=== PATIENT | male | born 1960 ===

== ENCOUNTER 2016-09-16 | Inpatient (IN) | END 2017-09-15 23:59 | disposition other institution (70) | DRG 133 | DX: J96.11 Chronic respiratory failure with hypoxia (principal); G93.1 Anoxic brain damage, not elsewhere classified; L89.303 Pressure ulcer of unspecified buttock, stage 3; Z93.0 Tracheostomy status; I42.9 Cardiomyopathy, unspecified; R13.10 Dysphagia, unspecified; I48.91 Unspecified atrial fibrillation; G40.901 Epilepsy, unspecified, not intractable, with status epilepticus; I10 Essential (primary) hypertension; Z93.1 Gastrostomy status; E11.9 Type 2 diabetes mellitus without complications; I25.10 Atherosclerotic heart disease of native coronary artery without angina pectoris; E78.5 Hyperlipidemia, unspecified; Z79.01 Long term (current) use of anticoagulants ==

== ENCOUNTER 2017-09-16 | Inpatient (IN) | END 2018-09-15 23:59 | disposition still patient (30) | DRG 189 | DX: J96.11 Chronic respiratory failure with hypoxia (principal); L89.303 Pressure ulcer of unspecified buttock, stage 3; G93.1 Anoxic brain damage, not elsewhere classified; I42.9 Cardiomyopathy, unspecified; N39.0 Urinary tract infection, site not specified; K94.22 Gastrostomy infection; K94.23 Gastrostomy malfunction; L03.311 Cellulitis of abdominal wall; R40.3 Persistent vegetative state; I69.398 Other sequelae of cerebral infarction; Z93.0 Tracheostomy status; R13.10 Dysphagia, unspecified; I48.91 Unspecified atrial fibrillation; G40.901 Epilepsy, unspecified, not intractable, with status epilepticus; Z93.1 Gastrostomy status; E11.9 Type 2 diabetes mellitus without complications; I25.10 Atherosclerotic heart disease of native coronary artery without angina pectoris; E78.5 Hyperlipidemia, unspecified; Z79.01 Long term (current) use of anticoagulants; D63.8 Anemia in other chronic diseases classified elsewhere; I11.0 Hypertensive heart disease with heart failure; J40 Bronchitis, not specified as acute or chronic; I50.9 Heart failure, unspecified; L02.92 Furuncle, unspecified ==

== ENCOUNTER 2017-11-28 14:45 | Outpatient (CLI) | payer MEDICAID | END 2017-11-28 23:59 | disposition home or self-care (01) | LOC: RAD 14:45 | PROVIDERS: ATTEND Internal Medicine Pulmonary Disease | DX: K94.23 Gastrostomy malfunction (principal); K63.89 Other specified diseases of intestine; I51.7 Cardiomegaly; I31.3 Pericardial effusion (noninflammatory) ==

== ENCOUNTER 2017-11-29 10:05 | Day surgery (SDC) | payer MEDICAID ==
[2017-11-29] MEDS ORDERED: ETOMIDATE 20 MG/10 ML VIAL MC ONE (10:06)
[2017-11-29] MEDS ORDERED: PROPOFOL 200 MG/20 ML BOTTLE IV ONE (10:06)
[2017-11-29] MEDS ORDERED: CEFAZOLIN 1 G VIAL MC ONE (10:06)
[2017-11-29] MEDS ORDERED: ESMOLOL HCL 100 MG/10 ML VIAL IV ONE (14:39)
== END 2017-11-29 15:42 | disposition still patient (30) ==
LOC: DS 10:05
PROVIDERS: ATTEND Internal Medicine Gastroenterology
DX: T85.528A Displacement of other gastrointestinal prosthetic devices, implants and grafts, initial encounter (principal); I10 Essential (primary) hypertension; F41.9 Anxiety disorder, unspecified; I42.9 Cardiomyopathy, unspecified; E11.9 Type 2 diabetes mellitus without complications; G40.909 Epilepsy, unspecified, not intractable, without status epilepticus
CPT/HCPCS: 43235; A4217; J0690; J3490

== ENCOUNTER 2018-09-16 | Inpatient (IN) | payer MEDICARE, MEDICAID ==
[~2018-09-16] VITALS: Ht 188 cm; Wt 89.8 kg
[2018-09-17 08:06] VITALS: BP 113/78
[2018-09-17] MEDS ORDERED: DEXTROSE 50% 50 ML DISP.SYRIN IV PRN (09:30)
[2018-09-17] MEDS ORDERED: HYDROGEN PEROXIDE 3% 118 ML BOTTLE TP PRN (09:30)
[2018-09-17] MEDS ORDERED: HYDROCODONE/APAP 5-325MG TABLET GT PRN (09:30)
[2018-09-17] MEDS ORDERED: HYDROCODONE BIT/HOMATROPINE 5 ML UDC GT PRN (09:45)
[2018-09-17] MEDS ORDERED: IPRATROPIUM BROMIDE 0.5 MG/2.5 ML NEBU NEB PRN (09:45)
[2018-09-17] MEDS ORDERED: ACETAMINOPHEN 650 MG/20 ML UDC- SA PATIENTS-FEVER ONLY GT PRN (09:45)
[2018-09-17] MEDS ORDERED: MELATONIN 3 MG GT PRN (09:45)
[2018-09-17] MEDS: METOPROLOL TARTRATE 100 MG TABLET GT SCH (09:47)
[2018-09-17] MEDS: LEVETIRACETAM 500 MG/5 ML LIQUID UDC GT SCH ×2 (09:50→21:30)
[2018-09-17] MEDS: SPIRONOLACTONE 25 MG TABLET GT SCH (09:50)
[2018-09-17] MEDS: AMANTADINE 50MG/5ML GT SCH (09:50)
[2018-09-17] MEDS: Z GUARD REMEDY PASTE 57 GM TUBE TP SCH ×2 (09:51→21:30)
[2018-09-17] MEDS: ASPIRIN 81 MG TAB.CHEW GT SCH (09:51)
[2018-09-17] MEDS: VIMPAT 150 MG GT SCH ×2 (09:52→21:30)
[2018-09-17] MEDS: PHENOBARBITAL 64.8 MG TABLET GT SCH (09:52)
[2018-09-17] MEDS: COD LIVER OIL/ZINC OXIDE OINT 113 GM TUBE TP SCH ×2 (09:52→21:30)
[2018-09-17] MEDS: POTASSIUM CHLORIDE 40 MEQ/30 ML LIQUID UDC GT SCH (09:54)
[2018-09-17] MEDS: ACIDOPHILUS/BULGARICUS CHEW TAB GT SCH ×2 (09:55→21:30)
[2018-09-17] MEDS: HYDROGEN PEROXIDE 3% 118 ML BOTTLE TP SCH ×2 (09:56→21:30)
[2018-09-17] MEDS: BLOOD SUGAR DIAGNOSTIC 1 EACH STRIP VI SCH ×2 (11:49→18:07)
[2018-09-17] MEDS: INSULIN REGULAR, HUMAN 300 UNIT/3 ML VIAL SQ PRN ×2 (11:50→18:09)
[2018-09-17] MEDS: IPRATROPIUM BROMIDE 0.5 MG/2.5 ML NEBU NEB SCH ×2 (13:17→19:18)
[2018-09-17] MEDS: ALBUTEROL SULFATE 2.5 MG/3 ML NEBU NEB SCH ×2 (13:17→19:18)
[2018-09-17] MEDS: BENZTROPINE MESYLATE 0.5 MG TABLET GT SCH ×2 (13:56→22:16)
[2018-09-17] MEDS: GLUCERNA 1.2 1000ML LIQUID GT SCH (13:56)
[2018-09-17] MEDS: INSULIN NPH SQ SCH ×2 (13:57→22:20)
[2018-09-17] MEDS ORDERED: INSULIN NPH SQ SCH (14:00)
[2018-09-17] MEDS: PHENYTOIN 100 MG/4 ML UDC GT SCH (18:06)
[2018-09-17] MEDS: LISINOPRIL 20 MG TABLET GT SCH (18:06)
[2018-09-17 20:00] VITALS: BP 135/79
[2018-09-17] MEDS: ENOXAPARIN SODIUM 40 MG/0.4 ML DISP.SYRIN SQ SCH (21:30)
[2018-09-17] MEDS: NUTRISOURCE FIBER 4 GM PACKET PO SCH (21:30)
[2018-09-17] MEDS: PHENOBARBITAL 97.2 MG TABLET GT SCH (21:30)
[2018-09-17] MEDS: DIGOXIN 125 MCG TABLET GT SCH (21:30)
[2018-09-17] MEDS: PROTEIN SUPPLEMENT (PROSTAT) 30 ML LIQUID GT SCH (21:30)
[2018-09-17] MEDS: MELATONIN 3 MG GT SCH (21:30)
[2018-09-18] MEDS: BLOOD SUGAR DIAGNOSTIC 1 EACH STRIP VI SCH ×4 (00:46→18:03)
[2018-09-18] MEDS: INSULIN REGULAR, HUMAN 300 UNIT/3 ML VIAL SQ PRN ×4 (00:50→18:04)
[2018-09-18] MEDS: IPRATROPIUM BROMIDE 0.5 MG/2.5 ML NEBU NEB SCH ×4 (00:58→19:25)
[2018-09-18] MEDS: ALBUTEROL SULFATE 2.5 MG/3 ML NEBU NEB SCH ×4 (00:58→19:25)
[2018-09-18] MEDS: OMEPRAZOLE 20 MG CAPSULE.DR GT SCH (05:52)
[2018-09-18] MEDS: FERROUS SULFATE 330 MG/7.5 ML UDC- FOR SA ONLY GT SCH (05:52)
[2018-09-18] MEDS: LISINOPRIL 20 MG TABLET GT SCH ×2 (05:52→18:03)
[2018-09-18] MEDS: CYANOCOBALAMIN 100 MCG TABLET GT SCH (05:52)
[2018-09-18] MEDS: LORATADINE 10 MG TABLET GT SCH (05:52)
[2018-09-18] MEDS: PHENYTOIN 100 MG/4 ML UDC GT SCH ×2 (05:52→18:00)
[2018-09-18] MEDS: FOLIC ACID 1 MG TABLET GT SCH (05:52)
[2018-09-18] MEDS: BENZTROPINE MESYLATE 0.5 MG TABLET GT SCH ×3 (05:52→21:12)
[2018-09-18] MEDS: INSULIN NPH SQ SCH ×3 (06:01→21:20)
[2018-09-18] MEDS: GLUCERNA 1.2 1000ML LIQUID GT SCH ×2 (07:00→23:17)
[2018-09-18 08:05] VITALS: BP 127/80
[2018-09-18] MEDS: SPIRONOLACTONE 25 MG TABLET GT SCH (09:13)
[2018-09-18] MEDS: LEVETIRACETAM 500 MG/5 ML LIQUID UDC GT SCH ×2 (09:13→21:09)
[2018-09-18] MEDS: ACIDOPHILUS/BULGARICUS CHEW TAB GT SCH ×2 (09:13→21:09)
[2018-09-18] MEDS: ASPIRIN 81 MG TAB.CHEW GT SCH (09:13)
[2018-09-18] MEDS: PHENOBARBITAL 64.8 MG TABLET GT SCH (09:14)
[2018-09-18] MEDS: METOPROLOL TARTRATE 100 MG TABLET GT SCH (09:14)
[2018-09-18] MEDS: AMANTADINE 50MG/5ML GT SCH (09:14)
[2018-09-18] MEDS: VIMPAT 150 MG GT SCH ×2 (09:15→21:11)
[2018-09-18] MEDS: Z GUARD REMEDY PASTE 57 GM TUBE TP SCH ×2 (09:15→21:12)
[2018-09-18] MEDS: COD LIVER OIL/ZINC OXIDE OINT 113 GM TUBE TP SCH ×2 (09:15→21:12)
[2018-09-18] MEDS: POTASSIUM CHLORIDE 40 MEQ/30 ML LIQUID UDC GT SCH (09:15)
[2018-09-18] MEDS: NUTRISOURCE FIBER 4 GM PACKET PO SCH ×2 (09:15→21:12)
[2018-09-18] MEDS: HYDROGEN PEROXIDE 3% 118 ML BOTTLE TP SCH ×2 (09:15→21:12)
--- NOTE | 2018-09-18 14:45 | NUR ---
2:20pm: KD met with patient's dick/SJ Prabhakar today and obtained signatures on all annual admission paperwork for patient's new chart. The paperwork included: Condition of Admission, Patient Rights Acknowledgement, An Important Message from Medicare about your Rights, Documentation of Preferred Intensity of Care, Voluntary Prior Express Consent Form, and the [facility] Agreement. KD offered Vanna a copy of the signed forms, and Vanna declined. For all assessment/quarterly information, see patient's previous chart #[id number].
[2018-09-18 20:39] VITALS: BP 137/82
[2018-09-18] MEDS: MELATONIN 3 MG GT SCH (21:10)
[2018-09-18] MEDS: DIGOXIN 125 MCG TABLET GT SCH (21:10)
[2018-09-18] MEDS: PHENOBARBITAL 97.2 MG TABLET GT SCH (21:11)
[2018-09-18] MEDS: PROTEIN SUPPLEMENT (PROSTAT) 30 ML LIQUID GT SCH (21:11)
[2018-09-18] MEDS: MULTIVIT, IRON, MIN NO. 8, FA TABLET GT SCH (21:11)
[2018-09-18] MEDS: ENOXAPARIN SODIUM 40 MG/0.4 ML DISP.SYRIN SQ SCH (21:21)
[2018-09-18] MEDS: CYCLOBENZAPRINE HCL 10 MG TABLET PO PRN (23:00)
[2018-09-19] MEDS: INSULIN REGULAR, HUMAN 300 UNIT/3 ML VIAL SQ PRN ×4 (01:18→17:16)
[2018-09-19] MEDS: IPRATROPIUM BROMIDE 0.5 MG/2.5 ML NEBU NEB SCH ×4 (01:19→20:35)
[2018-09-19] MEDS: ALBUTEROL SULFATE 2.5 MG/3 ML NEBU NEB SCH ×4 (01:19→20:35)
[2018-09-19] MEDS: CYCLOBENZAPRINE HCL 10 MG TABLET PO PRN (01:58)
[2018-09-19] MEDS: GUAIFENESIN/DEXTROMETHORPHAN 5 ML UDC GT PRN ×2 (04:15→22:00)
[2018-09-19] MEDS: PHENYTOIN 100 MG/4 ML UDC GT SCH ×2 (05:22→17:11)
[2018-09-19] MEDS: LORATADINE 10 MG TABLET GT SCH (05:22)
[2018-09-19] MEDS: FERROUS SULFATE 330 MG/7.5 ML UDC- FOR SA ONLY GT SCH (05:22)
[2018-09-19] MEDS: BLOOD SUGAR DIAGNOSTIC 1 EACH STRIP VI SCH ×4 (05:22→17:15)
[2018-09-19] MEDS: OMEPRAZOLE 20 MG CAPSULE.DR GT SCH (05:22)
[2018-09-19] MEDS: FOLIC ACID 1 MG TABLET GT SCH (05:22)
[2018-09-19] MEDS: CYANOCOBALAMIN 100 MCG TABLET GT SCH (05:22)
[2018-09-19] MEDS: BENZTROPINE MESYLATE 0.5 MG TABLET GT SCH ×3 (05:22→21:23)
[2018-09-19] MEDS: INSULIN NPH SQ SCH ×3 (05:36→21:24)
[2018-09-19] MEDS: LISINOPRIL 20 MG TABLET GT SCH ×2 (05:37→17:15)
[2018-09-19] MEDS: ASPIRIN 81 MG TAB.CHEW GT SCH (08:05)
[2018-09-19] MEDS: ACIDOPHILUS/BULGARICUS CHEW TAB GT SCH ×2 (08:05→20:56)
[2018-09-19] MEDS: SPIRONOLACTONE 25 MG TABLET GT SCH (08:05)
[2018-09-19] MEDS: METOPROLOL TARTRATE 100 MG TABLET GT SCH (08:05)
[2018-09-19] MEDS: LEVETIRACETAM 500 MG/5 ML LIQUID UDC GT SCH ×2 (08:05→20:56)
[2018-09-19] MEDS: PHENOBARBITAL 64.8 MG TABLET GT SCH (08:06)
[2018-09-19] MEDS: AMANTADINE 50MG/5ML GT SCH (08:07)
[2018-09-19] MEDS: VIMPAT 150 MG GT SCH ×2 (08:07→20:57)
[2018-09-19] MEDS: POTASSIUM CHLORIDE 40 MEQ/30 ML LIQUID UDC GT SCH (08:07)
[2018-09-19] MEDS: Z GUARD REMEDY PASTE 57 GM TUBE TP SCH ×2 (08:08→20:58)
[2018-09-19] MEDS: NUTRISOURCE FIBER 4 GM PACKET PO SCH ×2 (08:08→20:58)
[2018-09-19] MEDS: COD LIVER OIL/ZINC OXIDE OINT 113 GM TUBE TP SCH ×2 (08:08→20:58)
[2018-09-19] MEDS: HYDROGEN PEROXIDE 3% 118 ML BOTTLE TP SCH ×2 (08:08→20:58)
[2018-09-19 08:10] VITALS: BP 146/78
[2018-09-19] MEDS: DIGOXIN 125 MCG TABLET GT SCH (20:56)
[2018-09-19] MEDS: PROTEIN SUPPLEMENT (PROSTAT) 30 ML LIQUID GT SCH (20:57)
[2018-09-19] MEDS: PHENOBARBITAL 97.2 MG TABLET GT SCH (20:57)
[2018-09-19] MEDS: MELATONIN 3 MG GT SCH (20:57)
[2018-09-19] MEDS: ENOXAPARIN SODIUM 40 MG/0.4 ML DISP.SYRIN SQ SCH (21:23)
[2018-09-19 22:59] VITALS: BP 122/87
[2018-09-20] MEDS: GLUCERNA 1.2 1000ML LIQUID GT SCH (00:25)
[2018-09-20] MEDS: BLOOD SUGAR DIAGNOSTIC 1 EACH STRIP VI SCH ×4 (00:49→18:17)
[2018-09-20] MEDS: INSULIN REGULAR, HUMAN 300 UNIT/3 ML VIAL SQ PRN ×4 (00:52→18:19)
[2018-09-20] MEDS: ALBUTEROL SULFATE 2.5 MG/3 ML NEBU NEB SCH ×4 (01:17→19:12)
[2018-09-20] MEDS: IPRATROPIUM BROMIDE 0.5 MG/2.5 ML NEBU NEB SCH ×4 (01:17→19:12)
[2018-09-20] MEDS: LORATADINE 10 MG TABLET GT SCH (05:18)
[2018-09-20] MEDS: BENZTROPINE MESYLATE 0.5 MG TABLET GT SCH ×3 (05:18→21:20)
[2018-09-20] MEDS: CYANOCOBALAMIN 100 MCG TABLET GT SCH (05:19)
[2018-09-20] MEDS: FOLIC ACID 1 MG TABLET GT SCH (05:19)
[2018-09-20] MEDS: PHENYTOIN 100 MG/4 ML UDC GT SCH ×2 (05:19→18:20)
[2018-09-20] MEDS: LISINOPRIL 20 MG TABLET GT SCH ×2 (05:19→18:16)
[2018-09-20] MEDS: FERROUS SULFATE 330 MG/7.5 ML UDC- FOR SA ONLY GT SCH (05:19)
[2018-09-20] MEDS: OMEPRAZOLE 20 MG CAPSULE.DR GT SCH (05:19)
[2018-09-20] MEDS: INSULIN NPH SQ SCH ×3 (06:12→21:23)
[2018-09-20] MEDS: GUAIFENESIN/DEXTROMETHORPHAN 5 ML UDC GT PRN ×2 (06:16→21:36)
[2018-09-20 08:12] VITALS: BP 134/91
[2018-09-20] MEDS: POTASSIUM CHLORIDE 40 MEQ/30 ML LIQUID UDC GT SCH (09:56)
[2018-09-20] MEDS: COD LIVER OIL/ZINC OXIDE OINT 113 GM TUBE TP SCH ×2 (09:56→21:19)
[2018-09-20] MEDS: ACIDOPHILUS/BULGARICUS CHEW TAB GT SCH ×2 (09:56→21:15)
[2018-09-20] MEDS: LEVETIRACETAM 500 MG/5 ML LIQUID UDC GT SCH ×2 (09:56→21:15)
[2018-09-20] MEDS: AMANTADINE 50MG/5ML GT SCH (09:56)
[2018-09-20] MEDS: VIMPAT 150 MG GT SCH ×2 (09:56→21:16)
[2018-09-20] MEDS: METOPROLOL TARTRATE 100 MG TABLET GT SCH (09:56)
[2018-09-20] MEDS: SPIRONOLACTONE 25 MG TABLET GT SCH (09:56)
[2018-09-20] MEDS: ASPIRIN 81 MG TAB.CHEW GT SCH (09:56)
[2018-09-20] MEDS: HYDROGEN PEROXIDE 3% 118 ML BOTTLE TP SCH ×2 (09:56→21:19)
[2018-09-20] MEDS: NUTRISOURCE FIBER 4 GM PACKET PO SCH ×2 (09:56→21:18)
[2018-09-20] MEDS: PHENOBARBITAL 64.8 MG TABLET GT SCH (09:56)
[2018-09-20] MEDS: Z GUARD REMEDY PASTE 57 GM TUBE TP SCH ×2 (09:57→21:20)
[2018-09-20] MEDS: NYSTATIN SUSPENSION 5 ML LIQUID UDC XX SCH ×2 (12:00→18:20)
[2018-09-20] MEDS: MELATONIN 3 MG GT SCH (21:15)
[2018-09-20] MEDS: DIGOXIN 125 MCG TABLET GT SCH (21:15)
[2018-09-20] MEDS: PHENOBARBITAL 97.2 MG TABLET GT SCH (21:17)
[2018-09-20] MEDS: MULTIVIT, IRON, MIN NO. 8, FA TABLET GT SCH (21:18)
[2018-09-20] MEDS: PROTEIN SUPPLEMENT (PROSTAT) 30 ML LIQUID GT SCH (21:18)
[2018-09-20] MEDS: ENOXAPARIN SODIUM 40 MG/0.4 ML DISP.SYRIN SQ SCH (21:23)
[2018-09-20] MEDS: ACETAMINOPHEN 650 MG/20 ML UDC- SA PATIENTS-PAIN ONLY GT PRN (21:36)
[2018-09-20 22:19] VITALS: BP 126/82
[2018-09-21] MEDS: NYSTATIN SUSPENSION 5 ML LIQUID UDC XX SCH ×5 (00:53→23:59)
[2018-09-21] MEDS: BLOOD SUGAR DIAGNOSTIC 1 EACH STRIP VI SCH ×5 (00:53→23:59)
[2018-09-21] MEDS: ALBUTEROL SULFATE 2.5 MG/3 ML NEBU NEB SCH ×4 (00:55→20:36)
[2018-09-21] MEDS: INSULIN REGULAR, HUMAN 300 UNIT/3 ML VIAL SQ PRN ×4 (00:55→17:42)
[2018-09-21] MEDS: IPRATROPIUM BROMIDE 0.5 MG/2.5 ML NEBU NEB SCH ×4 (00:55→20:36)
[2018-09-21] MEDS: CYCLOBENZAPRINE HCL 10 MG TABLET PO PRN (00:57)
[2018-09-21] MEDS: GLUCERNA 1.2 1000ML LIQUID GT SCH (05:00)
[2018-09-21] MEDS: GUAIFENESIN/DEXTROMETHORPHAN 5 ML UDC GT PRN (05:11)
[2018-09-21] MEDS: INSULIN NPH SQ SCH ×3 (05:18→22:29)
[2018-09-21] MEDS: CYANOCOBALAMIN 100 MCG TABLET GT SCH (06:04)
[2018-09-21] MEDS: BENZTROPINE MESYLATE 0.5 MG TABLET GT SCH ×3 (06:04→22:28)
[2018-09-21] MEDS: OMEPRAZOLE 20 MG CAPSULE.DR GT SCH (06:04)
[2018-09-21] MEDS: LISINOPRIL 20 MG TABLET GT SCH ×2 (06:04→17:41)
[2018-09-21] MEDS: PHENYTOIN 100 MG/4 ML UDC GT SCH ×2 (06:04→17:41)
[2018-09-21] MEDS: FOLIC ACID 1 MG TABLET GT SCH (06:04)
[2018-09-21] MEDS: FERROUS SULFATE 330 MG/7.5 ML UDC- FOR SA ONLY GT SCH (06:04)
[2018-09-21] MEDS: LORATADINE 10 MG TABLET GT SCH (06:04)
[2018-09-21] MEDS: NUTRISOURCE FIBER 4 GM PACKET PO SCH ×2 (08:52→21:13)
[2018-09-21] MEDS: PHENOBARBITAL 64.8 MG TABLET GT SCH (08:52)
[2018-09-21] MEDS: ACIDOPHILUS/BULGARICUS CHEW TAB GT SCH ×2 (08:52→21:12)
[2018-09-21] MEDS: COD LIVER OIL/ZINC OXIDE OINT 113 GM TUBE TP SCH ×2 (08:52→21:15)
[2018-09-21] MEDS: Z GUARD REMEDY PASTE 57 GM TUBE TP SCH ×2 (08:52→21:15)
[2018-09-21] MEDS: LEVETIRACETAM 500 MG/5 ML LIQUID UDC GT SCH ×2 (08:52→21:12)
[2018-09-21] MEDS: VIMPAT 150 MG GT SCH ×2 (08:52→21:13)
[2018-09-21] MEDS: ASPIRIN 81 MG TAB.CHEW GT SCH (08:52)
[2018-09-21] MEDS: SPIRONOLACTONE 25 MG TABLET GT SCH (08:52)
[2018-09-21] MEDS: AMANTADINE 50MG/5ML GT SCH (08:52)
[2018-09-21] MEDS: HYDROGEN PEROXIDE 3% 118 ML BOTTLE TP SCH ×2 (08:52→21:15)
[2018-09-21] MEDS: METOPROLOL TARTRATE 100 MG TABLET GT SCH (08:52)
[2018-09-21] MEDS: POTASSIUM CHLORIDE 40 MEQ/30 ML LIQUID UDC GT SCH (08:52)
[2018-09-21 11:34] VITALS: BP 113/62
[2018-09-21] MEDS: MELATONIN 3 MG GT SCH (21:13)
[2018-09-21] MEDS: DIGOXIN 125 MCG TABLET GT SCH (21:13)
[2018-09-21] MEDS: PHENOBARBITAL 97.2 MG TABLET GT SCH (21:13)
[2018-09-21] MEDS: PROTEIN SUPPLEMENT (PROSTAT) 30 ML LIQUID GT SCH (21:13)
[2018-09-21] MEDS: ENOXAPARIN SODIUM 40 MG/0.4 ML DISP.SYRIN SQ SCH (21:14)
[2018-09-21 23:13] VITALS: BP 120/81
--- NOTE | 2018-09-22 | NUR ---
On Nystatin oral swab for oral garcia, no adverse reactions noted, good oral care done, no signs of pain or discomfort, kept clean and comfortable.
[2018-09-22] MEDS: INSULIN REGULAR, HUMAN 300 UNIT/3 ML VIAL SQ PRN ×4 (00:01→17:12)
[2018-09-22] MEDS: ALBUTEROL SULFATE 2.5 MG/3 ML NEBU NEB SCH ×4 (01:18→18:57)
[2018-09-22] MEDS: IPRATROPIUM BROMIDE 0.5 MG/2.5 ML NEBU NEB SCH ×4 (01:18→18:57)
[2018-09-22] MEDS: GUAIFENESIN/DEXTROMETHORPHAN 5 ML UDC GT PRN (04:50)
[2018-09-22] MEDS: BENZTROPINE MESYLATE 0.5 MG TABLET GT SCH ×3 (05:09→22:42)
[2018-09-22] MEDS: FERROUS SULFATE 330 MG/7.5 ML UDC- FOR SA ONLY GT SCH (05:09)
[2018-09-22] MEDS: LORATADINE 10 MG TABLET GT SCH (05:09)
[2018-09-22] MEDS: CYANOCOBALAMIN 100 MCG TABLET GT SCH (05:09)
[2018-09-22] MEDS: LISINOPRIL 20 MG TABLET GT SCH ×2 (05:09→17:11)
[2018-09-22] MEDS: FOLIC ACID 1 MG TABLET GT SCH (05:09)
[2018-09-22] MEDS: OMEPRAZOLE 20 MG CAPSULE.DR GT SCH (05:09)
[2018-09-22] MEDS: PHENYTOIN 100 MG/4 ML UDC GT SCH ×2 (05:09→17:11)
[2018-09-22] MEDS: NYSTATIN SUSPENSION 5 ML LIQUID UDC XX SCH ×3 (05:10→17:13)
[2018-09-22] MEDS: INSULIN NPH SQ SCH ×3 (05:10→22:54)
[2018-09-22] MEDS: BLOOD SUGAR DIAGNOSTIC 1 EACH STRIP VI SCH ×3 (05:10→17:11)
[2018-09-22] MEDS: GLUCERNA 1.2 1000ML LIQUID GT SCH (06:45)
[2018-09-22 08:17] VITALS: BP 118/71
[2018-09-22] MEDS: COD LIVER OIL/ZINC OXIDE OINT 113 GM TUBE TP SCH ×2 (08:24→21:00)
[2018-09-22] MEDS: SPIRONOLACTONE 25 MG TABLET GT SCH (08:24)
[2018-09-22] MEDS: AMANTADINE 50MG/5ML GT SCH (08:24)
[2018-09-22] MEDS: VIMPAT 150 MG GT SCH ×2 (08:24→21:00)
[2018-09-22] MEDS: NUTRISOURCE FIBER 4 GM PACKET PO SCH ×2 (08:24→21:00)
[2018-09-22] MEDS: METOPROLOL TARTRATE 100 MG TABLET GT SCH (08:24)
[2018-09-22] MEDS: POTASSIUM CHLORIDE 40 MEQ/30 ML LIQUID UDC GT SCH (08:24)
[2018-09-22] MEDS: ACIDOPHILUS/BULGARICUS CHEW TAB GT SCH ×2 (08:24→21:00)
[2018-09-22] MEDS: ASPIRIN 81 MG TAB.CHEW GT SCH (08:24)
[2018-09-22] MEDS: PHENOBARBITAL 64.8 MG TABLET GT SCH (08:24)
[2018-09-22] MEDS: LEVETIRACETAM 500 MG/5 ML LIQUID UDC GT SCH ×2 (08:24→21:00)
[2018-09-22] MEDS: HYDROGEN PEROXIDE 3% 118 ML BOTTLE TP SCH ×2 (08:24→21:00)
[2018-09-22] MEDS: Z GUARD REMEDY PASTE 57 GM TUBE TP SCH ×2 (08:25→21:00)
[2018-09-22 20:00] VITALS: BP 130/79
[2018-09-22] MEDS: MULTIVIT, IRON, MIN NO. 8, FA TABLET GT SCH (21:00)
[2018-09-22] MEDS: PHENOBARBITAL 97.2 MG TABLET GT SCH (21:00)
[2018-09-22] MEDS: DIGOXIN 125 MCG TABLET GT SCH (21:00)
[2018-09-22] MEDS: PROTEIN SUPPLEMENT (PROSTAT) 30 ML LIQUID GT SCH (21:00)
[2018-09-22] MEDS: MELATONIN 3 MG GT SCH (21:00)
[2018-09-22] MEDS: ENOXAPARIN SODIUM 40 MG/0.4 ML DISP.SYRIN SQ SCH (21:00)
[2018-09-23] MEDS: NYSTATIN SUSPENSION 5 ML LIQUID UDC XX SCH ×4 (00:11→18:54)
[2018-09-23] MEDS: BLOOD SUGAR DIAGNOSTIC 1 EACH STRIP VI SCH ×4 (00:16→17:36)
[2018-09-23] MEDS: INSULIN REGULAR, HUMAN 300 UNIT/3 ML VIAL SQ PRN ×4 (00:21→17:37)
[2018-09-23] MEDS: ALBUTEROL SULFATE 2.5 MG/3 ML NEBU NEB SCH ×4 (00:40→18:47)
[2018-09-23] MEDS: IPRATROPIUM BROMIDE 0.5 MG/2.5 ML NEBU NEB SCH ×4 (00:40→18:47)
[2018-09-23] MEDS: GUAIFENESIN/DEXTROMETHORPHAN 5 ML UDC GT PRN (03:45)
[2018-09-23] MEDS: LORATADINE 10 MG TABLET GT SCH (06:09)
[2018-09-23] MEDS: BENZTROPINE MESYLATE 0.5 MG TABLET GT SCH ×3 (06:10→21:43)
[2018-09-23] MEDS: FERROUS SULFATE 330 MG/7.5 ML UDC- FOR SA ONLY GT SCH (06:12)
[2018-09-23] MEDS: PHENYTOIN 100 MG/4 ML UDC GT SCH ×2 (06:12→17:29)
[2018-09-23] MEDS: OMEPRAZOLE 20 MG CAPSULE.DR GT SCH (06:13)
[2018-09-23] MEDS: FOLIC ACID 1 MG TABLET GT SCH (06:13)
[2018-09-23] MEDS: LISINOPRIL 20 MG TABLET GT SCH ×2 (06:13→17:29)
[2018-09-23] MEDS: CYANOCOBALAMIN 100 MCG TABLET GT SCH (06:14)
[2018-09-23] MEDS: INSULIN NPH SQ SCH ×3 (06:22→21:53)
[2018-09-23] MEDS: AMANTADINE 50MG/5ML GT SCH (08:07)
[2018-09-23] MEDS: VIMPAT 150 MG GT SCH ×2 (08:07→21:42)
[2018-09-23] MEDS: SPIRONOLACTONE 25 MG TABLET GT SCH (08:07)
[2018-09-23] MEDS: ASPIRIN 81 MG TAB.CHEW GT SCH (08:07)
[2018-09-23] MEDS: METOPROLOL TARTRATE 100 MG TABLET GT SCH (08:07)
[2018-09-23] MEDS: NUTRISOURCE FIBER 4 GM PACKET PO SCH ×2 (08:07→21:42)
[2018-09-23] MEDS: PHENOBARBITAL 64.8 MG TABLET GT SCH (08:07)
[2018-09-23] MEDS: LEVETIRACETAM 500 MG/5 ML LIQUID UDC GT SCH ×2 (08:07→21:40)
[2018-09-23] MEDS: ACIDOPHILUS/BULGARICUS CHEW TAB GT SCH ×2 (08:07→21:40)
[2018-09-23] MEDS: POTASSIUM CHLORIDE 40 MEQ/30 ML LIQUID UDC GT SCH (08:07)
[2018-09-23] MEDS: COD LIVER OIL/ZINC OXIDE OINT 113 GM TUBE TP SCH ×2 (08:07→21:42)
[2018-09-23] MEDS: Z GUARD REMEDY PASTE 57 GM TUBE TP SCH ×2 (08:08→21:43)
[2018-09-23] MEDS: HYDROGEN PEROXIDE 3% 118 ML BOTTLE TP SCH ×2 (08:08→21:43)
[2018-09-23 08:18] VITALS: BP 177/109
--- NOTE | 2018-09-23 15:43 | NUR ---
Patient's fiance/POCarina Prabhakar informed this SW that she has scheduled an appointment for patient to go see a neuro-learning and development associate on Saturday10/06/18 at 2pm: [facility], [address], [place], [address]. Vanna stated that she will be making transportation arrangements for [facility]. KD informed kiln charger Keena about the above, and asked her to endorse this information to the other nurses. KD also emailed the daytime kiln charger's and Subacute Director Luis Carlos Lazo about above.
[2018-09-23 20:07] VITALS: BP 130/78
[2018-09-23] MEDS: DIGOXIN 125 MCG TABLET GT SCH (21:41)
[2018-09-23] MEDS: MELATONIN 3 MG GT SCH (21:42)
[2018-09-23] MEDS: PROTEIN SUPPLEMENT (PROSTAT) 30 ML LIQUID GT SCH (21:42)
[2018-09-23] MEDS: PHENOBARBITAL 97.2 MG TABLET GT SCH (21:42)
[2018-09-23] MEDS: ENOXAPARIN SODIUM 40 MG/0.4 ML DISP.SYRIN SQ SCH (21:53)
[2018-09-24] MEDS: ALBUTEROL SULFATE 2.5 MG/3 ML NEBU NEB SCH ×4 (00:36→19:26)
[2018-09-24] MEDS: IPRATROPIUM BROMIDE 0.5 MG/2.5 ML NEBU NEB SCH ×4 (00:36→19:26)
[2018-09-24] MEDS: NYSTATIN SUSPENSION 5 ML LIQUID UDC XX SCH ×4 (00:54→17:59)
[2018-09-24] MEDS: BLOOD SUGAR DIAGNOSTIC 1 EACH STRIP VI SCH ×4 (00:54→18:09)
[2018-09-24] MEDS: INSULIN REGULAR, HUMAN 300 UNIT/3 ML VIAL SQ PRN ×2 (01:05→06:28)
[2018-09-24] MEDS: LORATADINE 10 MG TABLET GT SCH (06:25)
[2018-09-24] MEDS: FERROUS SULFATE 330 MG/7.5 ML UDC- FOR SA ONLY GT SCH (06:25)
[2018-09-24] MEDS: PHENYTOIN 100 MG/4 ML UDC GT SCH ×2 (06:25→18:09)
[2018-09-24] MEDS: FOLIC ACID 1 MG TABLET GT SCH (06:25)
[2018-09-24] MEDS: BENZTROPINE MESYLATE 0.5 MG TABLET GT SCH ×3 (06:25→22:04)
[2018-09-24] MEDS: LISINOPRIL 20 MG TABLET GT SCH ×2 (06:26→18:08)
[2018-09-24] MEDS: OMEPRAZOLE 20 MG CAPSULE.DR GT SCH (06:26)
[2018-09-24] MEDS: CYANOCOBALAMIN 100 MCG TABLET GT SCH (06:26)
[2018-09-24] MEDS: INSULIN NPH SQ SCH ×3 (06:27→22:05)
[2018-09-24 08:00] VITALS: BP 170/95
[2018-09-24] MEDS: PHENOBARBITAL 64.8 MG TABLET GT SCH (09:00)
[2018-09-24] MEDS: METOPROLOL TARTRATE 100 MG TABLET GT SCH (09:00)
[2018-09-24] MEDS: SPIRONOLACTONE 25 MG TABLET GT SCH (09:00)
[2018-09-24] MEDS: ACIDOPHILUS/BULGARICUS CHEW TAB GT SCH ×2 (09:00→21:58)
[2018-09-24] MEDS: POTASSIUM CHLORIDE 40 MEQ/30 ML LIQUID UDC GT SCH (09:00)
[2018-09-24] MEDS: COD LIVER OIL/ZINC OXIDE OINT 113 GM TUBE TP SCH ×2 (09:00→21:00)
[2018-09-24] MEDS: Z GUARD REMEDY PASTE 57 GM TUBE TP SCH ×2 (09:00→21:00)
[2018-09-24] MEDS: NUTRISOURCE FIBER 4 GM PACKET PO SCH ×2 (09:00→21:00)
[2018-09-24] MEDS: VIMPAT 150 MG GT SCH ×2 (09:00→21:59)
[2018-09-24] MEDS: LEVETIRACETAM 500 MG/5 ML LIQUID UDC GT SCH ×2 (09:00→21:58)
[2018-09-24] MEDS: HYDROGEN PEROXIDE 3% 118 ML BOTTLE TP SCH ×2 (09:00→21:00)
[2018-09-24] MEDS: AMANTADINE 50MG/5ML GT SCH (09:00)
[2018-09-24] MEDS: ASPIRIN 81 MG TAB.CHEW GT SCH (09:00)
[2018-09-24] MEDS: ACETAMINOPHEN 650 MG/20 ML UDC- SA PATIENTS-PAIN ONLY GT PRN (10:51)
[2018-09-24 20:15] VITALS: BP 148/92
[2018-09-24] MEDS: ENOXAPARIN SODIUM 40 MG/0.4 ML DISP.SYRIN SQ SCH (21:00)
[2018-09-24] MEDS: PROTEIN SUPPLEMENT (PROSTAT) 30 ML LIQUID GT SCH (21:00)
[2018-09-24] MEDS: MULTIVIT, IRON, MIN NO. 8, FA TABLET GT SCH (21:00)
[2018-09-24] MEDS: PHENOBARBITAL 97.2 MG TABLET GT SCH (21:00)
[2018-09-24] MEDS: DIGOXIN 125 MCG TABLET GT SCH (21:59)
[2018-09-24] MEDS: MELATONIN 3 MG GT SCH (21:59)
[2018-09-25] MEDS: BLOOD SUGAR DIAGNOSTIC 1 EACH STRIP VI SCH ×4 (00:40→18:10)
[2018-09-25] MEDS: NYSTATIN SUSPENSION 5 ML LIQUID UDC XX SCH ×4 (00:40→18:11)
[2018-09-25] MEDS: INSULIN REGULAR, HUMAN 300 UNIT/3 ML VIAL SQ PRN ×4 (00:44→18:12)
[2018-09-25] MEDS: GUAIFENESIN/DEXTROMETHORPHAN 5 ML UDC GT PRN (00:46)
[2018-09-25] MEDS: ALBUTEROL SULFATE 2.5 MG/3 ML NEBU NEB SCH ×4 (01:24→20:12)
[2018-09-25] MEDS: IPRATROPIUM BROMIDE 0.5 MG/2.5 ML NEBU NEB SCH ×4 (01:24→20:12)
[2018-09-25] MEDS: OMEPRAZOLE 20 MG CAPSULE.DR GT SCH (05:05)
[2018-09-25] MEDS: FERROUS SULFATE 330 MG/7.5 ML UDC- FOR SA ONLY GT SCH (05:05)
[2018-09-25] MEDS: BENZTROPINE MESYLATE 0.5 MG TABLET GT SCH ×3 (05:05→21:34)
[2018-09-25] MEDS: PHENYTOIN 100 MG/4 ML UDC GT SCH ×2 (05:05→18:10)
[2018-09-25] MEDS: LORATADINE 10 MG TABLET GT SCH (05:05)
[2018-09-25] MEDS: FOLIC ACID 1 MG TABLET GT SCH (05:05)
[2018-09-25] MEDS: LISINOPRIL 20 MG TABLET GT SCH ×2 (05:05→18:10)
[2018-09-25] MEDS: CYANOCOBALAMIN 100 MCG TABLET GT SCH (05:05)
[2018-09-25] MEDS: INSULIN NPH SQ SCH ×3 (05:07→21:35)
[2018-09-25] MEDS: ACIDOPHILUS/BULGARICUS CHEW TAB GT SCH ×2 (08:00→21:32)
[2018-09-25] MEDS: PHENOBARBITAL 64.8 MG TABLET GT SCH (08:00)
[2018-09-25] MEDS: NUTRISOURCE FIBER 4 GM PACKET PO SCH ×2 (08:00→21:33)
[2018-09-25] MEDS: ASPIRIN 81 MG TAB.CHEW GT SCH (08:00)
[2018-09-25] MEDS: VIMPAT 150 MG GT SCH ×2 (08:00→21:33)
[2018-09-25] MEDS: POTASSIUM CHLORIDE 40 MEQ/30 ML LIQUID UDC GT SCH (08:00)
[2018-09-25] MEDS: SPIRONOLACTONE 25 MG TABLET GT SCH (08:00)
[2018-09-25] MEDS: LEVETIRACETAM 500 MG/5 ML LIQUID UDC GT SCH ×2 (08:00→21:32)
[2018-09-25] MEDS: METOPROLOL TARTRATE 100 MG TABLET GT SCH (08:00)
[2018-09-25] MEDS: AMANTADINE 50MG/5ML GT SCH (08:00)
[2018-09-25] MEDS: COD LIVER OIL/ZINC OXIDE OINT 113 GM TUBE TP SCH ×2 (08:01→21:34)
[2018-09-25] MEDS: Z GUARD REMEDY PASTE 57 GM TUBE TP SCH ×2 (08:02→21:34)
[2018-09-25] MEDS: HYDROGEN PEROXIDE 3% 118 ML BOTTLE TP SCH ×2 (08:02→21:34)
[2018-09-25 10:47] VITALS: BP 110/71
--- NOTE | 2018-09-25 12:15 | NUR ---
SEEN AND EXAMINED BY TIFFANIE MAURICIO.
[2018-09-25 20:27] VITALS: BP 148/85
[2018-09-25] MEDS: PROTEIN SUPPLEMENT (PROSTAT) 30 ML LIQUID GT SCH (21:33)
[2018-09-25] MEDS: MELATONIN 3 MG GT SCH (21:33)
[2018-09-25] MEDS: PHENOBARBITAL 97.2 MG TABLET GT SCH (21:33)
[2018-09-25] MEDS: DIGOXIN 125 MCG TABLET GT SCH (21:33)
[2018-09-25] MEDS: ENOXAPARIN SODIUM 40 MG/0.4 ML DISP.SYRIN SQ SCH (21:33)
[2018-09-26] MEDS: NYSTATIN SUSPENSION 5 ML LIQUID UDC XX SCH ×4 (00:25→17:47)
[2018-09-26] MEDS: BLOOD SUGAR DIAGNOSTIC 1 EACH STRIP VI SCH ×4 (00:25→17:47)
[2018-09-26] MEDS: INSULIN REGULAR, HUMAN 300 UNIT/3 ML VIAL SQ PRN ×4 (00:26→17:59)
[2018-09-26] MEDS: ALBUTEROL SULFATE 2.5 MG/3 ML NEBU NEB SCH ×4 (01:10→18:48)
[2018-09-26] MEDS: IPRATROPIUM BROMIDE 0.5 MG/2.5 ML NEBU NEB SCH ×4 (01:10→18:48)
[2018-09-26] MEDS: LORATADINE 10 MG TABLET GT SCH (06:31)
[2018-09-26] MEDS: OMEPRAZOLE 20 MG CAPSULE.DR GT SCH (06:31)
[2018-09-26] MEDS: BENZTROPINE MESYLATE 0.5 MG TABLET GT SCH ×3 (06:31→22:02)
[2018-09-26] MEDS: PHENYTOIN 100 MG/4 ML UDC GT SCH ×2 (06:31→17:47)
[2018-09-26] MEDS: FERROUS SULFATE 330 MG/7.5 ML UDC- FOR SA ONLY GT SCH (06:31)
[2018-09-26] MEDS: FOLIC ACID 1 MG TABLET GT SCH (06:31)
[2018-09-26] MEDS: LISINOPRIL 20 MG TABLET GT SCH ×2 (06:32→18:45)
[2018-09-26] MEDS: CYANOCOBALAMIN 100 MCG TABLET GT SCH (06:32)
[2018-09-26] MEDS: INSULIN NPH SQ SCH ×3 (06:33→22:36)
[2018-09-26] MEDS: ASPIRIN 81 MG TAB.CHEW GT SCH (08:30)
[2018-09-26] MEDS: ACIDOPHILUS/BULGARICUS CHEW TAB GT SCH ×2 (08:30→21:59)
[2018-09-26] MEDS: SPIRONOLACTONE 25 MG TABLET GT SCH (08:30)
[2018-09-26] MEDS: LEVETIRACETAM 500 MG/5 ML LIQUID UDC GT SCH ×2 (08:31→21:00)
[2018-09-26] MEDS: METOPROLOL TARTRATE 100 MG TABLET GT SCH (08:32)
[2018-09-26] MEDS: PHENOBARBITAL 64.8 MG TABLET GT SCH (08:32)
[2018-09-26] MEDS: NUTRISOURCE FIBER 4 GM PACKET PO SCH ×2 (08:33→21:00)
[2018-09-26] MEDS: POTASSIUM CHLORIDE 40 MEQ/30 ML LIQUID UDC GT SCH (08:33)
[2018-09-26] MEDS: VIMPAT 150 MG GT SCH ×2 (08:33→21:00)
[2018-09-26] MEDS: AMANTADINE 50MG/5ML GT SCH (08:33)
[2018-09-26] MEDS: Z GUARD REMEDY PASTE 57 GM TUBE TP SCH ×2 (08:34→21:00)
[2018-09-26] MEDS: HYDROGEN PEROXIDE 3% 118 ML BOTTLE TP SCH ×2 (08:34→21:59)
[2018-09-26] MEDS: COD LIVER OIL/ZINC OXIDE OINT 113 GM TUBE TP SCH ×2 (08:34→21:00)
[2018-09-26] MEDS: GLUCERNA 1.2 1000ML LIQUID GT SCH (10:40)
[2018-09-26 11:08] VITALS: BP 145/89
--- NOTE | 2018-09-26 12:02 | NUR ---
KD informed patient's dick Prabhakar that the next IDT meeting for the patient is scheduled for 10/07/18 at 11am.
[2018-09-26 20:39] VITALS: BP 122/71
[2018-09-26] MEDS: DIGOXIN 125 MCG TABLET GT SCH (21:00)
[2018-09-26] MEDS: ENOXAPARIN SODIUM 40 MG/0.4 ML DISP.SYRIN SQ SCH (21:00)
[2018-09-26] MEDS: MULTIVIT, IRON, MIN NO. 8, FA TABLET GT SCH (21:00)
[2018-09-26] MEDS: PROTEIN SUPPLEMENT (PROSTAT) 30 ML LIQUID GT SCH (21:00)
[2018-09-26] MEDS: PHENOBARBITAL 97.2 MG TABLET GT SCH (21:00)
[2018-09-26] MEDS: MELATONIN 3 MG GT SCH (21:00)
[2018-09-26] MEDS: CYCLOBENZAPRINE HCL 10 MG TABLET PO PRN (21:59)
--- NOTE | 2018-09-26 22:00 | NUR ---
Remains on Nystatin oral swab for oral garcia, no adverse reactions noted, good oral care done, no signs of any respiratory distress noted, afebrile, kept clean and comfortable.
[2018-09-27] MEDS: NYSTATIN SUSPENSION 5 ML LIQUID UDC XX SCH ×4 (00:13→18:16)
[2018-09-27] MEDS: BLOOD SUGAR DIAGNOSTIC 1 EACH STRIP VI SCH ×4 (00:19→18:16)
[2018-09-27] MEDS: INSULIN REGULAR, HUMAN 300 UNIT/3 ML VIAL SQ PRN ×4 (00:24→18:18)
[2018-09-27] MEDS: ALBUTEROL SULFATE 2.5 MG/3 ML NEBU NEB SCH ×4 (00:35→19:27)
[2018-09-27] MEDS: IPRATROPIUM BROMIDE 0.5 MG/2.5 ML NEBU NEB SCH ×4 (00:35→19:27)
[2018-09-27] MEDS: INSULIN NPH SQ SCH ×3 (06:04→22:15)
[2018-09-27] MEDS: PHENYTOIN 100 MG/4 ML UDC GT SCH ×2 (06:10→18:13)
[2018-09-27] MEDS: LORATADINE 10 MG TABLET GT SCH (06:10)
[2018-09-27] MEDS: OMEPRAZOLE 20 MG CAPSULE.DR GT SCH (06:10)
[2018-09-27] MEDS: BENZTROPINE MESYLATE 0.5 MG TABLET GT SCH ×3 (06:10→22:03)
[2018-09-27] MEDS: FOLIC ACID 1 MG TABLET GT SCH (06:10)
[2018-09-27] MEDS: FERROUS SULFATE 330 MG/7.5 ML UDC- FOR SA ONLY GT SCH (06:10)
[2018-09-27] MEDS: CYANOCOBALAMIN 100 MCG TABLET GT SCH (06:11)
[2018-09-27] MEDS: LISINOPRIL 20 MG TABLET GT SCH ×2 (06:11→18:15)
[2018-09-27] MEDS: ACIDOPHILUS/BULGARICUS CHEW TAB GT SCH ×2 (08:15→21:49)
[2018-09-27] MEDS: LEVETIRACETAM 500 MG/5 ML LIQUID UDC GT SCH ×2 (08:15→21:51)
[2018-09-27] MEDS: ASPIRIN 81 MG TAB.CHEW GT SCH (08:15)
[2018-09-27] MEDS: SPIRONOLACTONE 25 MG TABLET GT SCH (08:15)
[2018-09-27] MEDS: Z GUARD REMEDY PASTE 57 GM TUBE TP SCH ×2 (08:16→22:02)
[2018-09-27] MEDS: PHENOBARBITAL 64.8 MG TABLET GT SCH (08:16)
[2018-09-27] MEDS: METOPROLOL TARTRATE 100 MG TABLET GT SCH (08:16)
[2018-09-27] MEDS: POTASSIUM CHLORIDE 40 MEQ/30 ML LIQUID UDC GT SCH (08:16)
[2018-09-27] MEDS: COD LIVER OIL/ZINC OXIDE OINT 113 GM TUBE TP SCH ×2 (08:16→22:01)
[2018-09-27] MEDS: AMANTADINE 50MG/5ML GT SCH (08:16)
[2018-09-27] MEDS: NUTRISOURCE FIBER 4 GM PACKET PO SCH ×2 (08:16→21:55)
[2018-09-27] MEDS: VIMPAT 150 MG GT SCH ×2 (08:16→21:54)
[2018-09-27] MEDS: HYDROGEN PEROXIDE 3% 118 ML BOTTLE TP SCH ×2 (08:16→22:01)
[2018-09-27 11:10] VITALS: BP 133/85
[2018-09-27] MEDS: GLUCERNA 1.2 1000ML LIQUID GT SCH (11:31)
[2018-09-27 20:28] VITALS: BP 122/76
[2018-09-27] MEDS: DIGOXIN 125 MCG TABLET GT SCH (21:50)
[2018-09-27] MEDS: MELATONIN 3 MG GT SCH (21:53)
[2018-09-27] MEDS: PROTEIN SUPPLEMENT (PROSTAT) 30 ML LIQUID GT SCH (21:55)
[2018-09-27] MEDS: PHENOBARBITAL 97.2 MG TABLET GT SCH (22:00)
[2018-09-27] MEDS: ENOXAPARIN SODIUM 40 MG/0.4 ML DISP.SYRIN SQ SCH (22:09)
[2018-09-28] MEDS: NYSTATIN SUSPENSION 5 ML LIQUID UDC XX SCH ×5 (00:35→23:39)
[2018-09-28] MEDS: BLOOD SUGAR DIAGNOSTIC 1 EACH STRIP VI SCH ×5 (00:48→23:36)
[2018-09-28] MEDS: INSULIN REGULAR, HUMAN 300 UNIT/3 ML VIAL SQ PRN ×5 (00:51→23:41)
[2018-09-28] MEDS: GUAIFENESIN/DEXTROMETHORPHAN 5 ML UDC GT PRN (01:00)
[2018-09-28] MEDS: ALBUTEROL SULFATE 2.5 MG/3 ML NEBU NEB SCH ×4 (01:18→19:27)
[2018-09-28] MEDS: IPRATROPIUM BROMIDE 0.5 MG/2.5 ML NEBU NEB SCH ×4 (01:18→19:27)
[2018-09-28] MEDS: CYCLOBENZAPRINE HCL 10 MG TABLET PO PRN (01:26)
--- NOTE | 2018-09-28 02:33 | NUR ---
Afebrile, on nystatin oral swab for oral garcia, no adverse reactions noted, good oral care done, no signs of respiratory distress noted, kept clean and comfortable.
[2018-09-28] MEDS: LORATADINE 10 MG TABLET GT SCH (05:24)
[2018-09-28] MEDS: BENZTROPINE MESYLATE 0.5 MG TABLET GT SCH ×3 (05:24→22:26)
[2018-09-28] MEDS: OMEPRAZOLE 20 MG CAPSULE.DR GT SCH (05:25)
[2018-09-28] MEDS: FOLIC ACID 1 MG TABLET GT SCH (05:25)
[2018-09-28] MEDS: LISINOPRIL 20 MG TABLET GT SCH ×2 (05:26→18:05)
[2018-09-28] MEDS: CYANOCOBALAMIN 100 MCG TABLET GT SCH (05:26)
[2018-09-28] MEDS: PHENYTOIN 100 MG/4 ML UDC GT SCH ×2 (05:29→18:04)
[2018-09-28] MEDS: FERROUS SULFATE 330 MG/7.5 ML UDC- FOR SA ONLY GT SCH (05:30)
[2018-09-28] MEDS: INSULIN NPH SQ SCH ×3 (05:35→22:51)
[2018-09-28 08:00] VITALS: BP 142/82
[2018-09-28] MEDS: SPIRONOLACTONE 25 MG TABLET GT SCH (09:14)
[2018-09-28] MEDS: LEVETIRACETAM 500 MG/5 ML LIQUID UDC GT SCH ×2 (09:14→21:00)
[2018-09-28] MEDS: ASPIRIN 81 MG TAB.CHEW GT SCH (09:14)
[2018-09-28] MEDS: PHENOBARBITAL 64.8 MG TABLET GT SCH (09:14)
[2018-09-28] MEDS: ACIDOPHILUS/BULGARICUS CHEW TAB GT SCH ×2 (09:14→21:00)
[2018-09-28] MEDS: METOPROLOL TARTRATE 100 MG TABLET GT SCH (09:14)
[2018-09-28] MEDS: AMANTADINE 50MG/5ML GT SCH (09:14)
[2018-09-28] MEDS: POTASSIUM CHLORIDE 40 MEQ/30 ML LIQUID UDC GT SCH (09:15)
[2018-09-28] MEDS: VIMPAT 150 MG GT SCH ×2 (09:15→21:00)
[2018-09-28] MEDS: NUTRISOURCE FIBER 4 GM PACKET PO SCH ×2 (09:15→21:00)
[2018-09-28] MEDS: Z GUARD REMEDY PASTE 57 GM TUBE TP SCH ×2 (09:17→21:00)
[2018-09-28] MEDS: HYDROGEN PEROXIDE 3% 118 ML BOTTLE TP SCH ×2 (09:17→21:00)
[2018-09-28] MEDS: COD LIVER OIL/ZINC OXIDE OINT 113 GM TUBE TP SCH ×2 (09:17→21:00)
[2018-09-28] MEDS: GLUCERNA 1.2 1000ML LIQUID GT SCH (13:52)
[2018-09-28 20:17] VITALS: BP 142/87
[2018-09-28] MEDS: MULTIVIT, IRON, MIN NO. 8, FA TABLET GT SCH (21:00)
[2018-09-28] MEDS: PROTEIN SUPPLEMENT (PROSTAT) 30 ML LIQUID GT SCH (21:00)
[2018-09-28] MEDS: MELATONIN 3 MG GT SCH (21:00)
[2018-09-28] MEDS: DIGOXIN 125 MCG TABLET GT SCH (21:00)
[2018-09-28] MEDS: PHENOBARBITAL 97.2 MG TABLET GT SCH (21:00)
[2018-09-28] MEDS: ENOXAPARIN SODIUM 40 MG/0.4 ML DISP.SYRIN SQ SCH (21:00)
[2018-09-29] MEDS: ALBUTEROL SULFATE 2.5 MG/3 ML NEBU NEB SCH ×4 (01:16→18:43)
[2018-09-29] MEDS: IPRATROPIUM BROMIDE 0.5 MG/2.5 ML NEBU NEB SCH ×4 (01:16→18:43)
--- NOTE | 2018-09-29 04:17 | NUR ---
Patient is sleeping at this time, no respiratory distress noted, afebrile, on nystatin oral swab for oral garcia, no adverse reactions noted, good mouth care done, no signs of any distress noted, kept clean and comfortable.
[2018-09-29] MEDS: BENZTROPINE MESYLATE 0.5 MG TABLET GT SCH ×3 (06:44→21:07)
[2018-09-29] MEDS: FOLIC ACID 1 MG TABLET GT SCH (06:44)
[2018-09-29] MEDS: OMEPRAZOLE 20 MG CAPSULE.DR GT SCH (06:44)
[2018-09-29] MEDS: FERROUS SULFATE 330 MG/7.5 ML UDC- FOR SA ONLY GT SCH (06:44)
[2018-09-29] MEDS: PHENYTOIN 100 MG/4 ML UDC GT SCH ×2 (06:44→17:08)
[2018-09-29] MEDS: LORATADINE 10 MG TABLET GT SCH (06:44)
[2018-09-29] MEDS: CYANOCOBALAMIN 100 MCG TABLET GT SCH (06:45)
[2018-09-29] MEDS: INSULIN NPH SQ SCH ×3 (06:45→22:45)
[2018-09-29] MEDS: BLOOD SUGAR DIAGNOSTIC 1 EACH STRIP VI SCH ×4 (06:45→23:08)
[2018-09-29] MEDS: NYSTATIN SUSPENSION 5 ML LIQUID UDC XX SCH ×4 (06:45→23:01)
[2018-09-29] MEDS: LISINOPRIL 20 MG TABLET GT SCH ×2 (06:45→17:15)
[2018-09-29] MEDS: INSULIN REGULAR, HUMAN 300 UNIT/3 ML VIAL SQ PRN ×4 (06:47→23:24)
[2018-09-29 08:04] VITALS: BP 169/94
[2018-09-29] MEDS: SPIRONOLACTONE 25 MG TABLET GT SCH (08:21)
[2018-09-29] MEDS: LEVETIRACETAM 500 MG/5 ML LIQUID UDC GT SCH ×2 (08:21→20:41)
[2018-09-29] MEDS: ASPIRIN 81 MG TAB.CHEW GT SCH (08:21)
[2018-09-29] MEDS: ACIDOPHILUS/BULGARICUS CHEW TAB GT SCH ×2 (08:21→20:38)
[2018-09-29] MEDS: POTASSIUM CHLORIDE 40 MEQ/30 ML LIQUID UDC GT SCH (08:22)
[2018-09-29] MEDS: AMANTADINE 50MG/5ML GT SCH (08:22)
[2018-09-29] MEDS: VIMPAT 150 MG GT SCH ×2 (08:22→20:53)
[2018-09-29] MEDS: METOPROLOL TARTRATE 100 MG TABLET GT SCH (08:22)
[2018-09-29] MEDS: HYDROGEN PEROXIDE 3% 118 ML BOTTLE TP SCH ×2 (08:27→20:45)
[2018-09-29] MEDS: NUTRISOURCE FIBER 4 GM PACKET PO SCH ×2 (08:27→20:45)
[2018-09-29] MEDS: Z GUARD REMEDY PASTE 57 GM TUBE TP SCH ×2 (08:27→20:45)
[2018-09-29] MEDS: COD LIVER OIL/ZINC OXIDE OINT 113 GM TUBE TP SCH ×2 (08:27→20:45)
[2018-09-29] MEDS: PHENOBARBITAL 64.8 MG TABLET GT SCH (08:31)
--- NOTE | 2018-09-29 12:00 | NUR ---
SEEN BY TIFFANIE MAURICIO.
[2018-09-29] MEDS: GLUCERNA 1.2 1000ML LIQUID GT SCH (15:37)
[2018-09-29] MEDS: GUAIFENESIN/DEXTROMETHORPHAN 5 ML UDC GT PRN (15:37)
[2018-09-29 20:03] VITALS: BP 131/80
[2018-09-29] MEDS: DIGOXIN 125 MCG TABLET GT SCH (20:39)
[2018-09-29] MEDS: MELATONIN 3 MG GT SCH (20:43)
[2018-09-29] MEDS: PROTEIN SUPPLEMENT (PROSTAT) 30 ML LIQUID GT SCH (20:45)
[2018-09-29] MEDS: PHENOBARBITAL 97.2 MG TABLET GT SCH (20:52)
[2018-09-29] MEDS: ENOXAPARIN SODIUM 40 MG/0.4 ML DISP.SYRIN SQ SCH (20:57)
[2018-09-30] MEDS: ALBUTEROL SULFATE 2.5 MG/3 ML NEBU NEB SCH ×4 (00:37→20:30)
[2018-09-30] MEDS: IPRATROPIUM BROMIDE 0.5 MG/2.5 ML NEBU NEB SCH ×4 (00:37→20:30)
--- NOTE | 2018-09-30 01:48 | NUR ---
Still on Nystatin oral swab,no adverse reactions noted, no respiratory distress noted, afebrile, good oral care done, kept clean and comfortable.
[2018-09-30] MEDS: LORATADINE 10 MG TABLET GT SCH (05:18)
[2018-09-30] MEDS: BENZTROPINE MESYLATE 0.5 MG TABLET GT SCH ×3 (05:19→22:15)
[2018-09-30] MEDS: CYANOCOBALAMIN 100 MCG TABLET GT SCH (05:20)
[2018-09-30] MEDS: PHENYTOIN 100 MG/4 ML UDC GT SCH ×2 (05:20→17:14)
[2018-09-30] MEDS: FERROUS SULFATE 330 MG/7.5 ML UDC- FOR SA ONLY GT SCH (05:20)
[2018-09-30] MEDS: FOLIC ACID 1 MG TABLET GT SCH (05:20)
[2018-09-30] MEDS: OMEPRAZOLE 20 MG CAPSULE.DR GT SCH (05:20)
[2018-09-30] MEDS: BLOOD SUGAR DIAGNOSTIC 1 EACH STRIP VI SCH ×3 (05:20→17:14)
[2018-09-30] MEDS: NYSTATIN SUSPENSION 5 ML LIQUID UDC XX SCH ×3 (05:53→17:15)
[2018-09-30] MEDS: INSULIN NPH SQ SCH ×3 (05:55→22:18)
[2018-09-30 06:00] VITALS: BP 140/80
[2018-09-30] MEDS: LISINOPRIL 20 MG TABLET GT SCH ×2 (06:06→17:14)
[2018-09-30 08:00] VITALS: BP 136/86
[2018-09-30] MEDS: SPIRONOLACTONE 25 MG TABLET GT SCH (08:28)
[2018-09-30] MEDS: METOPROLOL TARTRATE 100 MG TABLET GT SCH (08:29)
[2018-09-30] MEDS: ASPIRIN 81 MG TAB.CHEW GT SCH (08:29)
[2018-09-30] MEDS: ACIDOPHILUS/BULGARICUS CHEW TAB GT SCH ×2 (08:30→20:48)
[2018-09-30] MEDS: LEVETIRACETAM 500 MG/5 ML LIQUID UDC GT SCH ×2 (08:30→20:48)
[2018-09-30] MEDS: PHENOBARBITAL 64.8 MG TABLET GT SCH (08:32)
[2018-09-30] MEDS: VIMPAT 150 MG GT SCH ×2 (08:32→20:49)
[2018-09-30] MEDS: AMANTADINE 50MG/5ML GT SCH (08:33)
[2018-09-30] MEDS: POTASSIUM CHLORIDE 40 MEQ/30 ML LIQUID UDC GT SCH (08:35)
[2018-09-30] MEDS: Z GUARD REMEDY PASTE 57 GM TUBE TP SCH ×2 (08:36→20:49)
[2018-09-30] MEDS: HYDROGEN PEROXIDE 3% 118 ML BOTTLE TP SCH ×2 (08:36→20:49)
[2018-09-30] MEDS: COD LIVER OIL/ZINC OXIDE OINT 113 GM TUBE TP SCH ×2 (08:36→20:49)
[2018-09-30] MEDS: NUTRISOURCE FIBER 4 GM PACKET PO SCH ×2 (08:36→20:49)
[2018-09-30] MEDS: INSULIN REGULAR, HUMAN 300 UNIT/3 ML VIAL SQ PRN ×2 (11:48→17:22)
--- NOTE | 2018-09-30 19:07 | NUR ---
SEEN BY DR. MARAH MAURICIO.
[2018-09-30] MEDS: PROTEIN SUPPLEMENT (PROSTAT) 30 ML LIQUID GT SCH (20:49)
[2018-09-30] MEDS: MELATONIN 3 MG GT SCH (20:49)
[2018-09-30] MEDS: MULTIVIT, IRON, MIN NO. 8, FA TABLET GT SCH (20:49)
[2018-09-30] MEDS: PHENOBARBITAL 97.2 MG TABLET GT SCH (20:49)
[2018-09-30] MEDS: DIGOXIN 125 MCG TABLET GT SCH (20:49)
[2018-09-30] MEDS: ENOXAPARIN SODIUM 40 MG/0.4 ML DISP.SYRIN SQ SCH (20:50)
[2018-09-30 22:04] VITALS: BP 125/86
[2018-10-01] MEDS: NYSTATIN SUSPENSION 5 ML LIQUID UDC XX SCH ×4 (00:03→17:40)
[2018-10-01] MEDS: BLOOD SUGAR DIAGNOSTIC 1 EACH STRIP VI SCH ×4 (00:06→17:40)
[2018-10-01] MEDS: INSULIN REGULAR, HUMAN 300 UNIT/3 ML VIAL SQ PRN ×4 (00:09→17:45)
[2018-10-01] MEDS: IPRATROPIUM BROMIDE 0.5 MG/2.5 ML NEBU NEB SCH ×4 (01:03→19:06)
[2018-10-01] MEDS: ALBUTEROL SULFATE 2.5 MG/3 ML NEBU NEB SCH ×4 (01:03→19:06)
[2018-10-01] MEDS: LORATADINE 10 MG TABLET GT SCH (05:44)
[2018-10-01] MEDS: OMEPRAZOLE 20 MG CAPSULE.DR GT SCH (05:44)
[2018-10-01] MEDS: LISINOPRIL 20 MG TABLET GT SCH ×2 (05:44→17:40)
[2018-10-01] MEDS: FERROUS SULFATE 330 MG/7.5 ML UDC- FOR SA ONLY GT SCH (05:44)
[2018-10-01] MEDS: BENZTROPINE MESYLATE 0.5 MG TABLET GT SCH ×3 (05:44→21:46)
[2018-10-01] MEDS: CYANOCOBALAMIN 100 MCG TABLET GT SCH (05:44)
[2018-10-01] MEDS: PHENYTOIN 100 MG/4 ML UDC GT SCH ×2 (05:44→17:40)
[2018-10-01] MEDS: FOLIC ACID 1 MG TABLET GT SCH (05:44)
[2018-10-01] MEDS: INSULIN NPH SQ SCH ×3 (05:46→21:47)
[2018-10-01 08:03] VITALS: BP 162/93
[2018-10-01] MEDS: METOPROLOL TARTRATE 100 MG TABLET GT SCH (08:59)
[2018-10-01] MEDS: ACIDOPHILUS/BULGARICUS CHEW TAB GT SCH ×2 (08:59→21:44)
[2018-10-01] MEDS: COD LIVER OIL/ZINC OXIDE OINT 113 GM TUBE TP SCH ×2 (08:59→21:46)
[2018-10-01] MEDS: POTASSIUM CHLORIDE 40 MEQ/30 ML LIQUID UDC GT SCH (08:59)
[2018-10-01] MEDS: SPIRONOLACTONE 25 MG TABLET GT SCH (08:59)
[2018-10-01] MEDS: ASPIRIN 81 MG TAB.CHEW GT SCH (08:59)
[2018-10-01] MEDS: HYDROGEN PEROXIDE 3% 118 ML BOTTLE TP SCH ×2 (08:59→21:46)
[2018-10-01] MEDS: LEVETIRACETAM 500 MG/5 ML LIQUID UDC GT SCH ×2 (08:59→21:44)
[2018-10-01] MEDS: PHENOBARBITAL 64.8 MG TABLET GT SCH (08:59)
[2018-10-01] MEDS: VIMPAT 150 MG GT SCH ×2 (08:59→21:45)
[2018-10-01] MEDS: AMANTADINE 50MG/5ML GT SCH (08:59)
[2018-10-01] MEDS: NUTRISOURCE FIBER 4 GM PACKET PO SCH ×2 (08:59→21:45)
[2018-10-01] MEDS: Z GUARD REMEDY PASTE 57 GM TUBE TP SCH ×2 (09:00→21:46)
[2018-10-01] MEDS: GUAIFENESIN/DEXTROMETHORPHAN 5 ML UDC GT PRN (15:30)
[2018-10-01 20:00] VITALS: BP 127/85
[2018-10-01] MEDS: ENOXAPARIN SODIUM 40 MG/0.4 ML DISP.SYRIN SQ SCH (21:45)
[2018-10-01] MEDS: MELATONIN 3 MG GT SCH (21:45)
[2018-10-01] MEDS: PROTEIN SUPPLEMENT (PROSTAT) 30 ML LIQUID GT SCH (21:45)
[2018-10-01] MEDS: DIGOXIN 125 MCG TABLET GT SCH (21:45)
[2018-10-01] MEDS: PHENOBARBITAL 97.2 MG TABLET GT SCH (21:45)
[2018-10-02] MEDS: BLOOD SUGAR DIAGNOSTIC 1 EACH STRIP VI SCH ×4 (00:01→18:13)
[2018-10-02] MEDS: NYSTATIN SUSPENSION 5 ML LIQUID UDC XX SCH ×4 (00:01→18:13)
[2018-10-02] MEDS: INSULIN REGULAR, HUMAN 300 UNIT/3 ML VIAL SQ PRN ×4 (00:03→18:14)
[2018-10-02] MEDS: ALBUTEROL SULFATE 2.5 MG/3 ML NEBU NEB SCH ×4 (01:09→18:47)
[2018-10-02] MEDS: IPRATROPIUM BROMIDE 0.5 MG/2.5 ML NEBU NEB SCH ×4 (01:09→18:47)
[2018-10-02] MEDS: BENZTROPINE MESYLATE 0.5 MG TABLET GT SCH ×3 (05:45→22:10)
[2018-10-02] MEDS: FERROUS SULFATE 330 MG/7.5 ML UDC- FOR SA ONLY GT SCH (05:45)
[2018-10-02] MEDS: LORATADINE 10 MG TABLET GT SCH (05:45)
[2018-10-02] MEDS: OMEPRAZOLE 20 MG CAPSULE.DR GT SCH (05:45)
[2018-10-02] MEDS: FOLIC ACID 1 MG TABLET GT SCH (05:45)
[2018-10-02] MEDS: PHENYTOIN 100 MG/4 ML UDC GT SCH ×2 (05:45→18:12)
[2018-10-02] MEDS: LISINOPRIL 20 MG TABLET GT SCH ×2 (05:46→18:13)
[2018-10-02] MEDS: CYANOCOBALAMIN 100 MCG TABLET GT SCH (05:46)
[2018-10-02] MEDS: INSULIN NPH SQ SCH ×3 (05:47→22:10)
[2018-10-02 08:05] VITALS: BP 130/80
[2018-10-02] MEDS: SPIRONOLACTONE 25 MG TABLET GT SCH (08:14)
[2018-10-02] MEDS: ACIDOPHILUS/BULGARICUS CHEW TAB GT SCH ×2 (08:14→20:47)
[2018-10-02] MEDS: LEVETIRACETAM 500 MG/5 ML LIQUID UDC GT SCH ×2 (08:14→20:47)
[2018-10-02] MEDS: ASPIRIN 81 MG TAB.CHEW GT SCH (08:14)
[2018-10-02] MEDS: METOPROLOL TARTRATE 100 MG TABLET GT SCH (08:15)
[2018-10-02] MEDS: VIMPAT 150 MG GT SCH ×2 (08:15→20:48)
[2018-10-02] MEDS: Z GUARD REMEDY PASTE 57 GM TUBE TP SCH ×2 (08:15→20:49)
[2018-10-02] MEDS: AMANTADINE 50MG/5ML GT SCH (08:15)
[2018-10-02] MEDS: NUTRISOURCE FIBER 4 GM PACKET PO SCH ×2 (08:15→20:48)
[2018-10-02] MEDS: HYDROGEN PEROXIDE 3% 118 ML BOTTLE TP SCH ×2 (08:15→20:49)
[2018-10-02] MEDS: POTASSIUM CHLORIDE 40 MEQ/30 ML LIQUID UDC GT SCH (08:15)
[2018-10-02] MEDS: PHENOBARBITAL 64.8 MG TABLET GT SCH (08:15)
[2018-10-02] MEDS: COD LIVER OIL/ZINC OXIDE OINT 113 GM TUBE TP SCH ×2 (08:15→20:48)
--- NOTE | 2018-10-02 13:37 | NUR ---
Patient's dick/SJ Prabhakar had requested a condition letter. KD met with Dr. Chavira on 10/01/18 and prepared the letter; obtained Dr. Chavira's signature on the letter. KD provided this letter to Vanna on 10/02/18. Copy of the letter filed in patient's file in SW office.
[2018-10-02 20:00] VITALS: BP 127/90
[2018-10-02] MEDS: PROTEIN SUPPLEMENT (PROSTAT) 30 ML LIQUID GT SCH (20:48)
[2018-10-02] MEDS: DIGOXIN 125 MCG TABLET GT SCH (20:48)
[2018-10-02] MEDS: PHENOBARBITAL 97.2 MG TABLET GT SCH (20:48)
[2018-10-02] MEDS: ENOXAPARIN SODIUM 40 MG/0.4 ML DISP.SYRIN SQ SCH (20:48)
[2018-10-02] MEDS: MULTIVIT, IRON, MIN NO. 8, FA TABLET GT SCH (20:48)
[2018-10-02] MEDS: MELATONIN 3 MG GT SCH (20:48)
[2018-10-03] MEDS: NYSTATIN SUSPENSION 5 ML LIQUID UDC XX SCH ×2 (00:04→05:17)
[2018-10-03] MEDS: BLOOD SUGAR DIAGNOSTIC 1 EACH STRIP VI SCH ×4 (00:04→17:52)
[2018-10-03] MEDS: INSULIN REGULAR, HUMAN 300 UNIT/3 ML VIAL SQ PRN ×4 (00:06→17:53)
[2018-10-03] MEDS: IPRATROPIUM BROMIDE 0.5 MG/2.5 ML NEBU NEB SCH ×4 (00:38→20:33)
[2018-10-03] MEDS: ALBUTEROL SULFATE 2.5 MG/3 ML NEBU NEB SCH ×4 (00:38→20:33)
[2018-10-03] MEDS: OMEPRAZOLE 20 MG CAPSULE.DR GT SCH (05:07)
[2018-10-03] MEDS: BENZTROPINE MESYLATE 0.5 MG TABLET GT SCH ×3 (05:07→21:53)
[2018-10-03] MEDS: FOLIC ACID 1 MG TABLET GT SCH (05:07)
[2018-10-03] MEDS: PHENYTOIN 100 MG/4 ML UDC GT SCH ×2 (05:07→17:52)
[2018-10-03] MEDS: LORATADINE 10 MG TABLET GT SCH (05:07)
[2018-10-03] MEDS: FERROUS SULFATE 330 MG/7.5 ML UDC- FOR SA ONLY GT SCH (05:07)
[2018-10-03] MEDS: LISINOPRIL 20 MG TABLET GT SCH ×2 (05:08→17:52)
[2018-10-03] MEDS: CYANOCOBALAMIN 100 MCG TABLET GT SCH (05:08)
[2018-10-03] MEDS: INSULIN NPH SQ SCH ×3 (05:13→22:20)
[2018-10-03 08:06] VITALS: BP 139/89
[2018-10-03] MEDS: SPIRONOLACTONE 25 MG TABLET GT SCH (08:41)
[2018-10-03] MEDS: ACIDOPHILUS/BULGARICUS CHEW TAB GT SCH ×2 (08:42→21:52)
[2018-10-03] MEDS: LEVETIRACETAM 500 MG/5 ML LIQUID UDC GT SCH ×2 (08:42→21:52)
[2018-10-03] MEDS: ASPIRIN 81 MG TAB.CHEW GT SCH (08:42)
[2018-10-03] MEDS: METOPROLOL TARTRATE 100 MG TABLET GT SCH (08:43)
[2018-10-03] MEDS: NUTRISOURCE FIBER 4 GM PACKET PO SCH ×2 (08:44→21:52)
[2018-10-03] MEDS: AMANTADINE 50MG/5ML GT SCH (08:44)
[2018-10-03] MEDS: POTASSIUM CHLORIDE 40 MEQ/30 ML LIQUID UDC GT SCH (08:44)
[2018-10-03] MEDS: VIMPAT 150 MG GT SCH ×2 (08:44→21:52)
[2018-10-03] MEDS: PHENOBARBITAL 64.8 MG TABLET GT SCH (08:44)
[2018-10-03] MEDS: Z GUARD REMEDY PASTE 57 GM TUBE TP SCH ×2 (08:45→21:53)
[2018-10-03] MEDS: HYDROGEN PEROXIDE 3% 118 ML BOTTLE TP SCH ×2 (08:45→21:52)
[2018-10-03] MEDS: COD LIVER OIL/ZINC OXIDE OINT 113 GM TUBE TP SCH ×2 (08:45→21:52)
[2018-10-03] MEDS: GLUCERNA 1.2 1000ML LIQUID GT SCH (12:16)
--- NOTE | 2018-10-03 15:43 | NUR ---
Patient's dick Prabhakar informed this SW that she has arranged for a 1:15pm pick-up with Maximilian Sullivan on 10/06/2018, for patient's neuroophthalmology appointment (see previous SS note dated 09/23). [facility] [address] [place] [address] SINTIA Fuentes informed of pick-up time and asked to have patient ready by 1pm on Saturday. Alfredo expressed agreement.
[2018-10-03 20:02] VITALS: BP 131/86
[2018-10-03] MEDS: ENOXAPARIN SODIUM 40 MG/0.4 ML DISP.SYRIN SQ SCH (21:00)
[2018-10-03] MEDS: PROTEIN SUPPLEMENT (PROSTAT) 30 ML LIQUID GT SCH (21:52)
[2018-10-03] MEDS: DIGOXIN 125 MCG TABLET GT SCH (21:52)
[2018-10-03] MEDS: MELATONIN 3 MG GT SCH (21:52)
[2018-10-03] MEDS: PHENOBARBITAL 97.2 MG TABLET GT SCH (21:52)
[2018-10-04] MEDS: BLOOD SUGAR DIAGNOSTIC 1 EACH STRIP VI SCH ×4 (00:20→17:56)
[2018-10-04] MEDS: INSULIN REGULAR, HUMAN 300 UNIT/3 ML VIAL SQ PRN ×4 (00:34→17:57)
[2018-10-04] MEDS: IPRATROPIUM BROMIDE 0.5 MG/2.5 ML NEBU NEB SCH ×4 (01:09→20:01)
[2018-10-04] MEDS: ALBUTEROL SULFATE 2.5 MG/3 ML NEBU NEB SCH ×4 (01:09→20:01)
[2018-10-04] MEDS: LORATADINE 10 MG TABLET GT SCH (05:43)
[2018-10-04] MEDS: BENZTROPINE MESYLATE 0.5 MG TABLET GT SCH ×3 (05:43→21:49)
[2018-10-04] MEDS: PHENYTOIN 100 MG/4 ML UDC GT SCH ×2 (05:43→17:56)
[2018-10-04] MEDS: FERROUS SULFATE 330 MG/7.5 ML UDC- FOR SA ONLY GT SCH (05:44)
[2018-10-04] MEDS: FOLIC ACID 1 MG TABLET GT SCH (05:44)
[2018-10-04] MEDS: LISINOPRIL 20 MG TABLET GT SCH ×2 (05:44→17:56)
[2018-10-04] MEDS: CYANOCOBALAMIN 100 MCG TABLET GT SCH (05:44)
[2018-10-04] MEDS: OMEPRAZOLE 20 MG CAPSULE.DR GT SCH (05:44)
[2018-10-04] MEDS: INSULIN NPH SQ SCH ×3 (06:07→21:51)
[2018-10-04] MEDS: SPIRONOLACTONE 25 MG TABLET GT SCH (08:23)
[2018-10-04] MEDS: LEVETIRACETAM 500 MG/5 ML LIQUID UDC GT SCH ×2 (08:23→21:49)
[2018-10-04] MEDS: ASPIRIN 81 MG TAB.CHEW GT SCH (08:23)
[2018-10-04] MEDS: ACIDOPHILUS/BULGARICUS CHEW TAB GT SCH ×2 (08:23→21:49)
[2018-10-04] MEDS: AMANTADINE 50MG/5ML GT SCH (08:24)
[2018-10-04] MEDS: PHENOBARBITAL 64.8 MG TABLET GT SCH (08:24)
[2018-10-04] MEDS: METOPROLOL TARTRATE 100 MG TABLET GT SCH (08:24)
[2018-10-04] MEDS: HYDROGEN PEROXIDE 3% 118 ML BOTTLE TP SCH ×2 (08:25→21:49)
[2018-10-04] MEDS: NUTRISOURCE FIBER 4 GM PACKET PO SCH ×2 (08:25→21:48)
[2018-10-04] MEDS: COD LIVER OIL/ZINC OXIDE OINT 113 GM TUBE TP SCH ×2 (08:25→21:49)
[2018-10-04] MEDS: POTASSIUM CHLORIDE 40 MEQ/30 ML LIQUID UDC GT SCH (08:25)
[2018-10-04] MEDS: VIMPAT 150 MG GT SCH ×2 (08:25→21:48)
[2018-10-04] MEDS: Z GUARD REMEDY PASTE 57 GM TUBE TP SCH ×2 (08:26→21:49)
[2018-10-04] MEDS: GLUCERNA 1.2 1000ML LIQUID GT SCH (08:26)
[2018-10-04 10:15] VITALS: BP 129/88
[2018-10-04 20:44] VITALS: BP 105/62
[2018-10-04] MEDS: MELATONIN 3 MG GT SCH (21:00)
[2018-10-04] MEDS: DIGOXIN 125 MCG TABLET GT SCH (21:29)
[2018-10-04] MEDS: PROTEIN SUPPLEMENT (PROSTAT) 30 ML LIQUID GT SCH (21:48)
[2018-10-04] MEDS: MULTIVIT, IRON, MIN NO. 8, FA TABLET GT SCH (21:48)
[2018-10-04] MEDS: PHENOBARBITAL 97.2 MG TABLET GT SCH (21:48)
[2018-10-04] MEDS: ENOXAPARIN SODIUM 40 MG/0.4 ML DISP.SYRIN SQ SCH (21:49)
[2018-10-05] MEDS: BLOOD SUGAR DIAGNOSTIC 1 EACH STRIP VI SCH ×5 (00:47→23:32)
[2018-10-05] MEDS: INSULIN REGULAR, HUMAN 300 UNIT/3 ML VIAL SQ PRN ×3 (00:54→17:56)
[2018-10-05] MEDS: ALBUTEROL SULFATE 2.5 MG/3 ML NEBU NEB SCH ×4 (01:09→20:39)
[2018-10-05] MEDS: IPRATROPIUM BROMIDE 0.5 MG/2.5 ML NEBU NEB SCH ×4 (01:09→20:39)
[2018-10-05] MEDS: LISINOPRIL 20 MG TABLET GT SCH ×2 (05:07→17:53)
[2018-10-05] MEDS: OMEPRAZOLE 20 MG CAPSULE.DR GT SCH (05:07)
[2018-10-05] MEDS: FERROUS SULFATE 330 MG/7.5 ML UDC- FOR SA ONLY GT SCH (05:07)
[2018-10-05] MEDS: CYANOCOBALAMIN 100 MCG TABLET GT SCH (05:07)
[2018-10-05] MEDS: FOLIC ACID 1 MG TABLET GT SCH (05:07)
[2018-10-05] MEDS: LORATADINE 10 MG TABLET GT SCH (05:07)
[2018-10-05] MEDS: PHENYTOIN 100 MG/4 ML UDC GT SCH ×2 (05:07→17:54)
[2018-10-05] MEDS: BENZTROPINE MESYLATE 0.5 MG TABLET GT SCH ×3 (05:07→22:04)
[2018-10-05] MEDS: INSULIN NPH SQ SCH ×3 (05:43→22:04)
[2018-10-05 08:10] VITALS: BP 141/84
[2018-10-05] MEDS: LEVETIRACETAM 500 MG/5 ML LIQUID UDC GT SCH ×2 (08:34→20:45)
[2018-10-05] MEDS: ASPIRIN 81 MG TAB.CHEW GT SCH (08:34)
[2018-10-05] MEDS: ACIDOPHILUS/BULGARICUS CHEW TAB GT SCH ×2 (08:34→20:45)
[2018-10-05] MEDS: SPIRONOLACTONE 25 MG TABLET GT SCH (08:34)
[2018-10-05] MEDS: METOPROLOL TARTRATE 100 MG TABLET GT SCH (08:35)
[2018-10-05] MEDS: AMANTADINE 50MG/5ML GT SCH (08:36)
[2018-10-05] MEDS: POTASSIUM CHLORIDE 40 MEQ/30 ML LIQUID UDC GT SCH (08:37)
[2018-10-05] MEDS: VIMPAT 150 MG GT SCH ×2 (08:37→20:45)
[2018-10-05] MEDS: HYDROGEN PEROXIDE 3% 118 ML BOTTLE TP SCH ×2 (08:38→20:45)
[2018-10-05] MEDS: COD LIVER OIL/ZINC OXIDE OINT 113 GM TUBE TP SCH ×2 (08:38→20:45)
[2018-10-05] MEDS: PHENOBARBITAL 64.8 MG TABLET GT SCH (08:38)
[2018-10-05] MEDS: NUTRISOURCE FIBER 4 GM PACKET PO SCH ×2 (08:38→20:45)
[2018-10-05] MEDS: Z GUARD REMEDY PASTE 57 GM TUBE TP SCH ×2 (08:38→20:46)
[2018-10-05] MEDS: GLUCERNA 1.2 1000ML LIQUID GT SCH (16:24)
[2018-10-05 20:25] VITALS: BP 120/72
[2018-10-05] MEDS: DIGOXIN 125 MCG TABLET GT SCH (20:45)
[2018-10-05] MEDS: MELATONIN 3 MG GT SCH (20:45)
[2018-10-05] MEDS: PROTEIN SUPPLEMENT (PROSTAT) 30 ML LIQUID GT SCH (20:45)
[2018-10-05] MEDS: PHENOBARBITAL 97.2 MG TABLET GT SCH (20:45)
[2018-10-05] MEDS: ENOXAPARIN SODIUM 40 MG/0.4 ML DISP.SYRIN SQ SCH (21:00)
[2018-10-05] MEDS: ACETAMINOPHEN 650 MG/20 ML UDC- SA PATIENTS-PAIN ONLY GT PRN (23:18)
[2018-10-06] MEDS: IPRATROPIUM BROMIDE 0.5 MG/2.5 ML NEBU NEB SCH ×4 (01:14→19:22)
[2018-10-06] MEDS: ALBUTEROL SULFATE 2.5 MG/3 ML NEBU NEB SCH ×4 (01:14→19:22)
[2018-10-06] MEDS: FOLIC ACID 1 MG TABLET GT SCH (05:47)
[2018-10-06] MEDS: OMEPRAZOLE 20 MG CAPSULE.DR GT SCH (05:47)
[2018-10-06] MEDS: LORATADINE 10 MG TABLET GT SCH (05:47)
[2018-10-06] MEDS: PHENYTOIN 100 MG/4 ML UDC GT SCH ×2 (05:47→17:25)
[2018-10-06] MEDS: FERROUS SULFATE 330 MG/7.5 ML UDC- FOR SA ONLY GT SCH (05:47)
[2018-10-06] MEDS: BENZTROPINE MESYLATE 0.5 MG TABLET GT SCH ×3 (05:47→22:18)
[2018-10-06] MEDS: CYANOCOBALAMIN 100 MCG TABLET GT SCH (05:48)
[2018-10-06] MEDS: LISINOPRIL 20 MG TABLET GT SCH ×2 (05:48→17:33)
[2018-10-06] MEDS: BLOOD SUGAR DIAGNOSTIC 1 EACH STRIP VI SCH ×4 (05:50→23:50)
[2018-10-06] MEDS: INSULIN NPH SQ SCH ×3 (05:59→22:18)
[2018-10-06] MEDS: INSULIN REGULAR, HUMAN 300 UNIT/3 ML VIAL SQ PRN ×3 (06:00→23:54)
[2018-10-06] MEDS: LEVETIRACETAM 500 MG/5 ML LIQUID UDC GT SCH ×2 (08:06→20:18)
[2018-10-06] MEDS: ASPIRIN 81 MG TAB.CHEW GT SCH (08:06)
[2018-10-06] MEDS: ACIDOPHILUS/BULGARICUS CHEW TAB GT SCH ×2 (08:06→20:18)
[2018-10-06] MEDS: SPIRONOLACTONE 25 MG TABLET GT SCH (08:06)
[2018-10-06] MEDS: PHENOBARBITAL 64.8 MG TABLET GT SCH (08:07)
[2018-10-06] MEDS: METOPROLOL TARTRATE 100 MG TABLET GT SCH (08:07)
[2018-10-06] MEDS: Z GUARD REMEDY PASTE 57 GM TUBE TP SCH ×2 (08:08→20:22)
[2018-10-06] MEDS: AMANTADINE 50MG/5ML GT SCH (08:08)
[2018-10-06] MEDS: POTASSIUM CHLORIDE 40 MEQ/30 ML LIQUID UDC GT SCH (08:08)
[2018-10-06] MEDS: HYDROGEN PEROXIDE 3% 118 ML BOTTLE TP SCH ×2 (08:08→20:22)
[2018-10-06] MEDS: VIMPAT 150 MG GT SCH ×2 (08:08→20:20)
[2018-10-06] MEDS: NUTRISOURCE FIBER 4 GM PACKET PO SCH ×2 (08:08→20:22)
[2018-10-06] MEDS: COD LIVER OIL/ZINC OXIDE OINT 113 GM TUBE TP SCH ×2 (08:08→20:22)
[2018-10-06 08:13] VITALS: BP 130/79
[2018-10-06] MEDS: DIGOXIN 125 MCG TABLET GT SCH (20:18)
[2018-10-06] MEDS: MELATONIN 3 MG GT SCH (20:18)
[2018-10-06] MEDS: PHENOBARBITAL 97.2 MG TABLET GT SCH (20:20)
[2018-10-06] MEDS: PROTEIN SUPPLEMENT (PROSTAT) 30 ML LIQUID GT SCH (20:21)
[2018-10-06] MEDS: MULTIVIT, IRON, MIN NO. 8, FA TABLET GT SCH (20:21)
[2018-10-06] MEDS: ENOXAPARIN SODIUM 40 MG/0.4 ML DISP.SYRIN SQ SCH (20:37)
[2018-10-06 20:51] VITALS: BP 122/74
[2018-10-06] MEDS: GUAIFENESIN/DEXTROMETHORPHAN 5 ML UDC GT PRN (22:44)
[2018-10-07] MEDS: IPRATROPIUM BROMIDE 0.5 MG/2.5 ML NEBU NEB SCH ×4 (01:08→19:40)
[2018-10-07] MEDS: ALBUTEROL SULFATE 2.5 MG/3 ML NEBU NEB SCH ×4 (01:08→19:40)
[2018-10-07] MEDS: GLUCERNA 1.2 1000ML LIQUID GT SCH (03:04)
[2018-10-07] MEDS: FOLIC ACID 1 MG TABLET GT SCH (05:39)
[2018-10-07] MEDS: BENZTROPINE MESYLATE 0.5 MG TABLET GT SCH ×3 (05:39→20:33)
[2018-10-07] MEDS: OMEPRAZOLE 20 MG CAPSULE.DR GT SCH (05:39)
[2018-10-07] MEDS: FERROUS SULFATE 330 MG/7.5 ML UDC- FOR SA ONLY GT SCH (05:39)
[2018-10-07] MEDS: LORATADINE 10 MG TABLET GT SCH (05:39)
[2018-10-07] MEDS: LISINOPRIL 20 MG TABLET GT SCH ×2 (05:40→17:21)
[2018-10-07] MEDS: CYANOCOBALAMIN 100 MCG TABLET GT SCH (05:40)
[2018-10-07] MEDS: PHENYTOIN 100 MG/4 ML UDC GT SCH ×2 (05:41→17:18)
[2018-10-07] MEDS: BLOOD SUGAR DIAGNOSTIC 1 EACH STRIP VI SCH ×3 (05:42→17:22)
[2018-10-07] MEDS: INSULIN NPH SQ SCH ×3 (05:52→22:21)
[2018-10-07] MEDS: INSULIN REGULAR, HUMAN 300 UNIT/3 ML VIAL SQ PRN ×3 (05:53→17:25)
[2018-10-07] MEDS: GUAIFENESIN/DEXTROMETHORPHAN 5 ML UDC GT PRN ×2 (06:00→09:03)
[2018-10-07] MEDS: ACIDOPHILUS/BULGARICUS CHEW TAB GT SCH ×2 (08:52→20:28)
[2018-10-07] MEDS: ASPIRIN 81 MG TAB.CHEW GT SCH (08:52)
[2018-10-07] MEDS: SPIRONOLACTONE 25 MG TABLET GT SCH (08:52)
[2018-10-07] MEDS: LEVETIRACETAM 500 MG/5 ML LIQUID UDC GT SCH ×2 (08:53→20:28)
[2018-10-07] MEDS: METOPROLOL TARTRATE 100 MG TABLET GT SCH (09:00)
[2018-10-07] MEDS: PHENOBARBITAL 64.8 MG TABLET GT SCH (09:00)
[2018-10-07] MEDS: AMANTADINE 50MG/5ML GT SCH (09:01)
[2018-10-07] MEDS: POTASSIUM CHLORIDE 40 MEQ/30 ML LIQUID UDC GT SCH (09:01)
[2018-10-07] MEDS: VIMPAT 150 MG GT SCH ×2 (09:01→20:31)
[2018-10-07] MEDS: Z GUARD REMEDY PASTE 57 GM TUBE TP SCH ×2 (09:02→20:33)
[2018-10-07] MEDS: NUTRISOURCE FIBER 4 GM PACKET PO SCH ×2 (09:02→20:31)
[2018-10-07] MEDS: HYDROGEN PEROXIDE 3% 118 ML BOTTLE TP SCH ×2 (09:02→20:33)
[2018-10-07] MEDS: COD LIVER OIL/ZINC OXIDE OINT 113 GM TUBE TP SCH ×2 (09:02→20:33)
[2018-10-07 11:42] VITALS: BP 146/89
--- NOTE | 2018-10-07 15:41 | NUR ---
INTERDISCIPLINARY PLAN OF CARE CONFERENCE was held today. Patient's fiance/POA Vanna was present at the meeting. Dr. Chavira and the Interdisciplinary Team reviewed the current plan of care in detail. RN reported on patient's medical condition. No major changes reported. See RN IDT conference notes. ST provided an update on patient's treatments and progress. See all other disciplines IDT notes and physician's progress notes for additional details. Vanna discussed the neuro-ophthalmology appointment that she chose to take the patient to. Vanna expressed not having any questions/concerns at this time, and being content with the current plan of care.
--- NOTE | 2018-10-07 17:32 | NUR ---
Pharmacy Update from 10/07/18 IDT meeting. VS: Temp 98.4 BP 136/86 HR 84 LABS: (from 09/01/18, no new labs) Wbc 3.8 H/H 11.7/34.1 Plt 156 Na 139 K 4.0 Cl 101 CO2 30 BUN/SCr 35/0.9 BS 178 Ca 9.3 MEDICATION USE REVIEWED: > Pt not on any anti-psych medications > Pt on Keppra 1500mg q12hrs since 11/29/16; last calculated CrCl 91.1 ml/min. Dose appropriate for renal fxn. > Pt now on Phenobarbital 64.8MG AM + 97.2 HS as of 07/20/18. Last level 08/11/18 resulted 27.2 (15-39) within range > Pt on Dilantin 150mg q12hrs since 11/11/17; Rx rec for repeat level for routine monitoring + alb for correction, Md agreed, ordered and resulted 08/25 17.6 (corrected 19.6) within therapeutic range 10-20. > Pt on Vimpat 300mg q12hrs, Patient had no episode of seizures past month > Pt on KCl 20mEq daily ,Prinivil 20mg q12hrs and Aldactone 50mg daily: last K 4.0 > Pt on moderate sliding scale + NPH 2 units q8hrs; BS ranged 81/245 since last IDT Meeting > Pt on Lovenox 40mg daily and Aspirin 81mg daily:no signs of bleeding, last plt 156 > Pt on Digoxin 125mcg daily since admit in 2015, on stable dose, no acute changes in condition > PRN MED USAGE: (Dec) Tylenol for pain used x 2 Tylenol for temp used x 0 Motrin for mod pain used x 2 Robitussin DM used x 29 NEW ORDERS NOTED: > Pt treated with nebulized tobramycin, doxy iv, and levaquin for URI and GT site cellulitis 09/02-09/11 > Nystatin oral for garcia/thrus 09/20-10/03 completed > Flexeril PRN d/c 10/06 > [place] PRN d/c 09/17 Patient reviewed in depth with family in attendance - no recent medication issues reported. 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 Speech therapy noted pt more responsive lately in efforts to mouth or speak. No further recommendations per rx at this time, will continue to monitor
[2018-10-07 20:00] VITALS: BP 109/61
[2018-10-07] MEDS: MELATONIN 3 MG GT SCH (20:28)
[2018-10-07] MEDS: DIGOXIN 125 MCG TABLET GT SCH (20:28)
[2018-10-07] MEDS: PHENOBARBITAL 97.2 MG TABLET GT SCH (20:31)
[2018-10-07] MEDS: PROTEIN SUPPLEMENT (PROSTAT) 30 ML LIQUID GT SCH (20:31)
[2018-10-07] MEDS: ENOXAPARIN SODIUM 40 MG/0.4 ML DISP.SYRIN SQ SCH (20:33)
[2018-10-08] MEDS: BLOOD SUGAR DIAGNOSTIC 1 EACH STRIP VI SCH ×4 (00:41→17:38)
[2018-10-08] MEDS: INSULIN REGULAR, HUMAN 300 UNIT/3 ML VIAL SQ PRN ×3 (00:42→17:40)
[2018-10-08] MEDS: ALBUTEROL SULFATE 2.5 MG/3 ML NEBU NEB SCH ×4 (01:15→20:11)
[2018-10-08] MEDS: IPRATROPIUM BROMIDE 0.5 MG/2.5 ML NEBU NEB SCH ×4 (01:15→20:11)
[2018-10-08] MEDS: FERROUS SULFATE 330 MG/7.5 ML UDC- FOR SA ONLY GT SCH (06:12)
[2018-10-08] MEDS: CYANOCOBALAMIN 100 MCG TABLET GT SCH (06:12)
[2018-10-08] MEDS: PHENYTOIN 100 MG/4 ML UDC GT SCH ×2 (06:12→17:36)
[2018-10-08] MEDS: BENZTROPINE MESYLATE 0.5 MG TABLET GT SCH ×3 (06:12→21:39)
[2018-10-08] MEDS: OMEPRAZOLE 20 MG CAPSULE.DR GT SCH (06:12)
[2018-10-08] MEDS: FOLIC ACID 1 MG TABLET GT SCH (06:12)
[2018-10-08] MEDS: LISINOPRIL 20 MG TABLET GT SCH ×2 (06:12→17:38)
[2018-10-08] MEDS: LORATADINE 10 MG TABLET GT SCH (06:12)
[2018-10-08] MEDS: INSULIN NPH SQ SCH ×3 (06:14→21:40)
[2018-10-08 08:00] VITALS: BP 159/92
[2018-10-08] MEDS: ACIDOPHILUS/BULGARICUS CHEW TAB GT SCH ×2 (08:59→20:49)
[2018-10-08] MEDS: ASPIRIN 81 MG TAB.CHEW GT SCH (08:59)
[2018-10-08] MEDS: SPIRONOLACTONE 25 MG TABLET GT SCH (08:59)
[2018-10-08] MEDS: LEVETIRACETAM 500 MG/5 ML LIQUID UDC GT SCH ×2 (09:00→20:49)
[2018-10-08] MEDS: METOPROLOL TARTRATE 100 MG TABLET GT SCH (09:00)
[2018-10-08] MEDS: PHENOBARBITAL 64.8 MG TABLET GT SCH (09:08)
[2018-10-08] MEDS: AMANTADINE 50MG/5ML GT SCH (09:09)
[2018-10-08] MEDS: VIMPAT 150 MG GT SCH ×2 (09:10→20:50)
[2018-10-08] MEDS: COD LIVER OIL/ZINC OXIDE OINT 113 GM TUBE TP SCH ×2 (09:12→20:50)
[2018-10-08] MEDS: HYDROGEN PEROXIDE 3% 118 ML BOTTLE TP SCH ×2 (09:12→20:50)
[2018-10-08] MEDS: POTASSIUM CHLORIDE 40 MEQ/30 ML LIQUID UDC GT SCH (09:12)
[2018-10-08] MEDS: Z GUARD REMEDY PASTE 57 GM TUBE TP SCH ×2 (09:12→20:50)
[2018-10-08] MEDS: NUTRISOURCE FIBER 4 GM PACKET PO SCH ×2 (09:12→20:50)
--- NOTE | 2018-10-08 12:33 | NUR ---
Seen and examined by Dr Chavira,no new orders noted.
[2018-10-08 20:24] VITALS: BP 136/72
[2018-10-08] MEDS: PROTEIN SUPPLEMENT (PROSTAT) 30 ML LIQUID GT SCH (20:50)
[2018-10-08] MEDS: MULTIVIT, IRON, MIN NO. 8, FA TABLET GT SCH (20:50)
[2018-10-08] MEDS: DIGOXIN 125 MCG TABLET GT SCH (20:50)
[2018-10-08] MEDS: MELATONIN 3 MG GT SCH (20:50)
[2018-10-08] MEDS: PHENOBARBITAL 97.2 MG TABLET GT SCH (20:50)
[2018-10-08] MEDS: ENOXAPARIN SODIUM 40 MG/0.4 ML DISP.SYRIN SQ SCH (21:38)
[2018-10-09] MEDS: BLOOD SUGAR DIAGNOSTIC 1 EACH STRIP VI SCH ×4 (00:51→17:55)
[2018-10-09] MEDS: INSULIN REGULAR, HUMAN 300 UNIT/3 ML VIAL SQ PRN ×4 (00:52→17:58)
[2018-10-09] MEDS: ALBUTEROL SULFATE 2.5 MG/3 ML NEBU NEB SCH ×4 (01:11→19:39)
[2018-10-09] MEDS: IPRATROPIUM BROMIDE 0.5 MG/2.5 ML NEBU NEB SCH ×4 (01:11→19:39)
[2018-10-09] MEDS: BENZTROPINE MESYLATE 0.5 MG TABLET GT SCH ×3 (05:06→21:00)
[2018-10-09] MEDS: PHENYTOIN 100 MG/4 ML UDC GT SCH ×2 (05:07→17:54)
[2018-10-09] MEDS: LORATADINE 10 MG TABLET GT SCH (05:07)
[2018-10-09] MEDS: FERROUS SULFATE 330 MG/7.5 ML UDC- FOR SA ONLY GT SCH (05:07)
[2018-10-09] MEDS: CYANOCOBALAMIN 100 MCG TABLET GT SCH (05:09)
[2018-10-09] MEDS: OMEPRAZOLE 20 MG CAPSULE.DR GT SCH (05:09)
[2018-10-09] MEDS: FOLIC ACID 1 MG TABLET GT SCH (05:09)
[2018-10-09] MEDS: LISINOPRIL 20 MG TABLET GT SCH ×2 (05:09→17:55)
[2018-10-09] MEDS: INSULIN NPH SQ SCH ×3 (05:27→21:00)
[2018-10-09] MEDS: GLUCERNA 1.2 1000ML LIQUID GT SCH (05:28)
[2018-10-09] MEDS: LEVETIRACETAM 500 MG/5 ML LIQUID UDC GT SCH ×2 (08:06→20:56)
[2018-10-09] MEDS: ACIDOPHILUS/BULGARICUS CHEW TAB GT SCH ×2 (08:06→20:56)
[2018-10-09] MEDS: AMANTADINE 50MG/5ML GT SCH (08:06)
[2018-10-09] MEDS: ASPIRIN 81 MG TAB.CHEW GT SCH (08:06)
[2018-10-09] MEDS: SPIRONOLACTONE 25 MG TABLET GT SCH (08:06)
[2018-10-09] MEDS: PHENOBARBITAL 64.8 MG TABLET GT SCH (08:07)
[2018-10-09] MEDS: HYDROGEN PEROXIDE 3% 118 ML BOTTLE TP SCH ×2 (08:07→20:58)
[2018-10-09] MEDS: POTASSIUM CHLORIDE 40 MEQ/30 ML LIQUID UDC GT SCH (08:07)
[2018-10-09] MEDS: VIMPAT 150 MG GT SCH ×2 (08:07→20:56)
[2018-10-09] MEDS: METOPROLOL TARTRATE 100 MG TABLET GT SCH (08:07)
[2018-10-09] MEDS: COD LIVER OIL/ZINC OXIDE OINT 113 GM TUBE TP SCH ×2 (08:07→20:58)
[2018-10-09] MEDS: NUTRISOURCE FIBER 4 GM PACKET PO SCH ×2 (08:07→20:57)
[2018-10-09] MEDS: Z GUARD REMEDY PASTE 57 GM TUBE TP SCH ×2 (08:07→20:58)
[2018-10-09 10:49] VITALS: BP 140/83
--- NOTE | 2018-10-09 13:35 | NUR ---
SEEN BY TIFFANIE MAURICIO.
[2018-10-09 20:07] VITALS: BP 157/97
[2018-10-09] MEDS: PHENOBARBITAL 97.2 MG TABLET GT SCH (20:56)
[2018-10-09] MEDS: MELATONIN 3 MG GT SCH (20:56)
[2018-10-09] MEDS: DIGOXIN 125 MCG TABLET GT SCH (20:56)
[2018-10-09] MEDS: PROTEIN SUPPLEMENT (PROSTAT) 30 ML LIQUID GT SCH (20:57)
[2018-10-09] MEDS: ENOXAPARIN SODIUM 40 MG/0.4 ML DISP.SYRIN SQ SCH (20:58)
[2018-10-10] MEDS: BLOOD SUGAR DIAGNOSTIC 1 EACH STRIP VI SCH ×4 (00:34→17:21)
[2018-10-10] MEDS: INSULIN REGULAR, HUMAN 300 UNIT/3 ML VIAL SQ PRN ×4 (00:35→17:22)
[2018-10-10] MEDS: IPRATROPIUM BROMIDE 0.5 MG/2.5 ML NEBU NEB SCH ×4 (01:54→19:05)
[2018-10-10] MEDS: ALBUTEROL SULFATE 2.5 MG/3 ML NEBU NEB SCH ×4 (01:54→19:05)
[2018-10-10] MEDS: BENZTROPINE MESYLATE 0.5 MG TABLET GT SCH ×3 (05:00→21:56)
[2018-10-10] MEDS: OMEPRAZOLE 20 MG CAPSULE.DR GT SCH (05:00)
[2018-10-10] MEDS: PHENYTOIN 100 MG/4 ML UDC GT SCH ×2 (05:00→17:21)
[2018-10-10] MEDS: LISINOPRIL 20 MG TABLET GT SCH ×2 (05:00→17:21)
[2018-10-10] MEDS: FOLIC ACID 1 MG TABLET GT SCH (05:00)
[2018-10-10] MEDS: CYANOCOBALAMIN 100 MCG TABLET GT SCH (05:00)
[2018-10-10] MEDS: LORATADINE 10 MG TABLET GT SCH (05:00)
[2018-10-10] MEDS: FERROUS SULFATE 330 MG/7.5 ML UDC- FOR SA ONLY GT SCH (05:00)
[2018-10-10] MEDS: INSULIN NPH SQ SCH ×3 (05:01→22:38)
[2018-10-10] MEDS: GLUCERNA 1.2 1000ML LIQUID GT SCH (05:06)
[2018-10-10] MEDS: SPIRONOLACTONE 25 MG TABLET GT SCH (08:27)
[2018-10-10] MEDS: ASPIRIN 81 MG TAB.CHEW GT SCH (08:28)
[2018-10-10] MEDS: ACIDOPHILUS/BULGARICUS CHEW TAB GT SCH ×2 (08:28→21:55)
[2018-10-10] MEDS: METOPROLOL TARTRATE 100 MG TABLET GT SCH (08:29)
[2018-10-10] MEDS: PHENOBARBITAL 64.8 MG TABLET GT SCH (08:29)
[2018-10-10] MEDS: LEVETIRACETAM 500 MG/5 ML LIQUID UDC GT SCH ×2 (08:29→21:55)
[2018-10-10] MEDS: NUTRISOURCE FIBER 4 GM PACKET PO SCH ×2 (08:30→21:56)
[2018-10-10] MEDS: VIMPAT 150 MG GT SCH ×2 (08:30→21:56)
[2018-10-10] MEDS: POTASSIUM CHLORIDE 40 MEQ/30 ML LIQUID UDC GT SCH (08:30)
[2018-10-10] MEDS: AMANTADINE 50MG/5ML GT SCH (08:30)
[2018-10-10] MEDS: COD LIVER OIL/ZINC OXIDE OINT 113 GM TUBE TP SCH ×2 (08:31→21:56)
[2018-10-10] MEDS: HYDROGEN PEROXIDE 3% 118 ML BOTTLE TP SCH ×2 (08:31→21:56)
[2018-10-10] MEDS: Z GUARD REMEDY PASTE 57 GM TUBE TP SCH ×2 (08:31→21:56)
[2018-10-10 11:05] VITALS: BP 105/84
[2018-10-10] MEDS: ENOXAPARIN SODIUM 40 MG/0.4 ML DISP.SYRIN SQ SCH (21:00)
[2018-10-10] MEDS: MELATONIN 3 MG GT SCH (21:55)
[2018-10-10] MEDS: DIGOXIN 125 MCG TABLET GT SCH (21:55)
[2018-10-10] MEDS: PROTEIN SUPPLEMENT (PROSTAT) 30 ML LIQUID GT SCH (21:56)
[2018-10-10] MEDS: MULTIVIT, IRON, MIN NO. 8, FA TABLET GT SCH (21:56)
[2018-10-10] MEDS: PHENOBARBITAL 97.2 MG TABLET GT SCH (21:56)
[2018-10-10 23:06] VITALS: BP 129/85
[2018-10-11] MEDS: IPRATROPIUM BROMIDE 0.5 MG/2.5 ML NEBU NEB SCH ×4 (00:45→18:43)
[2018-10-11] MEDS: ALBUTEROL SULFATE 2.5 MG/3 ML NEBU NEB SCH ×4 (00:45→18:43)
[2018-10-11] MEDS: BLOOD SUGAR DIAGNOSTIC 1 EACH STRIP VI SCH ×4 (00:49→17:44)
[2018-10-11] MEDS: INSULIN REGULAR, HUMAN 300 UNIT/3 ML VIAL SQ PRN ×4 (00:51→17:45)
[2018-10-11] MEDS: OMEPRAZOLE 20 MG CAPSULE.DR GT SCH (05:50)
[2018-10-11] MEDS: FERROUS SULFATE 330 MG/7.5 ML UDC- FOR SA ONLY GT SCH (05:50)
[2018-10-11] MEDS: LISINOPRIL 20 MG TABLET GT SCH ×2 (05:50→17:44)
[2018-10-11] MEDS: CYANOCOBALAMIN 100 MCG TABLET GT SCH (05:50)
[2018-10-11] MEDS: LORATADINE 10 MG TABLET GT SCH (05:50)
[2018-10-11] MEDS: BENZTROPINE MESYLATE 0.5 MG TABLET GT SCH ×3 (05:50→21:11)
[2018-10-11] MEDS: PHENYTOIN 100 MG/4 ML UDC GT SCH ×2 (05:50→17:44)
[2018-10-11] MEDS: FOLIC ACID 1 MG TABLET GT SCH (05:50)
[2018-10-11] MEDS: INSULIN NPH SQ SCH ×3 (06:49→21:33)
[2018-10-11] MEDS: GLUCERNA 1.2 1000ML LIQUID GT SCH (06:54)
[2018-10-11] MEDS: METOPROLOL TARTRATE 100 MG TABLET GT SCH (08:21)
[2018-10-11] MEDS: SPIRONOLACTONE 25 MG TABLET GT SCH (08:21)
[2018-10-11] MEDS: ASPIRIN 81 MG TAB.CHEW GT SCH (08:21)
[2018-10-11] MEDS: LEVETIRACETAM 500 MG/5 ML LIQUID UDC GT SCH ×2 (08:21→21:06)
[2018-10-11] MEDS: AMANTADINE 50MG/5ML GT SCH (08:21)
[2018-10-11] MEDS: ACIDOPHILUS/BULGARICUS CHEW TAB GT SCH ×2 (08:21→21:05)
[2018-10-11] MEDS: PHENOBARBITAL 64.8 MG TABLET GT SCH (08:21)
[2018-10-11] MEDS: VIMPAT 150 MG GT SCH ×2 (08:22→21:09)
[2018-10-11] MEDS: POTASSIUM CHLORIDE 40 MEQ/30 ML LIQUID UDC GT SCH (08:22)
[2018-10-11] MEDS: Z GUARD REMEDY PASTE 57 GM TUBE TP SCH ×2 (08:22→21:11)
[2018-10-11] MEDS: NUTRISOURCE FIBER 4 GM PACKET PO SCH ×2 (08:22→21:10)
[2018-10-11] MEDS: COD LIVER OIL/ZINC OXIDE OINT 113 GM TUBE TP SCH ×2 (08:22→21:10)
[2018-10-11] MEDS: HYDROGEN PEROXIDE 3% 118 ML BOTTLE TP SCH ×2 (08:22→21:10)
--- NOTE | 2018-10-11 10:08 | NUR ---
SEEN BY DR. POPE (NEUROLOGIST) AND WITH NEW ORDERS CARRIED OUT.
[2018-10-11 11:19] LABS: BASOPHILS % (AUTO) 0.5 % (0.0-2.0); EOSINOPHILS # (AUTO) 0.1 K/uL (0.0-0.7); EOSINOPHILS % (AUTO) 3.6 % (0.0-7.0); HEMATOCRIT 38.8 % (36.7-47.1); LYMPHOCYTES # (AUTO) 1.6 K/uL (20.0-40.0); MEAN CORPUSCULAR HEMOGLOBIN 31.1 uug (23.8-33.4); MEAN CORPUSCULAR HGB CONC 33 g/dL (32.5-36.3); MEAN CORPUSCULAR VOLUME 93.3 fL (73.0-96.2); MONOCYTES # (AUTO) 0.3 K/uL (2.0-10.0); MONOCYTES % (AUTO) 9.4 % (0.0-11.0); NEUTROPHILS # (AUTO) 1.7 K/uL (1.8-8.9); NEUTROPHILS % (AUTO) 44.5 % (38.5-71.5); PLATELET COUNT (AUTO) 155 K/uL (152-348); RED BLOOD CELL COUNT(AUTO) 4.16 MIL/uL (4.06-5.63); WHITE BLOOD COUNT (AUTO) 3.7 K/uL (3.6-10.2)
[2018-10-11 11:29] VITALS: BP 125/79
[2018-10-11 11:34] LABS: BILIRUBIN,TOTAL 0.2 mg/dL (0.2-1.0); CREATININE 1.1 mg/dL (0.6-1.3); POTASSIUM 4.6 mmol/L (3.5-5.1); TOTAL PROTEIN, SERUM 8.7 g/dL (6.4-8.2)
[2018-10-11] MEDS: GUAIFENESIN/DEXTROMETHORPHAN 5 ML UDC GT PRN (21:00)
[2018-10-11] MEDS: DIGOXIN 125 MCG TABLET GT SCH (21:07)
[2018-10-11] MEDS: MELATONIN 3 MG GT SCH (21:08)
[2018-10-11] MEDS: PHENOBARBITAL 97.2 MG TABLET GT SCH (21:10)
[2018-10-11] MEDS: PROTEIN SUPPLEMENT (PROSTAT) 30 ML LIQUID GT SCH (21:10)
[2018-10-11] MEDS: ENOXAPARIN SODIUM 40 MG/0.4 ML DISP.SYRIN SQ SCH (21:26)
[2018-10-11 22:38] VITALS: BP 127/85
[2018-10-12] MEDS: BLOOD SUGAR DIAGNOSTIC 1 EACH STRIP VI SCH ×4 (00:15→18:15)
[2018-10-12] MEDS: INSULIN REGULAR, HUMAN 300 UNIT/3 ML VIAL SQ PRN ×4 (00:16→18:16)
[2018-10-12] MEDS: IPRATROPIUM BROMIDE 0.5 MG/2.5 ML NEBU NEB SCH ×4 (00:40→19:32)
[2018-10-12] MEDS: ALBUTEROL SULFATE 2.5 MG/3 ML NEBU NEB SCH ×4 (00:40→19:32)
[2018-10-12 05:37] VITALS: BP 127/80
[2018-10-12] MEDS: LORATADINE 10 MG TABLET GT SCH (06:03)
[2018-10-12] MEDS: BENZTROPINE MESYLATE 0.5 MG TABLET GT SCH ×3 (06:04→21:48)
[2018-10-12] MEDS: FERROUS SULFATE 330 MG/7.5 ML UDC- FOR SA ONLY GT SCH (06:04)
[2018-10-12] MEDS: OMEPRAZOLE 20 MG CAPSULE.DR GT SCH (06:04)
[2018-10-12] MEDS: FOLIC ACID 1 MG TABLET GT SCH (06:04)
[2018-10-12] MEDS: PHENYTOIN 100 MG/4 ML UDC GT SCH ×2 (06:04→18:27)
[2018-10-12] MEDS: LISINOPRIL 20 MG TABLET GT SCH ×2 (06:04→18:27)
[2018-10-12] MEDS: CYANOCOBALAMIN 100 MCG TABLET GT SCH (06:04)
[2018-10-12] MEDS: INSULIN NPH SQ SCH ×3 (06:06→21:50)
[2018-10-12 08:09] VITALS: BP 124/79
[2018-10-12] MEDS: SPIRONOLACTONE 25 MG TABLET GT SCH (08:24)
[2018-10-12] MEDS: ACIDOPHILUS/BULGARICUS CHEW TAB GT SCH ×2 (08:24→21:46)
[2018-10-12] MEDS: ASPIRIN 81 MG TAB.CHEW GT SCH (08:24)
[2018-10-12] MEDS: LEVETIRACETAM 500 MG/5 ML LIQUID UDC GT SCH ×2 (08:24→21:46)
[2018-10-12] MEDS: METOPROLOL TARTRATE 100 MG TABLET GT SCH (08:25)
[2018-10-12] MEDS: AMANTADINE 50MG/5ML GT SCH (08:25)
[2018-10-12] MEDS: PHENOBARBITAL 64.8 MG TABLET GT SCH (08:25)
[2018-10-12] MEDS: VIMPAT 150 MG GT SCH ×2 (08:26→21:47)
[2018-10-12] MEDS: POTASSIUM CHLORIDE 40 MEQ/30 ML LIQUID UDC GT SCH (08:26)
[2018-10-12] MEDS: NUTRISOURCE FIBER 4 GM PACKET PO SCH ×2 (08:26→21:47)
[2018-10-12] MEDS: Z GUARD REMEDY PASTE 57 GM TUBE TP SCH ×2 (08:26→21:48)
[2018-10-12] MEDS: HYDROGEN PEROXIDE 3% 118 ML BOTTLE TP SCH ×2 (08:26→21:47)
[2018-10-12] MEDS: COD LIVER OIL/ZINC OXIDE OINT 113 GM TUBE TP SCH ×2 (08:26→21:47)
[2018-10-12] MEDS: DIGOXIN 125 MCG TABLET GT SCH (21:46)
[2018-10-12] MEDS: MELATONIN 3 MG GT SCH (21:47)
[2018-10-12] MEDS: MULTIVIT, IRON, MIN NO. 8, FA TABLET GT SCH (21:47)
[2018-10-12] MEDS: PROTEIN SUPPLEMENT (PROSTAT) 30 ML LIQUID GT SCH (21:47)
[2018-10-12] MEDS: PHENOBARBITAL 97.2 MG TABLET GT SCH (21:47)
[2018-10-12] MEDS: ENOXAPARIN SODIUM 40 MG/0.4 ML DISP.SYRIN SQ SCH (21:51)
[2018-10-12 22:00] VITALS: BP 104/67
[2018-10-13] MEDS: BLOOD SUGAR DIAGNOSTIC 1 EACH STRIP VI SCH ×4 (00:42→17:31)
[2018-10-13] MEDS: INSULIN REGULAR, HUMAN 300 UNIT/3 ML VIAL SQ PRN ×4 (00:53→17:32)
[2018-10-13] MEDS: IPRATROPIUM BROMIDE 0.5 MG/2.5 ML NEBU NEB SCH ×4 (01:08→18:51)
[2018-10-13] MEDS: ALBUTEROL SULFATE 2.5 MG/3 ML NEBU NEB SCH ×4 (01:08→18:51)
[2018-10-13] MEDS: FOLIC ACID 1 MG TABLET GT SCH (05:40)
[2018-10-13] MEDS: OMEPRAZOLE 20 MG CAPSULE.DR GT SCH (05:40)
[2018-10-13] MEDS: FERROUS SULFATE 330 MG/7.5 ML UDC- FOR SA ONLY GT SCH (05:40)
[2018-10-13] MEDS: PHENYTOIN 100 MG/4 ML UDC GT SCH ×2 (05:40→17:30)
[2018-10-13] MEDS: BENZTROPINE MESYLATE 0.5 MG TABLET GT SCH ×3 (05:40→21:08)
[2018-10-13] MEDS: LORATADINE 10 MG TABLET GT SCH (05:40)
[2018-10-13] MEDS: CYANOCOBALAMIN 100 MCG TABLET GT SCH (05:41)
[2018-10-13] MEDS: LISINOPRIL 20 MG TABLET GT SCH ×2 (05:41→17:30)
[2018-10-13] MEDS: INSULIN NPH SQ SCH ×3 (06:17→21:21)
[2018-10-13] MEDS: ACIDOPHILUS/BULGARICUS CHEW TAB GT SCH ×2 (08:09→21:06)
[2018-10-13] MEDS: SPIRONOLACTONE 25 MG TABLET GT SCH (08:09)
[2018-10-13] MEDS: ASPIRIN 81 MG TAB.CHEW GT SCH (08:09)
[2018-10-13] MEDS: VIMPAT 150 MG GT SCH ×2 (08:09→21:08)
[2018-10-13] MEDS: LEVETIRACETAM 500 MG/5 ML LIQUID UDC GT SCH ×2 (08:09→21:06)
[2018-10-13] MEDS: AMANTADINE 50MG/5ML GT SCH (08:09)
[2018-10-13] MEDS: NUTRISOURCE FIBER 4 GM PACKET PO SCH ×2 (08:09→21:08)
[2018-10-13] MEDS: POTASSIUM CHLORIDE 40 MEQ/30 ML LIQUID UDC GT SCH (08:09)
[2018-10-13] MEDS: COD LIVER OIL/ZINC OXIDE OINT 113 GM TUBE TP SCH ×2 (08:10→21:08)
[2018-10-13] MEDS: Z GUARD REMEDY PASTE 57 GM TUBE TP SCH ×2 (08:10→21:08)
[2018-10-13] MEDS: PHENOBARBITAL 64.8 MG TABLET GT SCH (08:10)
[2018-10-13] MEDS: HYDROGEN PEROXIDE 3% 118 ML BOTTLE TP SCH ×2 (08:10→21:08)
[2018-10-13] MEDS: METOPROLOL TARTRATE 100 MG TABLET GT SCH (08:11)
[2018-10-13 08:14] VITALS: BP 170/88
[2018-10-13] MEDS: GLUCERNA 1.2 1000ML LIQUID GT SCH (11:56)
--- NOTE | 2018-10-13 12:17 | NUR ---
PT. WAS SEEN AND EXAMINED BY TIFFANIE Lemus AND AWARE OF ABDOMINAL BOWEL GAS AND NEW ORDER CARRIED OUT.TIFFANIE ALSO WAS AWARE OF PT'S FIANCEE CONCERN THAT SHE STATES HAS OBSERVED ON PT. JUST BEFORE 6 PM SEIZURE MEDICATION ADMIN. WITH FACIAL TWITCHING IN DIFERENT DAYS BUT AT THE SAME TIME ,NNO FROM TIFFANIE AT THIS TIME BUT WILL BE F/U WITH NEUROLOGIST.
--- NOTE | 2018-10-13 14:58 | NUR ---
MONTOYA FLUSH ENEMA WAS GIVEN AND EFFECTIVE RELEASING LARGE AMOUNT OF BOWEL GAS AND WITH VISIBLE RELIEF IN ABDOMINAL DISTENTION,PT'S ORACIO BENAVIDEZ WAS AWARE AND IN AGREEMENT.
[2018-10-13] MEDS: GUAIFENESIN/DEXTROMETHORPHAN 5 ML UDC GT PRN (17:31)
[2018-10-13 20:36] VITALS: BP 159/94
[2018-10-13] MEDS: PROTEIN SUPPLEMENT (PROSTAT) 30 ML LIQUID GT SCH (21:08)
[2018-10-13] MEDS: PHENOBARBITAL 97.2 MG TABLET GT SCH (21:08)
[2018-10-13] MEDS: DIGOXIN 125 MCG TABLET GT SCH (21:08)
[2018-10-13] MEDS: MELATONIN 3 MG GT SCH (21:08)
[2018-10-13] MEDS: ENOXAPARIN SODIUM 40 MG/0.4 ML DISP.SYRIN SQ SCH (21:20)
[2018-10-14] MEDS: BLOOD SUGAR DIAGNOSTIC 1 EACH STRIP VI SCH ×5 (00:13→23:25)
[2018-10-14] MEDS: GLUCERNA 1.2 1000ML LIQUID GT SCH (00:25)
[2018-10-14] MEDS: IPRATROPIUM BROMIDE 0.5 MG/2.5 ML NEBU NEB SCH ×4 (00:35→20:37)
[2018-10-14] MEDS: ALBUTEROL SULFATE 2.5 MG/3 ML NEBU NEB SCH ×4 (00:35→20:37)
[2018-10-14] MEDS: CYANOCOBALAMIN 100 MCG TABLET GT SCH (05:29)
[2018-10-14] MEDS: LISINOPRIL 20 MG TABLET GT SCH ×2 (05:29→17:28)
[2018-10-14] MEDS: FOLIC ACID 1 MG TABLET GT SCH (05:29)
[2018-10-14] MEDS: OMEPRAZOLE 20 MG CAPSULE.DR GT SCH (05:29)
[2018-10-14] MEDS: LORATADINE 10 MG TABLET GT SCH (05:29)
[2018-10-14] MEDS: FERROUS SULFATE 330 MG/7.5 ML UDC- FOR SA ONLY GT SCH (05:29)
[2018-10-14] MEDS: BENZTROPINE MESYLATE 0.5 MG TABLET GT SCH ×3 (05:29→21:32)
[2018-10-14] MEDS: PHENYTOIN 100 MG/4 ML UDC GT SCH ×2 (05:29→17:28)
[2018-10-14] MEDS: INSULIN REGULAR, HUMAN 300 UNIT/3 ML VIAL SQ PRN ×2 (05:31→17:31)
[2018-10-14] MEDS: INSULIN NPH SQ SCH ×3 (05:41→21:46)
[2018-10-14 08:11] VITALS: BP 164/91
[2018-10-14] MEDS: ACIDOPHILUS/BULGARICUS CHEW TAB GT SCH ×2 (08:37→21:32)
[2018-10-14] MEDS: LEVETIRACETAM 500 MG/5 ML LIQUID UDC GT SCH ×2 (08:37→21:32)
[2018-10-14] MEDS: SPIRONOLACTONE 25 MG TABLET GT SCH (08:37)
[2018-10-14] MEDS: ASPIRIN 81 MG TAB.CHEW GT SCH (08:37)
[2018-10-14] MEDS: POTASSIUM CHLORIDE 40 MEQ/30 ML LIQUID UDC GT SCH (08:38)
[2018-10-14] MEDS: COD LIVER OIL/ZINC OXIDE OINT 113 GM TUBE TP SCH ×2 (08:38→21:32)
[2018-10-14] MEDS: METOPROLOL TARTRATE 100 MG TABLET GT SCH (08:38)
[2018-10-14] MEDS: AMANTADINE 50MG/5ML GT SCH (08:38)
[2018-10-14] MEDS: VIMPAT 150 MG GT SCH ×2 (08:38→21:32)
[2018-10-14] MEDS: HYDROGEN PEROXIDE 3% 118 ML BOTTLE TP SCH ×2 (08:38→21:32)
[2018-10-14] MEDS: NUTRISOURCE FIBER 4 GM PACKET PO SCH ×2 (08:38→21:32)
[2018-10-14] MEDS: PHENOBARBITAL 64.8 MG TABLET GT SCH (08:38)
[2018-10-14] MEDS: Z GUARD REMEDY PASTE 57 GM TUBE TP SCH ×2 (08:38→21:32)
--- NOTE | 2018-10-14 19:48 | NUR ---
SEEN BY DR. CRYSTAL AND WITH NNO ,NO FACIAL TWITCHING ,PT'S FIANCE AWARE AND VISITING AND NO CONCERN TODAY.
[2018-10-14 20:22] VITALS: BP 133/82
[2018-10-14] MEDS: PROTEIN SUPPLEMENT (PROSTAT) 30 ML LIQUID GT SCH (21:32)
[2018-10-14] MEDS: MULTIVIT, IRON, MIN NO. 8, FA TABLET GT SCH (21:32)
[2018-10-14] MEDS: DIGOXIN 125 MCG TABLET GT SCH (21:32)
[2018-10-14] MEDS: MELATONIN 3 MG GT SCH (21:32)
[2018-10-14] MEDS: PHENOBARBITAL 97.2 MG TABLET GT SCH (21:32)
[2018-10-14] MEDS: ENOXAPARIN SODIUM 40 MG/0.4 ML DISP.SYRIN SQ SCH (21:45)
[2018-10-14] MEDS: GUAIFENESIN/DEXTROMETHORPHAN 5 ML UDC GT PRN (21:47)
[2018-10-15] MEDS: GLUCERNA 1.2 1000ML LIQUID GT SCH ×2 (01:05→14:58)
[2018-10-15] MEDS: IPRATROPIUM BROMIDE 0.5 MG/2.5 ML NEBU NEB SCH ×4 (01:10→19:45)
[2018-10-15] MEDS: ALBUTEROL SULFATE 2.5 MG/3 ML NEBU NEB SCH ×4 (01:10→19:45)
--- NOTE | 2018-10-15 03:45 | NUR ---
Afebrile, sleeping comfortably, no signs of seizure noted, no facial twitching, kept clean and comfortable.
[2018-10-15] MEDS: LORATADINE 10 MG TABLET GT SCH (05:31)
[2018-10-15] MEDS: LISINOPRIL 20 MG TABLET GT SCH ×2 (05:31→17:41)
[2018-10-15] MEDS: FERROUS SULFATE 330 MG/7.5 ML UDC- FOR SA ONLY GT SCH (05:31)
[2018-10-15] MEDS: CYANOCOBALAMIN 100 MCG TABLET GT SCH (05:31)
[2018-10-15] MEDS: BENZTROPINE MESYLATE 0.5 MG TABLET GT SCH ×3 (05:31→21:47)
[2018-10-15] MEDS: FOLIC ACID 1 MG TABLET GT SCH (05:31)
[2018-10-15] MEDS: OMEPRAZOLE 20 MG CAPSULE.DR GT SCH (05:31)
[2018-10-15] MEDS: PHENYTOIN 100 MG/4 ML UDC GT SCH ×2 (05:31→17:41)
[2018-10-15] MEDS: BLOOD SUGAR DIAGNOSTIC 1 EACH STRIP VI SCH ×4 (05:32→23:48)
[2018-10-15] MEDS: INSULIN REGULAR, HUMAN 300 UNIT/3 ML VIAL SQ PRN ×5 (05:47→23:51)
[2018-10-15] MEDS: INSULIN NPH SQ SCH ×3 (05:48→22:20)
[2018-10-15] MEDS: ASPIRIN 81 MG TAB.CHEW GT SCH (09:09)
[2018-10-15] MEDS: ACIDOPHILUS/BULGARICUS CHEW TAB GT SCH ×2 (09:09→21:46)
[2018-10-15] MEDS: SPIRONOLACTONE 25 MG TABLET GT SCH (09:09)
[2018-10-15] MEDS: METOPROLOL TARTRATE 100 MG TABLET GT SCH (09:10)
[2018-10-15] MEDS: LEVETIRACETAM 500 MG/5 ML LIQUID UDC GT SCH ×2 (09:10→21:46)
[2018-10-15] MEDS: COD LIVER OIL/ZINC OXIDE OINT 113 GM TUBE TP SCH ×2 (09:13→21:46)
[2018-10-15] MEDS: HYDROGEN PEROXIDE 3% 118 ML BOTTLE TP SCH ×2 (09:13→21:46)
[2018-10-15] MEDS: POTASSIUM CHLORIDE 40 MEQ/30 ML LIQUID UDC GT SCH (09:13)
[2018-10-15] MEDS: NUTRISOURCE FIBER 4 GM PACKET PO SCH ×2 (09:13→21:46)
[2018-10-15] MEDS: AMANTADINE 50MG/5ML GT SCH (09:13)
[2018-10-15] MEDS: Z GUARD REMEDY PASTE 57 GM TUBE TP SCH ×2 (09:13→21:46)
[2018-10-15] MEDS: VIMPAT 150 MG GT SCH ×2 (09:13→21:46)
[2018-10-15] MEDS: PHENOBARBITAL 64.8 MG TABLET GT SCH (09:13)
[2018-10-15 11:57] VITALS: BP 116/72
[2018-10-15 19:51] VITALS: BP 113/66
[2018-10-15] MEDS: ENOXAPARIN SODIUM 40 MG/0.4 ML DISP.SYRIN SQ SCH (21:00)
[2018-10-15] MEDS: MELATONIN 3 MG GT SCH (21:46)
[2018-10-15] MEDS: PHENOBARBITAL 97.2 MG TABLET GT SCH (21:46)
[2018-10-15] MEDS: DIGOXIN 125 MCG TABLET GT SCH (21:46)
[2018-10-15] MEDS: PROTEIN SUPPLEMENT (PROSTAT) 30 ML LIQUID GT SCH (21:46)
--- NOTE | 2018-10-16 00:16 | NUR ---
Asleep, no seizure or facial twitching noted, on seizure and aspiration precaution, afebrile, kept clean and comfortable.
[2018-10-16] MEDS: ALBUTEROL SULFATE 2.5 MG/3 ML NEBU NEB SCH ×4 (01:14→19:22)
[2018-10-16] MEDS: IPRATROPIUM BROMIDE 0.5 MG/2.5 ML NEBU NEB SCH ×4 (01:14→19:22)
[2018-10-16] MEDS: BLOOD SUGAR DIAGNOSTIC 1 EACH STRIP VI SCH ×3 (05:13→17:40)
[2018-10-16] MEDS: PHENYTOIN 100 MG/4 ML UDC GT SCH ×2 (05:30→17:52)
[2018-10-16] MEDS: OMEPRAZOLE 20 MG CAPSULE.DR GT SCH (05:30)
[2018-10-16] MEDS: BENZTROPINE MESYLATE 0.5 MG TABLET GT SCH ×3 (05:30→21:09)
[2018-10-16] MEDS: FERROUS SULFATE 330 MG/7.5 ML UDC- FOR SA ONLY GT SCH (05:30)
[2018-10-16] MEDS: LORATADINE 10 MG TABLET GT SCH (05:30)
[2018-10-16] MEDS: FOLIC ACID 1 MG TABLET GT SCH (05:30)
[2018-10-16] MEDS: CYANOCOBALAMIN 100 MCG TABLET GT SCH (05:31)
[2018-10-16] MEDS: LISINOPRIL 20 MG TABLET GT SCH ×2 (05:31→17:52)
[2018-10-16] MEDS: INSULIN NPH SQ SCH ×3 (05:41→21:46)
[2018-10-16] MEDS: INSULIN REGULAR, HUMAN 300 UNIT/3 ML VIAL SQ PRN ×3 (05:41→17:44)
[2018-10-16 08:16] VITALS: BP 124/76
[2018-10-16] MEDS: SPIRONOLACTONE 25 MG TABLET GT SCH (09:01)
[2018-10-16] MEDS: ACIDOPHILUS/BULGARICUS CHEW TAB GT SCH ×2 (09:01→20:51)
[2018-10-16] MEDS: ASPIRIN 81 MG TAB.CHEW GT SCH (09:01)
[2018-10-16] MEDS: PHENOBARBITAL 64.8 MG TABLET GT SCH (09:02)
[2018-10-16] MEDS: LEVETIRACETAM 500 MG/5 ML LIQUID UDC GT SCH ×2 (09:02→20:51)
[2018-10-16] MEDS: POTASSIUM CHLORIDE 40 MEQ/30 ML LIQUID UDC GT SCH (09:03)
[2018-10-16] MEDS: NUTRISOURCE FIBER 4 GM PACKET PO SCH ×2 (09:03→20:54)
[2018-10-16] MEDS: AMANTADINE 50MG/5ML GT SCH (09:03)
[2018-10-16] MEDS: VIMPAT 150 MG GT SCH ×2 (09:03→20:51)
[2018-10-16] MEDS: Z GUARD REMEDY PASTE 57 GM TUBE TP SCH ×2 (09:04→20:54)
[2018-10-16] MEDS: COD LIVER OIL/ZINC OXIDE OINT 113 GM TUBE TP SCH ×2 (09:04→20:54)
[2018-10-16] MEDS: HYDROGEN PEROXIDE 3% 118 ML BOTTLE TP SCH ×2 (09:04→20:54)
[2018-10-16] MEDS: METOPROLOL TARTRATE 100 MG TABLET GT SCH (09:05)
[2018-10-16] MEDS: GLUCERNA 1.2 1000ML LIQUID GT SCH (14:05)
[2018-10-16 20:33] VITALS: BP 123/78
[2018-10-16] MEDS: DIGOXIN 125 MCG TABLET GT SCH (20:51)
[2018-10-16] MEDS: MELATONIN 3 MG GT SCH (20:51)
[2018-10-16] MEDS: PHENOBARBITAL 97.2 MG TABLET GT SCH (20:51)
[2018-10-16] MEDS: MULTIVIT, IRON, MIN NO. 8, FA TABLET GT SCH (20:52)
[2018-10-16] MEDS: PROTEIN SUPPLEMENT (PROSTAT) 30 ML LIQUID GT SCH (20:52)
[2018-10-16] MEDS: ENOXAPARIN SODIUM 40 MG/0.4 ML DISP.SYRIN SQ SCH (21:08)
[2018-10-16] MEDS: GUAIFENESIN/DEXTROMETHORPHAN 5 ML UDC GT PRN (22:36)
[2018-10-17] MEDS: BLOOD SUGAR DIAGNOSTIC 1 EACH STRIP VI SCH ×4 (00:47→17:49)
[2018-10-17] MEDS: INSULIN REGULAR, HUMAN 300 UNIT/3 ML VIAL SQ PRN ×4 (00:49→17:51)
[2018-10-17] MEDS: IPRATROPIUM BROMIDE 0.5 MG/2.5 ML NEBU NEB SCH ×4 (01:09→20:45)
[2018-10-17] MEDS: ALBUTEROL SULFATE 2.5 MG/3 ML NEBU NEB SCH ×4 (01:09→20:45)
[2018-10-17] MEDS: FERROUS SULFATE 330 MG/7.5 ML UDC- FOR SA ONLY GT SCH (05:13)
[2018-10-17] MEDS: FOLIC ACID 1 MG TABLET GT SCH (05:13)
[2018-10-17] MEDS: BENZTROPINE MESYLATE 0.5 MG TABLET GT SCH ×3 (05:13→21:34)
[2018-10-17] MEDS: LORATADINE 10 MG TABLET GT SCH (05:13)
[2018-10-17] MEDS: PHENYTOIN 100 MG/4 ML UDC GT SCH ×2 (05:13→17:55)
[2018-10-17] MEDS: OMEPRAZOLE 20 MG CAPSULE.DR GT SCH (05:13)
[2018-10-17] MEDS: LISINOPRIL 20 MG TABLET GT SCH ×2 (05:14→17:55)
[2018-10-17] MEDS: CYANOCOBALAMIN 100 MCG TABLET GT SCH (05:14)
[2018-10-17] MEDS: INSULIN NPH SQ SCH ×3 (05:15→21:37)
[2018-10-17 08:05] VITALS: BP 141/92
[2018-10-17] MEDS: POTASSIUM CHLORIDE 40 MEQ/30 ML LIQUID UDC GT SCH (08:57)
[2018-10-17] MEDS: ACIDOPHILUS/BULGARICUS CHEW TAB GT SCH ×2 (08:57→21:41)
[2018-10-17] MEDS: NUTRISOURCE FIBER 4 GM PACKET PO SCH ×2 (08:57→21:33)
[2018-10-17] MEDS: LEVETIRACETAM 500 MG/5 ML LIQUID UDC GT SCH ×2 (08:57→21:31)
[2018-10-17] MEDS: VIMPAT 150 MG GT SCH ×2 (08:57→21:33)
[2018-10-17] MEDS: SPIRONOLACTONE 25 MG TABLET GT SCH (08:57)
[2018-10-17] MEDS: HYDROGEN PEROXIDE 3% 118 ML BOTTLE TP SCH ×2 (08:57→21:34)
[2018-10-17] MEDS: PHENOBARBITAL 64.8 MG TABLET GT SCH (08:57)
[2018-10-17] MEDS: ASPIRIN 81 MG TAB.CHEW GT SCH (08:57)
[2018-10-17] MEDS: COD LIVER OIL/ZINC OXIDE OINT 113 GM TUBE TP SCH ×2 (08:57→21:34)
[2018-10-17] MEDS: AMANTADINE 50MG/5ML GT SCH (08:57)
[2018-10-17] MEDS: METOPROLOL TARTRATE 100 MG TABLET GT SCH (08:57)
[2018-10-17] MEDS: Z GUARD REMEDY PASTE 57 GM TUBE TP SCH ×2 (08:58→21:34)
[2018-10-17] MEDS: GLUCERNA 1.2 1000ML LIQUID GT SCH (13:45)
[2018-10-17 20:51] VITALS: BP 145/89
[2018-10-17] MEDS: DIGOXIN 125 MCG TABLET GT SCH (21:32)
[2018-10-17] MEDS: MELATONIN 3 MG GT SCH (21:32)
[2018-10-17] MEDS: PROTEIN SUPPLEMENT (PROSTAT) 30 ML LIQUID GT SCH (21:33)
[2018-10-17] MEDS: PHENOBARBITAL 97.2 MG TABLET GT SCH (21:33)
[2018-10-17] MEDS: ENOXAPARIN SODIUM 40 MG/0.4 ML DISP.SYRIN SQ SCH (21:36)
[2018-10-17] MEDS: GUAIFENESIN/DEXTROMETHORPHAN 5 ML UDC GT PRN (21:56)
[2018-10-18] MEDS: BLOOD SUGAR DIAGNOSTIC 1 EACH STRIP VI SCH ×4 (00:46→17:04)
[2018-10-18] MEDS: INSULIN REGULAR, HUMAN 300 UNIT/3 ML VIAL SQ PRN ×3 (00:49→11:54)
[2018-10-18] MEDS: IPRATROPIUM BROMIDE 0.5 MG/2.5 ML NEBU NEB SCH ×4 (01:10→19:51)
[2018-10-18] MEDS: ALBUTEROL SULFATE 2.5 MG/3 ML NEBU NEB SCH ×4 (01:10→19:51)
[2018-10-18] MEDS: ACETAMINOPHEN 650 MG/20 ML UDC- SA PATIENTS-PAIN ONLY GT PRN (03:14)
[2018-10-18] MEDS: GUAIFENESIN/DEXTROMETHORPHAN 5 ML UDC GT PRN ×2 (04:00→21:30)
[2018-10-18] MEDS: BENZTROPINE MESYLATE 0.5 MG TABLET GT SCH ×3 (05:42→21:09)
[2018-10-18] MEDS: LORATADINE 10 MG TABLET GT SCH (05:42)
[2018-10-18] MEDS: LISINOPRIL 20 MG TABLET GT SCH ×2 (05:43→17:06)
[2018-10-18] MEDS: FERROUS SULFATE 330 MG/7.5 ML UDC- FOR SA ONLY GT SCH (05:43)
[2018-10-18] MEDS: CYANOCOBALAMIN 100 MCG TABLET GT SCH (05:43)
[2018-10-18] MEDS: OMEPRAZOLE 20 MG CAPSULE.DR GT SCH (05:43)
[2018-10-18] MEDS: FOLIC ACID 1 MG TABLET GT SCH (05:43)
[2018-10-18] MEDS: PHENYTOIN 100 MG/4 ML UDC GT SCH ×2 (05:52→17:02)
[2018-10-18] MEDS: INSULIN NPH SQ SCH ×3 (05:54→21:03)
[2018-10-18 08:05] VITALS: BP 140/93
[2018-10-18] MEDS: Z GUARD REMEDY PASTE 57 GM TUBE TP SCH ×2 (09:25→21:09)
[2018-10-18] MEDS: METOPROLOL TARTRATE 100 MG TABLET GT SCH (09:25)
[2018-10-18] MEDS: NUTRISOURCE FIBER 4 GM PACKET PO SCH ×2 (09:25→21:09)
[2018-10-18] MEDS: AMANTADINE 50MG/5ML GT SCH (09:25)
[2018-10-18] MEDS: PHENOBARBITAL 64.8 MG TABLET GT SCH (09:25)
[2018-10-18] MEDS: ASPIRIN 81 MG TAB.CHEW GT SCH (09:25)
[2018-10-18] MEDS: COD LIVER OIL/ZINC OXIDE OINT 113 GM TUBE TP SCH ×2 (09:25→21:09)
[2018-10-18] MEDS: ACIDOPHILUS/BULGARICUS CHEW TAB GT SCH ×2 (09:25→21:05)
[2018-10-18] MEDS: HYDROGEN PEROXIDE 3% 118 ML BOTTLE TP SCH ×2 (09:25→21:09)
[2018-10-18] MEDS: VIMPAT 150 MG GT SCH ×2 (09:25→21:09)
[2018-10-18] MEDS: LEVETIRACETAM 500 MG/5 ML LIQUID UDC GT SCH ×2 (09:25→21:06)
[2018-10-18] MEDS: SPIRONOLACTONE 25 MG TABLET GT SCH (09:25)
[2018-10-18] MEDS: POTASSIUM CHLORIDE 40 MEQ/30 ML LIQUID UDC GT SCH (09:25)
[2018-10-18] MEDS: GLUCERNA 1.2 1000ML LIQUID GT SCH (12:09)
[2018-10-18 20:13] VITALS: BP 131/75
[2018-10-18] MEDS: ENOXAPARIN SODIUM 40 MG/0.4 ML DISP.SYRIN SQ SCH (21:02)
[2018-10-18] MEDS: DIGOXIN 125 MCG TABLET GT SCH (21:08)
[2018-10-18] MEDS: PHENOBARBITAL 97.2 MG TABLET GT SCH (21:09)
[2018-10-18] MEDS: MULTIVIT, IRON, MIN NO. 8, FA TABLET GT SCH (21:09)
[2018-10-18] MEDS: MELATONIN 3 MG GT SCH (21:09)
[2018-10-18] MEDS: PROTEIN SUPPLEMENT (PROSTAT) 30 ML LIQUID GT SCH (21:09)
[2018-10-18] MEDS: IBUPROFEN 100 MG/5 ML LIQUID UDC- SA PATIENTS-PAIN ONLY GT PRN (23:00)
[2018-10-19] MEDS: BLOOD SUGAR DIAGNOSTIC 1 EACH STRIP VI SCH ×4 (00:46→17:42)
[2018-10-19] MEDS: INSULIN REGULAR, HUMAN 300 UNIT/3 ML VIAL SQ PRN ×4 (00:50→17:43)
[2018-10-19] MEDS: ALBUTEROL SULFATE 2.5 MG/3 ML NEBU NEB SCH ×4 (01:09→20:28)
[2018-10-19] MEDS: IPRATROPIUM BROMIDE 0.5 MG/2.5 ML NEBU NEB SCH ×4 (01:09→20:28)
[2018-10-19] MEDS: LORATADINE 10 MG TABLET GT SCH (05:34)
[2018-10-19] MEDS: BENZTROPINE MESYLATE 0.5 MG TABLET GT SCH ×3 (05:34→22:26)
[2018-10-19] MEDS: PHENYTOIN 100 MG/4 ML UDC GT SCH ×2 (05:35→17:42)
[2018-10-19] MEDS: FOLIC ACID 1 MG TABLET GT SCH (05:35)
[2018-10-19] MEDS: OMEPRAZOLE 20 MG CAPSULE.DR GT SCH (05:35)
[2018-10-19] MEDS: FERROUS SULFATE 330 MG/7.5 ML UDC- FOR SA ONLY GT SCH (05:35)
[2018-10-19] MEDS: CYANOCOBALAMIN 100 MCG TABLET GT SCH (05:35)
[2018-10-19] MEDS: LISINOPRIL 20 MG TABLET GT SCH ×2 (05:35→17:42)
[2018-10-19] MEDS: INSULIN NPH SQ SCH ×3 (05:42→22:28)
[2018-10-19] MEDS: ASPIRIN 81 MG TAB.CHEW GT SCH (08:33)
[2018-10-19] MEDS: SPIRONOLACTONE 25 MG TABLET GT SCH (08:33)
[2018-10-19] MEDS: LEVETIRACETAM 500 MG/5 ML LIQUID UDC GT SCH ×2 (08:33→21:00)
[2018-10-19] MEDS: ACIDOPHILUS/BULGARICUS CHEW TAB GT SCH ×2 (08:33→21:00)
[2018-10-19] MEDS: HYDROGEN PEROXIDE 3% 118 ML BOTTLE TP SCH ×2 (08:34→21:00)
[2018-10-19] MEDS: VIMPAT 150 MG GT SCH ×2 (08:34→21:00)
[2018-10-19] MEDS: POTASSIUM CHLORIDE 40 MEQ/30 ML LIQUID UDC GT SCH (08:34)
[2018-10-19] MEDS: COD LIVER OIL/ZINC OXIDE OINT 113 GM TUBE TP SCH ×2 (08:34→21:00)
[2018-10-19] MEDS: NUTRISOURCE FIBER 4 GM PACKET PO SCH ×2 (08:34→21:00)
[2018-10-19] MEDS: AMANTADINE 50MG/5ML GT SCH (08:34)
[2018-10-19] MEDS: PHENOBARBITAL 64.8 MG TABLET GT SCH (08:34)
[2018-10-19] MEDS: METOPROLOL TARTRATE 100 MG TABLET GT SCH (08:34)
[2018-10-19] MEDS: Z GUARD REMEDY PASTE 57 GM TUBE TP SCH ×2 (08:34→21:00)
[2018-10-19] MEDS: GLUCERNA 1.2 1000ML LIQUID GT SCH (12:13)
[2018-10-19 20:42] VITALS: BP 143/86
[2018-10-19] MEDS: DIGOXIN 125 MCG TABLET GT SCH (21:00)
[2018-10-19] MEDS: MELATONIN 3 MG GT SCH (21:00)
[2018-10-19] MEDS: PROTEIN SUPPLEMENT (PROSTAT) 30 ML LIQUID GT SCH (21:00)
[2018-10-19] MEDS: ENOXAPARIN SODIUM 40 MG/0.4 ML DISP.SYRIN SQ SCH (21:00)
[2018-10-19] MEDS: PHENOBARBITAL 97.2 MG TABLET GT SCH (21:00)
[2018-10-20] MEDS: BLOOD SUGAR DIAGNOSTIC 1 EACH STRIP VI SCH ×4 (00:36→17:00)
[2018-10-20] MEDS: INSULIN REGULAR, HUMAN 300 UNIT/3 ML VIAL SQ PRN ×3 (00:40→11:40)
[2018-10-20] MEDS: IPRATROPIUM BROMIDE 0.5 MG/2.5 ML NEBU NEB SCH ×4 (01:14→19:30)
[2018-10-20] MEDS: ALBUTEROL SULFATE 2.5 MG/3 ML NEBU NEB SCH ×4 (01:14→19:30)
[2018-10-20] MEDS: GUAIFENESIN/DEXTROMETHORPHAN 5 ML UDC GT PRN (03:08)
[2018-10-20] MEDS: LORATADINE 10 MG TABLET GT SCH (05:06)
[2018-10-20] MEDS: BENZTROPINE MESYLATE 0.5 MG TABLET GT SCH ×3 (05:06→21:31)
[2018-10-20] MEDS: PHENYTOIN 100 MG/4 ML UDC GT SCH ×2 (05:07→17:19)
[2018-10-20] MEDS: FERROUS SULFATE 330 MG/7.5 ML UDC- FOR SA ONLY GT SCH (05:10)
[2018-10-20] MEDS: FOLIC ACID 1 MG TABLET GT SCH (05:10)
[2018-10-20] MEDS: LISINOPRIL 20 MG TABLET GT SCH ×2 (05:11→17:19)
[2018-10-20] MEDS: OMEPRAZOLE 20 MG CAPSULE.DR GT SCH (05:11)
[2018-10-20] MEDS: INSULIN NPH SQ SCH ×3 (05:17→21:45)
[2018-10-20] MEDS: CYANOCOBALAMIN 100 MCG TABLET GT SCH (05:21)
[2018-10-20 08:12] VITALS: BP 166/98
[2018-10-20] MEDS: PHENOBARBITAL 64.8 MG TABLET GT SCH (08:18)
[2018-10-20] MEDS: ACIDOPHILUS/BULGARICUS CHEW TAB GT SCH ×2 (08:18→21:19)
[2018-10-20] MEDS: SPIRONOLACTONE 25 MG TABLET GT SCH (08:18)
[2018-10-20] MEDS: LEVETIRACETAM 500 MG/5 ML LIQUID UDC GT SCH ×2 (08:18→21:21)
[2018-10-20] MEDS: METOPROLOL TARTRATE 100 MG TABLET GT SCH (08:18)
[2018-10-20] MEDS: ASPIRIN 81 MG TAB.CHEW GT SCH (08:18)
[2018-10-20] MEDS: COD LIVER OIL/ZINC OXIDE OINT 113 GM TUBE TP SCH ×2 (08:19→21:31)
[2018-10-20] MEDS: HYDROGEN PEROXIDE 3% 118 ML BOTTLE TP SCH ×2 (08:19→21:31)
[2018-10-20] MEDS: NUTRISOURCE FIBER 4 GM PACKET PO SCH ×2 (08:19→21:27)
[2018-10-20] MEDS: VIMPAT 150 MG GT SCH ×2 (08:19→21:24)
[2018-10-20] MEDS: Z GUARD REMEDY PASTE 57 GM TUBE TP SCH ×2 (08:19→21:31)
[2018-10-20] MEDS: AMANTADINE 50MG/5ML GT SCH (08:19)
[2018-10-20] MEDS: POTASSIUM CHLORIDE 40 MEQ/30 ML LIQUID UDC GT SCH (08:19)
[2018-10-20 20:47] VITALS: BP 133/85
[2018-10-20] MEDS: MELATONIN 3 MG GT SCH (21:22)
[2018-10-20] MEDS: DIGOXIN 125 MCG TABLET GT SCH (21:22)
[2018-10-20] MEDS: PHENOBARBITAL 97.2 MG TABLET GT SCH (21:25)
[2018-10-20] MEDS: PROTEIN SUPPLEMENT (PROSTAT) 30 ML LIQUID GT SCH (21:26)
[2018-10-20] MEDS: MULTIVIT, IRON, MIN NO. 8, FA TABLET GT SCH (21:26)
[2018-10-20] MEDS: ENOXAPARIN SODIUM 40 MG/0.4 ML DISP.SYRIN SQ SCH (21:30)
[2018-10-20] MEDS: GLUCERNA 1.2 1000ML LIQUID GT SCH (22:13)
[2018-10-21] MEDS: BLOOD SUGAR DIAGNOSTIC 1 EACH STRIP VI SCH ×4 (00:37→17:59)
[2018-10-21] MEDS: INSULIN REGULAR, HUMAN 300 UNIT/3 ML VIAL SQ PRN ×4 (00:40→18:01)
[2018-10-21] MEDS: ALBUTEROL SULFATE 2.5 MG/3 ML NEBU NEB SCH ×4 (01:08→19:18)
[2018-10-21] MEDS: IPRATROPIUM BROMIDE 0.5 MG/2.5 ML NEBU NEB SCH ×4 (01:08→19:18)
[2018-10-21] MEDS: LORATADINE 10 MG TABLET GT SCH (05:54)
[2018-10-21] MEDS: BENZTROPINE MESYLATE 0.5 MG TABLET GT SCH ×3 (06:05→22:41)
[2018-10-21] MEDS: FERROUS SULFATE 330 MG/7.5 ML UDC- FOR SA ONLY GT SCH (06:06)
[2018-10-21] MEDS: PHENYTOIN 100 MG/4 ML UDC GT SCH ×2 (06:06→17:59)
[2018-10-21] MEDS: FOLIC ACID 1 MG TABLET GT SCH (06:07)
[2018-10-21] MEDS: CYANOCOBALAMIN 100 MCG TABLET GT SCH (06:07)
[2018-10-21] MEDS: OMEPRAZOLE 20 MG CAPSULE.DR GT SCH (06:07)
[2018-10-21] MEDS: LISINOPRIL 20 MG TABLET GT SCH ×2 (06:07→17:59)
[2018-10-21] MEDS: INSULIN NPH SQ SCH ×3 (06:10→22:43)
[2018-10-21 08:00] VITALS: BP 165/99
[2018-10-21] MEDS: SPIRONOLACTONE 25 MG TABLET GT SCH (08:31)
[2018-10-21] MEDS: ACIDOPHILUS/BULGARICUS CHEW TAB GT SCH ×2 (08:32→20:18)
[2018-10-21] MEDS: Z GUARD REMEDY PASTE 57 GM TUBE TP SCH ×2 (08:32→20:37)
[2018-10-21] MEDS: NUTRISOURCE FIBER 4 GM PACKET PO SCH ×2 (08:32→20:23)
[2018-10-21] MEDS: VIMPAT 150 MG GT SCH ×2 (08:32→20:21)
[2018-10-21] MEDS: HYDROGEN PEROXIDE 3% 118 ML BOTTLE TP SCH ×2 (08:32→20:36)
[2018-10-21] MEDS: COD LIVER OIL/ZINC OXIDE OINT 113 GM TUBE TP SCH ×2 (08:32→20:36)
[2018-10-21] MEDS: PHENOBARBITAL 64.8 MG TABLET GT SCH (08:32)
[2018-10-21] MEDS: AMANTADINE 50MG/5ML GT SCH (08:32)
[2018-10-21] MEDS: ASPIRIN 81 MG TAB.CHEW GT SCH (08:32)
[2018-10-21] MEDS: POTASSIUM CHLORIDE 40 MEQ/30 ML LIQUID UDC GT SCH (08:32)
[2018-10-21] MEDS: LEVETIRACETAM 500 MG/5 ML LIQUID UDC GT SCH ×2 (08:32→20:18)
[2018-10-21] MEDS: METOPROLOL TARTRATE 100 MG TABLET GT SCH (08:32)
[2018-10-21] MEDS: GUAIFENESIN/DEXTROMETHORPHAN 5 ML UDC GT PRN (08:37)
[2018-10-21 20:00] VITALS: BP 128/66
[2018-10-21] MEDS: DIGOXIN 125 MCG TABLET GT SCH (20:19)
[2018-10-21] MEDS: MELATONIN 3 MG GT SCH (20:20)
[2018-10-21] MEDS: PHENOBARBITAL 97.2 MG TABLET GT SCH (20:22)
[2018-10-21] MEDS: PROTEIN SUPPLEMENT (PROSTAT) 30 ML LIQUID GT SCH (20:22)
[2018-10-21] MEDS: ENOXAPARIN SODIUM 40 MG/0.4 ML DISP.SYRIN SQ SCH (20:26)
[2018-10-21] MEDS: GLUCERNA 1.2 1000ML LIQUID GT SCH (23:20)
[2018-10-22] MEDS: BLOOD SUGAR DIAGNOSTIC 1 EACH STRIP VI SCH ×4 (00:18→18:02)
[2018-10-22] MEDS: INSULIN REGULAR, HUMAN 300 UNIT/3 ML VIAL SQ PRN ×4 (00:26→18:03)
[2018-10-22] MEDS: IPRATROPIUM BROMIDE 0.5 MG/2.5 ML NEBU NEB SCH ×4 (01:09→19:59)
[2018-10-22] MEDS: ALBUTEROL SULFATE 2.5 MG/3 ML NEBU NEB SCH ×4 (01:09→19:59)
[2018-10-22] MEDS: GUAIFENESIN/DEXTROMETHORPHAN 5 ML UDC GT PRN ×2 (01:13→16:11)
[2018-10-22] MEDS: LORATADINE 10 MG TABLET GT SCH (05:14)
[2018-10-22] MEDS: PHENYTOIN 100 MG/4 ML UDC GT SCH ×2 (05:14→18:00)
[2018-10-22] MEDS: BENZTROPINE MESYLATE 0.5 MG TABLET GT SCH ×3 (05:14→21:15)
[2018-10-22] MEDS: FERROUS SULFATE 330 MG/7.5 ML UDC- FOR SA ONLY GT SCH (05:14)
[2018-10-22] MEDS: FOLIC ACID 1 MG TABLET GT SCH (05:15)
[2018-10-22] MEDS: OMEPRAZOLE 20 MG CAPSULE.DR GT SCH (05:15)
[2018-10-22] MEDS: LISINOPRIL 20 MG TABLET GT SCH ×2 (05:15→18:02)
[2018-10-22] MEDS: CYANOCOBALAMIN 100 MCG TABLET GT SCH (05:16)
[2018-10-22] MEDS: INSULIN NPH SQ SCH ×3 (05:20→21:47)
[2018-10-22 08:06] VITALS: BP 161/87
[2018-10-22] MEDS: ACIDOPHILUS/BULGARICUS CHEW TAB GT SCH ×2 (09:25→21:13)
[2018-10-22] MEDS: ASPIRIN 81 MG TAB.CHEW GT SCH (09:25)
[2018-10-22] MEDS: SPIRONOLACTONE 25 MG TABLET GT SCH (09:25)
[2018-10-22] MEDS: LEVETIRACETAM 500 MG/5 ML LIQUID UDC GT SCH ×2 (09:26→21:13)
[2018-10-22] MEDS: METOPROLOL TARTRATE 100 MG TABLET GT SCH (09:27)
[2018-10-22] MEDS: PHENOBARBITAL 64.8 MG TABLET GT SCH (09:28)
[2018-10-22] MEDS: POTASSIUM CHLORIDE 40 MEQ/30 ML LIQUID UDC GT SCH (09:29)
[2018-10-22] MEDS: VIMPAT 150 MG GT SCH ×2 (09:29→21:14)
[2018-10-22] MEDS: AMANTADINE 50MG/5ML GT SCH (09:29)
[2018-10-22] MEDS: NUTRISOURCE FIBER 4 GM PACKET PO SCH ×2 (09:30→21:14)
[2018-10-22] MEDS: HYDROGEN PEROXIDE 3% 118 ML BOTTLE TP SCH ×2 (09:30→21:15)
[2018-10-22] MEDS: COD LIVER OIL/ZINC OXIDE OINT 113 GM TUBE TP SCH ×2 (09:30→21:15)
[2018-10-22] MEDS: Z GUARD REMEDY PASTE 57 GM TUBE TP SCH ×2 (09:30→21:15)
[2018-10-22] MEDS: GLUCERNA 1.2 1000ML LIQUID GT SCH (18:18)
[2018-10-22 20:24] VITALS: BP 125/73
[2018-10-22] MEDS: DIGOXIN 125 MCG TABLET GT SCH (21:13)
[2018-10-22] MEDS: PROTEIN SUPPLEMENT (PROSTAT) 30 ML LIQUID GT SCH (21:14)
[2018-10-22] MEDS: MELATONIN 3 MG GT SCH (21:14)
[2018-10-22] MEDS: PHENOBARBITAL 97.2 MG TABLET GT SCH (21:14)
[2018-10-22] MEDS: MULTIVIT, IRON, MIN NO. 8, FA TABLET GT SCH (21:14)
[2018-10-22] MEDS: ENOXAPARIN SODIUM 40 MG/0.4 ML DISP.SYRIN SQ SCH (21:45)
[2018-10-23] MEDS: INSULIN REGULAR, HUMAN 300 UNIT/3 ML VIAL SQ PRN ×4 (01:08→18:00)
[2018-10-23] MEDS: ALBUTEROL SULFATE 2.5 MG/3 ML NEBU NEB SCH ×4 (02:01→18:43)
[2018-10-23] MEDS: IPRATROPIUM BROMIDE 0.5 MG/2.5 ML NEBU NEB SCH ×4 (02:01→18:43)
[2018-10-23] MEDS: LORATADINE 10 MG TABLET GT SCH (06:41)
[2018-10-23] MEDS: BLOOD SUGAR DIAGNOSTIC 1 EACH STRIP VI SCH ×4 (06:42→17:59)
[2018-10-23] MEDS: FOLIC ACID 1 MG TABLET GT SCH (06:42)
[2018-10-23] MEDS: PHENYTOIN 100 MG/4 ML UDC GT SCH ×2 (06:42→17:59)
[2018-10-23] MEDS: BENZTROPINE MESYLATE 0.5 MG TABLET GT SCH ×3 (06:42→22:47)
[2018-10-23] MEDS: CYANOCOBALAMIN 100 MCG TABLET GT SCH (06:42)
[2018-10-23] MEDS: LISINOPRIL 20 MG TABLET GT SCH ×2 (06:42→17:59)
[2018-10-23] MEDS: FERROUS SULFATE 330 MG/7.5 ML UDC- FOR SA ONLY GT SCH (06:42)
[2018-10-23] MEDS: OMEPRAZOLE 20 MG CAPSULE.DR GT SCH (06:42)
[2018-10-23] MEDS: INSULIN NPH SQ SCH ×3 (06:43→22:48)
[2018-10-23] MEDS: LEVETIRACETAM 500 MG/5 ML LIQUID UDC GT SCH ×2 (08:00→20:24)
[2018-10-23] MEDS: ASPIRIN 81 MG TAB.CHEW GT SCH (08:00)
[2018-10-23] MEDS: ACIDOPHILUS/BULGARICUS CHEW TAB GT SCH ×2 (08:00→20:23)
[2018-10-23] MEDS: SPIRONOLACTONE 25 MG TABLET GT SCH (08:00)
[2018-10-23] MEDS: NUTRISOURCE FIBER 4 GM PACKET PO SCH ×2 (08:01→20:29)
[2018-10-23] MEDS: VIMPAT 150 MG GT SCH ×2 (08:01→20:28)
[2018-10-23] MEDS: METOPROLOL TARTRATE 100 MG TABLET GT SCH (08:01)
[2018-10-23] MEDS: POTASSIUM CHLORIDE 40 MEQ/30 ML LIQUID UDC GT SCH (08:01)
[2018-10-23] MEDS: AMANTADINE 50MG/5ML GT SCH (08:01)
[2018-10-23] MEDS: PHENOBARBITAL 64.8 MG TABLET GT SCH (08:01)
[2018-10-23] MEDS: HYDROGEN PEROXIDE 3% 118 ML BOTTLE TP SCH ×2 (08:02→20:31)
[2018-10-23] MEDS: Z GUARD REMEDY PASTE 57 GM TUBE TP SCH ×2 (08:02→20:31)
[2018-10-23] MEDS: COD LIVER OIL/ZINC OXIDE OINT 113 GM TUBE TP SCH ×2 (08:02→20:31)
[2018-10-23 11:05] VITALS: BP 107/62
[2018-10-23] MEDS: GUAIFENESIN/DEXTROMETHORPHAN 5 ML UDC GT PRN ×2 (11:19→20:32)
[2018-10-23] MEDS: GLUCERNA 1.2 1000ML LIQUID GT SCH (19:01)
[2018-10-23] MEDS: DIGOXIN 125 MCG TABLET GT SCH (20:25)
[2018-10-23 20:26] VITALS: BP 128/73
[2018-10-23] MEDS: MELATONIN 3 MG GT SCH (20:26)
[2018-10-23] MEDS: PHENOBARBITAL 97.2 MG TABLET GT SCH (20:28)
[2018-10-23] MEDS: PROTEIN SUPPLEMENT (PROSTAT) 30 ML LIQUID GT SCH (20:29)
[2018-10-23] MEDS: ENOXAPARIN SODIUM 40 MG/0.4 ML DISP.SYRIN SQ SCH (20:34)
[2018-10-24] MEDS: BLOOD SUGAR DIAGNOSTIC 1 EACH STRIP VI SCH ×4 (00:13→18:00)
[2018-10-24] MEDS: INSULIN REGULAR, HUMAN 300 UNIT/3 ML VIAL SQ PRN ×4 (00:17→18:03)
[2018-10-24] MEDS: IPRATROPIUM BROMIDE 0.5 MG/2.5 ML NEBU NEB SCH ×4 (00:38→19:18)
[2018-10-24] MEDS: ALBUTEROL SULFATE 2.5 MG/3 ML NEBU NEB SCH ×4 (00:38→19:18)
[2018-10-24] MEDS: LORATADINE 10 MG TABLET GT SCH (05:00)
[2018-10-24] MEDS: BENZTROPINE MESYLATE 0.5 MG TABLET GT SCH ×3 (05:01→21:42)
[2018-10-24] MEDS: FOLIC ACID 1 MG TABLET GT SCH (05:07)
[2018-10-24] MEDS: LISINOPRIL 20 MG TABLET GT SCH ×2 (05:07→18:00)
[2018-10-24] MEDS: OMEPRAZOLE 20 MG CAPSULE.DR GT SCH (05:07)
[2018-10-24] MEDS: GUAIFENESIN/DEXTROMETHORPHAN 5 ML UDC GT PRN ×2 (05:08→11:16)
[2018-10-24] MEDS: FERROUS SULFATE 330 MG/7.5 ML UDC- FOR SA ONLY GT SCH (05:09)
[2018-10-24] MEDS: CYANOCOBALAMIN 100 MCG TABLET GT SCH (05:10)
[2018-10-24] MEDS: PHENYTOIN 100 MG/4 ML UDC GT SCH ×2 (05:10→18:00)
[2018-10-24] MEDS: INSULIN NPH SQ SCH ×3 (05:13→22:49)
[2018-10-24] MEDS: PHENOBARBITAL 64.8 MG TABLET GT SCH (08:06)
[2018-10-24] MEDS: ASPIRIN 81 MG TAB.CHEW GT SCH (08:06)
[2018-10-24] MEDS: METOPROLOL TARTRATE 100 MG TABLET GT SCH (08:06)
[2018-10-24] MEDS: POTASSIUM CHLORIDE 40 MEQ/30 ML LIQUID UDC GT SCH (08:06)
[2018-10-24] MEDS: LEVETIRACETAM 500 MG/5 ML LIQUID UDC GT SCH ×2 (08:06→21:41)
[2018-10-24] MEDS: ACIDOPHILUS/BULGARICUS CHEW TAB GT SCH ×2 (08:06→21:41)
[2018-10-24] MEDS: SPIRONOLACTONE 25 MG TABLET GT SCH (08:06)
[2018-10-24] MEDS: VIMPAT 150 MG GT SCH ×2 (08:06→21:41)
[2018-10-24] MEDS: COD LIVER OIL/ZINC OXIDE OINT 113 GM TUBE TP SCH ×2 (08:06→21:41)
[2018-10-24] MEDS: NUTRISOURCE FIBER 4 GM PACKET PO SCH ×2 (08:06→21:41)
[2018-10-24] MEDS: AMANTADINE 50MG/5ML GT SCH (08:06)
[2018-10-24] MEDS: Z GUARD REMEDY PASTE 57 GM TUBE TP SCH ×2 (08:07→21:42)
[2018-10-24] MEDS: HYDROGEN PEROXIDE 3% 118 ML BOTTLE TP SCH ×2 (08:07→21:41)
[2018-10-24] MEDS: GLUCERNA 1.2 1000ML LIQUID GT SCH (11:15)
[2018-10-24 11:27] VITALS: BP 128/78
[2018-10-24] MEDS: ENOXAPARIN SODIUM 40 MG/0.4 ML DISP.SYRIN SQ SCH (21:00)
[2018-10-24] MEDS: MELATONIN 3 MG GT SCH (21:41)
[2018-10-24] MEDS: PHENOBARBITAL 97.2 MG TABLET GT SCH (21:41)
[2018-10-24] MEDS: MULTIVIT, IRON, MIN NO. 8, FA TABLET GT SCH (21:41)
[2018-10-24] MEDS: DIGOXIN 125 MCG TABLET GT SCH (21:41)
[2018-10-24] MEDS: PROTEIN SUPPLEMENT (PROSTAT) 30 ML LIQUID GT SCH (21:41)
[2018-10-24 22:07] VITALS: BP 123/75
[2018-10-25] MEDS: BLOOD SUGAR DIAGNOSTIC 1 EACH STRIP VI SCH ×5 (00:22→23:46)
[2018-10-25] MEDS: INSULIN REGULAR, HUMAN 300 UNIT/3 ML VIAL SQ PRN ×5 (00:24→23:47)
[2018-10-25] MEDS: IPRATROPIUM BROMIDE 0.5 MG/2.5 ML NEBU NEB SCH ×4 (00:57→19:22)
[2018-10-25] MEDS: ALBUTEROL SULFATE 2.5 MG/3 ML NEBU NEB SCH ×4 (00:57→19:23)
[2018-10-25] MEDS: GUAIFENESIN/DEXTROMETHORPHAN 5 ML UDC GT PRN (01:52)
[2018-10-25] MEDS: GLUCERNA 1.2 1000ML LIQUID GT SCH (01:52)
[2018-10-25] MEDS: INSULIN NPH SQ SCH ×3 (06:07→22:34)
[2018-10-25] MEDS: FERROUS SULFATE 330 MG/7.5 ML UDC- FOR SA ONLY GT SCH (06:22)
[2018-10-25] MEDS: BENZTROPINE MESYLATE 0.5 MG TABLET GT SCH ×3 (06:22→21:23)
[2018-10-25] MEDS: PHENYTOIN 100 MG/4 ML UDC GT SCH ×2 (06:22→17:31)
[2018-10-25] MEDS: OMEPRAZOLE 20 MG CAPSULE.DR GT SCH (06:22)
[2018-10-25] MEDS: LORATADINE 10 MG TABLET GT SCH (06:22)
[2018-10-25] MEDS: FOLIC ACID 1 MG TABLET GT SCH (06:22)
[2018-10-25] MEDS: CYANOCOBALAMIN 100 MCG TABLET GT SCH (06:23)
[2018-10-25] MEDS: LISINOPRIL 20 MG TABLET GT SCH ×2 (06:23→17:31)
[2018-10-25] MEDS: LEVETIRACETAM 500 MG/5 ML LIQUID UDC GT SCH ×2 (09:02→21:22)
[2018-10-25] MEDS: ASPIRIN 81 MG TAB.CHEW GT SCH (09:02)
[2018-10-25] MEDS: SPIRONOLACTONE 25 MG TABLET GT SCH (09:02)
[2018-10-25] MEDS: ACIDOPHILUS/BULGARICUS CHEW TAB GT SCH ×2 (09:02→21:22)
[2018-10-25] MEDS: VIMPAT 150 MG GT SCH ×2 (09:03→21:23)
[2018-10-25] MEDS: PHENOBARBITAL 64.8 MG TABLET GT SCH (09:03)
[2018-10-25] MEDS: HYDROGEN PEROXIDE 3% 118 ML BOTTLE TP SCH ×2 (09:03→21:23)
[2018-10-25] MEDS: POTASSIUM CHLORIDE 40 MEQ/30 ML LIQUID UDC GT SCH (09:03)
[2018-10-25] MEDS: COD LIVER OIL/ZINC OXIDE OINT 113 GM TUBE TP SCH ×2 (09:03→21:23)
[2018-10-25] MEDS: AMANTADINE 50MG/5ML GT SCH (09:03)
[2018-10-25] MEDS: NUTRISOURCE FIBER 4 GM PACKET PO SCH ×2 (09:03→21:23)
[2018-10-25] MEDS: Z GUARD REMEDY PASTE 57 GM TUBE TP SCH ×2 (09:03→21:23)
[2018-10-25] MEDS: METOPROLOL TARTRATE 100 MG TABLET GT SCH (09:03)
[2018-10-25 11:31] VITALS: BP 131/84
[2018-10-25] MEDS: ENOXAPARIN SODIUM 40 MG/0.4 ML DISP.SYRIN SQ SCH (21:00)
[2018-10-25] MEDS: DIGOXIN 125 MCG TABLET GT SCH (21:23)
[2018-10-25] MEDS: PROTEIN SUPPLEMENT (PROSTAT) 30 ML LIQUID GT SCH (21:23)
[2018-10-25] MEDS: PHENOBARBITAL 97.2 MG TABLET GT SCH (21:23)
[2018-10-25] MEDS: MELATONIN 3 MG GT SCH (21:23)
[2018-10-25 22:23] VITALS: BP 127/86
[2018-10-26] MEDS: ACETAMINOPHEN 650 MG/20 ML UDC- SA PATIENTS-PAIN ONLY GT PRN (01:02)
[2018-10-26] MEDS: ALBUTEROL SULFATE 2.5 MG/3 ML NEBU NEB SCH ×4 (01:08→19:32)
[2018-10-26] MEDS: IPRATROPIUM BROMIDE 0.5 MG/2.5 ML NEBU NEB SCH ×4 (01:08→19:32)
[2018-10-26 06:00] VITALS: BP 90/60
[2018-10-26] MEDS: LISINOPRIL 20 MG TABLET GT SCH ×2 (06:00→17:31)
[2018-10-26] MEDS: BENZTROPINE MESYLATE 0.5 MG TABLET GT SCH ×3 (06:13→21:17)
[2018-10-26] MEDS: PHENYTOIN 100 MG/4 ML UDC GT SCH ×2 (06:13→17:30)
[2018-10-26] MEDS: LORATADINE 10 MG TABLET GT SCH (06:13)
[2018-10-26] MEDS: CYANOCOBALAMIN 100 MCG TABLET GT SCH (06:14)
[2018-10-26] MEDS: OMEPRAZOLE 20 MG CAPSULE.DR GT SCH (06:14)
[2018-10-26] MEDS: FERROUS SULFATE 330 MG/7.5 ML UDC- FOR SA ONLY GT SCH (06:14)
[2018-10-26] MEDS: FOLIC ACID 1 MG TABLET GT SCH (06:14)
[2018-10-26] MEDS: BLOOD SUGAR DIAGNOSTIC 1 EACH STRIP VI SCH ×3 (06:14→17:31)
[2018-10-26] MEDS: INSULIN NPH SQ SCH ×3 (06:16→21:18)
[2018-10-26] MEDS: GLUCERNA 1.2 1000ML LIQUID GT SCH (06:36)
[2018-10-26 08:11] VITALS: BP 141/86
[2018-10-26] MEDS: ASPIRIN 81 MG TAB.CHEW GT SCH (08:47)
[2018-10-26] MEDS: SPIRONOLACTONE 25 MG TABLET GT SCH (08:47)
[2018-10-26] MEDS: PHENOBARBITAL 64.8 MG TABLET GT SCH (08:48)
[2018-10-26] MEDS: LEVETIRACETAM 500 MG/5 ML LIQUID UDC GT SCH ×2 (08:48→20:41)
[2018-10-26] MEDS: METOPROLOL TARTRATE 100 MG TABLET GT SCH (08:48)
[2018-10-26] MEDS: ACIDOPHILUS/BULGARICUS CHEW TAB GT SCH ×2 (08:48→20:41)
--- NOTE | 2018-10-26 08:48 | NUR ---
SEEN AND EXAMINED BY DR. CRYSTAL WITH NEW ORDERS, NOTED AND CARRIED OUT.
[2018-10-26] MEDS: AMANTADINE 50MG/5ML GT SCH (08:49)
[2018-10-26] MEDS: COD LIVER OIL/ZINC OXIDE OINT 113 GM TUBE TP SCH ×2 (08:50→20:42)
[2018-10-26] MEDS: NUTRISOURCE FIBER 4 GM PACKET PO SCH ×2 (08:50→20:42)
[2018-10-26] MEDS: POTASSIUM CHLORIDE 40 MEQ/30 ML LIQUID UDC GT SCH (08:50)
[2018-10-26] MEDS: VIMPAT 150 MG GT SCH ×2 (08:50→20:42)
[2018-10-26] MEDS: HYDROGEN PEROXIDE 3% 118 ML BOTTLE TP SCH ×2 (08:50→20:42)
[2018-10-26] MEDS: Z GUARD REMEDY PASTE 57 GM TUBE TP SCH ×2 (08:50→20:42)
[2018-10-26] MEDS: INSULIN REGULAR, HUMAN 300 UNIT/3 ML VIAL SQ PRN ×2 (12:00→17:32)
[2018-10-26] MEDS: DIGOXIN 125 MCG TABLET GT SCH (20:41)
[2018-10-26] MEDS: MELATONIN 3 MG GT SCH (20:41)
[2018-10-26] MEDS: PROTEIN SUPPLEMENT (PROSTAT) 30 ML LIQUID GT SCH (20:42)
[2018-10-26] MEDS: PHENOBARBITAL 97.2 MG TABLET GT SCH (20:42)
[2018-10-26] MEDS: MULTIVIT, IRON, MIN NO. 8, FA TABLET GT SCH (20:42)
[2018-10-26] MEDS: ENOXAPARIN SODIUM 40 MG/0.4 ML DISP.SYRIN SQ SCH (21:17)
[2018-10-26 22:30] VITALS: BP 106/75
[2018-10-27] MEDS: GLUCERNA 1.2 1000ML LIQUID GT SCH ×2 (00:03→16:30)
[2018-10-27] MEDS: BLOOD SUGAR DIAGNOSTIC 1 EACH STRIP VI SCH ×4 (00:25→17:15)
[2018-10-27] MEDS: ALBUTEROL SULFATE 2.5 MG/3 ML NEBU NEB SCH ×4 (00:59→19:32)
[2018-10-27] MEDS: IPRATROPIUM BROMIDE 0.5 MG/2.5 ML NEBU NEB SCH ×4 (00:59→19:32)
[2018-10-27] MEDS: INSULIN REGULAR, HUMAN 300 UNIT/3 ML VIAL SQ PRN ×4 (01:12→17:16)
[2018-10-27] MEDS: FERROUS SULFATE 330 MG/7.5 ML UDC- FOR SA ONLY GT SCH (05:02)
[2018-10-27] MEDS: OMEPRAZOLE 20 MG CAPSULE.DR GT SCH (05:02)
[2018-10-27] MEDS: LISINOPRIL 20 MG TABLET GT SCH ×2 (05:02→17:15)
[2018-10-27] MEDS: LORATADINE 10 MG TABLET GT SCH (05:02)
[2018-10-27] MEDS: BENZTROPINE MESYLATE 0.5 MG TABLET GT SCH ×3 (05:02→21:02)
[2018-10-27] MEDS: FOLIC ACID 1 MG TABLET GT SCH (05:02)
[2018-10-27] MEDS: CYANOCOBALAMIN 100 MCG TABLET GT SCH (05:02)
[2018-10-27] MEDS: PHENYTOIN 100 MG/4 ML UDC GT SCH ×2 (05:02→17:15)
[2018-10-27] MEDS: INSULIN NPH SQ SCH ×3 (05:55→21:04)
[2018-10-27 08:12] VITALS: BP 157/92
[2018-10-27 08:25] LABS: CREATININE 0.9 mg/dL (0.6-1.3); POTASSIUM 4.4 mmol/L (3.5-5.1)
[2018-10-27] MEDS: ASPIRIN 81 MG TAB.CHEW GT SCH (08:34)
[2018-10-27] MEDS: ACIDOPHILUS/BULGARICUS CHEW TAB GT SCH ×2 (08:34→20:19)
[2018-10-27] MEDS: SPIRONOLACTONE 25 MG TABLET GT SCH (08:34)
[2018-10-27] MEDS: LEVETIRACETAM 500 MG/5 ML LIQUID UDC GT SCH ×2 (08:34→20:19)
[2018-10-27] MEDS: METOPROLOL TARTRATE 100 MG TABLET GT SCH (08:35)
[2018-10-27] MEDS: AMANTADINE 50MG/5ML GT SCH (08:35)
[2018-10-27] MEDS: Z GUARD REMEDY PASTE 57 GM TUBE TP SCH ×2 (08:35→20:21)
[2018-10-27] MEDS: NUTRISOURCE FIBER 4 GM PACKET PO SCH ×2 (08:35→20:20)
[2018-10-27] MEDS: COD LIVER OIL/ZINC OXIDE OINT 113 GM TUBE TP SCH ×2 (08:35→20:20)
[2018-10-27] MEDS: PHENOBARBITAL 64.8 MG TABLET GT SCH (08:35)
[2018-10-27] MEDS: HYDROGEN PEROXIDE 3% 118 ML BOTTLE TP SCH ×2 (08:35→20:21)
[2018-10-27] MEDS: POTASSIUM CHLORIDE 40 MEQ/30 ML LIQUID UDC GT SCH (08:35)
[2018-10-27] MEDS: VIMPAT 150 MG GT SCH ×2 (08:35→20:20)
[2018-10-27 09:10] LABS: BASOPHILS % (AUTO) 0.4 % (0.0-2.0); EOSINOPHILS # (AUTO) 0.1 K/uL (0.0-0.7); EOSINOPHILS % (AUTO) 2.9 % (0.0-7.0); HEMATOCRIT 37.5 % (36.7-47.1); HEMOGLOBIN 12.6 g/dL (12.5-16.3); LYMPHOCYTES # (AUTO) 1.4 K/uL (20.0-40.0); LYMPHOCYTES % (AUTO) 32.6 % (20.5-51.5); MEAN CORPUSCULAR HEMOGLOBIN 31.3 uug (23.8-33.4); MEAN CORPUSCULAR HGB CONC 34 g/dL (32.5-36.3); MEAN CORPUSCULAR VOLUME 92.9 fL (73.0-96.2); MONOCYTES # (AUTO) 0.4 K/uL (2.0-10.0); MONOCYTES % (AUTO) 9.5 % (0.0-11.0); NEUTROPHILS # (AUTO) 2.4 K/uL (1.8-8.9); NEUTROPHILS % (AUTO) 54.6 % (38.5-71.5); PLATELET COUNT (AUTO) 147 K/uL (152-348); RED BLOOD CELL COUNT(AUTO) 4.04 MIL/uL (4.06-5.63); WHITE BLOOD COUNT (AUTO) 4.3 K/uL (3.6-10.2)
--- NOTE | 2018-10-27 13:35 | NUR ---
SEEN BY TIFFANIE MAURICIO.
--- NOTE | 2018-10-27 14:00 | NUR ---
SEEN BY DR. NAYAN MAURICIO.
[2018-10-27] MEDS: PHENOBARBITAL 97.2 MG TABLET GT SCH (20:20)
[2018-10-27] MEDS: MELATONIN 3 MG GT SCH (20:20)
[2018-10-27] MEDS: DIGOXIN 125 MCG TABLET GT SCH (20:20)
[2018-10-27] MEDS: PROTEIN SUPPLEMENT (PROSTAT) 30 ML LIQUID GT SCH (20:20)
[2018-10-27 20:55] VITALS: BP 170/90
[2018-10-27] MEDS: ENOXAPARIN SODIUM 40 MG/0.4 ML DISP.SYRIN SQ SCH (21:02)
[2018-10-27] MEDS: GUAIFENESIN/DEXTROMETHORPHAN 5 ML UDC GT PRN (23:19)
[2018-10-28] MEDS: BLOOD SUGAR DIAGNOSTIC 1 EACH STRIP VI SCH ×4 (00:29→18:12)
[2018-10-28] MEDS: INSULIN REGULAR, HUMAN 300 UNIT/3 ML VIAL SQ PRN ×4 (00:32→18:13)
[2018-10-28] MEDS: ALBUTEROL SULFATE 2.5 MG/3 ML NEBU NEB SCH ×4 (01:08→19:41)
[2018-10-28] MEDS: IPRATROPIUM BROMIDE 0.5 MG/2.5 ML NEBU NEB SCH ×4 (01:08→19:41)
[2018-10-28] MEDS: PHENYTOIN 100 MG/4 ML UDC GT SCH ×2 (05:40→18:11)
[2018-10-28] MEDS: BENZTROPINE MESYLATE 0.5 MG TABLET GT SCH ×3 (05:40→21:10)
[2018-10-28] MEDS: FOLIC ACID 1 MG TABLET GT SCH (05:40)
[2018-10-28] MEDS: LORATADINE 10 MG TABLET GT SCH (05:40)
[2018-10-28] MEDS: CYANOCOBALAMIN 100 MCG TABLET GT SCH (05:40)
[2018-10-28] MEDS: FERROUS SULFATE 330 MG/7.5 ML UDC- FOR SA ONLY GT SCH (05:40)
[2018-10-28] MEDS: OMEPRAZOLE 20 MG CAPSULE.DR GT SCH (05:40)
[2018-10-28] MEDS: LISINOPRIL 20 MG TABLET GT SCH ×2 (05:40→18:11)
[2018-10-28] MEDS: INSULIN NPH SQ SCH ×3 (05:43→21:21)
[2018-10-28 08:09] VITALS: BP 162/90
[2018-10-28] MEDS: METOPROLOL TARTRATE 100 MG TABLET GT SCH (08:56)
[2018-10-28] MEDS: POTASSIUM CHLORIDE 40 MEQ/30 ML LIQUID UDC GT SCH (08:56)
[2018-10-28] MEDS: ASPIRIN 81 MG TAB.CHEW GT SCH (08:56)
[2018-10-28] MEDS: AMANTADINE 50MG/5ML GT SCH (08:56)
[2018-10-28] MEDS: ACIDOPHILUS/BULGARICUS CHEW TAB GT SCH ×2 (08:56→21:10)
[2018-10-28] MEDS: VIMPAT 150 MG GT SCH ×2 (08:56→21:10)
[2018-10-28] MEDS: SPIRONOLACTONE 25 MG TABLET GT SCH (08:56)
[2018-10-28] MEDS: COD LIVER OIL/ZINC OXIDE OINT 113 GM TUBE TP SCH ×2 (08:56→21:10)
[2018-10-28] MEDS: Z GUARD REMEDY PASTE 57 GM TUBE TP SCH ×2 (08:56→21:10)
[2018-10-28] MEDS: LEVETIRACETAM 500 MG/5 ML LIQUID UDC GT SCH ×2 (08:56→21:10)
[2018-10-28] MEDS: NUTRISOURCE FIBER 4 GM PACKET PO SCH ×2 (08:56→21:10)
[2018-10-28] MEDS: PHENOBARBITAL 64.8 MG TABLET GT SCH (08:56)
[2018-10-28] MEDS: HYDROGEN PEROXIDE 3% 118 ML BOTTLE TP SCH ×2 (08:56→21:10)
--- NOTE | 2018-10-28 11:49 | NUR ---
SW notified patient's fiance/SJ Vanna via email that the next IDT meeting for the patient is scheduled for Saturday 11/04 at 11am.
[2018-10-28] MEDS: GLUCERNA 1.2 1000ML LIQUID GT SCH (12:24)
[2018-10-28] MEDS: GUAIFENESIN/DEXTROMETHORPHAN 5 ML UDC GT PRN (18:15)
[2018-10-28 20:00] VITALS: BP 126/83
[2018-10-28] MEDS: PHENOBARBITAL 97.2 MG TABLET GT SCH (21:10)
[2018-10-28] MEDS: DIGOXIN 125 MCG TABLET GT SCH (21:10)
[2018-10-28] MEDS: MULTIVIT, IRON, MIN NO. 8, FA TABLET GT SCH (21:10)
[2018-10-28] MEDS: PROTEIN SUPPLEMENT (PROSTAT) 30 ML LIQUID GT SCH (21:10)
[2018-10-28] MEDS: MELATONIN 3 MG GT SCH (21:10)
[2018-10-28] MEDS: ENOXAPARIN SODIUM 40 MG/0.4 ML DISP.SYRIN SQ SCH (21:21)
[2018-10-29] MEDS: BLOOD SUGAR DIAGNOSTIC 1 EACH STRIP VI SCH ×4 (00:21→17:51)
[2018-10-29] MEDS: INSULIN REGULAR, HUMAN 300 UNIT/3 ML VIAL SQ PRN ×4 (00:23→17:59)
[2018-10-29] MEDS: IPRATROPIUM BROMIDE 0.5 MG/2.5 ML NEBU NEB SCH ×4 (01:58→19:38)
[2018-10-29] MEDS: ALBUTEROL SULFATE 2.5 MG/3 ML NEBU NEB SCH ×4 (01:58→19:38)
[2018-10-29] MEDS: BENZTROPINE MESYLATE 0.5 MG TABLET GT SCH ×3 (05:40→22:37)
[2018-10-29] MEDS: FOLIC ACID 1 MG TABLET GT SCH (05:40)
[2018-10-29] MEDS: FERROUS SULFATE 330 MG/7.5 ML UDC- FOR SA ONLY GT SCH (05:40)
[2018-10-29] MEDS: PHENYTOIN 100 MG/4 ML UDC GT SCH ×2 (05:40→17:54)
[2018-10-29] MEDS: LORATADINE 10 MG TABLET GT SCH (05:40)
[2018-10-29] MEDS: CYANOCOBALAMIN 100 MCG TABLET GT SCH (05:41)
[2018-10-29] MEDS: OMEPRAZOLE 20 MG CAPSULE.DR GT SCH (05:41)
[2018-10-29] MEDS: LISINOPRIL 20 MG TABLET GT SCH ×2 (05:41→17:52)
[2018-10-29] MEDS: INSULIN NPH SQ SCH ×3 (05:42→22:39)
[2018-10-29] MEDS: GLUCERNA 1.2 1000ML LIQUID GT SCH (09:16)
[2018-10-29] MEDS: PHENOBARBITAL 64.8 MG TABLET GT SCH (09:17)
[2018-10-29] MEDS: ASPIRIN 81 MG TAB.CHEW GT SCH (09:17)
[2018-10-29] MEDS: SPIRONOLACTONE 25 MG TABLET GT SCH (09:17)
[2018-10-29] MEDS: VIMPAT 150 MG GT SCH ×2 (09:17→20:31)
[2018-10-29] MEDS: NUTRISOURCE FIBER 4 GM PACKET PO SCH ×2 (09:19→20:34)
[2018-10-29] MEDS: AMANTADINE 50MG/5ML GT SCH (09:19)
[2018-10-29] MEDS: POTASSIUM CHLORIDE 40 MEQ/30 ML LIQUID UDC GT SCH (09:19)
[2018-10-29] MEDS: HYDROGEN PEROXIDE 3% 118 ML BOTTLE TP SCH ×2 (09:20→20:34)
[2018-10-29] MEDS: Z GUARD REMEDY PASTE 57 GM TUBE TP SCH ×2 (09:20→20:34)
[2018-10-29] MEDS: COD LIVER OIL/ZINC OXIDE OINT 113 GM TUBE TP SCH ×2 (09:20→20:34)
[2018-10-29] MEDS: METOPROLOL TARTRATE 100 MG TABLET GT SCH (09:21)
[2018-10-29] MEDS: LEVETIRACETAM 500 MG/5 ML LIQUID UDC GT SCH ×2 (09:21→20:28)
[2018-10-29] MEDS: ACIDOPHILUS/BULGARICUS CHEW TAB GT SCH ×2 (09:21→20:28)
[2018-10-29 10:32] VITALS: BP 156/84
[2018-10-29 20:00] VITALS: BP 131/68
[2018-10-29] MEDS: DIGOXIN 125 MCG TABLET GT SCH (20:31)
[2018-10-29] MEDS: MELATONIN 3 MG GT SCH (20:31)
[2018-10-29] MEDS: PROTEIN SUPPLEMENT (PROSTAT) 30 ML LIQUID GT SCH (20:33)
[2018-10-29] MEDS: PHENOBARBITAL 97.2 MG TABLET GT SCH (20:33)
[2018-10-29] MEDS: ENOXAPARIN SODIUM 40 MG/0.4 ML DISP.SYRIN SQ SCH (20:54)
[2018-10-30] MEDS: BLOOD SUGAR DIAGNOSTIC 1 EACH STRIP VI SCH ×4 (00:11→18:12)
[2018-10-30] MEDS: INSULIN REGULAR, HUMAN 300 UNIT/3 ML VIAL SQ PRN ×3 (00:13→18:13)
[2018-10-30] MEDS: GLUCERNA 1.2 1000ML LIQUID GT SCH ×2 (00:24→20:52)
[2018-10-30] MEDS: IPRATROPIUM BROMIDE 0.5 MG/2.5 ML NEBU NEB SCH ×4 (00:57→19:10)
[2018-10-30] MEDS: ALBUTEROL SULFATE 2.5 MG/3 ML NEBU NEB SCH ×4 (00:57→19:10)
[2018-10-30] MEDS: INSULIN NPH SQ SCH ×3 (05:24→22:42)
[2018-10-30] MEDS: FERROUS SULFATE 330 MG/7.5 ML UDC- FOR SA ONLY GT SCH (05:25)
[2018-10-30] MEDS: LORATADINE 10 MG TABLET GT SCH (05:25)
[2018-10-30] MEDS: BENZTROPINE MESYLATE 0.5 MG TABLET GT SCH ×3 (05:25→22:41)
[2018-10-30] MEDS: FOLIC ACID 1 MG TABLET GT SCH (05:25)
[2018-10-30] MEDS: PHENYTOIN 100 MG/4 ML UDC GT SCH ×2 (05:25→18:12)
[2018-10-30] MEDS: OMEPRAZOLE 20 MG CAPSULE.DR GT SCH (05:26)
[2018-10-30] MEDS: LISINOPRIL 20 MG TABLET GT SCH ×2 (05:26→18:12)
[2018-10-30] MEDS: CYANOCOBALAMIN 100 MCG TABLET GT SCH (05:26)
[2018-10-30 08:00] VITALS: BP 170/96
[2018-10-30] MEDS: SPIRONOLACTONE 25 MG TABLET GT SCH (08:42)
[2018-10-30] MEDS: POTASSIUM CHLORIDE 40 MEQ/30 ML LIQUID UDC GT SCH (08:43)
[2018-10-30] MEDS: VIMPAT 150 MG GT SCH ×2 (08:43→20:49)
[2018-10-30] MEDS: METOPROLOL TARTRATE 100 MG TABLET GT SCH (08:43)
[2018-10-30] MEDS: Z GUARD REMEDY PASTE 57 GM TUBE TP SCH ×2 (08:43→20:51)
[2018-10-30] MEDS: PHENOBARBITAL 64.8 MG TABLET GT SCH (08:43)
[2018-10-30] MEDS: NUTRISOURCE FIBER 4 GM PACKET PO SCH ×2 (08:43→20:49)
[2018-10-30] MEDS: LEVETIRACETAM 500 MG/5 ML LIQUID UDC GT SCH ×2 (08:43→20:49)
[2018-10-30] MEDS: ACIDOPHILUS/BULGARICUS CHEW TAB GT SCH ×2 (08:43→20:49)
[2018-10-30] MEDS: ASPIRIN 81 MG TAB.CHEW GT SCH (08:43)
[2018-10-30] MEDS: AMANTADINE 50MG/5ML GT SCH (08:43)
[2018-10-30] MEDS: HYDROGEN PEROXIDE 3% 118 ML BOTTLE TP SCH ×2 (08:43→20:51)
[2018-10-30] MEDS: COD LIVER OIL/ZINC OXIDE OINT 113 GM TUBE TP SCH ×2 (08:43→20:51)
[2018-10-30] MEDS: GUAIFENESIN/DEXTROMETHORPHAN 5 ML UDC GT PRN (15:46)
[2018-10-30] MEDS: HYDROCODONE BIT/HOMATROPINE 5 ML UDC GT PRN (16:44)
[2018-10-30 20:00] VITALS: BP 135/85
[2018-10-30] MEDS: DIGOXIN 125 MCG TABLET GT SCH (20:49)
[2018-10-30] MEDS: MULTIVIT, IRON, MIN NO. 8, FA TABLET GT SCH (20:49)
[2018-10-30] MEDS: MELATONIN 3 MG GT SCH (20:49)
[2018-10-30] MEDS: PROTEIN SUPPLEMENT (PROSTAT) 30 ML LIQUID GT SCH (20:49)
[2018-10-30] MEDS: PHENOBARBITAL 97.2 MG TABLET GT SCH (20:49)
[2018-10-30] MEDS: ENOXAPARIN SODIUM 40 MG/0.4 ML DISP.SYRIN SQ SCH (20:51)
[2018-10-31] MEDS: BLOOD SUGAR DIAGNOSTIC 1 EACH STRIP VI SCH ×4 (00:26→17:32)
[2018-10-31] MEDS: INSULIN REGULAR, HUMAN 300 UNIT/3 ML VIAL SQ PRN ×4 (00:27→17:35)
[2018-10-31] MEDS: IPRATROPIUM BROMIDE 0.5 MG/2.5 ML NEBU NEB SCH ×4 (01:25→18:47)
[2018-10-31] MEDS: ALBUTEROL SULFATE 2.5 MG/3 ML NEBU NEB SCH ×4 (01:25→18:47)
[2018-10-31] MEDS: PHENYTOIN 100 MG/4 ML UDC GT SCH ×2 (06:18→17:24)
[2018-10-31] MEDS: FOLIC ACID 1 MG TABLET GT SCH (06:18)
[2018-10-31] MEDS: FERROUS SULFATE 330 MG/7.5 ML UDC- FOR SA ONLY GT SCH (06:18)
[2018-10-31] MEDS: OMEPRAZOLE 20 MG CAPSULE.DR GT SCH (06:18)
[2018-10-31] MEDS: LORATADINE 10 MG TABLET GT SCH (06:18)
[2018-10-31] MEDS: BENZTROPINE MESYLATE 0.5 MG TABLET GT SCH ×3 (06:18→21:58)
[2018-10-31] MEDS: LISINOPRIL 20 MG TABLET GT SCH ×2 (06:19→17:38)
[2018-10-31] MEDS: CYANOCOBALAMIN 100 MCG TABLET GT SCH (06:19)
[2018-10-31] MEDS: INSULIN NPH SQ SCH ×3 (06:29→22:28)
[2018-10-31] MEDS: HYDROCODONE BIT/HOMATROPINE 5 ML UDC GT PRN ×2 (06:30→15:50)
[2018-10-31] MEDS: SPIRONOLACTONE 25 MG TABLET GT SCH (08:34)
[2018-10-31] MEDS: PHENOBARBITAL 64.8 MG TABLET GT SCH (08:36)
[2018-10-31] MEDS: METOPROLOL TARTRATE 100 MG TABLET GT SCH (08:36)
[2018-10-31] MEDS: AMANTADINE 50MG/5ML GT SCH (08:36)
[2018-10-31] MEDS: LEVETIRACETAM 500 MG/5 ML LIQUID UDC GT SCH ×2 (08:36→21:58)
[2018-10-31] MEDS: ACIDOPHILUS/BULGARICUS CHEW TAB GT SCH ×2 (08:36→21:58)
[2018-10-31] MEDS: ASPIRIN 81 MG TAB.CHEW GT SCH (08:36)
[2018-10-31] MEDS: VIMPAT 150 MG GT SCH ×2 (08:36→21:58)
[2018-10-31] MEDS: POTASSIUM CHLORIDE 40 MEQ/30 ML LIQUID UDC GT SCH (08:37)
[2018-10-31] MEDS: HYDROGEN PEROXIDE 3% 118 ML BOTTLE TP SCH ×2 (08:37→21:58)
[2018-10-31] MEDS: NUTRISOURCE FIBER 4 GM PACKET PO SCH ×2 (08:37→21:58)
[2018-10-31] MEDS: Z GUARD REMEDY PASTE 57 GM TUBE TP SCH ×2 (08:37→21:58)
[2018-10-31] MEDS: COD LIVER OIL/ZINC OXIDE OINT 113 GM TUBE TP SCH ×2 (08:37→21:58)
[2018-10-31 09:30] VITALS: BP 126/79
[2018-10-31] MEDS: GLUCERNA 1.2 1000ML LIQUID GT SCH (13:59)
[2018-10-31] MEDS: GUAIFENESIN/DEXTROMETHORPHAN 5 ML UDC GT PRN (14:08)
[2018-10-31 20:07] VITALS: BP 121/52
[2018-10-31] MEDS: ENOXAPARIN SODIUM 40 MG/0.4 ML DISP.SYRIN SQ SCH (21:00)
[2018-10-31] MEDS: DIGOXIN 125 MCG TABLET GT SCH (21:58)
[2018-10-31] MEDS: PROTEIN SUPPLEMENT (PROSTAT) 30 ML LIQUID GT SCH (21:58)
[2018-10-31] MEDS: PHENOBARBITAL 97.2 MG TABLET GT SCH (21:58)
[2018-10-31] MEDS: MELATONIN 3 MG GT SCH (21:58)
[2018-11-01] MEDS: ALBUTEROL SULFATE 2.5 MG/3 ML NEBU NEB SCH ×4 (00:39→19:30)
[2018-11-01] MEDS: IPRATROPIUM BROMIDE 0.5 MG/2.5 ML NEBU NEB SCH ×4 (00:39→19:30)
[2018-11-01] MEDS: BLOOD SUGAR DIAGNOSTIC 1 EACH STRIP VI SCH ×4 (00:43→17:52)
[2018-11-01] MEDS: INSULIN REGULAR, HUMAN 300 UNIT/3 ML VIAL SQ PRN ×3 (00:49→17:52)
[2018-11-01] MEDS: INSULIN NPH SQ SCH ×3 (06:16→22:34)
[2018-11-01] MEDS: OMEPRAZOLE 20 MG CAPSULE.DR GT SCH (06:17)
[2018-11-01] MEDS: FERROUS SULFATE 330 MG/7.5 ML UDC- FOR SA ONLY GT SCH (06:17)
[2018-11-01] MEDS: BENZTROPINE MESYLATE 0.5 MG TABLET GT SCH ×3 (06:17→22:24)
[2018-11-01] MEDS: LORATADINE 10 MG TABLET GT SCH (06:17)
[2018-11-01] MEDS: PHENYTOIN 100 MG/4 ML UDC GT SCH ×2 (06:17→17:50)
[2018-11-01] MEDS: FOLIC ACID 1 MG TABLET GT SCH (06:17)
[2018-11-01] MEDS: CYANOCOBALAMIN 100 MCG TABLET GT SCH (06:18)
[2018-11-01] MEDS: LISINOPRIL 20 MG TABLET GT SCH ×2 (06:18→17:52)
[2018-11-01] MEDS: GLUCERNA 1.2 1000ML LIQUID GT SCH (07:05)
[2018-11-01] MEDS: ASPIRIN 81 MG TAB.CHEW GT SCH (09:14)
[2018-11-01] MEDS: ACIDOPHILUS/BULGARICUS CHEW TAB GT SCH ×2 (09:14→21:00)
[2018-11-01] MEDS: SPIRONOLACTONE 25 MG TABLET GT SCH (09:14)
[2018-11-01] MEDS: LEVETIRACETAM 500 MG/5 ML LIQUID UDC GT SCH ×2 (09:15→21:00)
[2018-11-01] MEDS: METOPROLOL TARTRATE 100 MG TABLET GT SCH (09:16)
[2018-11-01] MEDS: AMANTADINE 50MG/5ML GT SCH (09:17)
[2018-11-01] MEDS: PHENOBARBITAL 64.8 MG TABLET GT SCH (09:17)
[2018-11-01] MEDS: NUTRISOURCE FIBER 4 GM PACKET PO SCH ×2 (09:18→21:00)
[2018-11-01] MEDS: VIMPAT 150 MG GT SCH ×2 (09:18→21:00)
[2018-11-01] MEDS: POTASSIUM CHLORIDE 40 MEQ/30 ML LIQUID UDC GT SCH (09:18)
[2018-11-01] MEDS: HYDROGEN PEROXIDE 3% 118 ML BOTTLE TP SCH ×2 (09:18→21:00)
[2018-11-01] MEDS: COD LIVER OIL/ZINC OXIDE OINT 113 GM TUBE TP SCH ×2 (09:18→21:00)
[2018-11-01] MEDS: Z GUARD REMEDY PASTE 57 GM TUBE TP SCH ×2 (09:19→21:00)
[2018-11-01 12:23] VITALS: BP 109/67
[2018-11-01 20:05] VITALS: BP 122/80
[2018-11-01] MEDS: PHENOBARBITAL 97.2 MG TABLET GT SCH (21:00)
[2018-11-01] MEDS: DIGOXIN 125 MCG TABLET GT SCH (21:00)
[2018-11-01] MEDS: MELATONIN 3 MG GT SCH (21:00)
[2018-11-01] MEDS: PROTEIN SUPPLEMENT (PROSTAT) 30 ML LIQUID GT SCH (21:00)
[2018-11-01] MEDS: MULTIVIT, IRON, MIN NO. 8, FA TABLET GT SCH (21:00)
[2018-11-01] MEDS: ENOXAPARIN SODIUM 40 MG/0.4 ML DISP.SYRIN SQ SCH (21:00)
[2018-11-02] MEDS: BLOOD SUGAR DIAGNOSTIC 1 EACH STRIP VI SCH ×4 (00:26→17:59)
[2018-11-02] MEDS: INSULIN REGULAR, HUMAN 300 UNIT/3 ML VIAL SQ PRN ×3 (00:27→18:00)
[2018-11-02] MEDS: IPRATROPIUM BROMIDE 0.5 MG/2.5 ML NEBU NEB SCH ×4 (01:21→19:25)
[2018-11-02] MEDS: ALBUTEROL SULFATE 2.5 MG/3 ML NEBU NEB SCH ×4 (01:21→19:25)
[2018-11-02] MEDS: GLUCERNA 1.2 1000ML LIQUID GT SCH ×2 (02:05→22:59)
[2018-11-02] MEDS: OMEPRAZOLE 20 MG CAPSULE.DR GT SCH (05:41)
[2018-11-02] MEDS: LISINOPRIL 20 MG TABLET GT SCH ×2 (05:41→17:59)
[2018-11-02] MEDS: BENZTROPINE MESYLATE 0.5 MG TABLET GT SCH ×3 (05:41→22:54)
[2018-11-02] MEDS: LORATADINE 10 MG TABLET GT SCH (05:41)
[2018-11-02] MEDS: PHENYTOIN 100 MG/4 ML UDC GT SCH ×2 (05:41→17:58)
[2018-11-02] MEDS: FERROUS SULFATE 330 MG/7.5 ML UDC- FOR SA ONLY GT SCH (05:41)
[2018-11-02] MEDS: FOLIC ACID 1 MG TABLET GT SCH (05:41)
[2018-11-02] MEDS: CYANOCOBALAMIN 100 MCG TABLET GT SCH (05:41)
[2018-11-02] MEDS: INSULIN NPH SQ SCH ×3 (05:44→22:55)
[2018-11-02] MEDS: SPIRONOLACTONE 25 MG TABLET GT SCH (08:26)
[2018-11-02] MEDS: ASPIRIN 81 MG TAB.CHEW GT SCH (08:27)
[2018-11-02] MEDS: LEVETIRACETAM 500 MG/5 ML LIQUID UDC GT SCH ×2 (08:27→20:16)
[2018-11-02] MEDS: ACIDOPHILUS/BULGARICUS CHEW TAB GT SCH ×2 (08:27→20:15)
[2018-11-02] MEDS: PHENOBARBITAL 64.8 MG TABLET GT SCH (08:30)
[2018-11-02] MEDS: METOPROLOL TARTRATE 100 MG TABLET GT SCH (08:30)
[2018-11-02] MEDS: POTASSIUM CHLORIDE 40 MEQ/30 ML LIQUID UDC GT SCH (08:31)
[2018-11-02] MEDS: AMANTADINE 50MG/5ML GT SCH (08:31)
[2018-11-02] MEDS: VIMPAT 150 MG GT SCH ×2 (08:31→20:20)
[2018-11-02] MEDS: Z GUARD REMEDY PASTE 57 GM TUBE TP SCH ×2 (08:32→20:28)
[2018-11-02] MEDS: COD LIVER OIL/ZINC OXIDE OINT 113 GM TUBE TP SCH ×2 (08:32→20:27)
[2018-11-02] MEDS: NUTRISOURCE FIBER 4 GM PACKET PO SCH ×2 (08:32→20:27)
[2018-11-02] MEDS: HYDROGEN PEROXIDE 3% 118 ML BOTTLE TP SCH ×2 (08:32→20:27)
[2018-11-02 11:28] VITALS: BP 172/103
[2018-11-02 19:45] VITALS: BP 120/77
[2018-11-02] MEDS: DIGOXIN 125 MCG TABLET GT SCH (20:17)
[2018-11-02] MEDS: MELATONIN 3 MG GT SCH (20:18)
[2018-11-02] MEDS: PHENOBARBITAL 97.2 MG TABLET GT SCH (20:20)
[2018-11-02] MEDS: ENOXAPARIN SODIUM 40 MG/0.4 ML DISP.SYRIN SQ SCH (20:26)
[2018-11-02] MEDS: PROTEIN SUPPLEMENT (PROSTAT) 30 ML LIQUID GT SCH (20:27)
[2018-11-02] MEDS: GUAIFENESIN/DEXTROMETHORPHAN 5 ML UDC GT PRN (22:20)
[2018-11-03] MEDS: BLOOD SUGAR DIAGNOSTIC 1 EACH STRIP VI SCH ×4 (00:20→18:20)
[2018-11-03] MEDS: INSULIN REGULAR, HUMAN 300 UNIT/3 ML VIAL SQ PRN ×3 (00:25→18:23)
[2018-11-03] MEDS: ALBUTEROL SULFATE 2.5 MG/3 ML NEBU NEB SCH ×4 (01:10→19:18)
[2018-11-03] MEDS: IPRATROPIUM BROMIDE 0.5 MG/2.5 ML NEBU NEB SCH ×4 (01:10→19:18)
[2018-11-03] MEDS: LORATADINE 10 MG TABLET GT SCH (05:50)
[2018-11-03] MEDS: FOLIC ACID 1 MG TABLET GT SCH (05:50)
[2018-11-03] MEDS: BENZTROPINE MESYLATE 0.5 MG TABLET GT SCH ×3 (05:50→22:05)
[2018-11-03] MEDS: OMEPRAZOLE 20 MG CAPSULE.DR GT SCH (05:50)
[2018-11-03] MEDS: LISINOPRIL 20 MG TABLET GT SCH ×2 (05:52→18:13)
[2018-11-03] MEDS: CYANOCOBALAMIN 100 MCG TABLET GT SCH (05:56)
[2018-11-03] MEDS: PHENYTOIN 100 MG/4 ML UDC GT SCH ×2 (05:56→18:13)
[2018-11-03] MEDS: FERROUS SULFATE 330 MG/7.5 ML UDC- FOR SA ONLY GT SCH (05:56)
[2018-11-03] MEDS: INSULIN NPH SQ SCH ×3 (05:59→22:06)
[2018-11-03 08:14] VITALS: BP 171/97
[2018-11-03] MEDS: SPIRONOLACTONE 25 MG TABLET GT SCH (08:25)
[2018-11-03] MEDS: LEVETIRACETAM 500 MG/5 ML LIQUID UDC GT SCH ×2 (08:26→20:20)
[2018-11-03] MEDS: ACIDOPHILUS/BULGARICUS CHEW TAB GT SCH ×2 (08:26→20:19)
[2018-11-03] MEDS: ASPIRIN 81 MG TAB.CHEW GT SCH (08:26)
[2018-11-03] MEDS: METOPROLOL TARTRATE 100 MG TABLET GT SCH (08:27)
[2018-11-03] MEDS: PHENOBARBITAL 64.8 MG TABLET GT SCH (08:27)
[2018-11-03] MEDS: NUTRISOURCE FIBER 4 GM PACKET PO SCH ×2 (08:28→20:23)
[2018-11-03] MEDS: AMANTADINE 50MG/5ML GT SCH (08:28)
[2018-11-03] MEDS: VIMPAT 150 MG GT SCH ×2 (08:28→20:22)
[2018-11-03] MEDS: POTASSIUM CHLORIDE 40 MEQ/30 ML LIQUID UDC GT SCH (08:28)
[2018-11-03] MEDS: HYDROGEN PEROXIDE 3% 118 ML BOTTLE TP SCH ×2 (08:29→20:25)
[2018-11-03] MEDS: COD LIVER OIL/ZINC OXIDE OINT 113 GM TUBE TP SCH ×2 (08:29→20:25)
[2018-11-03] MEDS: Z GUARD REMEDY PASTE 57 GM TUBE TP SCH ×2 (08:29→20:25)
[2018-11-03] MEDS: GUAIFENESIN/DEXTROMETHORPHAN 5 ML UDC GT PRN ×2 (08:30→20:57)
[2018-11-03] MEDS: GLUCERNA 1.2 1000ML LIQUID GT SCH (12:34)
[2018-11-03 19:53] VITALS: BP 125/92
[2018-11-03] MEDS: DIGOXIN 125 MCG TABLET GT SCH (20:21)
[2018-11-03] MEDS: PHENOBARBITAL 97.2 MG TABLET GT SCH (20:22)
[2018-11-03] MEDS: MELATONIN 3 MG GT SCH (20:22)
[2018-11-03] MEDS: PROTEIN SUPPLEMENT (PROSTAT) 30 ML LIQUID GT SCH (20:22)
[2018-11-03] MEDS: MULTIVIT, IRON, MIN NO. 8, FA TABLET GT SCH (20:23)
[2018-11-03] MEDS: ENOXAPARIN SODIUM 40 MG/0.4 ML DISP.SYRIN SQ SCH (20:25)
[2018-11-04] MEDS: BLOOD SUGAR DIAGNOSTIC 1 EACH STRIP VI SCH ×4 (00:12→18:33)
[2018-11-04] MEDS: INSULIN REGULAR, HUMAN 300 UNIT/3 ML VIAL SQ PRN ×3 (00:15→18:35)
[2018-11-04] MEDS: GLUCERNA 1.2 1000ML LIQUID GT SCH ×2 (00:38→19:27)
[2018-11-04] MEDS: ALBUTEROL SULFATE 2.5 MG/3 ML NEBU NEB SCH ×4 (01:11→19:04)
[2018-11-04] MEDS: IPRATROPIUM BROMIDE 0.5 MG/2.5 ML NEBU NEB SCH ×4 (01:11→19:04)
[2018-11-04] MEDS: LORATADINE 10 MG TABLET GT SCH (05:08)
[2018-11-04] MEDS: PHENYTOIN 100 MG/4 ML UDC GT SCH ×2 (05:13→18:24)
[2018-11-04] MEDS: FERROUS SULFATE 330 MG/7.5 ML UDC- FOR SA ONLY GT SCH (05:14)
[2018-11-04] MEDS: FOLIC ACID 1 MG TABLET GT SCH (05:14)
[2018-11-04] MEDS: BENZTROPINE MESYLATE 0.5 MG TABLET GT SCH ×3 (05:14→22:06)
[2018-11-04] MEDS: LISINOPRIL 20 MG TABLET GT SCH ×2 (05:15→18:33)
[2018-11-04] MEDS: OMEPRAZOLE 20 MG CAPSULE.DR GT SCH (05:15)
[2018-11-04] MEDS: CYANOCOBALAMIN 100 MCG TABLET GT SCH (05:16)
[2018-11-04] MEDS: INSULIN NPH SQ SCH ×3 (05:18→22:07)
[2018-11-04 08:09] VITALS: BP 142/87
[2018-11-04] MEDS: PHENOBARBITAL 64.8 MG TABLET GT SCH (08:45)
[2018-11-04] MEDS: ASPIRIN 81 MG TAB.CHEW GT SCH (08:45)
[2018-11-04] MEDS: ACIDOPHILUS/BULGARICUS CHEW TAB GT SCH (08:45)
[2018-11-04] MEDS: SPIRONOLACTONE 25 MG TABLET GT SCH (08:45)
[2018-11-04] MEDS: LEVETIRACETAM 500 MG/5 ML LIQUID UDC GT SCH ×2 (08:45→20:14)
[2018-11-04] MEDS: METOPROLOL TARTRATE 100 MG TABLET GT SCH (08:45)
[2018-11-04] MEDS: AMANTADINE 50MG/5ML GT SCH (08:46)
[2018-11-04] MEDS: Z GUARD REMEDY PASTE 57 GM TUBE TP SCH ×2 (08:47→20:18)
[2018-11-04] MEDS: NUTRISOURCE FIBER 4 GM PACKET PO SCH ×2 (08:47→20:17)
[2018-11-04] MEDS: HYDROGEN PEROXIDE 3% 118 ML BOTTLE TP SCH ×2 (08:47→20:18)
[2018-11-04] MEDS: POTASSIUM CHLORIDE 40 MEQ/30 ML LIQUID UDC GT SCH (08:47)
[2018-11-04] MEDS: COD LIVER OIL/ZINC OXIDE OINT 113 GM TUBE TP SCH ×2 (08:47→20:18)
[2018-11-04] MEDS: VIMPAT 150 MG GT SCH ×2 (08:47→20:16)
--- NOTE | 2018-11-04 13:00 | NUR ---
Seen by Sheila Song with new orders noted and carried out for outpatient st evaluation.
--- NOTE | 2018-11-04 14:26 | NUR ---
Pharmacy Update from 11/04/18 IDT meeting. VS: Temp 98.9 BP 142/87 HR 88 LABS: (from 10/27/18) Wbc 4.3 H/H 12.6/37.5 Plt 147 Na 136 K 4.4 Cl 102 CO2 27 BUN/SCr 40/0.9 BS 188 Ca 9.3 MEDICATION USE REVIEWED: > Pt not on any anti-psych medications > Pt on Keppra 1500mg q12hrs since 11/29/16; last calculated CrCl 91.1 ml/min. Dose appropriate for renal fxn. > Pt now on Phenobarbital 64.8MG AM + 97.2 HS as of 07/20/18. Last level 08/11/18 resulted 27.2 (15-39) within range > Pt on Dilantin 150mg q12hrs since 11/11/17; Rx rec for repeat level for routine monitoring + alb for correction, Md agreed, ordered and resulted 08/25 17.6 (corrected 19.6) within therapeutic range 10-20. > Pt on Vimpat 300mg q12hrs, Patient had no episode of seizures past month > Pt on KCl 20mEq daily ,Prinivil 20mg q12hrs and Aldactone 50mg daily: last K 4.4 > Pt on moderate sliding scale + NPH 2 units q8hrs; BS ranged 132-233 since last IDT Meeting > Pt on Lovenox 40mg daily and Aspirin 81mg daily:no signs of bleeding, last plt 147 > Pt on Digoxin 125mcg daily since admit in 2015, on stable dose, no acute changes in condition > PRN MED USAGE: (Sep) Tylenol for pain used x 3 Tylenol for temp used x 0 Motrin for mod pain used x 0 Robitussin DM used x 16 Hydromet PRN used x 3 so far (started 10/24) NEW ORDERS NOTED: > Hydromet PRN persistent cough if Robitussin ineffective added 10/24 Patient reviewed in depth with family in attendance, recent medication addition noted. Per family, pt's cough has improved greatly with addition of PRN hydromet and has helped pt sleep (chronic cough). No concerns from rx, no addition recommendations at this time, pt remains otherwise stable. Will continue to monitor
--- NOTE | 2018-11-04 14:27 | NUR ---
Patient's dick/SJ Prabhakar asked this SW about the possibility of taking patient to an outside ST for a second opinion evaluation. SW obtained an order today from Krystal Ocampo PA-C for an outside speech therapy evaluation. Copy of the physician's order provided to Fonda. Prabhakar thanked KD.
[2018-11-04] MEDS: GUAIFENESIN/DEXTROMETHORPHAN 5 ML UDC GT PRN (14:33)
--- NOTE | 2018-11-04 14:54 | NUR ---
INTERDISCIPLINARY PLAN OF CARE CONFERENCE was held today. Patient's dick/POA Vanna was present at the meeting. Krystal Ocampo PA-C and Dr. Faria, along with the Interdisciplinary Team, reviewed the current plan of care in detail. RN reported on patient's medical condition and changes in medications. No major medical changes were reported at this time. See RN IDT conference notes. See also all other disciplines IDT notes and physician's progress notes for additional details. Vanna stated not having any questions/concerns at this time, and expressed being content with the current plan of care.
[2018-11-04] MEDS: HYDROCODONE BIT/HOMATROPINE 5 ML UDC GT PRN (16:00)
[2018-11-04 20:09] VITALS: BP 95/80
[2018-11-04] MEDS: MELATONIN 3 MG GT SCH (20:15)
[2018-11-04] MEDS: DIGOXIN 125 MCG TABLET GT SCH (20:15)
[2018-11-04] MEDS: PHENOBARBITAL 97.2 MG TABLET GT SCH (20:16)
[2018-11-04] MEDS: PROTEIN SUPPLEMENT (PROSTAT) 30 ML LIQUID GT SCH (20:16)
[2018-11-04] MEDS: ENOXAPARIN SODIUM 40 MG/0.4 ML DISP.SYRIN SQ SCH (20:18)
[2018-11-05] MEDS: BLOOD SUGAR DIAGNOSTIC 1 EACH STRIP VI SCH ×4 (00:25→17:45)
[2018-11-05] MEDS: INSULIN REGULAR, HUMAN 300 UNIT/3 ML VIAL SQ PRN ×3 (00:27→12:07)
[2018-11-05] MEDS: ALBUTEROL SULFATE 2.5 MG/3 ML NEBU NEB SCH ×4 (01:07→20:18)
[2018-11-05] MEDS: IPRATROPIUM BROMIDE 0.5 MG/2.5 ML NEBU NEB SCH ×4 (01:07→20:18)
[2018-11-05] MEDS: FOLIC ACID 1 MG TABLET GT SCH (05:39)
[2018-11-05] MEDS: OMEPRAZOLE 20 MG CAPSULE.DR GT SCH (05:39)
[2018-11-05] MEDS: BENZTROPINE MESYLATE 0.5 MG TABLET GT SCH ×3 (05:39→21:00)
[2018-11-05] MEDS: LORATADINE 10 MG TABLET GT SCH (05:39)
[2018-11-05] MEDS: PHENYTOIN 100 MG/4 ML UDC GT SCH ×2 (05:39→18:01)
[2018-11-05] MEDS: LISINOPRIL 20 MG TABLET GT SCH ×2 (05:40→18:01)
[2018-11-05] MEDS: CYANOCOBALAMIN 100 MCG TABLET GT SCH (05:41)
[2018-11-05] MEDS: FERROUS SULFATE 330 MG/7.5 ML UDC- FOR SA ONLY GT SCH (05:42)
[2018-11-05] MEDS: INSULIN NPH SQ SCH ×3 (05:53→22:03)
[2018-11-05 08:13] VITALS: BP 138/81
[2018-11-05] MEDS: SPIRONOLACTONE 25 MG TABLET GT SCH (09:12)
[2018-11-05] MEDS: METOPROLOL TARTRATE 100 MG TABLET GT SCH (09:12)
[2018-11-05] MEDS: LEVETIRACETAM 500 MG/5 ML LIQUID UDC GT SCH ×2 (09:12→20:53)
[2018-11-05] MEDS: PHENOBARBITAL 64.8 MG TABLET GT SCH (09:12)
[2018-11-05] MEDS: ASPIRIN 81 MG TAB.CHEW GT SCH (09:12)
[2018-11-05] MEDS: POTASSIUM CHLORIDE 40 MEQ/30 ML LIQUID UDC GT SCH (09:13)
[2018-11-05] MEDS: VIMPAT 150 MG GT SCH ×2 (09:13→20:53)
[2018-11-05] MEDS: NUTRISOURCE FIBER 4 GM PACKET PO SCH ×2 (09:13→20:54)
[2018-11-05] MEDS: AMANTADINE 50MG/5ML GT SCH (09:13)
[2018-11-05] MEDS: COD LIVER OIL/ZINC OXIDE OINT 113 GM TUBE TP SCH ×2 (09:13→20:54)
[2018-11-05] MEDS: HYDROGEN PEROXIDE 3% 118 ML BOTTLE TP SCH ×2 (09:14→20:54)
[2018-11-05] MEDS: Z GUARD REMEDY PASTE 57 GM TUBE TP SCH ×2 (09:14→20:54)
[2018-11-05] MEDS: GUAIFENESIN/DEXTROMETHORPHAN 5 ML UDC GT PRN (09:30)
[2018-11-05] MEDS: GLUCERNA 1.2 1000ML LIQUID GT SCH (10:12)
[2018-11-05] MEDS: ACETAMINOPHEN 650 MG/20 ML UDC- SA PATIENTS-PAIN ONLY GT PRN (10:53)
[2018-11-05] MEDS: HYDROCODONE BIT/HOMATROPINE 5 ML UDC GT PRN (14:56)
[2018-11-05 19:57] VITALS: BP 135/78
[2018-11-05] MEDS: MELATONIN 3 MG GT SCH (20:53)
[2018-11-05] MEDS: PHENOBARBITAL 97.2 MG TABLET GT SCH (20:53)
[2018-11-05] MEDS: DIGOXIN 125 MCG TABLET GT SCH (20:53)
[2018-11-05] MEDS: MULTIVIT, IRON, MIN NO. 8, FA TABLET GT SCH (20:54)
[2018-11-05] MEDS: PROTEIN SUPPLEMENT (PROSTAT) 30 ML LIQUID GT SCH (20:54)
[2018-11-05] MEDS: ENOXAPARIN SODIUM 40 MG/0.4 ML DISP.SYRIN SQ SCH (22:01)
[2018-11-06] MEDS: BLOOD SUGAR DIAGNOSTIC 1 EACH STRIP VI SCH ×4 (00:02→18:01)
[2018-11-06] MEDS: GLUCERNA 1.2 1000ML LIQUID GT SCH ×2 (00:02→05:15)
[2018-11-06] MEDS: INSULIN REGULAR, HUMAN 300 UNIT/3 ML VIAL SQ PRN ×3 (00:16→18:02)
[2018-11-06] MEDS: IPRATROPIUM BROMIDE 0.5 MG/2.5 ML NEBU NEB SCH ×4 (01:44→19:03)
[2018-11-06] MEDS: ALBUTEROL SULFATE 2.5 MG/3 ML NEBU NEB SCH ×4 (01:44→19:03)
[2018-11-06] MEDS: INSULIN NPH SQ SCH ×3 (05:10→21:47)
[2018-11-06] MEDS: CYANOCOBALAMIN 100 MCG TABLET GT SCH (05:12)
[2018-11-06] MEDS: LISINOPRIL 20 MG TABLET GT SCH ×2 (05:13→18:01)
[2018-11-06] MEDS: FERROUS SULFATE 330 MG/7.5 ML UDC- FOR SA ONLY GT SCH (05:13)
[2018-11-06] MEDS: OMEPRAZOLE 20 MG CAPSULE.DR GT SCH (05:13)
[2018-11-06] MEDS: FOLIC ACID 1 MG TABLET GT SCH (05:13)
[2018-11-06] MEDS: PHENYTOIN 100 MG/4 ML UDC GT SCH ×2 (05:14→18:01)
[2018-11-06] MEDS: BENZTROPINE MESYLATE 0.5 MG TABLET GT SCH ×3 (05:14→21:43)
[2018-11-06] MEDS: LORATADINE 10 MG TABLET GT SCH (05:15)
[2018-11-06] MEDS: SPIRONOLACTONE 25 MG TABLET GT SCH (09:52)
[2018-11-06] MEDS: VIMPAT 150 MG GT SCH ×2 (09:53→21:41)
[2018-11-06] MEDS: COD LIVER OIL/ZINC OXIDE OINT 113 GM TUBE TP SCH ×2 (09:53→21:42)
[2018-11-06] MEDS: METOPROLOL TARTRATE 100 MG TABLET GT SCH (09:53)
[2018-11-06] MEDS: POTASSIUM CHLORIDE 40 MEQ/30 ML LIQUID UDC GT SCH (09:53)
[2018-11-06] MEDS: LEVETIRACETAM 500 MG/5 ML LIQUID UDC GT SCH ×2 (09:53→21:38)
[2018-11-06] MEDS: Z GUARD REMEDY PASTE 57 GM TUBE TP SCH ×2 (09:53→21:43)
[2018-11-06] MEDS: PHENOBARBITAL 64.8 MG TABLET GT SCH (09:53)
[2018-11-06] MEDS: AMANTADINE 50MG/5ML GT SCH (09:53)
[2018-11-06] MEDS: HYDROGEN PEROXIDE 3% 118 ML BOTTLE TP SCH ×2 (09:53→21:42)
[2018-11-06] MEDS: NUTRISOURCE FIBER 4 GM PACKET PO SCH ×2 (09:53→21:42)
[2018-11-06] MEDS: ASPIRIN 81 MG TAB.CHEW GT SCH (09:53)
[2018-11-06] MEDS: HYDROCODONE BIT/HOMATROPINE 5 ML UDC GT PRN ×2 (10:00→22:00)
[2018-11-06 11:50] VITALS: BP 130/83
[2018-11-06] MEDS: GUAIFENESIN/DEXTROMETHORPHAN 5 ML UDC GT PRN (19:48)
[2018-11-06 20:05] VITALS: BP 120/87
[2018-11-06] MEDS: DIGOXIN 125 MCG TABLET GT SCH (21:39)
[2018-11-06] MEDS: MELATONIN 3 MG GT SCH (21:39)
[2018-11-06] MEDS: PHENOBARBITAL 97.2 MG TABLET GT SCH (21:41)
[2018-11-06] MEDS: PROTEIN SUPPLEMENT (PROSTAT) 30 ML LIQUID GT SCH (21:42)
[2018-11-06] MEDS: ENOXAPARIN SODIUM 40 MG/0.4 ML DISP.SYRIN SQ SCH (21:47)
[2018-11-07] MEDS: BLOOD SUGAR DIAGNOSTIC 1 EACH STRIP VI SCH ×4 (00:31→17:11)
[2018-11-07] MEDS: INSULIN REGULAR, HUMAN 300 UNIT/3 ML VIAL SQ PRN ×4 (00:36→17:16)
[2018-11-07] MEDS: ALBUTEROL SULFATE 2.5 MG/3 ML NEBU NEB SCH ×4 (00:54→19:20)
[2018-11-07] MEDS: IPRATROPIUM BROMIDE 0.5 MG/2.5 ML NEBU NEB SCH ×4 (00:54→19:20)
[2018-11-07] MEDS: GLUCERNA 1.2 1000ML LIQUID GT SCH ×2 (02:36→15:58)
[2018-11-07] MEDS: ACETAMINOPHEN 650 MG/20 ML UDC- SA PATIENTS-PAIN ONLY GT PRN (05:30)
[2018-11-07] MEDS: BENZTROPINE MESYLATE 0.5 MG TABLET GT SCH ×3 (05:35→21:49)
[2018-11-07] MEDS: LORATADINE 10 MG TABLET GT SCH (05:35)
[2018-11-07] MEDS: FERROUS SULFATE 330 MG/7.5 ML UDC- FOR SA ONLY GT SCH (05:36)
[2018-11-07] MEDS: LISINOPRIL 20 MG TABLET GT SCH ×2 (05:36→17:06)
[2018-11-07] MEDS: PHENYTOIN 100 MG/4 ML UDC GT SCH ×2 (05:36→17:06)
[2018-11-07] MEDS: FOLIC ACID 1 MG TABLET GT SCH (05:36)
[2018-11-07] MEDS: OMEPRAZOLE 20 MG CAPSULE.DR GT SCH (05:36)
[2018-11-07] MEDS: CYANOCOBALAMIN 100 MCG TABLET GT SCH (05:37)
[2018-11-07] MEDS: INSULIN NPH SQ SCH ×3 (05:48→22:15)
[2018-11-07] MEDS: GUAIFENESIN/DEXTROMETHORPHAN 5 ML UDC GT PRN ×2 (06:44→20:30)
[2018-11-07] MEDS: ASPIRIN 81 MG TAB.CHEW GT SCH (08:42)
[2018-11-07] MEDS: SPIRONOLACTONE 25 MG TABLET GT SCH (08:42)
[2018-11-07] MEDS: METOPROLOL TARTRATE 100 MG TABLET GT SCH (08:43)
[2018-11-07] MEDS: HYDROGEN PEROXIDE 3% 118 ML BOTTLE TP SCH ×2 (08:43→21:49)
[2018-11-07] MEDS: VIMPAT 150 MG GT SCH ×2 (08:43→21:48)
[2018-11-07] MEDS: PHENOBARBITAL 64.8 MG TABLET GT SCH (08:43)
[2018-11-07] MEDS: AMANTADINE 50MG/5ML GT SCH (08:43)
[2018-11-07] MEDS: LEVETIRACETAM 500 MG/5 ML LIQUID UDC GT SCH ×2 (08:43→21:46)
[2018-11-07] MEDS: POTASSIUM CHLORIDE 40 MEQ/30 ML LIQUID UDC GT SCH (08:43)
[2018-11-07] MEDS: Z GUARD REMEDY PASTE 57 GM TUBE TP SCH ×2 (08:43→21:49)
[2018-11-07] MEDS: NUTRISOURCE FIBER 4 GM PACKET PO SCH ×2 (08:43→21:49)
[2018-11-07] MEDS: COD LIVER OIL/ZINC OXIDE OINT 113 GM TUBE TP SCH ×2 (08:43→21:49)
[2018-11-07 11:01] VITALS: BP 139/81
--- NOTE | 2018-11-07 13:11 | NUR ---
SEEN BY DR. THI CAPONE AND ARMENO.
[2018-11-07 20:32] VITALS: BP 141/79
[2018-11-07] MEDS: ENOXAPARIN SODIUM 40 MG/0.4 ML DISP.SYRIN SQ SCH (21:00)
[2018-11-07] MEDS: MELATONIN 3 MG GT SCH (21:48)
[2018-11-07] MEDS: DIGOXIN 125 MCG TABLET GT SCH (21:48)
[2018-11-07] MEDS: PHENOBARBITAL 97.2 MG TABLET GT SCH (21:48)
[2018-11-07] MEDS: MULTIVIT, IRON, MIN NO. 8, FA TABLET GT SCH (21:49)
[2018-11-07] MEDS: PROTEIN SUPPLEMENT (PROSTAT) 30 ML LIQUID GT SCH (21:49)
[2018-11-07] MEDS: HYDROCODONE BIT/HOMATROPINE 5 ML UDC GT PRN (22:30)
[2018-11-08] MEDS: BLOOD SUGAR DIAGNOSTIC 1 EACH STRIP VI SCH ×4 (00:48→18:01)
[2018-11-08] MEDS: INSULIN REGULAR, HUMAN 300 UNIT/3 ML VIAL SQ PRN ×4 (00:56→18:06)
[2018-11-08] MEDS: IPRATROPIUM BROMIDE 0.5 MG/2.5 ML NEBU NEB SCH ×4 (01:45→18:40)
[2018-11-08] MEDS: ALBUTEROL SULFATE 2.5 MG/3 ML NEBU NEB SCH ×4 (01:45→18:40)
[2018-11-08] MEDS: OMEPRAZOLE 20 MG CAPSULE.DR GT SCH (05:04)
[2018-11-08] MEDS: LORATADINE 10 MG TABLET GT SCH (05:04)
[2018-11-08] MEDS: FOLIC ACID 1 MG TABLET GT SCH (05:04)
[2018-11-08] MEDS: BENZTROPINE MESYLATE 0.5 MG TABLET GT SCH ×3 (05:04→21:24)
[2018-11-08] MEDS: FERROUS SULFATE 330 MG/7.5 ML UDC- FOR SA ONLY GT SCH (05:04)
[2018-11-08] MEDS: CYANOCOBALAMIN 100 MCG TABLET GT SCH (05:04)
[2018-11-08] MEDS: LISINOPRIL 20 MG TABLET GT SCH ×2 (05:04→18:01)
[2018-11-08] MEDS: INSULIN NPH SQ SCH ×3 (05:38→22:18)
[2018-11-08] MEDS: PHENYTOIN 100 MG/4 ML UDC GT SCH ×2 (05:41→17:53)
[2018-11-08] MEDS: GUAIFENESIN/DEXTROMETHORPHAN 5 ML UDC GT PRN ×3 (05:42→21:10)
[2018-11-08 08:00] VITALS: BP 165/132
[2018-11-08] MEDS: SPIRONOLACTONE 25 MG TABLET GT SCH (09:01)
[2018-11-08] MEDS: ASPIRIN 81 MG TAB.CHEW GT SCH (09:01)
[2018-11-08] MEDS: LEVETIRACETAM 500 MG/5 ML LIQUID UDC GT SCH ×2 (09:03→21:24)
[2018-11-08] MEDS: METOPROLOL TARTRATE 100 MG TABLET GT SCH (09:05)
[2018-11-08] MEDS: PHENOBARBITAL 64.8 MG TABLET GT SCH (09:05)
[2018-11-08] MEDS: NUTRISOURCE FIBER 4 GM PACKET PO SCH ×2 (09:06→21:24)
[2018-11-08] MEDS: VIMPAT 150 MG GT SCH ×2 (09:06→21:24)
[2018-11-08] MEDS: AMANTADINE 50MG/5ML GT SCH (09:06)
[2018-11-08] MEDS: POTASSIUM CHLORIDE 40 MEQ/30 ML LIQUID UDC GT SCH (09:06)
[2018-11-08] MEDS: HYDROGEN PEROXIDE 3% 118 ML BOTTLE TP SCH ×2 (09:07→21:24)
[2018-11-08] MEDS: Z GUARD REMEDY PASTE 57 GM TUBE TP SCH ×2 (09:07→21:24)
[2018-11-08] MEDS: COD LIVER OIL/ZINC OXIDE OINT 113 GM TUBE TP SCH ×2 (09:07→21:24)
[2018-11-08] MEDS: HYDROCODONE BIT/HOMATROPINE 5 ML UDC GT PRN ×3 (09:08→22:00)
--- NOTE | 2018-11-08 11:06 | NUR ---
SEEN AND EXAMINED BY DR. POPE (NEUROLOGIST) AND WITH NEW ORDERS CARRIED OUT.
[2018-11-08 20:47] VITALS: BP 164/88
[2018-11-08] MEDS: ENOXAPARIN SODIUM 40 MG/0.4 ML DISP.SYRIN SQ SCH (21:00)
[2018-11-08] MEDS: MELATONIN 3 MG GT SCH (21:24)
[2018-11-08] MEDS: PROTEIN SUPPLEMENT (PROSTAT) 30 ML LIQUID GT SCH (21:24)
[2018-11-08] MEDS: DIGOXIN 125 MCG TABLET GT SCH (21:24)
[2018-11-08] MEDS: PHENOBARBITAL 97.2 MG TABLET GT SCH (21:24)
[2018-11-09] MEDS: IPRATROPIUM BROMIDE 0.5 MG/2.5 ML NEBU NEB SCH ×4 (00:40→19:22)
[2018-11-09] MEDS: ALBUTEROL SULFATE 2.5 MG/3 ML NEBU NEB SCH ×4 (00:40→19:22)
[2018-11-09] MEDS: BLOOD SUGAR DIAGNOSTIC 1 EACH STRIP VI SCH ×5 (00:52→23:31)
[2018-11-09] MEDS: INSULIN REGULAR, HUMAN 300 UNIT/3 ML VIAL SQ PRN ×5 (00:56→23:35)
[2018-11-09] MEDS: IBUPROFEN 100 MG/5 ML LIQUID UDC- SA PATIENTS-PAIN ONLY GT PRN (01:00)
[2018-11-09] MEDS: HYDROCODONE BIT/HOMATROPINE 5 ML UDC GT PRN (03:00)
[2018-11-09] MEDS: GLUCERNA 1.2 1000ML LIQUID GT SCH (04:16)
[2018-11-09] MEDS: FERROUS SULFATE 330 MG/7.5 ML UDC- FOR SA ONLY GT SCH (05:58)
[2018-11-09] MEDS: PHENYTOIN 100 MG/4 ML UDC GT SCH ×2 (05:58→17:53)
[2018-11-09] MEDS: BENZTROPINE MESYLATE 0.5 MG TABLET GT SCH ×3 (05:58→21:24)
[2018-11-09] MEDS: LISINOPRIL 20 MG TABLET GT SCH ×2 (05:58→17:53)
[2018-11-09] MEDS: OMEPRAZOLE 20 MG CAPSULE.DR GT SCH (05:58)
[2018-11-09] MEDS: FOLIC ACID 1 MG TABLET GT SCH (05:58)
[2018-11-09] MEDS: LORATADINE 10 MG TABLET GT SCH (05:58)
[2018-11-09] MEDS: CYANOCOBALAMIN 100 MCG TABLET GT SCH (05:59)
[2018-11-09] MEDS: INSULIN NPH SQ SCH ×3 (05:59→21:26)
[2018-11-09 08:09] VITALS: BP 127/73
[2018-11-09] MEDS: HYDROGEN PEROXIDE 3% 118 ML BOTTLE TP SCH ×2 (08:14→21:23)
[2018-11-09] MEDS: LEVETIRACETAM 500 MG/5 ML LIQUID UDC GT SCH ×2 (08:14→21:21)
[2018-11-09] MEDS: PHENOBARBITAL 64.8 MG TABLET GT SCH (08:14)
[2018-11-09] MEDS: SPIRONOLACTONE 25 MG TABLET GT SCH (08:14)
[2018-11-09] MEDS: METOPROLOL TARTRATE 100 MG TABLET GT SCH (08:14)
[2018-11-09] MEDS: POTASSIUM CHLORIDE 40 MEQ/30 ML LIQUID UDC GT SCH (08:14)
[2018-11-09] MEDS: VIMPAT 150 MG GT SCH ×2 (08:14→21:23)
[2018-11-09] MEDS: AMANTADINE 50MG/5ML GT SCH (08:14)
[2018-11-09] MEDS: Z GUARD REMEDY PASTE 57 GM TUBE TP SCH ×2 (08:14→21:27)
[2018-11-09] MEDS: NUTRISOURCE FIBER 4 GM PACKET PO SCH ×2 (08:14→21:23)
[2018-11-09] MEDS: COD LIVER OIL/ZINC OXIDE OINT 113 GM TUBE TP SCH ×2 (08:14→21:23)
[2018-11-09] MEDS: ASPIRIN 81 MG TAB.CHEW GT SCH (08:14)
--- NOTE | 2018-11-09 12:46 | NUR ---
SEEN BY TIFFANIE MAURICIO.
--- NOTE | 2018-11-09 17:46 | NUR ---
PT. HAD MONTOYA FLUSH ENEMA D/T BOWEL GAS DISTENTION AND WITH GOOD VISIBLE RELIEF IN LARGE AMOUNT ,PRAMOD WAS PRESENT ,ABDOMEN NOT DISTENDED ANYMORE AND PT.COMFORTABLE RELAXED.
[2018-11-09 20:15] VITALS: BP 129/78
[2018-11-09] MEDS: DIGOXIN 125 MCG TABLET GT SCH (21:21)
[2018-11-09] MEDS: MELATONIN 3 MG GT SCH (21:21)
[2018-11-09] MEDS: PHENOBARBITAL 97.2 MG TABLET GT SCH (21:23)
[2018-11-09] MEDS: PROTEIN SUPPLEMENT (PROSTAT) 30 ML LIQUID GT SCH (21:23)
[2018-11-09] MEDS: MULTIVIT, IRON, MIN NO. 8, FA TABLET GT SCH (21:23)
[2018-11-09] MEDS: ENOXAPARIN SODIUM 40 MG/0.4 ML DISP.SYRIN SQ SCH (21:26)
[2018-11-10] MEDS: ALBUTEROL SULFATE 2.5 MG/3 ML NEBU NEB SCH ×4 (00:35→18:43)
[2018-11-10] MEDS: IPRATROPIUM BROMIDE 0.5 MG/2.5 ML NEBU NEB SCH ×4 (00:35→18:43)
[2018-11-10] MEDS: PHENYTOIN 100 MG/4 ML UDC GT SCH ×2 (05:12→18:00)
[2018-11-10] MEDS: BENZTROPINE MESYLATE 0.5 MG TABLET GT SCH ×3 (05:12→22:27)
[2018-11-10] MEDS: FERROUS SULFATE 330 MG/7.5 ML UDC- FOR SA ONLY GT SCH (05:12)
[2018-11-10] MEDS: FOLIC ACID 1 MG TABLET GT SCH (05:12)
[2018-11-10] MEDS: CYANOCOBALAMIN 100 MCG TABLET GT SCH (05:12)
[2018-11-10] MEDS: LISINOPRIL 20 MG TABLET GT SCH ×2 (05:12→18:00)
[2018-11-10] MEDS: LORATADINE 10 MG TABLET GT SCH (05:12)
[2018-11-10] MEDS: OMEPRAZOLE 20 MG CAPSULE.DR GT SCH (05:12)
[2018-11-10] MEDS: BLOOD SUGAR DIAGNOSTIC 1 EACH STRIP VI SCH ×4 (05:13→23:35)
[2018-11-10] MEDS: INSULIN NPH SQ SCH ×3 (05:40→22:28)
[2018-11-10] MEDS: SPIRONOLACTONE 25 MG TABLET GT SCH (08:04)
[2018-11-10] MEDS: LEVETIRACETAM 500 MG/5 ML LIQUID UDC GT SCH ×2 (08:04→20:46)
[2018-11-10] MEDS: ASPIRIN 81 MG TAB.CHEW GT SCH (08:04)
[2018-11-10] MEDS: METOPROLOL TARTRATE 100 MG TABLET GT SCH (08:05)
[2018-11-10] MEDS: NUTRISOURCE FIBER 4 GM PACKET PO SCH ×2 (08:07→20:49)
[2018-11-10] MEDS: POTASSIUM CHLORIDE 40 MEQ/30 ML LIQUID UDC GT SCH (08:07)
[2018-11-10] MEDS: AMANTADINE 50MG/5ML GT SCH (08:07)
[2018-11-10] MEDS: HYDROGEN PEROXIDE 3% 118 ML BOTTLE TP SCH ×2 (08:08→20:49)
[2018-11-10] MEDS: COD LIVER OIL/ZINC OXIDE OINT 113 GM TUBE TP SCH ×2 (08:08→20:49)
[2018-11-10] MEDS: Z GUARD REMEDY PASTE 57 GM TUBE TP SCH ×2 (08:08→20:49)
[2018-11-10] MEDS: VIMPAT 150 MG GT SCH ×2 (08:09→20:47)
[2018-11-10] MEDS: PHENOBARBITAL 64.8 MG TABLET GT SCH (08:09)
[2018-11-10] MEDS: GUAIFENESIN/DEXTROMETHORPHAN 5 ML UDC GT PRN ×2 (08:10→19:08)
[2018-11-10 08:11] VITALS: BP 172/94
[2018-11-10] MEDS: INSULIN REGULAR, HUMAN 300 UNIT/3 ML VIAL SQ PRN ×3 (12:15→23:37)
[2018-11-10] MEDS: GLUCERNA 1.2 1000ML LIQUID GT SCH (19:08)
[2018-11-10] MEDS: MELATONIN 3 MG GT SCH (20:47)
[2018-11-10] MEDS: PHENOBARBITAL 97.2 MG TABLET GT SCH (20:47)
[2018-11-10] MEDS: PROTEIN SUPPLEMENT (PROSTAT) 30 ML LIQUID GT SCH (20:47)
[2018-11-10] MEDS: DIGOXIN 125 MCG TABLET GT SCH (20:47)
[2018-11-10] MEDS: ENOXAPARIN SODIUM 40 MG/0.4 ML DISP.SYRIN SQ SCH (20:52)
[2018-11-10 21:11] VITALS: BP 121/65
[2018-11-11] MEDS: ALBUTEROL SULFATE 2.5 MG/3 ML NEBU NEB SCH ×4 (00:38→18:44)
[2018-11-11] MEDS: IPRATROPIUM BROMIDE 0.5 MG/2.5 ML NEBU NEB SCH ×4 (00:38→18:44)
[2018-11-11] MEDS: GUAIFENESIN/DEXTROMETHORPHAN 5 ML UDC GT PRN ×2 (01:44→09:03)
[2018-11-11] MEDS: BENZTROPINE MESYLATE 0.5 MG TABLET GT SCH ×3 (05:56→22:08)
[2018-11-11] MEDS: LORATADINE 10 MG TABLET GT SCH (05:56)
[2018-11-11] MEDS: LISINOPRIL 20 MG TABLET GT SCH ×2 (05:57→18:18)
[2018-11-11] MEDS: FERROUS SULFATE 330 MG/7.5 ML UDC- FOR SA ONLY GT SCH (05:57)
[2018-11-11] MEDS: PHENYTOIN 100 MG/4 ML UDC GT SCH ×2 (05:57→18:05)
[2018-11-11] MEDS: FOLIC ACID 1 MG TABLET GT SCH (05:57)
[2018-11-11] MEDS: CYANOCOBALAMIN 100 MCG TABLET GT SCH (05:57)
[2018-11-11] MEDS: OMEPRAZOLE 20 MG CAPSULE.DR GT SCH (05:57)
[2018-11-11] MEDS: BLOOD SUGAR DIAGNOSTIC 1 EACH STRIP VI SCH ×3 (05:57→18:05)
[2018-11-11] MEDS: INSULIN NPH SQ SCH ×3 (06:08→22:08)
[2018-11-11] MEDS: INSULIN REGULAR, HUMAN 300 UNIT/3 ML VIAL SQ PRN ×3 (06:11→18:07)
[2018-11-11 08:05] VITALS: BP 138/86
[2018-11-11] MEDS: ASPIRIN 81 MG TAB.CHEW GT SCH (09:01)
[2018-11-11] MEDS: SPIRONOLACTONE 25 MG TABLET GT SCH (09:01)
[2018-11-11] MEDS: LEVETIRACETAM 500 MG/5 ML LIQUID UDC GT SCH ×2 (09:01→20:21)
[2018-11-11] MEDS: METOPROLOL TARTRATE 100 MG TABLET GT SCH (09:02)
[2018-11-11] MEDS: VIMPAT 150 MG GT SCH ×2 (09:02→20:22)
[2018-11-11] MEDS: PHENOBARBITAL 64.8 MG TABLET GT SCH (09:02)
[2018-11-11] MEDS: AMANTADINE 50MG/5ML GT SCH (09:02)
[2018-11-11] MEDS: Z GUARD REMEDY PASTE 57 GM TUBE TP SCH ×2 (09:03→20:23)
[2018-11-11] MEDS: NUTRISOURCE FIBER 4 GM PACKET PO SCH ×2 (09:03→20:23)
[2018-11-11] MEDS: POTASSIUM CHLORIDE 40 MEQ/30 ML LIQUID UDC GT SCH (09:03)
[2018-11-11] MEDS: HYDROGEN PEROXIDE 3% 118 ML BOTTLE TP SCH ×2 (09:03→20:23)
[2018-11-11] MEDS: COD LIVER OIL/ZINC OXIDE OINT 113 GM TUBE TP SCH ×2 (09:03→20:23)
--- NOTE | 2018-11-11 12:00 | NUR ---
seen by geronimo reyes.
--- NOTE | 2018-11-11 16:11 | NUR ---
SW received patient's annual [facility] Redetermination Form today. KD gave the forms to patient's idck/SJ Prabhakar for completed, who stated she would complete it as soon as possible.
--- NOTE | 2018-11-11 17:48 | NUR ---
NEW ORDER WAS CARRIED OUT FROM DR. STROUD TO CONTINUE HYCODAN X 3 MORE DAYS.
[2018-11-11] MEDS ORDERED: HYDROCODONE BIT/HOMATROPINE 5 ML UDC GT PRN (18:00)
[2018-11-11 20:00] VITALS: BP 142/92
[2018-11-11] MEDS: DIGOXIN 125 MCG TABLET GT SCH (20:21)
[2018-11-11] MEDS: MELATONIN 3 MG GT SCH (20:22)
[2018-11-11] MEDS: PHENOBARBITAL 97.2 MG TABLET GT SCH (20:22)
[2018-11-11] MEDS: PROTEIN SUPPLEMENT (PROSTAT) 30 ML LIQUID GT SCH (20:23)
[2018-11-11] MEDS: MULTIVIT, IRON, MIN NO. 8, FA TABLET GT SCH (20:23)
[2018-11-11] MEDS: ENOXAPARIN SODIUM 40 MG/0.4 ML DISP.SYRIN SQ SCH (20:25)
[2018-11-12] MEDS: ALBUTEROL SULFATE 2.5 MG/3 ML NEBU NEB SCH ×4 (00:45→19:24)
[2018-11-12] MEDS: IPRATROPIUM BROMIDE 0.5 MG/2.5 ML NEBU NEB SCH ×4 (00:45→19:24)
[2018-11-12] MEDS: INSULIN REGULAR, HUMAN 300 UNIT/3 ML VIAL SQ PRN ×5 (01:12→23:59)
[2018-11-12] MEDS: GLUCERNA 1.2 1000ML LIQUID GT SCH ×2 (03:50→21:43)
[2018-11-12] MEDS: BENZTROPINE MESYLATE 0.5 MG TABLET GT SCH ×3 (05:04→21:00)
[2018-11-12] MEDS: LORATADINE 10 MG TABLET GT SCH (05:04)
[2018-11-12] MEDS: PHENYTOIN 100 MG/4 ML UDC GT SCH ×2 (05:05→17:49)
[2018-11-12] MEDS: OMEPRAZOLE 20 MG CAPSULE.DR GT SCH (05:05)
[2018-11-12] MEDS: FOLIC ACID 1 MG TABLET GT SCH (05:05)
[2018-11-12] MEDS: FERROUS SULFATE 330 MG/7.5 ML UDC- FOR SA ONLY GT SCH (05:05)
[2018-11-12] MEDS: CYANOCOBALAMIN 100 MCG TABLET GT SCH (05:05)
[2018-11-12] MEDS: BLOOD SUGAR DIAGNOSTIC 1 EACH STRIP VI SCH ×5 (05:05→23:57)
[2018-11-12] MEDS: LISINOPRIL 20 MG TABLET GT SCH ×2 (05:05→17:44)
[2018-11-12] MEDS: INSULIN NPH SQ SCH ×3 (05:12→21:00)
[2018-11-12 08:00] VITALS: BP 138/75
[2018-11-12] MEDS: ASPIRIN 81 MG TAB.CHEW GT SCH (09:47)
[2018-11-12] MEDS: HYDROGEN PEROXIDE 3% 118 ML BOTTLE TP SCH ×2 (09:48→20:59)
[2018-11-12] MEDS: METOPROLOL TARTRATE 100 MG TABLET GT SCH (09:48)
[2018-11-12] MEDS: Z GUARD REMEDY PASTE 57 GM TUBE TP SCH ×2 (09:48→21:00)
[2018-11-12] MEDS: NUTRISOURCE FIBER 4 GM PACKET PO SCH ×2 (09:48→20:57)
[2018-11-12] MEDS: COD LIVER OIL/ZINC OXIDE OINT 113 GM TUBE TP SCH ×2 (09:48→20:59)
[2018-11-12] MEDS: SPIRONOLACTONE 25 MG TABLET GT SCH (09:48)
[2018-11-12] MEDS: POTASSIUM CHLORIDE 40 MEQ/30 ML LIQUID UDC GT SCH (09:49)
[2018-11-12] MEDS: VIMPAT 150 MG GT SCH ×2 (09:52→20:57)
[2018-11-12] MEDS: PHENOBARBITAL 64.8 MG TABLET GT SCH (09:52)
[2018-11-12] MEDS: AMANTADINE 50MG/5ML GT SCH (09:54)
[2018-11-12] MEDS: LEVETIRACETAM 500 MG/5 ML LIQUID UDC GT SCH ×2 (09:55→20:55)
[2018-11-12 20:00] VITALS: BP 139/94
[2018-11-12] MEDS: MELATONIN 3 MG GT SCH (20:56)
[2018-11-12] MEDS: DIGOXIN 125 MCG TABLET GT SCH (20:56)
[2018-11-12] MEDS: PROTEIN SUPPLEMENT (PROSTAT) 30 ML LIQUID GT SCH (20:57)
[2018-11-12] MEDS: PHENOBARBITAL 97.2 MG TABLET GT SCH (20:57)
[2018-11-12] MEDS: ENOXAPARIN SODIUM 40 MG/0.4 ML DISP.SYRIN SQ SCH (20:58)
[2018-11-13] MEDS: ALBUTEROL SULFATE 2.5 MG/3 ML NEBU NEB SCH ×4 (01:08→19:18)
[2018-11-13] MEDS: IPRATROPIUM BROMIDE 0.5 MG/2.5 ML NEBU NEB SCH ×4 (01:08→19:18)
[2018-11-13] MEDS: FOLIC ACID 1 MG TABLET GT SCH (05:19)
[2018-11-13] MEDS: BENZTROPINE MESYLATE 0.5 MG TABLET GT SCH ×3 (05:19→21:30)
[2018-11-13] MEDS: FERROUS SULFATE 330 MG/7.5 ML UDC- FOR SA ONLY GT SCH (05:19)
[2018-11-13] MEDS: PHENYTOIN 100 MG/4 ML UDC GT SCH ×2 (05:19→17:35)
[2018-11-13] MEDS: LORATADINE 10 MG TABLET GT SCH (05:19)
[2018-11-13] MEDS: OMEPRAZOLE 20 MG CAPSULE.DR GT SCH (05:19)
[2018-11-13] MEDS: LISINOPRIL 20 MG TABLET GT SCH ×2 (05:19→17:35)
[2018-11-13] MEDS: CYANOCOBALAMIN 100 MCG TABLET GT SCH (05:19)
[2018-11-13] MEDS: BLOOD SUGAR DIAGNOSTIC 1 EACH STRIP VI SCH ×4 (05:20→23:55)
[2018-11-13] MEDS: INSULIN NPH SQ SCH ×3 (05:21→22:15)
[2018-11-13] MEDS: INSULIN REGULAR, HUMAN 300 UNIT/3 ML VIAL SQ PRN ×4 (05:26→23:56)
[2018-11-13] MEDS: METOPROLOL TARTRATE 100 MG TABLET GT SCH (08:22)
[2018-11-13] MEDS: SPIRONOLACTONE 25 MG TABLET GT SCH (08:22)
[2018-11-13] MEDS: PHENOBARBITAL 64.8 MG TABLET GT SCH (08:22)
[2018-11-13] MEDS: LEVETIRACETAM 500 MG/5 ML LIQUID UDC GT SCH ×2 (08:22→21:26)
[2018-11-13] MEDS: ASPIRIN 81 MG TAB.CHEW GT SCH (08:22)
[2018-11-13] MEDS: AMANTADINE 50MG/5ML GT SCH (08:22)
[2018-11-13] MEDS: VIMPAT 150 MG GT SCH ×2 (08:23→21:27)
[2018-11-13] MEDS: COD LIVER OIL/ZINC OXIDE OINT 113 GM TUBE TP SCH ×2 (08:23→21:30)
[2018-11-13] MEDS: Z GUARD REMEDY PASTE 57 GM TUBE TP SCH ×2 (08:23→21:30)
[2018-11-13] MEDS: HYDROGEN PEROXIDE 3% 118 ML BOTTLE TP SCH ×2 (08:23→21:30)
[2018-11-13] MEDS: POTASSIUM CHLORIDE 40 MEQ/30 ML LIQUID UDC GT SCH (08:23)
[2018-11-13] MEDS: NUTRISOURCE FIBER 4 GM PACKET PO SCH ×2 (08:23→21:27)
[2018-11-13] MEDS ORDERED: DEXTROSE 50% 50 ML DISP.SYRIN IV PRN (11:15)
[2018-11-13] MEDS: MULTIVIT, IRON, MIN NO. 8, FA TABLET GT SCH (21:27)
[2018-11-13] MEDS: PROTEIN SUPPLEMENT (PROSTAT) 30 ML LIQUID GT SCH (21:27)
[2018-11-13] MEDS: DIGOXIN 125 MCG TABLET GT SCH (21:27)
[2018-11-13] MEDS: MELATONIN 3 MG GT SCH (21:27)
[2018-11-13] MEDS: PHENOBARBITAL 97.2 MG TABLET GT SCH (21:27)
[2018-11-13] MEDS: ENOXAPARIN SODIUM 40 MG/0.4 ML DISP.SYRIN SQ SCH (21:29)
[2018-11-13 21:48] VITALS: BP 157/85
[2018-11-13] MEDS: GLUCERNA 1.2 1000ML LIQUID GT SCH (22:15)
[2018-11-14] MEDS: IPRATROPIUM BROMIDE 0.5 MG/2.5 ML NEBU NEB SCH ×4 (01:08→20:10)
[2018-11-14] MEDS: ALBUTEROL SULFATE 2.5 MG/3 ML NEBU NEB SCH ×4 (01:08→20:10)
[2018-11-14] MEDS: CYANOCOBALAMIN 100 MCG TABLET GT SCH (05:16)
[2018-11-14] MEDS: PHENYTOIN 100 MG/4 ML UDC GT SCH ×2 (05:16→18:17)
[2018-11-14] MEDS: BLOOD SUGAR DIAGNOSTIC 1 EACH STRIP VI SCH ×4 (05:16→23:09)
[2018-11-14] MEDS: LISINOPRIL 20 MG TABLET GT SCH ×2 (05:16→18:24)
[2018-11-14] MEDS: BENZTROPINE MESYLATE 0.5 MG TABLET GT SCH ×3 (05:16→21:18)
[2018-11-14] MEDS: LORATADINE 10 MG TABLET GT SCH (05:16)
[2018-11-14] MEDS: OMEPRAZOLE 20 MG CAPSULE.DR GT SCH (05:16)
[2018-11-14] MEDS: FERROUS SULFATE 330 MG/7.5 ML UDC- FOR SA ONLY GT SCH (05:16)
[2018-11-14] MEDS: FOLIC ACID 1 MG TABLET GT SCH (05:16)
[2018-11-14] MEDS: INSULIN NPH SQ SCH ×3 (05:17→21:18)
[2018-11-14] MEDS: INSULIN REGULAR, HUMAN 300 UNIT/3 ML VIAL SQ PRN ×4 (05:18→23:17)
[2018-11-14 08:06] VITALS: BP 118/68
[2018-11-14] MEDS: SPIRONOLACTONE 25 MG TABLET GT SCH (08:25)
[2018-11-14] MEDS: METOPROLOL TARTRATE 100 MG TABLET GT SCH (08:25)
[2018-11-14] MEDS: ASPIRIN 81 MG TAB.CHEW GT SCH (08:25)
[2018-11-14] MEDS: LEVETIRACETAM 500 MG/5 ML LIQUID UDC GT SCH ×2 (08:25→20:25)
[2018-11-14] MEDS: Z GUARD REMEDY PASTE 57 GM TUBE TP SCH ×2 (08:26→20:26)
[2018-11-14] MEDS: PHENOBARBITAL 64.8 MG TABLET GT SCH (08:26)
[2018-11-14] MEDS: COD LIVER OIL/ZINC OXIDE OINT 113 GM TUBE TP SCH ×2 (08:26→20:26)
[2018-11-14] MEDS: NUTRISOURCE FIBER 4 GM PACKET PO SCH ×2 (08:26→20:26)
[2018-11-14] MEDS: VIMPAT 150 MG GT SCH ×2 (08:26→20:25)
[2018-11-14] MEDS: POTASSIUM CHLORIDE 40 MEQ/30 ML LIQUID UDC GT SCH (08:26)
[2018-11-14] MEDS: AMANTADINE 50MG/5ML GT SCH (08:26)
[2018-11-14] MEDS: HYDROGEN PEROXIDE 3% 118 ML BOTTLE TP SCH ×2 (08:26→20:26)
[2018-11-14 20:00] VITALS: BP 135/79
[2018-11-14] MEDS: PROTEIN SUPPLEMENT (PROSTAT) 30 ML LIQUID GT SCH (20:25)
[2018-11-14] MEDS: DIGOXIN 125 MCG TABLET GT SCH (20:25)
[2018-11-14] MEDS: PHENOBARBITAL 97.2 MG TABLET GT SCH (20:25)
[2018-11-14] MEDS: MELATONIN 3 MG GT SCH (20:25)
[2018-11-14] MEDS: ENOXAPARIN SODIUM 40 MG/0.4 ML DISP.SYRIN SQ SCH (21:17)
[2018-11-15] MEDS: ALBUTEROL SULFATE 2.5 MG/3 ML NEBU NEB SCH ×4 (01:13→20:15)
[2018-11-15] MEDS: IPRATROPIUM BROMIDE 0.5 MG/2.5 ML NEBU NEB SCH ×4 (01:13→20:15)
[2018-11-15] MEDS: BENZTROPINE MESYLATE 0.5 MG TABLET GT SCH ×3 (05:12→22:02)
[2018-11-15] MEDS: PHENYTOIN 100 MG/4 ML UDC GT SCH ×2 (05:12→18:02)
[2018-11-15] MEDS: OMEPRAZOLE 20 MG CAPSULE.DR GT SCH (05:12)
[2018-11-15] MEDS: CYANOCOBALAMIN 100 MCG TABLET GT SCH (05:12)
[2018-11-15] MEDS: BLOOD SUGAR DIAGNOSTIC 1 EACH STRIP VI SCH ×3 (05:12→18:04)
[2018-11-15] MEDS: FERROUS SULFATE 330 MG/7.5 ML UDC- FOR SA ONLY GT SCH (05:12)
[2018-11-15] MEDS: FOLIC ACID 1 MG TABLET GT SCH (05:12)
[2018-11-15] MEDS: LORATADINE 10 MG TABLET GT SCH (05:12)
[2018-11-15] MEDS: LISINOPRIL 20 MG TABLET GT SCH ×2 (05:12→18:03)
[2018-11-15] MEDS: INSULIN NPH SQ SCH ×3 (05:13→22:03)
[2018-11-15] MEDS: INSULIN REGULAR, HUMAN 300 UNIT/3 ML VIAL SQ PRN ×3 (05:14→18:05)
[2018-11-15 08:05] VITALS: BP 118/72
[2018-11-15] MEDS: SPIRONOLACTONE 25 MG TABLET GT SCH (09:05)
[2018-11-15] MEDS: ASPIRIN 81 MG TAB.CHEW GT SCH (09:06)
[2018-11-15] MEDS: LEVETIRACETAM 500 MG/5 ML LIQUID UDC GT SCH ×2 (09:06→20:21)
[2018-11-15] MEDS: POTASSIUM CHLORIDE 40 MEQ/30 ML LIQUID UDC GT SCH (09:07)
[2018-11-15] MEDS: PHENOBARBITAL 64.8 MG TABLET GT SCH (09:07)
[2018-11-15] MEDS: METOPROLOL TARTRATE 100 MG TABLET GT SCH (09:07)
[2018-11-15] MEDS: NUTRISOURCE FIBER 4 GM PACKET PO SCH ×2 (09:07→20:23)
[2018-11-15] MEDS: AMANTADINE 50MG/5ML GT SCH (09:07)
[2018-11-15] MEDS: VIMPAT 150 MG GT SCH ×2 (09:07→20:22)
[2018-11-15] MEDS: COD LIVER OIL/ZINC OXIDE OINT 113 GM TUBE TP SCH ×2 (09:08→20:23)
[2018-11-15] MEDS: HYDROGEN PEROXIDE 3% 118 ML BOTTLE TP SCH ×2 (09:08→20:23)
[2018-11-15] MEDS: Z GUARD REMEDY PASTE 57 GM TUBE TP SCH ×2 (09:16→20:24)
[2018-11-15] MEDS: DOCOSANOL TP SCH (18:56)
--- NOTE | 2018-11-15 19:16 | NUR ---
New orders noted for blisters on upper and lower lips,to start abreva ointment,family provided.
[2018-11-15] MEDS: MELATONIN 3 MG GT SCH (20:22)
[2018-11-15] MEDS: PHENOBARBITAL 97.2 MG TABLET GT SCH (20:22)
[2018-11-15] MEDS: PROTEIN SUPPLEMENT (PROSTAT) 30 ML LIQUID GT SCH (20:22)
[2018-11-15] MEDS: ENOXAPARIN SODIUM 40 MG/0.4 ML DISP.SYRIN SQ SCH (20:23)
[2018-11-15] MEDS: MULTIVIT, IRON, MIN NO. 8, FA TABLET GT SCH (20:23)
[2018-11-15] MEDS: DIGOXIN 125 MCG TABLET GT SCH (20:33)
[2018-11-15 20:36] VITALS: BP 130/81
[2018-11-15] MEDS: GLUCERNA 1.2 1000ML LIQUID GT SCH (22:00)
[2018-11-16] MEDS: DOCOSANOL TP SCH ×4 (00:28→17:47)
[2018-11-16] MEDS: BLOOD SUGAR DIAGNOSTIC 1 EACH STRIP VI SCH ×4 (00:28→17:47)
[2018-11-16] MEDS: INSULIN REGULAR, HUMAN 300 UNIT/3 ML VIAL SQ PRN ×4 (00:33→18:00)
[2018-11-16] MEDS: GUAIFENESIN/DEXTROMETHORPHAN 5 ML UDC GT PRN ×2 (01:00→13:08)
[2018-11-16] MEDS: ALBUTEROL SULFATE 2.5 MG/3 ML NEBU NEB SCH ×4 (01:15→19:23)
[2018-11-16] MEDS: IPRATROPIUM BROMIDE 0.5 MG/2.5 ML NEBU NEB SCH ×4 (01:15→19:23)
[2018-11-16] MEDS: FOLIC ACID 1 MG TABLET GT SCH (05:03)
[2018-11-16] MEDS: LORATADINE 10 MG TABLET GT SCH (05:03)
[2018-11-16] MEDS: OMEPRAZOLE 20 MG CAPSULE.DR GT SCH (05:03)
[2018-11-16] MEDS: LISINOPRIL 20 MG TABLET GT SCH ×2 (05:03→17:47)
[2018-11-16] MEDS: BENZTROPINE MESYLATE 0.5 MG TABLET GT SCH ×3 (05:03→21:59)
[2018-11-16] MEDS: PHENYTOIN 100 MG/4 ML UDC GT SCH ×2 (05:03→17:46)
[2018-11-16] MEDS: FERROUS SULFATE 330 MG/7.5 ML UDC- FOR SA ONLY GT SCH (05:03)
[2018-11-16] MEDS: CYANOCOBALAMIN 100 MCG TABLET GT SCH (05:04)
[2018-11-16] MEDS: INSULIN NPH SQ SCH ×3 (05:56→22:23)
[2018-11-16 08:05] VITALS: BP 92/60
[2018-11-16] MEDS: VIMPAT 150 MG GT SCH ×2 (09:04→21:59)
[2018-11-16] MEDS: PHENOBARBITAL 64.8 MG TABLET GT SCH (09:04)
[2018-11-16] MEDS: Z GUARD REMEDY PASTE 57 GM TUBE TP SCH ×2 (09:05→21:59)
[2018-11-16] MEDS: ASPIRIN 81 MG TAB.CHEW GT SCH (09:05)
[2018-11-16] MEDS: POTASSIUM CHLORIDE 40 MEQ/30 ML LIQUID UDC GT SCH (09:05)
[2018-11-16] MEDS: HYDROGEN PEROXIDE 3% 118 ML BOTTLE TP SCH ×2 (09:05→21:59)
[2018-11-16] MEDS: COD LIVER OIL/ZINC OXIDE OINT 113 GM TUBE TP SCH ×2 (09:05→21:59)
[2018-11-16] MEDS: LEVETIRACETAM 500 MG/5 ML LIQUID UDC GT SCH ×2 (09:05→21:58)
[2018-11-16] MEDS: AMANTADINE 50MG/5ML GT SCH (09:05)
[2018-11-16] MEDS: NUTRISOURCE FIBER 4 GM PACKET PO SCH ×2 (09:05→21:59)
[2018-11-16] MEDS: METOPROLOL TARTRATE 100 MG TABLET GT SCH (09:08)
[2018-11-16] MEDS: SPIRONOLACTONE 25 MG TABLET GT SCH (09:08)
[2018-11-16] MEDS: GLUCERNA 1.2 1000ML LIQUID GT SCH (19:25)
[2018-11-16 20:54] VITALS: BP 130/87
[2018-11-16] MEDS: ENOXAPARIN SODIUM 40 MG/0.4 ML DISP.SYRIN SQ SCH (21:00)
[2018-11-16] MEDS: PHENOBARBITAL 97.2 MG TABLET GT SCH (21:59)
[2018-11-16] MEDS: MELATONIN 3 MG GT SCH (21:59)
[2018-11-16] MEDS: PROTEIN SUPPLEMENT (PROSTAT) 30 ML LIQUID GT SCH (21:59)
[2018-11-16] MEDS: DIGOXIN 125 MCG TABLET GT SCH (21:59)
[2018-11-17] MEDS: BLOOD SUGAR DIAGNOSTIC 1 EACH STRIP VI SCH ×4 (00:21→17:29)
[2018-11-17] MEDS: DOCOSANOL TP SCH ×4 (00:21→18:21)
[2018-11-17] MEDS: GUAIFENESIN/DEXTROMETHORPHAN 5 ML UDC GT PRN ×2 (00:22→18:24)
[2018-11-17] MEDS: INSULIN REGULAR, HUMAN 300 UNIT/3 ML VIAL SQ PRN ×4 (00:24→17:29)
--- NOTE | 2018-11-17 00:46 | NUR ---
Remains on Abreva for upper lip blisters, skin is intact, good lip and mouth care done, kept patient clean and comfortable.
[2018-11-17] MEDS: IPRATROPIUM BROMIDE 0.5 MG/2.5 ML NEBU NEB SCH ×4 (00:47→19:19)
[2018-11-17] MEDS: ALBUTEROL SULFATE 2.5 MG/3 ML NEBU NEB SCH ×4 (00:47→19:19)
[2018-11-17] MEDS: OMEPRAZOLE 20 MG CAPSULE.DR GT SCH (05:54)
[2018-11-17] MEDS: FERROUS SULFATE 330 MG/7.5 ML UDC- FOR SA ONLY GT SCH (05:54)
[2018-11-17] MEDS: BENZTROPINE MESYLATE 0.5 MG TABLET GT SCH ×3 (05:54→21:52)
[2018-11-17] MEDS: LORATADINE 10 MG TABLET GT SCH (05:54)
[2018-11-17] MEDS: PHENYTOIN 100 MG/4 ML UDC GT SCH ×2 (05:54→18:21)
[2018-11-17] MEDS: FOLIC ACID 1 MG TABLET GT SCH (05:54)
[2018-11-17] MEDS: CYANOCOBALAMIN 100 MCG TABLET GT SCH (05:55)
[2018-11-17] MEDS: LISINOPRIL 20 MG TABLET GT SCH ×2 (05:55→18:20)
[2018-11-17] MEDS: INSULIN NPH SQ SCH ×3 (05:56→22:27)
[2018-11-17 08:13] VITALS: BP 179/98
[2018-11-17] MEDS: LEVETIRACETAM 500 MG/5 ML LIQUID UDC GT SCH ×2 (08:31→21:51)
[2018-11-17] MEDS: ASPIRIN 81 MG TAB.CHEW GT SCH (08:31)
[2018-11-17] MEDS: SPIRONOLACTONE 25 MG TABLET GT SCH (08:31)
[2018-11-17] MEDS: PHENOBARBITAL 64.8 MG TABLET GT SCH (08:32)
[2018-11-17] MEDS: METOPROLOL TARTRATE 100 MG TABLET GT SCH (08:32)
[2018-11-17] MEDS: Z GUARD REMEDY PASTE 57 GM TUBE TP SCH ×2 (08:33→21:52)
[2018-11-17] MEDS: NUTRISOURCE FIBER 4 GM PACKET PO SCH ×2 (08:33→21:52)
[2018-11-17] MEDS: COD LIVER OIL/ZINC OXIDE OINT 113 GM TUBE TP SCH ×2 (08:33→21:52)
[2018-11-17] MEDS: HYDROGEN PEROXIDE 3% 118 ML BOTTLE TP SCH ×2 (08:33→21:52)
[2018-11-17] MEDS: VIMPAT 150 MG GT SCH ×2 (08:33→21:51)
[2018-11-17] MEDS: POTASSIUM CHLORIDE 40 MEQ/30 ML LIQUID UDC GT SCH (08:33)
[2018-11-17] MEDS: AMANTADINE 50MG/5ML GT SCH (08:33)
[2018-11-17] MEDS: GLUCERNA 1.2 1000ML LIQUID GT SCH (12:00)
[2018-11-17] MEDS: IBUPROFEN 100 MG/5 ML LIQUID UDC- SA PATIENTS-PAIN ONLY GT PRN (17:50)
[2018-11-17 20:39] VITALS: BP 124/70
[2018-11-17] MEDS: ENOXAPARIN SODIUM 40 MG/0.4 ML DISP.SYRIN SQ SCH (21:00)
[2018-11-17] MEDS: MELATONIN 3 MG GT SCH (21:51)
[2018-11-17] MEDS: DIGOXIN 125 MCG TABLET GT SCH (21:51)
[2018-11-17] MEDS: MULTIVIT, IRON, MIN NO. 8, FA TABLET GT SCH (21:52)
[2018-11-17] MEDS: PHENOBARBITAL 97.2 MG TABLET GT SCH (21:52)
[2018-11-17] MEDS: PROTEIN SUPPLEMENT (PROSTAT) 30 ML LIQUID GT SCH (21:52)
[2018-11-18] MEDS: DOCOSANOL TP SCH ×4 (00:18→17:31)
[2018-11-18] MEDS: BLOOD SUGAR DIAGNOSTIC 1 EACH STRIP VI SCH ×4 (00:18→17:27)
[2018-11-18] MEDS: INSULIN REGULAR, HUMAN 300 UNIT/3 ML VIAL SQ PRN ×3 (00:57→17:28)
[2018-11-18] MEDS: IPRATROPIUM BROMIDE 0.5 MG/2.5 ML NEBU NEB SCH ×4 (01:08→18:43)
[2018-11-18] MEDS: ALBUTEROL SULFATE 2.5 MG/3 ML NEBU NEB SCH ×4 (01:08→18:43)
[2018-11-18] MEDS: GLUCERNA 1.2 1000ML LIQUID GT SCH ×2 (03:21→22:15)
[2018-11-18] MEDS: PHENYTOIN 100 MG/4 ML UDC GT SCH ×2 (06:34→17:29)
[2018-11-18] MEDS: LORATADINE 10 MG TABLET GT SCH (06:34)
[2018-11-18] MEDS: LISINOPRIL 20 MG TABLET GT SCH ×2 (06:34→17:31)
[2018-11-18] MEDS: FERROUS SULFATE 330 MG/7.5 ML UDC- FOR SA ONLY GT SCH (06:34)
[2018-11-18] MEDS: OMEPRAZOLE 20 MG CAPSULE.DR GT SCH (06:34)
[2018-11-18] MEDS: BENZTROPINE MESYLATE 0.5 MG TABLET GT SCH ×3 (06:34→21:23)
[2018-11-18] MEDS: CYANOCOBALAMIN 100 MCG TABLET GT SCH (06:34)
[2018-11-18] MEDS: FOLIC ACID 1 MG TABLET GT SCH (06:34)
[2018-11-18] MEDS: INSULIN NPH SQ SCH ×3 (06:37→22:14)
[2018-11-18 08:00] VITALS: BP 118/72
[2018-11-18] MEDS: SPIRONOLACTONE 25 MG TABLET GT SCH (08:21)
[2018-11-18] MEDS: LEVETIRACETAM 500 MG/5 ML LIQUID UDC GT SCH ×2 (08:22→21:19)
[2018-11-18] MEDS: ASPIRIN 81 MG TAB.CHEW GT SCH (08:22)
[2018-11-18] MEDS: PHENOBARBITAL 64.8 MG TABLET GT SCH (08:23)
[2018-11-18] MEDS: POTASSIUM CHLORIDE 40 MEQ/30 ML LIQUID UDC GT SCH (08:23)
[2018-11-18] MEDS: METOPROLOL TARTRATE 100 MG TABLET GT SCH (08:23)
[2018-11-18] MEDS: AMANTADINE 50MG/5ML GT SCH (08:23)
[2018-11-18] MEDS: VIMPAT 150 MG GT SCH ×2 (08:23→21:21)
[2018-11-18] MEDS: COD LIVER OIL/ZINC OXIDE OINT 113 GM TUBE TP SCH ×2 (08:24→21:23)
[2018-11-18] MEDS: Z GUARD REMEDY PASTE 57 GM TUBE TP SCH ×2 (08:24→21:23)
[2018-11-18] MEDS: HYDROGEN PEROXIDE 3% 118 ML BOTTLE TP SCH ×2 (08:24→21:23)
[2018-11-18] MEDS: NUTRISOURCE FIBER 4 GM PACKET PO SCH ×2 (08:24→21:22)
[2018-11-18] MEDS: GUAIFENESIN/DEXTROMETHORPHAN 5 ML UDC GT PRN (08:25)
[2018-11-18] MEDS: ACETAMINOPHEN 650 MG/20 ML UDC- SA PATIENTS-PAIN ONLY GT PRN (17:15)
[2018-11-18 20:00] VITALS: BP 132/86
[2018-11-18] MEDS: DIGOXIN 125 MCG TABLET GT SCH (21:20)
[2018-11-18] MEDS: MELATONIN 3 MG GT SCH (21:21)
[2018-11-18] MEDS: PROTEIN SUPPLEMENT (PROSTAT) 30 ML LIQUID GT SCH (21:22)
[2018-11-18] MEDS: PHENOBARBITAL 97.2 MG TABLET GT SCH (21:22)
[2018-11-18] MEDS: ENOXAPARIN SODIUM 40 MG/0.4 ML DISP.SYRIN SQ SCH (21:33)
[2018-11-19] MEDS: DOCOSANOL TP SCH ×4 (00:15→17:58)
[2018-11-19] MEDS: BLOOD SUGAR DIAGNOSTIC 1 EACH STRIP VI SCH ×4 (00:16→17:58)
[2018-11-19] MEDS: INSULIN REGULAR, HUMAN 300 UNIT/3 ML VIAL SQ PRN ×4 (00:19→17:59)
[2018-11-19] MEDS: IPRATROPIUM BROMIDE 0.5 MG/2.5 ML NEBU NEB SCH ×4 (00:42→19:56)
[2018-11-19] MEDS: ALBUTEROL SULFATE 2.5 MG/3 ML NEBU NEB SCH ×4 (00:42→19:56)
[2018-11-19] MEDS: GUAIFENESIN/DEXTROMETHORPHAN 5 ML UDC GT PRN (04:00)
[2018-11-19] MEDS: IBUPROFEN 100 MG/5 ML LIQUID UDC- SA PATIENTS-PAIN ONLY GT PRN (05:00)
[2018-11-19] MEDS: LORATADINE 10 MG TABLET GT SCH (05:02)
[2018-11-19] MEDS: PHENYTOIN 100 MG/4 ML UDC GT SCH ×2 (05:02→17:58)
[2018-11-19] MEDS: BENZTROPINE MESYLATE 0.5 MG TABLET GT SCH ×3 (05:02→21:38)
[2018-11-19] MEDS: FERROUS SULFATE 330 MG/7.5 ML UDC- FOR SA ONLY GT SCH (05:03)
[2018-11-19] MEDS: CYANOCOBALAMIN 100 MCG TABLET GT SCH (05:03)
[2018-11-19] MEDS: OMEPRAZOLE 20 MG CAPSULE.DR GT SCH (05:03)
[2018-11-19] MEDS: FOLIC ACID 1 MG TABLET GT SCH (05:03)
[2018-11-19] MEDS: LISINOPRIL 20 MG TABLET GT SCH ×2 (05:03→17:58)
[2018-11-19] MEDS: INSULIN NPH SQ SCH ×3 (05:04→22:29)
[2018-11-19 08:10] VITALS: BP 139/90
[2018-11-19] MEDS: SPIRONOLACTONE 25 MG TABLET GT SCH (08:10)
[2018-11-19] MEDS: ASPIRIN 81 MG TAB.CHEW GT SCH (08:10)
[2018-11-19] MEDS: LEVETIRACETAM 500 MG/5 ML LIQUID UDC GT SCH ×2 (08:10→20:43)
[2018-11-19] MEDS: AMANTADINE 50MG/5ML GT SCH (08:11)
[2018-11-19] MEDS: Z GUARD REMEDY PASTE 57 GM TUBE TP SCH ×2 (08:11→20:44)
[2018-11-19] MEDS: VIMPAT 150 MG GT SCH ×2 (08:11→20:43)
[2018-11-19] MEDS: PHENOBARBITAL 64.8 MG TABLET GT SCH (08:11)
[2018-11-19] MEDS: POTASSIUM CHLORIDE 40 MEQ/30 ML LIQUID UDC GT SCH (08:11)
[2018-11-19] MEDS: METOPROLOL TARTRATE 100 MG TABLET GT SCH (08:11)
[2018-11-19] MEDS: NUTRISOURCE FIBER 4 GM PACKET PO SCH ×2 (08:11→20:44)
[2018-11-19] MEDS: HYDROGEN PEROXIDE 3% 118 ML BOTTLE TP SCH ×2 (08:11→20:44)
[2018-11-19] MEDS: COD LIVER OIL/ZINC OXIDE OINT 113 GM TUBE TP SCH ×2 (08:11→20:44)
[2018-11-19 20:22] VITALS: BP 143/90
[2018-11-19] MEDS: PHENOBARBITAL 97.2 MG TABLET GT SCH (20:43)
[2018-11-19] MEDS: DIGOXIN 125 MCG TABLET GT SCH (20:43)
[2018-11-19] MEDS: MELATONIN 3 MG GT SCH (20:43)
[2018-11-19] MEDS: PROTEIN SUPPLEMENT (PROSTAT) 30 ML LIQUID GT SCH (20:43)
[2018-11-19] MEDS: MULTIVIT, IRON, MIN NO. 8, FA TABLET GT SCH (20:44)
[2018-11-19] MEDS: ENOXAPARIN SODIUM 40 MG/0.4 ML DISP.SYRIN SQ SCH (21:42)
[2018-11-20] MEDS: BLOOD SUGAR DIAGNOSTIC 1 EACH STRIP VI SCH ×4 (00:45→17:55)
[2018-11-20] MEDS: DOCOSANOL TP SCH ×4 (00:45→17:55)
[2018-11-20] MEDS: INSULIN REGULAR, HUMAN 300 UNIT/3 ML VIAL SQ PRN ×3 (00:46→17:57)
[2018-11-20] MEDS: IPRATROPIUM BROMIDE 0.5 MG/2.5 ML NEBU NEB SCH ×4 (01:10→19:31)
[2018-11-20] MEDS: ALBUTEROL SULFATE 2.5 MG/3 ML NEBU NEB SCH ×4 (01:10→19:31)
[2018-11-20] MEDS: HYDROCODONE BIT/HOMATROPINE 5 ML UDC GT PRN (02:52)
--- NOTE | 2018-11-20 05:25 | NUR ---
sheree reyna was in, no new orders.
[2018-11-20] MEDS: FOLIC ACID 1 MG TABLET GT SCH (05:56)
[2018-11-20] MEDS: BENZTROPINE MESYLATE 0.5 MG TABLET GT SCH ×3 (05:56→21:11)
[2018-11-20] MEDS: FERROUS SULFATE 330 MG/7.5 ML UDC- FOR SA ONLY GT SCH (05:56)
[2018-11-20] MEDS: PHENYTOIN 100 MG/4 ML UDC GT SCH ×2 (05:56→17:55)
[2018-11-20] MEDS: OMEPRAZOLE 20 MG CAPSULE.DR GT SCH (05:56)
[2018-11-20] MEDS: LORATADINE 10 MG TABLET GT SCH (05:56)
[2018-11-20] MEDS: LISINOPRIL 20 MG TABLET GT SCH ×2 (05:57→17:55)
[2018-11-20] MEDS: CYANOCOBALAMIN 100 MCG TABLET GT SCH (05:57)
[2018-11-20] MEDS: INSULIN NPH SQ SCH ×3 (05:59→21:16)
[2018-11-20] MEDS: LEVETIRACETAM 500 MG/5 ML LIQUID UDC GT SCH ×2 (08:00→20:50)
[2018-11-20] MEDS: COD LIVER OIL/ZINC OXIDE OINT 113 GM TUBE TP SCH ×2 (08:00→20:57)
[2018-11-20] MEDS: METOPROLOL TARTRATE 100 MG TABLET GT SCH (08:00)
[2018-11-20] MEDS: HYDROGEN PEROXIDE 3% 118 ML BOTTLE TP SCH ×2 (08:00→20:58)
[2018-11-20] MEDS: ASPIRIN 81 MG TAB.CHEW GT SCH (08:00)
[2018-11-20] MEDS: SPIRONOLACTONE 25 MG TABLET GT SCH (08:00)
[2018-11-20] MEDS: POTASSIUM CHLORIDE 40 MEQ/30 ML LIQUID UDC GT SCH (08:00)
[2018-11-20] MEDS: PHENOBARBITAL 64.8 MG TABLET GT SCH (08:00)
[2018-11-20] MEDS: NUTRISOURCE FIBER 4 GM PACKET PO SCH ×2 (08:00→20:51)
[2018-11-20] MEDS: AMANTADINE 50MG/5ML GT SCH (08:00)
[2018-11-20] MEDS: VIMPAT 150 MG GT SCH ×2 (08:00→20:51)
[2018-11-20] MEDS: Z GUARD REMEDY PASTE 57 GM TUBE TP SCH ×2 (08:01→20:58)
[2018-11-20] MEDS: [UNRECOGNIZED DRUG - OTHER] RC PRN (08:11)
--- NOTE | 2018-11-20 08:11 | NUR ---
MONTOYA FLUSH ENEMA GIVEN WITH VISIBLE RELIEF OF ABDOMINAL DISTENTION AND WITH LARGE AMOUNTS OF BOWEL GAS RELEASED.
[2018-11-20 10:37] VITALS: BP 129/51
[2018-11-20] MEDS: DIGOXIN 125 MCG TABLET GT SCH (20:51)
[2018-11-20] MEDS: PHENOBARBITAL 97.2 MG TABLET GT SCH (20:51)
[2018-11-20] MEDS: PROTEIN SUPPLEMENT (PROSTAT) 30 ML LIQUID GT SCH (20:51)
[2018-11-20] MEDS: MELATONIN 3 MG GT SCH (20:51)
[2018-11-20 20:54] VITALS: BP 131/88
[2018-11-20] MEDS: ENOXAPARIN SODIUM 40 MG/0.4 ML DISP.SYRIN SQ SCH (20:57)
[2018-11-21] MEDS: BLOOD SUGAR DIAGNOSTIC 1 EACH STRIP VI SCH ×4 (00:15→17:15)
[2018-11-21] MEDS: DOCOSANOL TP SCH ×4 (00:15→17:15)
[2018-11-21] MEDS: INSULIN REGULAR, HUMAN 300 UNIT/3 ML VIAL SQ PRN ×4 (00:16→17:16)
[2018-11-21] MEDS: IPRATROPIUM BROMIDE 0.5 MG/2.5 ML NEBU NEB SCH ×4 (01:04→19:56)
[2018-11-21] MEDS: ALBUTEROL SULFATE 2.5 MG/3 ML NEBU NEB SCH ×4 (01:04→19:56)
[2018-11-21] MEDS: LORATADINE 10 MG TABLET GT SCH (05:36)
[2018-11-21] MEDS: FERROUS SULFATE 330 MG/7.5 ML UDC- FOR SA ONLY GT SCH (05:37)
[2018-11-21] MEDS: OMEPRAZOLE 20 MG CAPSULE.DR GT SCH (05:37)
[2018-11-21] MEDS: LISINOPRIL 20 MG TABLET GT SCH ×2 (05:37→17:14)
[2018-11-21] MEDS: CYANOCOBALAMIN 100 MCG TABLET GT SCH (05:37)
[2018-11-21] MEDS: PHENYTOIN 100 MG/4 ML UDC GT SCH ×2 (05:37→17:14)
[2018-11-21] MEDS: BENZTROPINE MESYLATE 0.5 MG TABLET GT SCH ×3 (05:37→21:43)
[2018-11-21] MEDS: FOLIC ACID 1 MG TABLET GT SCH (05:37)
[2018-11-21] MEDS: INSULIN NPH SQ SCH ×3 (05:38→22:02)
[2018-11-21] MEDS: GLUCERNA 1.2 1000ML LIQUID GT SCH (06:00)
[2018-11-21] MEDS: SPIRONOLACTONE 25 MG TABLET GT SCH (08:16)
[2018-11-21] MEDS: ASPIRIN 81 MG TAB.CHEW GT SCH (08:19)
[2018-11-21] MEDS: METOPROLOL TARTRATE 100 MG TABLET GT SCH (08:20)
[2018-11-21] MEDS: PHENOBARBITAL 64.8 MG TABLET GT SCH (08:20)
[2018-11-21] MEDS: LEVETIRACETAM 500 MG/5 ML LIQUID UDC GT SCH ×2 (08:20→21:42)
[2018-11-21] MEDS: POTASSIUM CHLORIDE 40 MEQ/30 ML LIQUID UDC GT SCH (08:21)
[2018-11-21] MEDS: VIMPAT 150 MG GT SCH ×2 (08:21→21:43)
[2018-11-21] MEDS: AMANTADINE 50MG/5ML GT SCH (08:21)
[2018-11-21] MEDS: Z GUARD REMEDY PASTE 57 GM TUBE TP SCH ×2 (08:22→21:43)
[2018-11-21] MEDS: NUTRISOURCE FIBER 4 GM PACKET PO SCH ×2 (08:22→21:43)
[2018-11-21] MEDS: COD LIVER OIL/ZINC OXIDE OINT 113 GM TUBE TP SCH ×2 (08:22→21:43)
[2018-11-21] MEDS: HYDROGEN PEROXIDE 3% 118 ML BOTTLE TP SCH ×2 (08:22→21:43)
--- NOTE | 2018-11-21 09:30 | NUR ---
SEEN BY DR. THI MAURICIO.
[2018-11-21 10:55] LABS: BASOPHILS % (AUTO) 0.4 % (0.0-2.0); EOSINOPHILS # (AUTO) 0.1 K/uL (0.0-0.7); EOSINOPHILS % (AUTO) 2.4 % (0.0-7.0); HEMOGLOBIN 12.7 g/dL (12.5-16.3); LYMPHOCYTES # (AUTO) 1.6 K/uL (20.0-40.0); LYMPHOCYTES % (AUTO) 30.7 % (20.5-51.5); MEAN CORPUSCULAR HEMOGLOBIN 31.3 uug (23.8-33.4); MEAN CORPUSCULAR HGB CONC 33 g/dL (32.5-36.3); MEAN CORPUSCULAR VOLUME 93.6 fL (73.0-96.2); MONOCYTES # (AUTO) 0.3 K/uL (2.0-10.0); MONOCYTES % (AUTO) 5.9 % (0.0-11.0); NEUTROPHILS # (AUTO) 3.2 K/uL (1.8-8.9); NEUTROPHILS % (AUTO) 60.6 % (38.5-71.5); PLATELET COUNT (AUTO) 189 K/uL (152-348); RED BLOOD CELL COUNT(AUTO) 4.06 MIL/uL (4.06-5.63); WHITE BLOOD COUNT (AUTO) 5.3 K/uL (3.6-10.2)
[2018-11-21 11:00] LABS: CREATININE 1.1 mg/dL (0.6-1.3); MAGNESIUM 2.5 mg/dL (1.8-2.4); PHOSPHOROUS 3.5 mg/dL (2.5-4.9); POTASSIUM 4.5 mmol/L (3.5-5.1)
[2018-11-21 15:22] VITALS: BP 115/75
[2018-11-21] MEDS: ENOXAPARIN SODIUM 40 MG/0.4 ML DISP.SYRIN SQ SCH (21:00)
[2018-11-21 21:28] VITALS: BP 158/88
[2018-11-21] MEDS: MELATONIN 3 MG GT SCH (21:42)
[2018-11-21] MEDS: DIGOXIN 125 MCG TABLET GT SCH (21:42)
[2018-11-21] MEDS: MULTIVIT, IRON, MIN NO. 8, FA TABLET GT SCH (21:43)
[2018-11-21] MEDS: PROTEIN SUPPLEMENT (PROSTAT) 30 ML LIQUID GT SCH (21:43)
[2018-11-21] MEDS: PHENOBARBITAL 97.2 MG TABLET GT SCH (21:43)
[2018-11-22] MEDS: BLOOD SUGAR DIAGNOSTIC 1 EACH STRIP VI SCH ×5 (00:25→23:55)
[2018-11-22] MEDS: DOCOSANOL TP SCH ×4 (00:25→18:20)
[2018-11-22] MEDS: INSULIN REGULAR, HUMAN 300 UNIT/3 ML VIAL SQ PRN ×4 (00:27→23:56)
[2018-11-22] MEDS: IPRATROPIUM BROMIDE 0.5 MG/2.5 ML NEBU NEB SCH ×4 (01:19→18:55)
[2018-11-22] MEDS: ALBUTEROL SULFATE 2.5 MG/3 ML NEBU NEB SCH ×4 (01:19→18:55)
[2018-11-22] MEDS: GLUCERNA 1.2 1000ML LIQUID GT SCH ×2 (01:27→02:00)
[2018-11-22] MEDS: BENZTROPINE MESYLATE 0.5 MG TABLET GT SCH ×3 (05:38→22:12)
[2018-11-22] MEDS: PHENYTOIN 100 MG/4 ML UDC GT SCH ×2 (05:38→18:19)
[2018-11-22] MEDS: LORATADINE 10 MG TABLET GT SCH (05:38)
[2018-11-22] MEDS: OMEPRAZOLE 20 MG CAPSULE.DR GT SCH (05:38)
[2018-11-22] MEDS: LISINOPRIL 20 MG TABLET GT SCH ×2 (05:38→18:20)
[2018-11-22] MEDS: FERROUS SULFATE 330 MG/7.5 ML UDC- FOR SA ONLY GT SCH (05:38)
[2018-11-22] MEDS: CYANOCOBALAMIN 100 MCG TABLET GT SCH (05:38)
[2018-11-22] MEDS: FOLIC ACID 1 MG TABLET GT SCH (05:38)
[2018-11-22] MEDS: INSULIN NPH SQ SCH ×3 (05:49→22:35)
[2018-11-22] MEDS: GUAIFENESIN/DEXTROMETHORPHAN 5 ML UDC GT PRN ×2 (06:47→23:24)
[2018-11-22 07:56] VITALS: BP 121/74
[2018-11-22] MEDS: SPIRONOLACTONE 25 MG TABLET GT SCH (09:04)
[2018-11-22] MEDS: VIMPAT 150 MG GT SCH ×2 (09:06→21:00)
[2018-11-22] MEDS: Z GUARD REMEDY PASTE 57 GM TUBE TP SCH ×2 (09:06→21:00)
[2018-11-22] MEDS: AMANTADINE 50MG/5ML GT SCH (09:06)
[2018-11-22] MEDS: ASPIRIN 81 MG TAB.CHEW GT SCH (09:06)
[2018-11-22] MEDS: NUTRISOURCE FIBER 4 GM PACKET PO SCH ×2 (09:06→21:00)
[2018-11-22] MEDS: HYDROGEN PEROXIDE 3% 118 ML BOTTLE TP SCH ×2 (09:06→21:00)
[2018-11-22] MEDS: COD LIVER OIL/ZINC OXIDE OINT 113 GM TUBE TP SCH ×2 (09:06→21:00)
[2018-11-22] MEDS: POTASSIUM CHLORIDE 40 MEQ/30 ML LIQUID UDC GT SCH (09:06)
[2018-11-22] MEDS: LEVETIRACETAM 500 MG/5 ML LIQUID UDC GT SCH ×2 (09:06→21:00)
[2018-11-22] MEDS: PHENOBARBITAL 64.8 MG TABLET GT SCH (09:06)
[2018-11-22] MEDS: METOPROLOL TARTRATE 100 MG TABLET GT SCH (09:07)
--- NOTE | 2018-11-22 18:30 | NUR ---
MONTOYA FLUSH ENEMA WAS GIVEN TO RELIEF ABDOMINAL DISTENTION RE:TO EXCESSIVE BOWEL GAS AND PT. UNABLE TO RELEASE IT BY HIMSELF AND PER PT'S FIANCE'S REQUEST AND EFFECTIVE.
[2018-11-22 20:02] VITALS: BP 132/76
[2018-11-22] MEDS: ENOXAPARIN SODIUM 40 MG/0.4 ML DISP.SYRIN SQ SCH (21:00)
[2018-11-22] MEDS: DIGOXIN 125 MCG TABLET GT SCH (21:00)
[2018-11-22] MEDS: PROTEIN SUPPLEMENT (PROSTAT) 30 ML LIQUID GT SCH (21:00)
[2018-11-22] MEDS: MELATONIN 3 MG GT SCH (21:00)
[2018-11-22] MEDS: PHENOBARBITAL 97.2 MG TABLET GT SCH (21:00)
[2018-11-22 23:07] VITALS: BP 132/76
[2018-11-23] MEDS: GLUCERNA 1.2 1000ML LIQUID GT SCH ×2 (00:45→16:49)
[2018-11-23] MEDS: ALBUTEROL SULFATE 2.5 MG/3 ML NEBU NEB SCH ×4 (01:35→18:45)
[2018-11-23] MEDS: IPRATROPIUM BROMIDE 0.5 MG/2.5 ML NEBU NEB SCH ×4 (01:35→18:45)
[2018-11-23] MEDS: LORATADINE 10 MG TABLET GT SCH (05:10)
[2018-11-23] MEDS: LISINOPRIL 20 MG TABLET GT SCH ×2 (05:10→18:25)
[2018-11-23] MEDS: FERROUS SULFATE 330 MG/7.5 ML UDC- FOR SA ONLY GT SCH (05:10)
[2018-11-23] MEDS: PHENYTOIN 100 MG/4 ML UDC GT SCH ×2 (05:10→17:54)
[2018-11-23] MEDS: CYANOCOBALAMIN 100 MCG TABLET GT SCH (05:10)
[2018-11-23] MEDS: BENZTROPINE MESYLATE 0.5 MG TABLET GT SCH ×3 (05:10→22:12)
[2018-11-23] MEDS: FOLIC ACID 1 MG TABLET GT SCH (05:10)
[2018-11-23] MEDS: OMEPRAZOLE 20 MG CAPSULE.DR GT SCH (05:10)
[2018-11-23] MEDS: BLOOD SUGAR DIAGNOSTIC 1 EACH STRIP VI SCH ×4 (05:14→23:23)
[2018-11-23] MEDS: INSULIN NPH SQ SCH ×3 (05:17→22:17)
[2018-11-23] MEDS: INSULIN REGULAR, HUMAN 300 UNIT/3 ML VIAL SQ PRN ×2 (05:18→12:09)
[2018-11-23 06:21] VITALS: BP 133/80
[2018-11-23 08:00] VITALS: BP 164/94
[2018-11-23] MEDS: SPIRONOLACTONE 25 MG TABLET GT SCH (09:31)
[2018-11-23] MEDS: ASPIRIN 81 MG TAB.CHEW GT SCH (09:31)
[2018-11-23] MEDS: METOPROLOL TARTRATE 100 MG TABLET GT SCH (09:31)
[2018-11-23] MEDS: LEVETIRACETAM 500 MG/5 ML LIQUID UDC GT SCH ×2 (09:31→21:55)
[2018-11-23] MEDS: COD LIVER OIL/ZINC OXIDE OINT 113 GM TUBE TP SCH ×2 (09:32→21:55)
[2018-11-23] MEDS: PHENOBARBITAL 64.8 MG TABLET GT SCH (09:32)
[2018-11-23] MEDS: NUTRISOURCE FIBER 4 GM PACKET PO SCH ×2 (09:32→21:55)
[2018-11-23] MEDS: Z GUARD REMEDY PASTE 57 GM TUBE TP SCH ×2 (09:32→21:55)
[2018-11-23] MEDS: POTASSIUM CHLORIDE 40 MEQ/30 ML LIQUID UDC GT SCH (09:32)
[2018-11-23] MEDS: HYDROGEN PEROXIDE 3% 118 ML BOTTLE TP SCH ×2 (09:32→21:55)
[2018-11-23] MEDS: AMANTADINE 50MG/5ML GT SCH (09:32)
[2018-11-23] MEDS: VIMPAT 150 MG GT SCH ×2 (09:32→21:55)
[2018-11-23 19:58] VITALS: BP 128/84
[2018-11-23] MEDS: PROTEIN SUPPLEMENT (PROSTAT) 30 ML LIQUID GT SCH (21:55)
[2018-11-23] MEDS: PHENOBARBITAL 97.2 MG TABLET GT SCH (21:55)
[2018-11-23] MEDS: MULTIVIT, IRON, MIN NO. 8, FA TABLET GT SCH (21:55)
[2018-11-23] MEDS: MELATONIN 3 MG GT SCH (21:55)
[2018-11-23] MEDS: DIGOXIN 125 MCG TABLET GT SCH (21:55)
[2018-11-23] MEDS: ENOXAPARIN SODIUM 40 MG/0.4 ML DISP.SYRIN SQ SCH (21:56)
[2018-11-24] MEDS: INSULIN REGULAR, HUMAN 300 UNIT/3 ML VIAL SQ PRN ×4 (00:25→17:44)
[2018-11-24] MEDS: IPRATROPIUM BROMIDE 0.5 MG/2.5 ML NEBU NEB SCH ×4 (00:53→19:19)
[2018-11-24] MEDS: ALBUTEROL SULFATE 2.5 MG/3 ML NEBU NEB SCH ×4 (00:53→19:19)
[2018-11-24] MEDS: FOLIC ACID 1 MG TABLET GT SCH (06:47)
[2018-11-24] MEDS: OMEPRAZOLE 20 MG CAPSULE.DR GT SCH (06:47)
[2018-11-24] MEDS: BENZTROPINE MESYLATE 0.5 MG TABLET GT SCH ×3 (06:47→22:01)
[2018-11-24] MEDS: LORATADINE 10 MG TABLET GT SCH (06:47)
[2018-11-24] MEDS: LISINOPRIL 20 MG TABLET GT SCH ×2 (06:47→18:41)
[2018-11-24] MEDS: FERROUS SULFATE 330 MG/7.5 ML UDC- FOR SA ONLY GT SCH (06:47)
[2018-11-24] MEDS: CYANOCOBALAMIN 100 MCG TABLET GT SCH (06:47)
[2018-11-24] MEDS: PHENYTOIN 100 MG/4 ML UDC GT SCH ×2 (06:47→18:33)
[2018-11-24] MEDS: BLOOD SUGAR DIAGNOSTIC 1 EACH STRIP VI SCH ×3 (06:47→17:40)
[2018-11-24] MEDS: INSULIN NPH SQ SCH ×3 (06:48→22:02)
[2018-11-24 08:14] VITALS: BP 141/86
[2018-11-24] MEDS: LEVETIRACETAM 500 MG/5 ML LIQUID UDC GT SCH ×2 (09:09→21:58)
[2018-11-24] MEDS: VIMPAT 150 MG GT SCH ×2 (09:09→21:55)
[2018-11-24] MEDS: SPIRONOLACTONE 25 MG TABLET GT SCH (09:09)
[2018-11-24] MEDS: AMANTADINE 50MG/5ML GT SCH (09:09)
[2018-11-24] MEDS: ASPIRIN 81 MG TAB.CHEW GT SCH (09:09)
[2018-11-24] MEDS: PHENOBARBITAL 64.8 MG TABLET GT SCH (09:09)
[2018-11-24] MEDS: NUTRISOURCE FIBER 4 GM PACKET PO SCH ×2 (09:10→21:59)
[2018-11-24] MEDS: HYDROGEN PEROXIDE 3% 118 ML BOTTLE TP SCH ×2 (09:10→21:55)
[2018-11-24] MEDS: POTASSIUM CHLORIDE 40 MEQ/30 ML LIQUID UDC GT SCH (09:10)
[2018-11-24] MEDS: Z GUARD REMEDY PASTE 57 GM TUBE TP SCH ×2 (09:10→21:55)
[2018-11-24] MEDS: COD LIVER OIL/ZINC OXIDE OINT 113 GM TUBE TP SCH ×2 (09:10→21:55)
[2018-11-24] MEDS: METOPROLOL TARTRATE 100 MG TABLET GT SCH (09:11)
--- NOTE | 2018-11-24 12:00 | NUR ---
SEEN BY TIFFANIE MAURICIO.
[2018-11-24] MEDS: GLUCERNA 1.2 1000ML LIQUID GT SCH (12:25)
[2018-11-24 20:29] VITALS: BP 104/60
[2018-11-24] MEDS: PHENOBARBITAL 97.2 MG TABLET GT SCH (21:55)
[2018-11-24] MEDS: MELATONIN 3 MG GT SCH (21:58)
[2018-11-24] MEDS: DIGOXIN 125 MCG TABLET GT SCH (21:58)
[2018-11-24] MEDS: PROTEIN SUPPLEMENT (PROSTAT) 30 ML LIQUID GT SCH (21:58)
[2018-11-24] MEDS: ENOXAPARIN SODIUM 40 MG/0.4 ML DISP.SYRIN SQ SCH (21:59)
[2018-11-25] MEDS: BLOOD SUGAR DIAGNOSTIC 1 EACH STRIP VI SCH ×5 (00:23→23:20)
[2018-11-25] MEDS: INSULIN REGULAR, HUMAN 300 UNIT/3 ML VIAL SQ PRN ×5 (00:29→23:21)
[2018-11-25] MEDS: IPRATROPIUM BROMIDE 0.5 MG/2.5 ML NEBU NEB SCH ×4 (01:08→20:05)
[2018-11-25] MEDS: ALBUTEROL SULFATE 2.5 MG/3 ML NEBU NEB SCH ×4 (01:08→20:05)
[2018-11-25] MEDS: GLUCERNA 1.2 1000ML LIQUID GT SCH ×2 (05:00→22:18)
[2018-11-25] MEDS: LISINOPRIL 20 MG TABLET GT SCH ×2 (06:55→17:25)
[2018-11-25] MEDS: CYANOCOBALAMIN 100 MCG TABLET GT SCH (06:55)
[2018-11-25] MEDS: FOLIC ACID 1 MG TABLET GT SCH (06:55)
[2018-11-25] MEDS: LORATADINE 10 MG TABLET GT SCH (06:55)
[2018-11-25] MEDS: PHENYTOIN 100 MG/4 ML UDC GT SCH ×2 (06:55→17:25)
[2018-11-25] MEDS: OMEPRAZOLE 20 MG CAPSULE.DR GT SCH (06:55)
[2018-11-25] MEDS: BENZTROPINE MESYLATE 0.5 MG TABLET GT SCH ×3 (06:55→21:58)
[2018-11-25] MEDS: FERROUS SULFATE 330 MG/7.5 ML UDC- FOR SA ONLY GT SCH (06:55)
[2018-11-25] MEDS: INSULIN NPH SQ SCH ×3 (06:56→22:00)
[2018-11-25 08:10] VITALS: BP 142/84
[2018-11-25] MEDS: NUTRISOURCE FIBER 4 GM PACKET PO SCH ×2 (09:17→21:56)
[2018-11-25] MEDS: AMANTADINE 50MG/5ML GT SCH (09:17)
[2018-11-25] MEDS: PHENOBARBITAL 64.8 MG TABLET GT SCH (09:17)
[2018-11-25] MEDS: LEVETIRACETAM 500 MG/5 ML LIQUID UDC GT SCH ×2 (09:17→21:52)
[2018-11-25] MEDS: ASPIRIN 81 MG TAB.CHEW GT SCH (09:17)
[2018-11-25] MEDS: METOPROLOL TARTRATE 100 MG TABLET GT SCH (09:17)
[2018-11-25] MEDS: VIMPAT 150 MG GT SCH ×2 (09:17→21:55)
[2018-11-25] MEDS: POTASSIUM CHLORIDE 40 MEQ/30 ML LIQUID UDC GT SCH (09:17)
[2018-11-25] MEDS: SPIRONOLACTONE 25 MG TABLET GT SCH (09:17)
[2018-11-25] MEDS: HYDROGEN PEROXIDE 3% 118 ML BOTTLE TP SCH ×2 (09:18→21:58)
[2018-11-25] MEDS: COD LIVER OIL/ZINC OXIDE OINT 113 GM TUBE TP SCH ×2 (09:18→21:58)
[2018-11-25] MEDS: Z GUARD REMEDY PASTE 57 GM TUBE TP SCH ×2 (09:18→21:58)
[2018-11-25] MEDS: ACETAMINOPHEN 650 MG/20 ML UDC- SA PATIENTS-PAIN ONLY GT PRN (17:28)
[2018-11-25 20:21] VITALS: BP 124/69
[2018-11-25] MEDS: MELATONIN 3 MG GT SCH (21:54)
[2018-11-25] MEDS: DIGOXIN 125 MCG TABLET GT SCH (21:54)
[2018-11-25] MEDS: PHENOBARBITAL 97.2 MG TABLET GT SCH (21:55)
[2018-11-25] MEDS: MULTIVIT, IRON, MIN NO. 8, FA TABLET GT SCH (21:56)
[2018-11-25] MEDS: PROTEIN SUPPLEMENT (PROSTAT) 30 ML LIQUID GT SCH (21:56)
[2018-11-25] MEDS: ENOXAPARIN SODIUM 40 MG/0.4 ML DISP.SYRIN SQ SCH (21:58)
[2018-11-26] MEDS: ALBUTEROL SULFATE 2.5 MG/3 ML NEBU NEB SCH ×4 (01:11→18:46)
[2018-11-26] MEDS: IPRATROPIUM BROMIDE 0.5 MG/2.5 ML NEBU NEB SCH ×4 (01:11→18:45)
[2018-11-26] MEDS: BENZTROPINE MESYLATE 0.5 MG TABLET GT SCH ×3 (06:04→21:36)
[2018-11-26] MEDS: LISINOPRIL 20 MG TABLET GT SCH ×2 (06:04→17:07)
[2018-11-26] MEDS: FOLIC ACID 1 MG TABLET GT SCH (06:04)
[2018-11-26] MEDS: FERROUS SULFATE 330 MG/7.5 ML UDC- FOR SA ONLY GT SCH (06:04)
[2018-11-26] MEDS: CYANOCOBALAMIN 100 MCG TABLET GT SCH (06:04)
[2018-11-26] MEDS: OMEPRAZOLE 20 MG CAPSULE.DR GT SCH (06:04)
[2018-11-26] MEDS: PHENYTOIN 100 MG/4 ML UDC GT SCH ×2 (06:04→17:07)
[2018-11-26] MEDS: LORATADINE 10 MG TABLET GT SCH (06:04)
[2018-11-26] MEDS: BLOOD SUGAR DIAGNOSTIC 1 EACH STRIP VI SCH ×3 (06:07→17:07)
[2018-11-26] MEDS: INSULIN NPH SQ SCH ×3 (06:07→21:35)
[2018-11-26] MEDS: INSULIN REGULAR, HUMAN 300 UNIT/3 ML VIAL SQ PRN ×3 (06:09→17:36)
[2018-11-26] MEDS: VIMPAT 150 MG GT SCH ×2 (08:27→21:31)
[2018-11-26] MEDS: PHENOBARBITAL 64.8 MG TABLET GT SCH (08:27)
[2018-11-26] MEDS: COD LIVER OIL/ZINC OXIDE OINT 113 GM TUBE TP SCH ×2 (08:27→21:35)
[2018-11-26] MEDS: ASPIRIN 81 MG TAB.CHEW GT SCH (08:27)
[2018-11-26] MEDS: LEVETIRACETAM 500 MG/5 ML LIQUID UDC GT SCH ×2 (08:27→21:30)
[2018-11-26] MEDS: SPIRONOLACTONE 25 MG TABLET GT SCH (08:27)
[2018-11-26] MEDS: METOPROLOL TARTRATE 100 MG TABLET GT SCH (08:27)
[2018-11-26] MEDS: Z GUARD REMEDY PASTE 57 GM TUBE TP SCH ×2 (08:27→21:36)
[2018-11-26] MEDS: NUTRISOURCE FIBER 4 GM PACKET PO SCH ×2 (08:27→21:33)
[2018-11-26] MEDS: POTASSIUM CHLORIDE 40 MEQ/30 ML LIQUID UDC GT SCH (08:27)
[2018-11-26] MEDS: AMANTADINE 50MG/5ML GT SCH (08:27)
[2018-11-26] MEDS: HYDROGEN PEROXIDE 3% 118 ML BOTTLE TP SCH ×2 (08:27→21:35)
--- NOTE | 2018-11-26 14:53 | NUR ---
KD informed patient's fiance/SJ Vanna via email that the next IDT meeting for the patient is scheduled for 12/02/18 at 11am.
--- NOTE | 2018-11-26 18:00 | NUR ---
Dr Chavira aware pt's severiano Prabhakar requested a medication to dry out the secretion as rubinol,scopolamine patch,Dr Chavira stated he don't want to order any medication to dry out secretions at this time.
[2018-11-26 21:11] VITALS: BP 161/91
[2018-11-26] MEDS: DIGOXIN 125 MCG TABLET GT SCH (21:30)
[2018-11-26] MEDS: MELATONIN 3 MG GT SCH (21:31)
[2018-11-26] MEDS: PROTEIN SUPPLEMENT (PROSTAT) 30 ML LIQUID GT SCH (21:33)
[2018-11-26] MEDS: PHENOBARBITAL 97.2 MG TABLET GT SCH (21:33)
[2018-11-26] MEDS: ENOXAPARIN SODIUM 40 MG/0.4 ML DISP.SYRIN SQ SCH (21:34)
[2018-11-26] MEDS: GUAIFENESIN/DEXTROMETHORPHAN 5 ML UDC GT PRN (21:42)
[2018-11-27] MEDS: BLOOD SUGAR DIAGNOSTIC 1 EACH STRIP VI SCH ×4 (00:26→17:53)
[2018-11-27] MEDS: INSULIN REGULAR, HUMAN 300 UNIT/3 ML VIAL SQ PRN ×4 (00:27→17:55)
[2018-11-27] MEDS: ALBUTEROL SULFATE 2.5 MG/3 ML NEBU NEB SCH ×4 (00:35→18:53)
[2018-11-27] MEDS: IPRATROPIUM BROMIDE 0.5 MG/2.5 ML NEBU NEB SCH ×4 (00:35→18:53)
[2018-11-27] MEDS: HYDROCODONE BIT/HOMATROPINE 5 ML UDC GT PRN ×2 (01:00→15:26)
[2018-11-27] MEDS: LORATADINE 10 MG TABLET GT SCH (06:06)
[2018-11-27] MEDS: FOLIC ACID 1 MG TABLET GT SCH (06:06)
[2018-11-27] MEDS: BENZTROPINE MESYLATE 0.5 MG TABLET GT SCH ×3 (06:06→21:14)
[2018-11-27] MEDS: OMEPRAZOLE 20 MG CAPSULE.DR GT SCH (06:06)
[2018-11-27] MEDS: PHENYTOIN 100 MG/4 ML UDC GT SCH ×2 (06:06→17:50)
[2018-11-27] MEDS: FERROUS SULFATE 330 MG/7.5 ML UDC- FOR SA ONLY GT SCH (06:06)
[2018-11-27] MEDS: CYANOCOBALAMIN 100 MCG TABLET GT SCH (06:07)
[2018-11-27] MEDS: LISINOPRIL 20 MG TABLET GT SCH ×2 (06:07→17:53)
[2018-11-27] MEDS: INSULIN NPH SQ SCH ×3 (06:08→21:15)
[2018-11-27] MEDS: SPIRONOLACTONE 25 MG TABLET GT SCH (08:49)
[2018-11-27] MEDS: LEVETIRACETAM 500 MG/5 ML LIQUID UDC GT SCH ×2 (08:50→21:10)
[2018-11-27] MEDS: ASPIRIN 81 MG TAB.CHEW GT SCH (08:50)
[2018-11-27] MEDS: METOPROLOL TARTRATE 100 MG TABLET GT SCH (08:52)
[2018-11-27] MEDS: PHENOBARBITAL 64.8 MG TABLET GT SCH (08:55)
[2018-11-27] MEDS: AMANTADINE 50MG/5ML GT SCH (09:02)
[2018-11-27] MEDS: VIMPAT 150 MG GT SCH ×2 (09:04→21:11)
[2018-11-27] MEDS: POTASSIUM CHLORIDE 40 MEQ/30 ML LIQUID UDC GT SCH (09:05)
[2018-11-27] MEDS: NUTRISOURCE FIBER 4 GM PACKET PO SCH ×2 (09:05→21:13)
[2018-11-27] MEDS: HYDROGEN PEROXIDE 3% 118 ML BOTTLE TP SCH ×2 (09:06→21:14)
[2018-11-27] MEDS: COD LIVER OIL/ZINC OXIDE OINT 113 GM TUBE TP SCH ×2 (09:06→21:14)
[2018-11-27] MEDS: Z GUARD REMEDY PASTE 57 GM TUBE TP SCH ×2 (09:07→21:14)
[2018-11-27 11:14] VITALS: BP 129/78
[2018-11-27] MEDS: GLUCERNA 1.2 1000ML LIQUID GT SCH (12:24)
[2018-11-27] MEDS: GUAIFENESIN/DEXTROMETHORPHAN 5 ML UDC GT PRN (14:30)
[2018-11-27 20:00] VITALS: BP 121/80
[2018-11-27] MEDS: MELATONIN 3 MG GT SCH (21:11)
[2018-11-27] MEDS: DIGOXIN 125 MCG TABLET GT SCH (21:11)
[2018-11-27] MEDS: PROTEIN SUPPLEMENT (PROSTAT) 30 ML LIQUID GT SCH (21:12)
[2018-11-27] MEDS: PHENOBARBITAL 97.2 MG TABLET GT SCH (21:12)
[2018-11-27] MEDS: MULTIVIT, IRON, MIN NO. 8, FA TABLET GT SCH (21:13)
[2018-11-27] MEDS: ENOXAPARIN SODIUM 40 MG/0.4 ML DISP.SYRIN SQ SCH (21:14)
[2018-11-28] MEDS: BLOOD SUGAR DIAGNOSTIC 1 EACH STRIP VI SCH ×4 (00:35→17:27)
[2018-11-28] MEDS: ALBUTEROL SULFATE 2.5 MG/3 ML NEBU NEB SCH ×4 (00:36→19:49)
[2018-11-28] MEDS: IPRATROPIUM BROMIDE 0.5 MG/2.5 ML NEBU NEB SCH ×4 (00:36→19:49)
[2018-11-28] MEDS: INSULIN REGULAR, HUMAN 300 UNIT/3 ML VIAL SQ PRN ×4 (00:39→17:28)
[2018-11-28] MEDS: GLUCERNA 1.2 1000ML LIQUID GT SCH (01:49)
[2018-11-28 05:11] VITALS: BP 146/90
[2018-11-28] MEDS: LISINOPRIL 20 MG TABLET GT SCH ×2 (05:57→17:27)
[2018-11-28] MEDS: FERROUS SULFATE 330 MG/7.5 ML UDC- FOR SA ONLY GT SCH (05:57)
[2018-11-28] MEDS: LORATADINE 10 MG TABLET GT SCH (05:57)
[2018-11-28] MEDS: OMEPRAZOLE 20 MG CAPSULE.DR GT SCH (05:57)
[2018-11-28] MEDS: PHENYTOIN 100 MG/4 ML UDC GT SCH ×2 (05:57→17:27)
[2018-11-28] MEDS: BENZTROPINE MESYLATE 0.5 MG TABLET GT SCH ×3 (05:57→22:01)
[2018-11-28] MEDS: FOLIC ACID 1 MG TABLET GT SCH (05:57)
[2018-11-28] MEDS: CYANOCOBALAMIN 100 MCG TABLET GT SCH (05:57)
[2018-11-28] MEDS: INSULIN NPH SQ SCH ×3 (05:59→23:00)
[2018-11-28] MEDS: SPIRONOLACTONE 25 MG TABLET GT SCH (08:13)
[2018-11-28] MEDS: PHENOBARBITAL 64.8 MG TABLET GT SCH (08:14)
[2018-11-28] MEDS: LEVETIRACETAM 500 MG/5 ML LIQUID UDC GT SCH ×2 (08:14→21:59)
[2018-11-28] MEDS: METOPROLOL TARTRATE 100 MG TABLET GT SCH (08:14)
[2018-11-28] MEDS: ASPIRIN 81 MG TAB.CHEW GT SCH (08:14)
[2018-11-28] MEDS: POTASSIUM CHLORIDE 40 MEQ/30 ML LIQUID UDC GT SCH (08:15)
[2018-11-28] MEDS: AMANTADINE 50MG/5ML GT SCH (08:15)
[2018-11-28] MEDS: VIMPAT 150 MG GT SCH ×2 (08:15→21:59)
[2018-11-28] MEDS: Z GUARD REMEDY PASTE 57 GM TUBE TP SCH ×2 (08:16→21:59)
[2018-11-28] MEDS: HYDROGEN PEROXIDE 3% 118 ML BOTTLE TP SCH ×2 (08:16→21:59)
[2018-11-28] MEDS: COD LIVER OIL/ZINC OXIDE OINT 113 GM TUBE TP SCH ×2 (08:16→21:59)
[2018-11-28] MEDS: NUTRISOURCE FIBER 4 GM PACKET PO SCH ×2 (08:16→21:59)
[2018-11-28 10:57] VITALS: BP 141/83
[2018-11-28] MEDS: HYDROCODONE BIT/HOMATROPINE 5 ML UDC GT PRN (17:41)
[2018-11-28] MEDS: PROTEIN SUPPLEMENT (PROSTAT) 30 ML LIQUID GT SCH (21:59)
[2018-11-28] MEDS: DIGOXIN 125 MCG TABLET GT SCH (21:59)
[2018-11-28] MEDS: MELATONIN 3 MG GT SCH (21:59)
[2018-11-28] MEDS: ENOXAPARIN SODIUM 40 MG/0.4 ML DISP.SYRIN SQ SCH (21:59)
[2018-11-28] MEDS: PHENOBARBITAL 97.2 MG TABLET GT SCH (22:00)
[2018-11-28 23:12] VITALS: BP 131/82
[2018-11-29] MEDS: BLOOD SUGAR DIAGNOSTIC 1 EACH STRIP VI SCH ×4 (00:32→17:09)
[2018-11-29] MEDS: INSULIN REGULAR, HUMAN 300 UNIT/3 ML VIAL SQ PRN ×4 (00:37→17:12)
[2018-11-29] MEDS: ALBUTEROL SULFATE 2.5 MG/3 ML NEBU NEB SCH ×4 (01:10→19:49)
[2018-11-29] MEDS: IPRATROPIUM BROMIDE 0.5 MG/2.5 ML NEBU NEB SCH ×4 (01:10→19:49)
[2018-11-29] MEDS: LORATADINE 10 MG TABLET GT SCH (05:21)
[2018-11-29] MEDS: BENZTROPINE MESYLATE 0.5 MG TABLET GT SCH ×3 (05:22→21:46)
[2018-11-29] MEDS: OMEPRAZOLE 20 MG CAPSULE.DR GT SCH (05:23)
[2018-11-29] MEDS: FOLIC ACID 1 MG TABLET GT SCH (05:23)
[2018-11-29] MEDS: FERROUS SULFATE 330 MG/7.5 ML UDC- FOR SA ONLY GT SCH (05:23)
[2018-11-29] MEDS: CYANOCOBALAMIN 100 MCG TABLET GT SCH (05:24)
[2018-11-29] MEDS: INSULIN NPH SQ SCH ×3 (05:33→21:51)
[2018-11-29] MEDS: LISINOPRIL 20 MG TABLET GT SCH ×2 (05:41→17:15)
[2018-11-29] MEDS: PHENYTOIN 100 MG/4 ML UDC GT SCH ×2 (05:42→17:13)
[2018-11-29] MEDS: ASPIRIN 81 MG TAB.CHEW GT SCH (09:01)
[2018-11-29] MEDS: SPIRONOLACTONE 25 MG TABLET GT SCH (09:01)
[2018-11-29] MEDS: LEVETIRACETAM 500 MG/5 ML LIQUID UDC GT SCH ×2 (09:02→20:23)
[2018-11-29] MEDS: METOPROLOL TARTRATE 100 MG TABLET GT SCH (09:04)
[2018-11-29] MEDS: PHENOBARBITAL 64.8 MG TABLET GT SCH (09:05)
[2018-11-29] MEDS: VIMPAT 150 MG GT SCH ×2 (09:06→20:23)
[2018-11-29] MEDS: AMANTADINE 50MG/5ML GT SCH (09:06)
[2018-11-29] MEDS: POTASSIUM CHLORIDE 40 MEQ/30 ML LIQUID UDC GT SCH (09:06)
[2018-11-29] MEDS: COD LIVER OIL/ZINC OXIDE OINT 113 GM TUBE TP SCH ×2 (09:07→20:25)
[2018-11-29] MEDS: NUTRISOURCE FIBER 4 GM PACKET PO SCH ×2 (09:07→20:25)
[2018-11-29] MEDS: Z GUARD REMEDY PASTE 57 GM TUBE TP SCH ×2 (09:07→20:25)
[2018-11-29] MEDS: HYDROGEN PEROXIDE 3% 118 ML BOTTLE TP SCH ×2 (09:07→20:25)
[2018-11-29 09:32] VITALS: BP 132/84
[2018-11-29 20:06] VITALS: BP 114/81
[2018-11-29] MEDS: MELATONIN 3 MG GT SCH (20:23)
[2018-11-29] MEDS: DIGOXIN 125 MCG TABLET GT SCH (20:23)
[2018-11-29] MEDS: PHENOBARBITAL 97.2 MG TABLET GT SCH (20:23)
[2018-11-29] MEDS: PROTEIN SUPPLEMENT (PROSTAT) 30 ML LIQUID GT SCH (20:24)
[2018-11-29] MEDS: MULTIVIT, IRON, MIN NO. 8, FA TABLET GT SCH (20:24)
[2018-11-29] MEDS: ENOXAPARIN SODIUM 40 MG/0.4 ML DISP.SYRIN SQ SCH (20:44)
[2018-11-30] MEDS: BLOOD SUGAR DIAGNOSTIC 1 EACH STRIP VI SCH ×5 (00:06→23:35)
[2018-11-30] MEDS: INSULIN REGULAR, HUMAN 300 UNIT/3 ML VIAL SQ PRN ×4 (00:13→23:37)
[2018-11-30] MEDS: IPRATROPIUM BROMIDE 0.5 MG/2.5 ML NEBU NEB SCH ×4 (01:15→19:41)
[2018-11-30] MEDS: ALBUTEROL SULFATE 2.5 MG/3 ML NEBU NEB SCH ×4 (01:15→19:41)
[2018-11-30] MEDS: FERROUS SULFATE 330 MG/7.5 ML UDC- FOR SA ONLY GT SCH (05:07)
[2018-11-30] MEDS: BENZTROPINE MESYLATE 0.5 MG TABLET GT SCH ×3 (05:07→21:00)
[2018-11-30] MEDS: LISINOPRIL 20 MG TABLET GT SCH ×2 (05:07→17:51)
[2018-11-30] MEDS: CYANOCOBALAMIN 100 MCG TABLET GT SCH (05:07)
[2018-11-30] MEDS: FOLIC ACID 1 MG TABLET GT SCH (05:07)
[2018-11-30] MEDS: PHENYTOIN 100 MG/4 ML UDC GT SCH ×2 (05:07→17:51)
[2018-11-30] MEDS: OMEPRAZOLE 20 MG CAPSULE.DR GT SCH (05:07)
[2018-11-30] MEDS: LORATADINE 10 MG TABLET GT SCH (05:07)
[2018-11-30] MEDS: INSULIN NPH SQ SCH ×3 (05:14→21:02)
[2018-11-30 08:07] VITALS: BP 107/68
[2018-11-30] MEDS: SPIRONOLACTONE 25 MG TABLET GT SCH (09:23)
[2018-11-30] MEDS: LEVETIRACETAM 500 MG/5 ML LIQUID UDC GT SCH ×2 (09:24→20:52)
[2018-11-30] MEDS: ASPIRIN 81 MG TAB.CHEW GT SCH (09:24)
[2018-11-30] MEDS: METOPROLOL TARTRATE 100 MG TABLET GT SCH (09:25)
[2018-11-30] MEDS: PHENOBARBITAL 64.8 MG TABLET GT SCH (09:27)
[2018-11-30] MEDS: AMANTADINE 50MG/5ML GT SCH (09:28)
[2018-11-30] MEDS: VIMPAT 150 MG GT SCH ×2 (09:28→20:52)
[2018-11-30] MEDS: HYDROGEN PEROXIDE 3% 118 ML BOTTLE TP SCH ×2 (09:29→20:53)
[2018-11-30] MEDS: POTASSIUM CHLORIDE 40 MEQ/30 ML LIQUID UDC GT SCH (09:29)
[2018-11-30] MEDS: COD LIVER OIL/ZINC OXIDE OINT 113 GM TUBE TP SCH ×2 (09:29→20:52)
[2018-11-30] MEDS: Z GUARD REMEDY PASTE 57 GM TUBE TP SCH ×2 (09:29→20:53)
[2018-11-30] MEDS: NUTRISOURCE FIBER 4 GM PACKET PO SCH ×2 (09:29→20:52)
[2018-11-30] MEDS: GLUCERNA 1.2 1000ML LIQUID GT SCH (11:05)
--- NOTE | 2018-11-30 18:00 | NUR ---
Seen and examined by Dr Garcia,no new orders noted.
[2018-11-30] MEDS: GUAIFENESIN/DEXTROMETHORPHAN 5 ML UDC GT PRN (19:30)
[2018-11-30] MEDS: MELATONIN 3 MG GT SCH (20:52)
[2018-11-30] MEDS: PROTEIN SUPPLEMENT (PROSTAT) 30 ML LIQUID GT SCH (20:52)
[2018-11-30] MEDS: PHENOBARBITAL 97.2 MG TABLET GT SCH (20:52)
[2018-11-30] MEDS: DIGOXIN 125 MCG TABLET GT SCH (20:52)
[2018-11-30] MEDS: ENOXAPARIN SODIUM 40 MG/0.4 ML DISP.SYRIN SQ SCH (20:53)
[2018-11-30 23:21] VITALS: BP 132/86
[2018-12-01] MEDS: IPRATROPIUM BROMIDE 0.5 MG/2.5 ML NEBU NEB SCH ×4 (01:13→19:22)
[2018-12-01] MEDS: ALBUTEROL SULFATE 2.5 MG/3 ML NEBU NEB SCH ×4 (01:13→19:22)
[2018-12-01] MEDS: HYDROCODONE BIT/HOMATROPINE 5 ML UDC GT PRN (03:08)
[2018-12-01] MEDS: FOLIC ACID 1 MG TABLET GT SCH (05:18)
[2018-12-01] MEDS: LORATADINE 10 MG TABLET GT SCH (05:18)
[2018-12-01] MEDS: PHENYTOIN 100 MG/4 ML UDC GT SCH ×2 (05:18→17:32)
[2018-12-01] MEDS: BENZTROPINE MESYLATE 0.5 MG TABLET GT SCH ×3 (05:18→21:33)
[2018-12-01] MEDS: FERROUS SULFATE 330 MG/7.5 ML UDC- FOR SA ONLY GT SCH (05:18)
[2018-12-01] MEDS: OMEPRAZOLE 20 MG CAPSULE.DR GT SCH (05:19)
[2018-12-01] MEDS: BLOOD SUGAR DIAGNOSTIC 1 EACH STRIP VI SCH ×4 (05:19→23:14)
[2018-12-01] MEDS: LISINOPRIL 20 MG TABLET GT SCH ×2 (05:19→17:32)
[2018-12-01] MEDS: CYANOCOBALAMIN 100 MCG TABLET GT SCH (05:19)
[2018-12-01] MEDS: INSULIN NPH SQ SCH ×3 (05:23→21:36)
[2018-12-01] MEDS: INSULIN REGULAR, HUMAN 300 UNIT/3 ML VIAL SQ PRN ×4 (05:24→23:19)
[2018-12-01 08:09] VITALS: BP 139/92
[2018-12-01] MEDS: LEVETIRACETAM 500 MG/5 ML LIQUID UDC GT SCH ×2 (08:42→21:32)
[2018-12-01] MEDS: SPIRONOLACTONE 25 MG TABLET GT SCH (08:42)
[2018-12-01] MEDS: ASPIRIN 81 MG TAB.CHEW GT SCH (08:42)
[2018-12-01] MEDS: METOPROLOL TARTRATE 100 MG TABLET GT SCH (08:43)
[2018-12-01] MEDS: PHENOBARBITAL 64.8 MG TABLET GT SCH (08:43)
[2018-12-01] MEDS: NUTRISOURCE FIBER 4 GM PACKET PO SCH ×2 (08:44→21:32)
[2018-12-01] MEDS: COD LIVER OIL/ZINC OXIDE OINT 113 GM TUBE TP SCH ×2 (08:44→21:32)
[2018-12-01] MEDS: AMANTADINE 50MG/5ML GT SCH (08:44)
[2018-12-01] MEDS: HYDROGEN PEROXIDE 3% 118 ML BOTTLE TP SCH ×2 (08:44→21:32)
[2018-12-01] MEDS: POTASSIUM CHLORIDE 40 MEQ/30 ML LIQUID UDC GT SCH (08:44)
[2018-12-01] MEDS: VIMPAT 150 MG GT SCH ×2 (08:44→21:31)
[2018-12-01] MEDS: Z GUARD REMEDY PASTE 57 GM TUBE TP SCH ×2 (08:45→21:33)
[2018-12-01] MEDS: GLUCERNA 1.2 1000ML LIQUID GT SCH (15:17)
[2018-12-01 21:03] VITALS: BP 119/73
[2018-12-01] MEDS: PROTEIN SUPPLEMENT (PROSTAT) 30 ML LIQUID GT SCH (21:31)
[2018-12-01] MEDS: PHENOBARBITAL 97.2 MG TABLET GT SCH (21:31)
[2018-12-01] MEDS: MELATONIN 3 MG GT SCH (21:31)
[2018-12-01] MEDS: MULTIVIT, IRON, MIN NO. 8, FA TABLET GT SCH (21:32)
[2018-12-01] MEDS: DIGOXIN 125 MCG TABLET GT SCH (21:32)
[2018-12-01] MEDS: ENOXAPARIN SODIUM 40 MG/0.4 ML DISP.SYRIN SQ SCH (21:35)
[2018-12-02] MEDS: ALBUTEROL SULFATE 2.5 MG/3 ML NEBU NEB SCH ×4 (01:08→19:50)
[2018-12-02] MEDS: IPRATROPIUM BROMIDE 0.5 MG/2.5 ML NEBU NEB SCH ×4 (01:08→19:50)
[2018-12-02] MEDS: LORATADINE 10 MG TABLET GT SCH (05:48)
[2018-12-02] MEDS: PHENYTOIN 100 MG/4 ML UDC GT SCH ×2 (05:48→18:13)
[2018-12-02] MEDS: LISINOPRIL 20 MG TABLET GT SCH ×2 (05:48→18:17)
[2018-12-02] MEDS: BENZTROPINE MESYLATE 0.5 MG TABLET GT SCH ×3 (05:48→21:10)
[2018-12-02] MEDS: FERROUS SULFATE 330 MG/7.5 ML UDC- FOR SA ONLY GT SCH (05:48)
[2018-12-02] MEDS: CYANOCOBALAMIN 100 MCG TABLET GT SCH (05:48)
[2018-12-02] MEDS: FOLIC ACID 1 MG TABLET GT SCH (05:48)
[2018-12-02] MEDS: OMEPRAZOLE 20 MG CAPSULE.DR GT SCH (05:48)
[2018-12-02] MEDS: BLOOD SUGAR DIAGNOSTIC 1 EACH STRIP VI SCH ×3 (05:49→18:13)
[2018-12-02] MEDS: INSULIN NPH SQ SCH ×3 (06:09→21:13)
[2018-12-02 08:09] VITALS: BP 126/75
[2018-12-02] MEDS: SPIRONOLACTONE 25 MG TABLET GT SCH (08:26)
[2018-12-02] MEDS: LEVETIRACETAM 500 MG/5 ML LIQUID UDC GT SCH ×2 (08:27→21:10)
[2018-12-02] MEDS: ASPIRIN 81 MG TAB.CHEW GT SCH (08:27)
[2018-12-02] MEDS: METOPROLOL TARTRATE 100 MG TABLET GT SCH (08:28)
[2018-12-02] MEDS: PHENOBARBITAL 64.8 MG TABLET GT SCH (08:29)
[2018-12-02] MEDS: VIMPAT 150 MG GT SCH ×2 (08:30→21:10)
[2018-12-02] MEDS: POTASSIUM CHLORIDE 40 MEQ/30 ML LIQUID UDC GT SCH (08:30)
[2018-12-02] MEDS: AMANTADINE 50MG/5ML GT SCH (08:30)
[2018-12-02] MEDS: HYDROGEN PEROXIDE 3% 118 ML BOTTLE TP SCH ×2 (08:31→21:10)
[2018-12-02] MEDS: NUTRISOURCE FIBER 4 GM PACKET PO SCH ×2 (08:31→21:10)
[2018-12-02] MEDS: COD LIVER OIL/ZINC OXIDE OINT 113 GM TUBE TP SCH ×2 (08:31→21:10)
[2018-12-02] MEDS: Z GUARD REMEDY PASTE 57 GM TUBE TP SCH ×2 (08:31→21:10)
[2018-12-02] MEDS: INSULIN REGULAR, HUMAN 300 UNIT/3 ML VIAL SQ PRN ×2 (12:47→18:23)
--- NOTE | 2018-12-02 16:43 | NUR ---
INTERDISCIPLINARY PLAN OF CARE CONFERENCE was held today. Patient's dick/SJ Prabhakar was present at the meeting. Dr. Chavira and the Interdisciplinary Team reviewed the current plan of care in detail. RN provided updates on patient's medical condition. No major changes were reported. See RN IDT conference notes. See all disciplines IDT notes and physician's progress notes for additional details.
[2018-12-02] MEDS: DIGOXIN 125 MCG TABLET GT SCH (21:10)
[2018-12-02] MEDS: MELATONIN 3 MG GT SCH (21:10)
[2018-12-02] MEDS: PHENOBARBITAL 97.2 MG TABLET GT SCH (21:10)
[2018-12-02] MEDS: PROTEIN SUPPLEMENT (PROSTAT) 30 ML LIQUID GT SCH (21:10)
[2018-12-02] MEDS: ENOXAPARIN SODIUM 40 MG/0.4 ML DISP.SYRIN SQ SCH (21:12)
[2018-12-02 21:32] VITALS: BP 132/74
[2018-12-03] MEDS: BLOOD SUGAR DIAGNOSTIC 1 EACH STRIP VI SCH ×5 (00:12→23:14)
[2018-12-03] MEDS: INSULIN REGULAR, HUMAN 300 UNIT/3 ML VIAL SQ PRN ×5 (00:22→23:24)
[2018-12-03] MEDS: ALBUTEROL SULFATE 2.5 MG/3 ML NEBU NEB SCH ×4 (01:08→18:52)
[2018-12-03] MEDS: IPRATROPIUM BROMIDE 0.5 MG/2.5 ML NEBU NEB SCH ×4 (01:08→18:52)
[2018-12-03] MEDS: OMEPRAZOLE 20 MG CAPSULE.DR GT SCH (05:42)
[2018-12-03] MEDS: LISINOPRIL 20 MG TABLET GT SCH ×2 (05:42→17:31)
[2018-12-03] MEDS: BENZTROPINE MESYLATE 0.5 MG TABLET GT SCH ×3 (05:42→22:16)
[2018-12-03] MEDS: CYANOCOBALAMIN 100 MCG TABLET GT SCH (05:42)
[2018-12-03] MEDS: FOLIC ACID 1 MG TABLET GT SCH (05:42)
[2018-12-03] MEDS: FERROUS SULFATE 330 MG/7.5 ML UDC- FOR SA ONLY GT SCH (05:42)
[2018-12-03] MEDS: PHENYTOIN 100 MG/4 ML UDC GT SCH ×2 (05:42→17:31)
[2018-12-03] MEDS: LORATADINE 10 MG TABLET GT SCH (05:42)
[2018-12-03] MEDS: INSULIN NPH SQ SCH ×3 (06:03→22:19)
[2018-12-03 08:00] VITALS: BP 118/92
[2018-12-03] MEDS: SPIRONOLACTONE 25 MG TABLET GT SCH (08:53)
[2018-12-03] MEDS: ASPIRIN 81 MG TAB.CHEW GT SCH (08:53)
[2018-12-03] MEDS: LEVETIRACETAM 500 MG/5 ML LIQUID UDC GT SCH ×2 (08:53→20:28)
[2018-12-03] MEDS: METOPROLOL TARTRATE 100 MG TABLET GT SCH (08:55)
[2018-12-03] MEDS: AMANTADINE 50MG/5ML GT SCH (08:56)
[2018-12-03] MEDS: POTASSIUM CHLORIDE 40 MEQ/30 ML LIQUID UDC GT SCH (08:57)
[2018-12-03] MEDS: NUTRISOURCE FIBER 4 GM PACKET PO SCH ×2 (08:57→20:29)
[2018-12-03] MEDS: Z GUARD REMEDY PASTE 57 GM TUBE TP SCH ×2 (08:58→20:30)
[2018-12-03] MEDS: HYDROGEN PEROXIDE 3% 118 ML BOTTLE TP SCH ×2 (08:58→20:30)
[2018-12-03] MEDS: COD LIVER OIL/ZINC OXIDE OINT 113 GM TUBE TP SCH ×2 (08:58→20:30)
[2018-12-03] MEDS: VIMPAT 150 MG GT SCH ×2 (09:00→20:28)
[2018-12-03] MEDS: PHENOBARBITAL 64.8 MG TABLET GT SCH (09:00)
[2018-12-03] MEDS: GLUCERNA 1.2 1000ML LIQUID GT SCH (09:13)
[2018-12-03] MEDS: GUAIFENESIN/DEXTROMETHORPHAN 5 ML UDC GT PRN ×2 (14:52)
[2018-12-03 20:00] VITALS: BP 138/82
[2018-12-03] MEDS: DIGOXIN 125 MCG TABLET GT SCH (20:28)
[2018-12-03] MEDS: PHENOBARBITAL 97.2 MG TABLET GT SCH (20:28)
[2018-12-03] MEDS: MELATONIN 3 MG GT SCH (20:28)
[2018-12-03] MEDS: MULTIVIT, IRON, MIN NO. 8, FA TABLET GT SCH (20:29)
[2018-12-03] MEDS: PROTEIN SUPPLEMENT (PROSTAT) 30 ML LIQUID GT SCH (20:29)
[2018-12-03] MEDS: ENOXAPARIN SODIUM 40 MG/0.4 ML DISP.SYRIN SQ SCH (21:00)
[2018-12-04] MEDS: ALBUTEROL SULFATE 2.5 MG/3 ML NEBU NEB SCH ×4 (00:39→20:22)
[2018-12-04] MEDS: IPRATROPIUM BROMIDE 0.5 MG/2.5 ML NEBU NEB SCH ×4 (00:39→20:22)
[2018-12-04] MEDS: PHENYTOIN 100 MG/4 ML UDC GT SCH ×2 (05:43→17:16)
[2018-12-04] MEDS: OMEPRAZOLE 20 MG CAPSULE.DR GT SCH (05:43)
[2018-12-04] MEDS: LORATADINE 10 MG TABLET GT SCH (05:43)
[2018-12-04] MEDS: BENZTROPINE MESYLATE 0.5 MG TABLET GT SCH ×3 (05:43→21:09)
[2018-12-04] MEDS: FOLIC ACID 1 MG TABLET GT SCH (05:43)
[2018-12-04] MEDS: FERROUS SULFATE 330 MG/7.5 ML UDC- FOR SA ONLY GT SCH (05:43)
[2018-12-04] MEDS: CYANOCOBALAMIN 100 MCG TABLET GT SCH (05:44)
[2018-12-04] MEDS: GLUCERNA 1.2 1000ML LIQUID GT SCH ×2 (05:44→21:27)
[2018-12-04] MEDS: LISINOPRIL 20 MG TABLET GT SCH ×2 (05:44→17:16)
[2018-12-04] MEDS: BLOOD SUGAR DIAGNOSTIC 1 EACH STRIP VI SCH ×3 (05:44→17:16)
[2018-12-04] MEDS: INSULIN NPH SQ SCH ×3 (05:53→21:15)
[2018-12-04] MEDS: INSULIN REGULAR, HUMAN 300 UNIT/3 ML VIAL SQ PRN ×3 (05:55→17:19)
[2018-12-04 08:00] VITALS: BP 110/79
[2018-12-04] MEDS: SPIRONOLACTONE 25 MG TABLET GT SCH (08:11)
[2018-12-04] MEDS: ASPIRIN 81 MG TAB.CHEW GT SCH (08:11)
[2018-12-04] MEDS: METOPROLOL TARTRATE 100 MG TABLET GT SCH (08:12)
[2018-12-04] MEDS: LEVETIRACETAM 500 MG/5 ML LIQUID UDC GT SCH ×2 (08:12→21:07)
[2018-12-04] MEDS: PHENOBARBITAL 64.8 MG TABLET GT SCH (08:13)
[2018-12-04] MEDS: AMANTADINE 50MG/5ML GT SCH (08:15)
[2018-12-04] MEDS: VIMPAT 150 MG GT SCH ×2 (08:15→21:08)
[2018-12-04] MEDS: COD LIVER OIL/ZINC OXIDE OINT 113 GM TUBE TP SCH ×2 (08:16→21:09)
[2018-12-04] MEDS: POTASSIUM CHLORIDE 40 MEQ/30 ML LIQUID UDC GT SCH (08:16)
[2018-12-04] MEDS: NUTRISOURCE FIBER 4 GM PACKET PO SCH ×2 (08:16→21:09)
[2018-12-04] MEDS: HYDROGEN PEROXIDE 3% 118 ML BOTTLE TP SCH ×2 (08:17→21:09)
[2018-12-04] MEDS: Z GUARD REMEDY PASTE 57 GM TUBE TP SCH ×2 (08:17→21:09)
[2018-12-04] MEDS: GUAIFENESIN/DEXTROMETHORPHAN 5 ML UDC GT PRN (11:57)
--- NOTE | 2018-12-04 12:00 | NUR ---
SEEN BY TIFFANIE Lemus AND DR. LIBORIO MAURICIO.
[2018-12-04 14:49] VITALS: BP 121/74
[2018-12-04] MEDS: HYDROCODONE BIT/HOMATROPINE 5 ML UDC GT PRN (19:02)
[2018-12-04 20:00] VITALS: BP 109/74
[2018-12-04] MEDS: PHENOBARBITAL 97.2 MG TABLET GT SCH (21:08)
[2018-12-04] MEDS: MELATONIN 3 MG GT SCH (21:08)
[2018-12-04] MEDS: DIGOXIN 125 MCG TABLET GT SCH (21:08)
[2018-12-04] MEDS: PROTEIN SUPPLEMENT (PROSTAT) 30 ML LIQUID GT SCH (21:09)
[2018-12-04] MEDS: ENOXAPARIN SODIUM 40 MG/0.4 ML DISP.SYRIN SQ SCH (21:28)
[2018-12-05] MEDS: BLOOD SUGAR DIAGNOSTIC 1 EACH STRIP VI SCH ×4 (00:43→17:01)
[2018-12-05] MEDS: INSULIN REGULAR, HUMAN 300 UNIT/3 ML VIAL SQ PRN ×3 (00:45→11:53)
[2018-12-05] MEDS: IPRATROPIUM BROMIDE 0.5 MG/2.5 ML NEBU NEB SCH ×4 (01:15→19:10)
[2018-12-05] MEDS: ALBUTEROL SULFATE 2.5 MG/3 ML NEBU NEB SCH ×4 (01:16→19:10)
[2018-12-05] MEDS: LORATADINE 10 MG TABLET GT SCH (05:11)
[2018-12-05] MEDS: FERROUS SULFATE 330 MG/7.5 ML UDC- FOR SA ONLY GT SCH (05:11)
[2018-12-05] MEDS: BENZTROPINE MESYLATE 0.5 MG TABLET GT SCH ×3 (05:11→21:36)
[2018-12-05] MEDS: PHENYTOIN 100 MG/4 ML UDC GT SCH ×2 (05:11→17:01)
[2018-12-05] MEDS: FOLIC ACID 1 MG TABLET GT SCH (05:12)
[2018-12-05] MEDS: LISINOPRIL 20 MG TABLET GT SCH ×2 (05:12→17:01)
[2018-12-05] MEDS: CYANOCOBALAMIN 100 MCG TABLET GT SCH (05:12)
[2018-12-05] MEDS: OMEPRAZOLE 20 MG CAPSULE.DR GT SCH (05:12)
[2018-12-05] MEDS: INSULIN NPH SQ SCH ×3 (05:34→22:00)
[2018-12-05 08:06] VITALS: BP 190/95
[2018-12-05] MEDS: SPIRONOLACTONE 25 MG TABLET GT SCH (08:08)
[2018-12-05] MEDS: ASPIRIN 81 MG TAB.CHEW GT SCH (08:08)
[2018-12-05] MEDS: LEVETIRACETAM 500 MG/5 ML LIQUID UDC GT SCH ×2 (08:08→21:36)
[2018-12-05] MEDS: PHENOBARBITAL 64.8 MG TABLET GT SCH (08:12)
[2018-12-05] MEDS: AMANTADINE 50MG/5ML GT SCH (08:12)
[2018-12-05] MEDS: COD LIVER OIL/ZINC OXIDE OINT 113 GM TUBE TP SCH ×2 (08:12→21:36)
[2018-12-05] MEDS: HYDROGEN PEROXIDE 3% 118 ML BOTTLE TP SCH ×2 (08:12→21:36)
[2018-12-05] MEDS: VIMPAT 150 MG GT SCH ×2 (08:12→21:36)
[2018-12-05] MEDS: METOPROLOL TARTRATE 100 MG TABLET GT SCH (08:12)
[2018-12-05] MEDS: Z GUARD REMEDY PASTE 57 GM TUBE TP SCH ×2 (08:12→21:36)
[2018-12-05] MEDS: NUTRISOURCE FIBER 4 GM PACKET PO SCH ×2 (08:12→21:36)
[2018-12-05] MEDS: POTASSIUM CHLORIDE 40 MEQ/30 ML LIQUID UDC GT SCH (08:12)
[2018-12-05 08:13] VITALS: BP 127/81
[2018-12-05] MEDS: GUAIFENESIN/DEXTROMETHORPHAN 5 ML UDC GT PRN (21:30)
[2018-12-05] MEDS: MELATONIN 3 MG GT SCH (21:36)
[2018-12-05] MEDS: PHENOBARBITAL 97.2 MG TABLET GT SCH (21:36)
[2018-12-05] MEDS: PROTEIN SUPPLEMENT (PROSTAT) 30 ML LIQUID GT SCH (21:36)
[2018-12-05] MEDS: MULTIVIT, IRON, MIN NO. 8, FA TABLET GT SCH (21:36)
[2018-12-05] MEDS: DIGOXIN 125 MCG TABLET GT SCH (21:36)
[2018-12-05] MEDS: ENOXAPARIN SODIUM 40 MG/0.4 ML DISP.SYRIN SQ SCH (21:59)
[2018-12-05 23:26] VITALS: BP 113/80
[2018-12-06] MEDS: IPRATROPIUM BROMIDE 0.5 MG/2.5 ML NEBU NEB SCH ×4 (00:40→18:49)
[2018-12-06] MEDS: ALBUTEROL SULFATE 2.5 MG/3 ML NEBU NEB SCH ×4 (00:40→18:49)
[2018-12-06] MEDS: BLOOD SUGAR DIAGNOSTIC 1 EACH STRIP VI SCH ×5 (00:52→23:58)
[2018-12-06] MEDS: INSULIN REGULAR, HUMAN 300 UNIT/3 ML VIAL SQ PRN ×4 (00:55→18:03)
[2018-12-06] MEDS: HYDROCODONE BIT/HOMATROPINE 5 ML UDC GT PRN ×3 (02:56→21:42)
[2018-12-06] MEDS: GLUCERNA 1.2 1000ML LIQUID GT SCH (04:34)
[2018-12-06] MEDS: FOLIC ACID 1 MG TABLET GT SCH (05:22)
[2018-12-06] MEDS: FERROUS SULFATE 330 MG/7.5 ML UDC- FOR SA ONLY GT SCH (05:22)
[2018-12-06] MEDS: OMEPRAZOLE 20 MG CAPSULE.DR GT SCH (05:22)
[2018-12-06] MEDS: BENZTROPINE MESYLATE 0.5 MG TABLET GT SCH ×3 (05:22→21:33)
[2018-12-06] MEDS: LORATADINE 10 MG TABLET GT SCH (05:22)
[2018-12-06] MEDS: LISINOPRIL 20 MG TABLET GT SCH ×2 (05:23→18:02)
[2018-12-06] MEDS: CYANOCOBALAMIN 100 MCG TABLET GT SCH (05:23)
[2018-12-06] MEDS: PHENYTOIN 100 MG/4 ML UDC GT SCH ×2 (05:46→18:01)
[2018-12-06] MEDS: INSULIN NPH SQ SCH ×3 (05:50→21:41)
[2018-12-06] MEDS: [UNRECOGNIZED DRUG - OTHER] RC PRN (08:08)
--- NOTE | 2018-12-06 08:08 | NUR ---
MONTOYA FLUSH ENEMA GIVEN D/T EXCESSIVE BOWEL GAS AND EFFECTIVE
[2018-12-06] MEDS: NUTRISOURCE FIBER 4 GM PACKET PO SCH ×2 (08:16→21:32)
[2018-12-06] MEDS: POTASSIUM CHLORIDE 40 MEQ/30 ML LIQUID UDC GT SCH (08:16)
[2018-12-06] MEDS: VIMPAT 150 MG GT SCH ×2 (08:16→21:31)
[2018-12-06] MEDS: COD LIVER OIL/ZINC OXIDE OINT 113 GM TUBE TP SCH ×2 (08:16→21:32)
[2018-12-06] MEDS: LEVETIRACETAM 500 MG/5 ML LIQUID UDC GT SCH ×2 (08:16→21:28)
[2018-12-06] MEDS: PHENOBARBITAL 64.8 MG TABLET GT SCH (08:16)
[2018-12-06] MEDS: HYDROGEN PEROXIDE 3% 118 ML BOTTLE TP SCH ×2 (08:16→21:33)
[2018-12-06] MEDS: METOPROLOL TARTRATE 100 MG TABLET GT SCH (08:16)
[2018-12-06] MEDS: AMANTADINE 50MG/5ML GT SCH (08:16)
[2018-12-06] MEDS: SPIRONOLACTONE 25 MG TABLET GT SCH (08:16)
[2018-12-06] MEDS: ASPIRIN 81 MG TAB.CHEW GT SCH (08:16)
[2018-12-06 08:17] VITALS: BP 141/82
[2018-12-06] MEDS: Z GUARD REMEDY PASTE 57 GM TUBE TP SCH ×2 (08:17→21:33)
[2018-12-06 11:12] VITALS: BP_SYST 75
--- NOTE | 2018-12-06 15:03 | NUR ---
NEW LOCAL TX FOR LEFT LOWER CHEEK OPEN INGROWN HAIR,PER PT'S ORACIO BENAVIDEZ PT. HAD A VERY LONG ,LONG FACIAL HAIR THAT SHE PULLED OUT AND DRAINED SOME FLUID AND PICTURE WAS TAKEN AND LOCAL TX STARTED.PT'S JERMAINE WAS ADVICED NOT TO TRY TO SQUEEZE ANY SKIN LESION D/T PT. IS ON ASPIRIN AND EASILY BRUISES AND ABNORMALLY BLEEDS.
[2018-12-06] MEDS: MELATONIN 3 MG GT SCH (21:31)
[2018-12-06] MEDS: DIGOXIN 125 MCG TABLET GT SCH (21:31)
[2018-12-06] MEDS: PHENOBARBITAL 97.2 MG TABLET GT SCH (21:31)
[2018-12-06] MEDS: PROTEIN SUPPLEMENT (PROSTAT) 30 ML LIQUID GT SCH (21:32)
[2018-12-06 21:39] VITALS: BP 107/73
[2018-12-06] MEDS: ENOXAPARIN SODIUM 40 MG/0.4 ML DISP.SYRIN SQ SCH (21:41)
[2018-12-07] MEDS: IPRATROPIUM BROMIDE 0.5 MG/2.5 ML NEBU NEB SCH ×4 (00:35→19:16)
[2018-12-07] MEDS: ALBUTEROL SULFATE 2.5 MG/3 ML NEBU NEB SCH ×4 (00:35→19:16)
[2018-12-07] MEDS: BENZTROPINE MESYLATE 0.5 MG TABLET GT SCH ×3 (05:14→21:37)
[2018-12-07] MEDS: FOLIC ACID 1 MG TABLET GT SCH (05:14)
[2018-12-07] MEDS: LORATADINE 10 MG TABLET GT SCH (05:14)
[2018-12-07] MEDS: OMEPRAZOLE 20 MG CAPSULE.DR GT SCH (05:14)
[2018-12-07] MEDS: FERROUS SULFATE 330 MG/7.5 ML UDC- FOR SA ONLY GT SCH (05:14)
[2018-12-07] MEDS: INSULIN REGULAR, HUMAN 300 UNIT/3 ML VIAL SQ PRN ×5 (05:29→23:18)
[2018-12-07] MEDS: INSULIN NPH SQ SCH ×3 (05:31→21:38)
[2018-12-07] MEDS: BLOOD SUGAR DIAGNOSTIC 1 EACH STRIP VI SCH ×4 (05:57→23:14)
[2018-12-07] MEDS: CYANOCOBALAMIN 100 MCG TABLET GT SCH (05:57)
[2018-12-07] MEDS: PHENYTOIN 100 MG/4 ML UDC GT SCH ×2 (05:57→17:30)
[2018-12-07] MEDS: LISINOPRIL 20 MG TABLET GT SCH ×2 (05:57→17:31)
[2018-12-07 08:00] VITALS: BP 158/94
[2018-12-07] MEDS: ASPIRIN 81 MG TAB.CHEW GT SCH (08:12)
[2018-12-07] MEDS: SPIRONOLACTONE 25 MG TABLET GT SCH (08:12)
[2018-12-07] MEDS: METOPROLOL TARTRATE 100 MG TABLET GT SCH (08:13)
[2018-12-07] MEDS: PHENOBARBITAL 64.8 MG TABLET GT SCH (08:13)
[2018-12-07] MEDS: LEVETIRACETAM 500 MG/5 ML LIQUID UDC GT SCH ×2 (08:13→21:36)
[2018-12-07] MEDS: VIMPAT 150 MG GT SCH ×2 (08:14→21:36)
[2018-12-07] MEDS: POTASSIUM CHLORIDE 40 MEQ/30 ML LIQUID UDC GT SCH (08:14)
[2018-12-07] MEDS: AMANTADINE 50MG/5ML GT SCH (08:14)
[2018-12-07] MEDS: NUTRISOURCE FIBER 4 GM PACKET PO SCH ×2 (08:14→21:36)
[2018-12-07] MEDS: COD LIVER OIL/ZINC OXIDE OINT 113 GM TUBE TP SCH ×2 (08:15→21:37)
[2018-12-07] MEDS: HYDROGEN PEROXIDE 3% 118 ML BOTTLE TP SCH ×2 (08:15→21:37)
[2018-12-07] MEDS: NEOMY/BACITRAC/POLYMI OINT 28.35 GM TUBE TOP SCH ×2 (08:15→21:37)
[2018-12-07] MEDS: Z GUARD REMEDY PASTE 57 GM TUBE TP SCH ×2 (08:15→21:37)
--- NOTE | 2018-12-07 10:20 | NUR ---
SEEN BY DR. POPE (NEUROLOGIST) AND WITH NNO.
[2018-12-07 20:00] VITALS: BP 112/73
[2018-12-07] MEDS: DIGOXIN 125 MCG TABLET GT SCH (21:36)
[2018-12-07] MEDS: MELATONIN 3 MG GT SCH (21:36)
[2018-12-07] MEDS: PROTEIN SUPPLEMENT (PROSTAT) 30 ML LIQUID GT SCH (21:36)
[2018-12-07] MEDS: MULTIVIT, IRON, MIN NO. 8, FA TABLET GT SCH (21:36)
[2018-12-07] MEDS: PHENOBARBITAL 97.2 MG TABLET GT SCH (21:36)
[2018-12-07] MEDS: ENOXAPARIN SODIUM 40 MG/0.4 ML DISP.SYRIN SQ SCH (21:37)
[2018-12-08] MEDS: ALBUTEROL SULFATE 2.5 MG/3 ML NEBU NEB SCH ×4 (00:58→19:48)
[2018-12-08] MEDS: IPRATROPIUM BROMIDE 0.5 MG/2.5 ML NEBU NEB SCH ×4 (00:58→19:48)
[2018-12-08] MEDS: BENZTROPINE MESYLATE 0.5 MG TABLET GT SCH ×3 (05:16→21:55)
[2018-12-08] MEDS: LISINOPRIL 20 MG TABLET GT SCH ×2 (05:16→17:25)
[2018-12-08] MEDS: OMEPRAZOLE 20 MG CAPSULE.DR GT SCH (05:16)
[2018-12-08] MEDS: FERROUS SULFATE 330 MG/7.5 ML UDC- FOR SA ONLY GT SCH (05:16)
[2018-12-08] MEDS: PHENYTOIN 100 MG/4 ML UDC GT SCH ×2 (05:16→17:25)
[2018-12-08] MEDS: FOLIC ACID 1 MG TABLET GT SCH (05:16)
[2018-12-08] MEDS: LORATADINE 10 MG TABLET GT SCH (05:16)
[2018-12-08] MEDS: CYANOCOBALAMIN 100 MCG TABLET GT SCH (05:16)
[2018-12-08] MEDS: BLOOD SUGAR DIAGNOSTIC 1 EACH STRIP VI SCH ×3 (05:17→17:25)
[2018-12-08] MEDS: INSULIN NPH SQ SCH ×3 (05:18→21:57)
[2018-12-08] MEDS: INSULIN REGULAR, HUMAN 300 UNIT/3 ML VIAL SQ PRN ×3 (05:22→17:26)
[2018-12-08] MEDS: Z GUARD REMEDY PASTE 57 GM TUBE TP SCH ×2 (08:09→21:55)
[2018-12-08] MEDS: VIMPAT 150 MG GT SCH ×2 (08:09→21:52)
[2018-12-08] MEDS: HYDROGEN PEROXIDE 3% 118 ML BOTTLE TP SCH ×2 (08:09→21:55)
[2018-12-08] MEDS: PHENOBARBITAL 64.8 MG TABLET GT SCH (08:09)
[2018-12-08] MEDS: POTASSIUM CHLORIDE 40 MEQ/30 ML LIQUID UDC GT SCH (08:09)
[2018-12-08] MEDS: COD LIVER OIL/ZINC OXIDE OINT 113 GM TUBE TP SCH ×2 (08:09→21:54)
[2018-12-08] MEDS: METOPROLOL TARTRATE 100 MG TABLET GT SCH (08:09)
[2018-12-08] MEDS: SPIRONOLACTONE 25 MG TABLET GT SCH (08:09)
[2018-12-08] MEDS: LEVETIRACETAM 500 MG/5 ML LIQUID UDC GT SCH ×2 (08:09→21:51)
[2018-12-08] MEDS: NEOMY/BACITRAC/POLYMI OINT 28.35 GM TUBE TOP SCH ×2 (08:09→21:54)
[2018-12-08] MEDS: AMANTADINE 50MG/5ML GT SCH (08:09)
[2018-12-08] MEDS: ASPIRIN 81 MG TAB.CHEW GT SCH (08:09)
[2018-12-08] MEDS: NUTRISOURCE FIBER 4 GM PACKET PO SCH ×2 (08:09→21:52)
[2018-12-08 08:11] VITALS: BP 120/78
--- NOTE | 2018-12-08 12:15 | NUR ---
SEEN BY TIFFANIE MAURICIO.
[2018-12-08 20:47] VITALS: BP 134/92
[2018-12-08] MEDS: DIGOXIN 125 MCG TABLET GT SCH (21:52)
[2018-12-08] MEDS: PHENOBARBITAL 97.2 MG TABLET GT SCH (21:52)
[2018-12-08] MEDS: MELATONIN 3 MG GT SCH (21:52)
[2018-12-08] MEDS: PROTEIN SUPPLEMENT (PROSTAT) 30 ML LIQUID GT SCH (21:52)
[2018-12-08] MEDS: ENOXAPARIN SODIUM 40 MG/0.4 ML DISP.SYRIN SQ SCH (21:53)
[2018-12-09] MEDS: BLOOD SUGAR DIAGNOSTIC 1 EACH STRIP VI SCH ×5 (00:38→23:17)
[2018-12-09] MEDS: INSULIN REGULAR, HUMAN 300 UNIT/3 ML VIAL SQ PRN ×4 (00:40→18:20)
[2018-12-09] MEDS: IPRATROPIUM BROMIDE 0.5 MG/2.5 ML NEBU NEB SCH ×4 (01:08→20:01)
[2018-12-09] MEDS: ALBUTEROL SULFATE 2.5 MG/3 ML NEBU NEB SCH ×4 (01:08→20:01)
[2018-12-09] MEDS: PHENYTOIN 100 MG/4 ML UDC GT SCH ×2 (05:20→18:17)
[2018-12-09] MEDS: BENZTROPINE MESYLATE 0.5 MG TABLET GT SCH ×3 (05:20→21:27)
[2018-12-09] MEDS: LORATADINE 10 MG TABLET GT SCH (05:20)
[2018-12-09] MEDS: FERROUS SULFATE 330 MG/7.5 ML UDC- FOR SA ONLY GT SCH (05:21)
[2018-12-09] MEDS: OMEPRAZOLE 20 MG CAPSULE.DR GT SCH (05:22)
[2018-12-09] MEDS: FOLIC ACID 1 MG TABLET GT SCH (05:22)
[2018-12-09] MEDS: LISINOPRIL 20 MG TABLET GT SCH ×2 (05:22→18:18)
[2018-12-09] MEDS: CYANOCOBALAMIN 100 MCG TABLET GT SCH (05:22)
[2018-12-09] MEDS: INSULIN NPH SQ SCH ×3 (06:26→21:47)
[2018-12-09 08:11] VITALS: BP 126/81
[2018-12-09] MEDS: ASPIRIN 81 MG TAB.CHEW GT SCH (09:41)
[2018-12-09] MEDS: SPIRONOLACTONE 25 MG TABLET GT SCH (09:41)
[2018-12-09] MEDS: METOPROLOL TARTRATE 100 MG TABLET GT SCH (09:42)
[2018-12-09] MEDS: LEVETIRACETAM 500 MG/5 ML LIQUID UDC GT SCH ×2 (09:43→21:24)
[2018-12-09] MEDS: NUTRISOURCE FIBER 4 GM PACKET PO SCH ×2 (09:44→21:26)
[2018-12-09] MEDS: AMANTADINE 50MG/5ML GT SCH (09:44)
[2018-12-09] MEDS: COD LIVER OIL/ZINC OXIDE OINT 113 GM TUBE TP SCH ×2 (09:45→21:27)
[2018-12-09] MEDS: POTASSIUM CHLORIDE 40 MEQ/30 ML LIQUID UDC GT SCH (09:45)
[2018-12-09] MEDS: NEOMY/BACITRAC/POLYMI OINT 28.35 GM TUBE TOP SCH ×2 (09:45→21:27)
[2018-12-09] MEDS: HYDROGEN PEROXIDE 3% 118 ML BOTTLE TP SCH ×2 (09:46→21:27)
[2018-12-09] MEDS: Z GUARD REMEDY PASTE 57 GM TUBE TP SCH ×2 (09:46→21:27)
[2018-12-09] MEDS: PHENOBARBITAL 64.8 MG TABLET GT SCH (09:48)
[2018-12-09] MEDS: VIMPAT 150 MG GT SCH ×2 (09:49→21:25)
[2018-12-09] MEDS: GLUCERNA 1.2 1000ML LIQUID GT SCH (10:44)
--- NOTE | 2018-12-09 10:54 | NUR ---
Pharmacy Update from 12/02/18 IDT meeting. VS: Temp 98.5 BP 126/75 HR 79 LABS: (from 11/21/18) Wbc 5.5 H/H 12.7 Plt 189 Na 141 K 4.5 Cl 103 CO2 28 BUN/SCr 38/1.1 BS 217 Ca 9.0 phos 3.5 Mg 2.5 MEDICATION USE REVIEWED: > Pt not on any anti-psych medications > Pt on Keppra 1500mg q12hrs since 11/29/16; last calculated CrCl 93.1 ml/min. Dose appropriate for renal fxn. > Pt now on Phenobarbital 64.8MG AM + 97.2 HS as of 07/20/18. Last level 08/11/18 resulted 27.2 (15-39) within range > Pt on Dilantin 150mg q12hrs since 11/11/17; Rx rec for repeat level for routine monitoring + alb for correction, Md agreed, ordered and resulted 08/25 17.6 (corrected 19.6) within therapeutic range 10-20. > Pt on Vimpat 300mg q12hrs, Patient had no episode of seizures past month > Pt on KCl 20mEq daily ,Prinivil 20mg q12hrs and Aldactone 50mg daily: last K 4.5 > Pt on moderate sliding scale + NPH 2 units q8hrs; BS ranged 102/219 since last IDT Meeting > Pt on Lovenox 40mg daily and Aspirin 81mg daily:no signs of bleeding, last plt 189 > Pt on Digoxin 125mcg daily since admit in 2015, on stable dose, no acute changes in condition > PRN MED USAGE: (Oct) Tylenol for pain used x 4 Tylenol for temp used x 0 Motrin for mod pain used x 2 Robitussin DM used x 31 Hydromet PRN used x 3 NEW ORDERS NOTED: > Hydromet d/c'd 11/14 > Hydromet restarted 11/19 per rx rec > Abreva for cold sore 11/15-11/22 Patient reviewed in depth with family in attendance, recent medication changes noted. Rx found pt's hydromet prn had been d/c'd d/t (DF) concern of constipation as pt had used Veronica enema flush from bloating. Rx spoke to rim fire charger operator and found enema flush had been from trapped gas and used for gas relief rather than constipation. Rx spoke to MD (LESLIE) for benefit of hydromet with pt's persistent coughs and rec'd for restart as enema had been for gas. Rec'd for also bowel regimen for constipation or gas if needed. MD agreed. Hydromet later restarted per rx rec of cough management. Reported at IDT, no further concerns. Will follow
[2018-12-09] MEDS: GUAIFENESIN/DEXTROMETHORPHAN 5 ML UDC GT PRN (12:47)
--- NOTE | 2018-12-09 12:47 | NUR ---
Noted excessive coughing with secretions. Robitussin DM given as ordered, with relief
[2018-12-09 20:00] VITALS: BP 132/90
[2018-12-09] MEDS: DIGOXIN 125 MCG TABLET GT SCH (21:25)
[2018-12-09] MEDS: MELATONIN 3 MG GT SCH (21:25)
[2018-12-09] MEDS: MULTIVIT, IRON, MIN NO. 8, FA TABLET GT SCH (21:26)
[2018-12-09] MEDS: PHENOBARBITAL 97.2 MG TABLET GT SCH (21:26)
[2018-12-09] MEDS: PROTEIN SUPPLEMENT (PROSTAT) 30 ML LIQUID GT SCH (21:26)
[2018-12-09] MEDS: ENOXAPARIN SODIUM 40 MG/0.4 ML DISP.SYRIN SQ SCH (21:46)
--- NOTE | 2018-12-09 22:00 | NUR ---
Still with left cheek small bump, per severiano it was an ingrown hair that she pulled out and squeezed the area few days ago , treatment was initiated but bump is still there , good skin care done, will continue monitor.
[2018-12-10] MEDS: IPRATROPIUM BROMIDE 0.5 MG/2.5 ML NEBU NEB SCH ×4 (01:15→19:50)
[2018-12-10] MEDS: ALBUTEROL SULFATE 2.5 MG/3 ML NEBU NEB SCH ×4 (01:15→19:50)
[2018-12-10] MEDS: GLUCERNA 1.2 1000ML LIQUID GT SCH ×2 (06:00→22:45)
[2018-12-10] MEDS: BENZTROPINE MESYLATE 0.5 MG TABLET GT SCH ×3 (06:12→21:33)
[2018-12-10] MEDS: FERROUS SULFATE 330 MG/7.5 ML UDC- FOR SA ONLY GT SCH (06:12)
[2018-12-10] MEDS: LORATADINE 10 MG TABLET GT SCH (06:12)
[2018-12-10] MEDS: PHENYTOIN 100 MG/4 ML UDC GT SCH ×2 (06:12→17:57)
[2018-12-10] MEDS: LISINOPRIL 20 MG TABLET GT SCH ×2 (06:13→17:57)
[2018-12-10] MEDS: CYANOCOBALAMIN 100 MCG TABLET GT SCH (06:13)
[2018-12-10] MEDS: FOLIC ACID 1 MG TABLET GT SCH (06:13)
[2018-12-10] MEDS: OMEPRAZOLE 20 MG CAPSULE.DR GT SCH (06:13)
[2018-12-10] MEDS: INSULIN NPH SQ SCH ×3 (06:14→21:34)
[2018-12-10] MEDS: BLOOD SUGAR DIAGNOSTIC 1 EACH STRIP VI SCH ×3 (06:15→18:03)
[2018-12-10] MEDS: INSULIN REGULAR, HUMAN 300 UNIT/3 ML VIAL SQ PRN ×4 (06:15→18:06)
[2018-12-10 08:09] VITALS: BP 122/76
[2018-12-10] MEDS: SPIRONOLACTONE 25 MG TABLET GT SCH (08:58)
[2018-12-10] MEDS: LEVETIRACETAM 500 MG/5 ML LIQUID UDC GT SCH ×2 (09:01→21:31)
[2018-12-10] MEDS: ASPIRIN 81 MG TAB.CHEW GT SCH (09:01)
[2018-12-10] MEDS: METOPROLOL TARTRATE 100 MG TABLET GT SCH (09:02)
[2018-12-10] MEDS: PHENOBARBITAL 64.8 MG TABLET GT SCH (09:05)
[2018-12-10] MEDS: VIMPAT 150 MG GT SCH ×2 (09:06→21:31)
[2018-12-10] MEDS: AMANTADINE 50MG/5ML GT SCH (09:08)
[2018-12-10] MEDS: NUTRISOURCE FIBER 4 GM PACKET PO SCH ×2 (09:09→21:32)
[2018-12-10] MEDS: COD LIVER OIL/ZINC OXIDE OINT 113 GM TUBE TP SCH ×2 (09:10→21:32)
[2018-12-10] MEDS: Z GUARD REMEDY PASTE 57 GM TUBE TP SCH ×2 (09:10→21:33)
[2018-12-10] MEDS: HYDROGEN PEROXIDE 3% 118 ML BOTTLE TP SCH ×2 (09:10→21:32)
[2018-12-10] MEDS: NEOMY/BACITRAC/POLYMI OINT 28.35 GM TUBE TOP SCH ×2 (09:10→21:32)
[2018-12-10] MEDS: POTASSIUM CHLORIDE 40 MEQ/30 ML LIQUID UDC GT SCH (09:11)
[2018-12-10] MEDS: ACETAMINOPHEN 650 MG/20 ML UDC- SA PATIENTS-PAIN ONLY GT PRN (09:15)
--- NOTE | 2018-12-10 16:31 | NUR ---
KD faxed dermatology order to Dr. Nettles at [phone] (tel # [phone]). RN Darek informed that fax was sent.
[2018-12-10 20:00] VITALS: BP 124/83
[2018-12-10] MEDS: PHENOBARBITAL 97.2 MG TABLET GT SCH (21:31)
[2018-12-10] MEDS: MELATONIN 3 MG GT SCH (21:31)
[2018-12-10] MEDS: DIGOXIN 125 MCG TABLET GT SCH (21:31)
[2018-12-10] MEDS: PROTEIN SUPPLEMENT (PROSTAT) 30 ML LIQUID GT SCH (21:32)
[2018-12-10] MEDS: ENOXAPARIN SODIUM 40 MG/0.4 ML DISP.SYRIN SQ SCH (21:34)
--- NOTE | 2018-12-10 22:00 | NUR ---
Afebrile, still with bump on left cheek, treatment done as ordered, no bleeding noted, kept clean and comfortable.
[2018-12-11] MEDS: BLOOD SUGAR DIAGNOSTIC 1 EACH STRIP VI SCH ×4 (00:05→17:36)
[2018-12-11] MEDS: INSULIN REGULAR, HUMAN 300 UNIT/3 ML VIAL SQ PRN ×4 (00:14→17:37)
[2018-12-11] MEDS: IPRATROPIUM BROMIDE 0.5 MG/2.5 ML NEBU NEB SCH ×4 (01:28→19:21)
[2018-12-11] MEDS: ALBUTEROL SULFATE 2.5 MG/3 ML NEBU NEB SCH ×4 (01:28→19:21)
[2018-12-11] MEDS: GUAIFENESIN/DEXTROMETHORPHAN 5 ML UDC GT PRN ×2 (03:28→03:30)
[2018-12-11] MEDS: ACETAMINOPHEN 650 MG/20 ML UDC- SA PATIENTS-PAIN ONLY GT PRN (04:00)
[2018-12-11] MEDS: FERROUS SULFATE 330 MG/7.5 ML UDC- FOR SA ONLY GT SCH (06:02)
[2018-12-11] MEDS: LORATADINE 10 MG TABLET GT SCH (06:02)
[2018-12-11] MEDS: OMEPRAZOLE 20 MG CAPSULE.DR GT SCH (06:02)
[2018-12-11] MEDS: FOLIC ACID 1 MG TABLET GT SCH (06:02)
[2018-12-11] MEDS: BENZTROPINE MESYLATE 0.5 MG TABLET GT SCH ×3 (06:02→22:05)
[2018-12-11] MEDS: PHENYTOIN 100 MG/4 ML UDC GT SCH ×2 (06:02→17:36)
[2018-12-11] MEDS: LISINOPRIL 20 MG TABLET GT SCH ×2 (06:03→17:36)
[2018-12-11] MEDS: CYANOCOBALAMIN 100 MCG TABLET GT SCH (06:03)
[2018-12-11] MEDS: INSULIN NPH SQ SCH ×3 (06:05→22:06)
[2018-12-11 08:00] VITALS: BP 118/80
[2018-12-11] MEDS: SPIRONOLACTONE 25 MG TABLET GT SCH (08:59)
[2018-12-11] MEDS: Z GUARD REMEDY PASTE 57 GM TUBE TP SCH ×2 (09:00→21:00)
[2018-12-11] MEDS: NUTRISOURCE FIBER 4 GM PACKET PO SCH ×2 (09:00→21:00)
[2018-12-11] MEDS: COD LIVER OIL/ZINC OXIDE OINT 113 GM TUBE TP SCH ×2 (09:00→21:00)
[2018-12-11] MEDS: POTASSIUM CHLORIDE 40 MEQ/30 ML LIQUID UDC GT SCH (09:00)
[2018-12-11] MEDS: ASPIRIN 81 MG TAB.CHEW GT SCH (09:00)
[2018-12-11] MEDS: PHENOBARBITAL 64.8 MG TABLET GT SCH (09:00)
[2018-12-11] MEDS: NEOMY/BACITRAC/POLYMI OINT 28.35 GM TUBE TOP SCH ×2 (09:00→21:00)
[2018-12-11] MEDS: METOPROLOL TARTRATE 100 MG TABLET GT SCH (09:00)
[2018-12-11] MEDS: AMANTADINE 50MG/5ML GT SCH (09:00)
[2018-12-11] MEDS: LEVETIRACETAM 500 MG/5 ML LIQUID UDC GT SCH ×2 (09:00→21:00)
[2018-12-11] MEDS: VIMPAT 150 MG GT SCH ×2 (09:00→21:00)
[2018-12-11] MEDS: HYDROGEN PEROXIDE 3% 118 ML BOTTLE TP SCH ×2 (09:00→21:00)
--- NOTE | 2018-12-11 09:24 | NUR ---
KD received a phone call from Giana at Dr. Nettles's office, , who stated that she had received the fax for dermatology consult (sent yesterday, see previous SS note). Giana stated that Dr. Nettles will be in on Saturday12/17/18 at see the patient. KD informed clinic charge nurse Mario.
[2018-12-11] MEDS: HYDROCODONE BIT/HOMATROPINE 5 ML UDC GT PRN (16:08)
[2018-12-11 20:00] VITALS: BP 143/93
[2018-12-11] MEDS: ENOXAPARIN SODIUM 40 MG/0.4 ML DISP.SYRIN SQ SCH (21:00)
[2018-12-11] MEDS: MELATONIN 3 MG GT SCH (21:00)
[2018-12-11] MEDS: PHENOBARBITAL 97.2 MG TABLET GT SCH (21:00)
[2018-12-11] MEDS: MULTIVIT, IRON, MIN NO. 8, FA TABLET GT SCH (21:00)
[2018-12-11] MEDS: DIGOXIN 125 MCG TABLET GT SCH (21:00)
[2018-12-11] MEDS: PROTEIN SUPPLEMENT (PROSTAT) 30 ML LIQUID GT SCH (21:00)
[2018-12-12] MEDS: ALBUTEROL SULFATE 2.5 MG/3 ML NEBU NEB SCH ×4 (00:55→19:23)
[2018-12-12] MEDS: IPRATROPIUM BROMIDE 0.5 MG/2.5 ML NEBU NEB SCH ×4 (00:55→19:23)
[2018-12-12] MEDS: INSULIN REGULAR, HUMAN 300 UNIT/3 ML VIAL SQ PRN ×4 (01:29→17:19)
[2018-12-12] MEDS: BENZTROPINE MESYLATE 0.5 MG TABLET GT SCH ×3 (06:16→21:37)
[2018-12-12] MEDS: LORATADINE 10 MG TABLET GT SCH (06:16)
[2018-12-12] MEDS: PHENYTOIN 100 MG/4 ML UDC GT SCH ×2 (06:17→17:13)
[2018-12-12] MEDS: CYANOCOBALAMIN 100 MCG TABLET GT SCH (06:17)
[2018-12-12] MEDS: FOLIC ACID 1 MG TABLET GT SCH (06:17)
[2018-12-12] MEDS: FERROUS SULFATE 330 MG/7.5 ML UDC- FOR SA ONLY GT SCH (06:17)
[2018-12-12] MEDS: LISINOPRIL 20 MG TABLET GT SCH ×2 (06:17→17:13)
[2018-12-12] MEDS: OMEPRAZOLE 20 MG CAPSULE.DR GT SCH (06:17)
[2018-12-12] MEDS: INSULIN NPH SQ SCH ×3 (06:18→21:38)
[2018-12-12] MEDS: BLOOD SUGAR DIAGNOSTIC 1 EACH STRIP VI SCH ×4 (06:19→17:18)
[2018-12-12 07:49] VITALS: BP 136/90
[2018-12-12] MEDS: LEVETIRACETAM 500 MG/5 ML LIQUID UDC GT SCH ×2 (09:02→21:34)
[2018-12-12] MEDS: SPIRONOLACTONE 25 MG TABLET GT SCH (09:02)
[2018-12-12] MEDS: VIMPAT 150 MG GT SCH ×2 (09:02→21:34)
[2018-12-12] MEDS: METOPROLOL TARTRATE 100 MG TABLET GT SCH (09:02)
[2018-12-12] MEDS: AMANTADINE 50MG/5ML GT SCH (09:02)
[2018-12-12] MEDS: NUTRISOURCE FIBER 4 GM PACKET PO SCH ×2 (09:02→21:34)
[2018-12-12] MEDS: ASPIRIN 81 MG TAB.CHEW GT SCH (09:02)
[2018-12-12] MEDS: PHENOBARBITAL 64.8 MG TABLET GT SCH (09:02)
[2018-12-12] MEDS: POTASSIUM CHLORIDE 40 MEQ/30 ML LIQUID UDC GT SCH (09:02)
[2018-12-12] MEDS: COD LIVER OIL/ZINC OXIDE OINT 113 GM TUBE TP SCH ×2 (09:03→21:37)
[2018-12-12] MEDS: HYDROGEN PEROXIDE 3% 118 ML BOTTLE TP SCH ×2 (09:03→21:37)
[2018-12-12] MEDS: Z GUARD REMEDY PASTE 57 GM TUBE TP SCH ×2 (09:03→21:37)
[2018-12-12] MEDS: NEOMY/BACITRAC/POLYMI OINT 28.35 GM TUBE TOP SCH ×2 (09:03→21:37)
[2018-12-12 20:00] VITALS: BP 135/82
[2018-12-12] MEDS: MELATONIN 3 MG GT SCH (21:34)
[2018-12-12] MEDS: PHENOBARBITAL 97.2 MG TABLET GT SCH (21:34)
[2018-12-12] MEDS: DIGOXIN 125 MCG TABLET GT SCH (21:34)
[2018-12-12] MEDS: PROTEIN SUPPLEMENT (PROSTAT) 30 ML LIQUID GT SCH (21:34)
[2018-12-12] MEDS: ENOXAPARIN SODIUM 40 MG/0.4 ML DISP.SYRIN SQ SCH (21:36)
[2018-12-13] MEDS: GLUCERNA 1.2 1000ML LIQUID GT SCH (00:22)
[2018-12-13] MEDS: BLOOD SUGAR DIAGNOSTIC 1 EACH STRIP VI SCH ×5 (00:22→23:36)
[2018-12-13] MEDS: INSULIN REGULAR, HUMAN 300 UNIT/3 ML VIAL SQ PRN ×5 (01:04→23:40)
[2018-12-13] MEDS: ALBUTEROL SULFATE 2.5 MG/3 ML NEBU NEB SCH ×4 (01:10→19:40)
[2018-12-13] MEDS: IPRATROPIUM BROMIDE 0.5 MG/2.5 ML NEBU NEB SCH ×4 (01:10→19:40)
[2018-12-13] MEDS: LORATADINE 10 MG TABLET GT SCH (05:34)
[2018-12-13] MEDS: OMEPRAZOLE 20 MG CAPSULE.DR GT SCH (05:34)
[2018-12-13] MEDS: PHENYTOIN 100 MG/4 ML UDC GT SCH ×2 (05:34→17:45)
[2018-12-13] MEDS: FOLIC ACID 1 MG TABLET GT SCH (05:34)
[2018-12-13] MEDS: FERROUS SULFATE 330 MG/7.5 ML UDC- FOR SA ONLY GT SCH (05:34)
[2018-12-13] MEDS: BENZTROPINE MESYLATE 0.5 MG TABLET GT SCH ×3 (05:34→22:44)
[2018-12-13] MEDS: CYANOCOBALAMIN 100 MCG TABLET GT SCH (05:35)
[2018-12-13] MEDS: LISINOPRIL 20 MG TABLET GT SCH ×2 (05:35→17:44)
[2018-12-13] MEDS: INSULIN NPH SQ SCH ×3 (06:12→22:45)
[2018-12-13] MEDS: VIMPAT 150 MG GT SCH ×2 (09:09→21:00)
[2018-12-13] MEDS: PHENOBARBITAL 64.8 MG TABLET GT SCH (09:09)
[2018-12-13] MEDS: SPIRONOLACTONE 25 MG TABLET GT SCH (09:17)
[2018-12-13] MEDS: LEVETIRACETAM 500 MG/5 ML LIQUID UDC GT SCH ×2 (09:18→21:00)
[2018-12-13] MEDS: ASPIRIN 81 MG TAB.CHEW GT SCH (09:18)
[2018-12-13] MEDS: AMANTADINE 50MG/5ML GT SCH (09:21)
[2018-12-13] MEDS: POTASSIUM CHLORIDE 40 MEQ/30 ML LIQUID UDC GT SCH (09:21)
[2018-12-13] MEDS: METOPROLOL TARTRATE 100 MG TABLET GT SCH (09:21)
[2018-12-13] MEDS: NUTRISOURCE FIBER 4 GM PACKET PO SCH ×2 (09:22→21:00)
[2018-12-13] MEDS: NEOMY/BACITRAC/POLYMI OINT 28.35 GM TUBE TOP SCH ×2 (09:22→21:00)
[2018-12-13] MEDS: COD LIVER OIL/ZINC OXIDE OINT 113 GM TUBE TP SCH ×2 (09:22→21:00)
[2018-12-13] MEDS: HYDROGEN PEROXIDE 3% 118 ML BOTTLE TP SCH ×2 (09:22→21:00)
[2018-12-13] MEDS: Z GUARD REMEDY PASTE 57 GM TUBE TP SCH ×2 (09:22→21:00)
[2018-12-13 20:14] VITALS: BP 142/77
[2018-12-13] MEDS: MULTIVIT, IRON, MIN NO. 8, FA TABLET GT SCH (21:00)
[2018-12-13] MEDS: MELATONIN 3 MG GT SCH (21:00)
[2018-12-13] MEDS: PHENOBARBITAL 97.2 MG TABLET GT SCH (21:00)
[2018-12-13] MEDS: ENOXAPARIN SODIUM 40 MG/0.4 ML DISP.SYRIN SQ SCH (21:00)
[2018-12-13] MEDS: DIGOXIN 125 MCG TABLET GT SCH (21:00)
[2018-12-13] MEDS: PROTEIN SUPPLEMENT (PROSTAT) 30 ML LIQUID GT SCH (21:00)
[2018-12-13] MEDS: GUAIFENESIN/DEXTROMETHORPHAN 5 ML UDC GT PRN (23:32)
[2018-12-14] MEDS: ALBUTEROL SULFATE 2.5 MG/3 ML NEBU NEB SCH ×4 (01:20→19:54)
[2018-12-14] MEDS: IPRATROPIUM BROMIDE 0.5 MG/2.5 ML NEBU NEB SCH ×4 (01:20→19:54)
[2018-12-14] MEDS: PHENYTOIN 100 MG/4 ML UDC GT SCH ×2 (05:38→17:35)
[2018-12-14] MEDS: FERROUS SULFATE 330 MG/7.5 ML UDC- FOR SA ONLY GT SCH (05:38)
[2018-12-14] MEDS: OMEPRAZOLE 20 MG CAPSULE.DR GT SCH (05:38)
[2018-12-14] MEDS: FOLIC ACID 1 MG TABLET GT SCH (05:38)
[2018-12-14] MEDS: LORATADINE 10 MG TABLET GT SCH (05:38)
[2018-12-14] MEDS: BENZTROPINE MESYLATE 0.5 MG TABLET GT SCH ×3 (05:38→21:57)
[2018-12-14] MEDS: CYANOCOBALAMIN 100 MCG TABLET GT SCH (05:39)
[2018-12-14] MEDS: LISINOPRIL 20 MG TABLET GT SCH ×2 (05:39→17:35)
[2018-12-14] MEDS: INSULIN NPH SQ SCH ×3 (05:41→22:37)
[2018-12-14] MEDS: BLOOD SUGAR DIAGNOSTIC 1 EACH STRIP VI SCH ×3 (06:10→17:21)
[2018-12-14] MEDS: INSULIN REGULAR, HUMAN 300 UNIT/3 ML VIAL SQ PRN ×3 (06:18→17:39)
[2018-12-14] MEDS: GLUCERNA 1.2 1000ML LIQUID GT SCH (06:46)
[2018-12-14 08:10] VITALS: BP 122/46
[2018-12-14] MEDS: SPIRONOLACTONE 25 MG TABLET GT SCH (08:53)
[2018-12-14] MEDS: ASPIRIN 81 MG TAB.CHEW GT SCH (08:53)
[2018-12-14] MEDS: LEVETIRACETAM 500 MG/5 ML LIQUID UDC GT SCH ×2 (09:01→21:55)
[2018-12-14] MEDS: METOPROLOL TARTRATE 100 MG TABLET GT SCH (09:02)
[2018-12-14] MEDS: PHENOBARBITAL 64.8 MG TABLET GT SCH (09:02)
[2018-12-14] MEDS: AMANTADINE 50MG/5ML GT SCH (09:03)
[2018-12-14] MEDS: VIMPAT 150 MG GT SCH ×2 (09:03→21:56)
[2018-12-14] MEDS: POTASSIUM CHLORIDE 40 MEQ/30 ML LIQUID UDC GT SCH (09:04)
[2018-12-14] MEDS: NUTRISOURCE FIBER 4 GM PACKET PO SCH ×2 (09:04→21:56)
[2018-12-14] MEDS: COD LIVER OIL/ZINC OXIDE OINT 113 GM TUBE TP SCH ×2 (09:04→21:56)
[2018-12-14] MEDS: HYDROGEN PEROXIDE 3% 118 ML BOTTLE TP SCH ×2 (09:04→21:57)
[2018-12-14] MEDS: Z GUARD REMEDY PASTE 57 GM TUBE TP SCH ×2 (09:04→21:57)
[2018-12-14 20:30] VITALS: BP 145/88
[2018-12-14] MEDS: ENOXAPARIN SODIUM 40 MG/0.4 ML DISP.SYRIN SQ SCH (21:00)
[2018-12-14] MEDS: DIGOXIN 125 MCG TABLET GT SCH (21:56)
[2018-12-14] MEDS: PHENOBARBITAL 97.2 MG TABLET GT SCH (21:56)
[2018-12-14] MEDS: MELATONIN 3 MG GT SCH (21:56)
[2018-12-14] MEDS: PROTEIN SUPPLEMENT (PROSTAT) 30 ML LIQUID GT SCH (21:56)
[2018-12-15] MEDS: BLOOD SUGAR DIAGNOSTIC 1 EACH STRIP VI SCH ×4 (00:23→17:58)
[2018-12-15] MEDS: INSULIN REGULAR, HUMAN 300 UNIT/3 ML VIAL SQ PRN ×4 (00:25→18:00)
[2018-12-15] MEDS: IPRATROPIUM BROMIDE 0.5 MG/2.5 ML NEBU NEB SCH ×4 (01:21→19:18)
[2018-12-15] MEDS: ALBUTEROL SULFATE 2.5 MG/3 ML NEBU NEB SCH ×4 (01:21→19:18)
[2018-12-15] MEDS: INSULIN NPH SQ SCH ×3 (06:00→22:00)
[2018-12-15] MEDS: LORATADINE 10 MG TABLET GT SCH (06:42)
[2018-12-15] MEDS: FOLIC ACID 1 MG TABLET GT SCH (06:42)
[2018-12-15] MEDS: OMEPRAZOLE 20 MG CAPSULE.DR GT SCH (06:42)
[2018-12-15] MEDS: BENZTROPINE MESYLATE 0.5 MG TABLET GT SCH ×3 (06:42→22:10)
[2018-12-15] MEDS: FERROUS SULFATE 330 MG/7.5 ML UDC- FOR SA ONLY GT SCH (06:42)
[2018-12-15] MEDS: PHENYTOIN 100 MG/4 ML UDC GT SCH ×2 (06:42→18:00)
[2018-12-15] MEDS: LISINOPRIL 20 MG TABLET GT SCH ×2 (06:43→18:04)
[2018-12-15] MEDS: CYANOCOBALAMIN 100 MCG TABLET GT SCH (06:43)
[2018-12-15 08:09] VITALS: BP 132/82
[2018-12-15] MEDS: LEVETIRACETAM 500 MG/5 ML LIQUID UDC GT SCH ×2 (09:29→21:00)
[2018-12-15] MEDS: SPIRONOLACTONE 25 MG TABLET GT SCH (09:29)
[2018-12-15] MEDS: ASPIRIN 81 MG TAB.CHEW GT SCH (09:29)
[2018-12-15] MEDS: METOPROLOL TARTRATE 100 MG TABLET GT SCH (09:30)
[2018-12-15] MEDS: PHENOBARBITAL 64.8 MG TABLET GT SCH (09:31)
[2018-12-15] MEDS: VIMPAT 150 MG GT SCH ×2 (09:32→21:00)
[2018-12-15] MEDS: Z GUARD REMEDY PASTE 57 GM TUBE TP SCH ×2 (09:32→21:00)
[2018-12-15] MEDS: HYDROGEN PEROXIDE 3% 118 ML BOTTLE TP SCH ×2 (09:32→21:00)
[2018-12-15] MEDS: AMANTADINE 50MG/5ML GT SCH (09:32)
[2018-12-15] MEDS: COD LIVER OIL/ZINC OXIDE OINT 113 GM TUBE TP SCH ×2 (09:32→21:00)
[2018-12-15] MEDS: POTASSIUM CHLORIDE 40 MEQ/30 ML LIQUID UDC GT SCH (09:32)
[2018-12-15] MEDS: NUTRISOURCE FIBER 4 GM PACKET PO SCH ×2 (09:32→21:00)
[2018-12-15] MEDS: GLUCERNA 1.2 1000ML LIQUID GT SCH (09:52)
[2018-12-15] MEDS: GUAIFENESIN/DEXTROMETHORPHAN 5 ML UDC GT PRN (18:17)
[2018-12-15 20:35] VITALS: BP 127/80
[2018-12-15] MEDS: MELATONIN 3 MG GT SCH (21:00)
[2018-12-15] MEDS: MULTIVIT, IRON, MIN NO. 8, FA TABLET GT SCH (21:00)
[2018-12-15] MEDS: DIGOXIN 125 MCG TABLET GT SCH (21:00)
[2018-12-15] MEDS: PROTEIN SUPPLEMENT (PROSTAT) 30 ML LIQUID GT SCH (21:00)
[2018-12-15] MEDS: ENOXAPARIN SODIUM 40 MG/0.4 ML DISP.SYRIN SQ SCH (21:00)
[2018-12-15] MEDS: PHENOBARBITAL 97.2 MG TABLET GT SCH (21:00)
[2018-12-16] MEDS: BLOOD SUGAR DIAGNOSTIC 1 EACH STRIP VI SCH ×5 (00:58→23:23)
[2018-12-16] MEDS: IPRATROPIUM BROMIDE 0.5 MG/2.5 ML NEBU NEB SCH ×4 (01:08→19:32)
[2018-12-16] MEDS: ALBUTEROL SULFATE 2.5 MG/3 ML NEBU NEB SCH ×4 (01:08→19:32)
[2018-12-16] MEDS: INSULIN REGULAR, HUMAN 300 UNIT/3 ML VIAL SQ PRN ×5 (01:47→23:25)
[2018-12-16] MEDS: HYDROCODONE BIT/HOMATROPINE 5 ML UDC GT PRN ×2 (01:54→15:06)
[2018-12-16] MEDS: LISINOPRIL 20 MG TABLET GT SCH ×2 (06:12→18:14)
[2018-12-16] MEDS: FERROUS SULFATE 330 MG/7.5 ML UDC- FOR SA ONLY GT SCH (06:12)
[2018-12-16] MEDS: PHENYTOIN 100 MG/4 ML UDC GT SCH ×2 (06:12→18:14)
[2018-12-16] MEDS: FOLIC ACID 1 MG TABLET GT SCH (06:12)
[2018-12-16] MEDS: OMEPRAZOLE 20 MG CAPSULE.DR GT SCH (06:12)
[2018-12-16] MEDS: BENZTROPINE MESYLATE 0.5 MG TABLET GT SCH ×3 (06:12→21:49)
[2018-12-16] MEDS: LORATADINE 10 MG TABLET GT SCH (06:12)
[2018-12-16] MEDS: CYANOCOBALAMIN 100 MCG TABLET GT SCH (06:12)
[2018-12-16] MEDS: INSULIN NPH SQ SCH ×3 (06:48→21:52)
[2018-12-16 07:30] LABS: BASOPHILS % (AUTO) 0.2 % (0.0-2.0); EOSINOPHILS # (AUTO) 0.1 K/uL (0.0-0.7); EOSINOPHILS % (AUTO) 2.1 % (0.0-7.0); HEMATOCRIT 38.5 % (36.7-47.1); HEMOGLOBIN 12.9 g/dL (12.5-16.3); LYMPHOCYTES # (AUTO) 1.9 K/uL (20.0-40.0); LYMPHOCYTES % (AUTO) 40.4 % (20.5-51.5); MEAN CORPUSCULAR HEMOGLOBIN 31.1 uug (23.8-33.4); MEAN CORPUSCULAR HGB CONC 34 g/dL (32.5-36.3); MEAN CORPUSCULAR VOLUME 92.8 fL (73.0-96.2); MONOCYTES # (AUTO) 0.3 K/uL (2.0-10.0); MONOCYTES % (AUTO) 6.4 % (0.0-11.0); NEUTROPHILS # (AUTO) 2.4 K/uL (1.8-8.9); NEUTROPHILS % (AUTO) 50.9 % (38.5-71.5); PLATELET COUNT (AUTO) 125 K/uL (152-348); RED BLOOD CELL COUNT(AUTO) 4.15 MIL/uL (4.06-5.63); WHITE BLOOD COUNT (AUTO) 4.7 K/uL (3.6-10.2)
[2018-12-16 07:36] LABS: MAGNESIUM 2.2 mg/dL (1.8-2.4); PHOSPHOROUS 3.8 mg/dL (2.5-4.9); POTASSIUM 4.2 mmol/L (3.5-5.1)
[2018-12-16 08:11] VITALS: BP 165/95
[2018-12-16] MEDS: ASPIRIN 81 MG TAB.CHEW GT SCH (09:45)
[2018-12-16] MEDS: SPIRONOLACTONE 25 MG TABLET GT SCH (09:45)
[2018-12-16] MEDS: LEVETIRACETAM 500 MG/5 ML LIQUID UDC GT SCH ×2 (09:46→21:48)
[2018-12-16] MEDS: PHENOBARBITAL 64.8 MG TABLET GT SCH (09:49)
[2018-12-16] MEDS: METOPROLOL TARTRATE 100 MG TABLET GT SCH (09:49)
[2018-12-16] MEDS: VIMPAT 150 MG GT SCH ×2 (09:51→21:48)
[2018-12-16] MEDS: AMANTADINE 50MG/5ML GT SCH (09:52)
[2018-12-16] MEDS: COD LIVER OIL/ZINC OXIDE OINT 113 GM TUBE TP SCH ×2 (09:53→21:49)
[2018-12-16] MEDS: NUTRISOURCE FIBER 4 GM PACKET PO SCH ×2 (09:53→21:48)
[2018-12-16] MEDS: Z GUARD REMEDY PASTE 57 GM TUBE TP SCH ×2 (09:53→21:49)
[2018-12-16] MEDS: HYDROGEN PEROXIDE 3% 118 ML BOTTLE TP SCH ×2 (09:53→21:49)
[2018-12-16] MEDS: POTASSIUM CHLORIDE 40 MEQ/30 ML LIQUID UDC GT SCH (09:53)
[2018-12-16] MEDS: GLUCERNA 1.2 1000ML LIQUID GT SCH (11:52)
[2018-12-16] MEDS: GUAIFENESIN/DEXTROMETHORPHAN 5 ML UDC GT PRN ×2 (12:00→18:20)
[2018-12-16 20:46] VITALS: BP 124/80
[2018-12-16] MEDS: PROTEIN SUPPLEMENT (PROSTAT) 30 ML LIQUID GT SCH (21:48)
[2018-12-16] MEDS: DIGOXIN 125 MCG TABLET GT SCH (21:48)
[2018-12-16] MEDS: PHENOBARBITAL 97.2 MG TABLET GT SCH (21:48)
[2018-12-16] MEDS: MELATONIN 3 MG GT SCH (21:48)
[2018-12-16] MEDS: ENOXAPARIN SODIUM 40 MG/0.4 ML DISP.SYRIN SQ SCH (21:49)
[2018-12-17] MEDS: ALBUTEROL SULFATE 2.5 MG/3 ML NEBU NEB SCH ×4 (01:01→19:36)
[2018-12-17] MEDS: IPRATROPIUM BROMIDE 0.5 MG/2.5 ML NEBU NEB SCH ×4 (01:01→19:36)
[2018-12-17] MEDS: FERROUS SULFATE 330 MG/7.5 ML UDC- FOR SA ONLY GT SCH (06:14)
[2018-12-17] MEDS: FOLIC ACID 1 MG TABLET GT SCH (06:14)
[2018-12-17] MEDS: BENZTROPINE MESYLATE 0.5 MG TABLET GT SCH ×3 (06:14→22:35)
[2018-12-17] MEDS: PHENYTOIN 100 MG/4 ML UDC GT SCH ×2 (06:14→17:21)
[2018-12-17] MEDS: LORATADINE 10 MG TABLET GT SCH (06:14)
[2018-12-17] MEDS: OMEPRAZOLE 20 MG CAPSULE.DR GT SCH (06:15)
[2018-12-17] MEDS: CYANOCOBALAMIN 100 MCG TABLET GT SCH (06:15)
[2018-12-17] MEDS: LISINOPRIL 20 MG TABLET GT SCH ×2 (06:15→17:31)
[2018-12-17] MEDS: BLOOD SUGAR DIAGNOSTIC 1 EACH STRIP VI SCH ×3 (06:16→17:17)
[2018-12-17] MEDS: INSULIN NPH SQ SCH ×3 (06:18→22:40)
[2018-12-17] MEDS: SPIRONOLACTONE 25 MG TABLET GT SCH (08:09)
[2018-12-17] MEDS: ASPIRIN 81 MG TAB.CHEW GT SCH (08:09)
[2018-12-17] MEDS: LEVETIRACETAM 500 MG/5 ML LIQUID UDC GT SCH ×2 (08:12→20:51)
[2018-12-17] MEDS: METOPROLOL TARTRATE 100 MG TABLET GT SCH (08:13)
[2018-12-17 08:15] VITALS: BP 113/72
[2018-12-17] MEDS: PHENOBARBITAL 64.8 MG TABLET GT SCH (08:15)
[2018-12-17] MEDS: AMANTADINE 50MG/5ML GT SCH (08:15)
[2018-12-17] MEDS: VIMPAT 150 MG GT SCH ×2 (08:16→20:52)
[2018-12-17] MEDS: POTASSIUM CHLORIDE 40 MEQ/30 ML LIQUID UDC GT SCH (08:16)
[2018-12-17] MEDS: NUTRISOURCE FIBER 4 GM PACKET PO SCH ×2 (08:16→20:55)
[2018-12-17] MEDS: HYDROGEN PEROXIDE 3% 118 ML BOTTLE TP SCH ×2 (08:17→20:57)
[2018-12-17] MEDS: Z GUARD REMEDY PASTE 57 GM TUBE TP SCH ×2 (08:17→20:57)
[2018-12-17] MEDS: COD LIVER OIL/ZINC OXIDE OINT 113 GM TUBE TP SCH ×2 (08:17→20:57)
[2018-12-17] MEDS: INSULIN REGULAR, HUMAN 300 UNIT/3 ML VIAL SQ PRN ×2 (11:23→17:26)
[2018-12-17] MEDS: GLUCERNA 1.2 1000ML LIQUID GT SCH (12:05)
--- NOTE | 2018-12-17 15:34 | NUR ---
Seen by Dr. Nettles, orders carried out to obtain consent for skin biopsy removal of lesion on left cheek, hold jaguar on saturday12/23/18, spoke with Vanna (SJ), and agreed for procedure to be done.
[2018-12-17 19:56] VITALS: BP 116/75
[2018-12-17] MEDS: PHENOBARBITAL 97.2 MG TABLET GT SCH (20:52)
[2018-12-17] MEDS: MELATONIN 3 MG GT SCH (20:52)
[2018-12-17] MEDS: DIGOXIN 125 MCG TABLET GT SCH (20:52)
[2018-12-17] MEDS: PROTEIN SUPPLEMENT (PROSTAT) 30 ML LIQUID GT SCH (20:52)
[2018-12-17] MEDS: MULTIVIT, IRON, MIN NO. 8, FA TABLET GT SCH (20:53)
[2018-12-17] MEDS: ENOXAPARIN SODIUM 40 MG/0.4 ML DISP.SYRIN SQ SCH (20:56)
[2018-12-17] MEDS: GUAIFENESIN/DEXTROMETHORPHAN 5 ML UDC GT PRN (21:05)
[2018-12-18] MEDS: BLOOD SUGAR DIAGNOSTIC 1 EACH STRIP VI SCH ×4 (00:17→18:15)
[2018-12-18] MEDS: INSULIN REGULAR, HUMAN 300 UNIT/3 ML VIAL SQ PRN ×4 (00:20→18:16)
[2018-12-18] MEDS: IPRATROPIUM BROMIDE 0.5 MG/2.5 ML NEBU NEB SCH ×4 (01:14→19:35)
[2018-12-18] MEDS: ALBUTEROL SULFATE 2.5 MG/3 ML NEBU NEB SCH ×4 (01:15→19:35)
[2018-12-18] MEDS: FERROUS SULFATE 330 MG/7.5 ML UDC- FOR SA ONLY GT SCH (05:50)
[2018-12-18] MEDS: FOLIC ACID 1 MG TABLET GT SCH (05:50)
[2018-12-18] MEDS: PHENYTOIN 100 MG/4 ML UDC GT SCH ×2 (05:50→18:25)
[2018-12-18] MEDS: LORATADINE 10 MG TABLET GT SCH (05:50)
[2018-12-18] MEDS: OMEPRAZOLE 20 MG CAPSULE.DR GT SCH (05:50)
[2018-12-18] MEDS: BENZTROPINE MESYLATE 0.5 MG TABLET GT SCH ×3 (05:50→22:04)
[2018-12-18] MEDS: LISINOPRIL 20 MG TABLET GT SCH ×2 (05:51→18:13)
[2018-12-18] MEDS: CYANOCOBALAMIN 100 MCG TABLET GT SCH (05:51)
[2018-12-18] MEDS: INSULIN NPH SQ SCH ×3 (05:53→22:05)
[2018-12-18] MEDS: LEVETIRACETAM 500 MG/5 ML LIQUID UDC GT SCH ×2 (08:08→21:59)
[2018-12-18] MEDS: SPIRONOLACTONE 25 MG TABLET GT SCH (08:08)
[2018-12-18] MEDS: ASPIRIN 81 MG TAB.CHEW GT SCH (08:08)
[2018-12-18] MEDS: VIMPAT 150 MG GT SCH ×2 (08:10→21:59)
[2018-12-18] MEDS: METOPROLOL TARTRATE 100 MG TABLET GT SCH (08:10)
[2018-12-18] MEDS: PHENOBARBITAL 64.8 MG TABLET GT SCH (08:10)
[2018-12-18] MEDS: POTASSIUM CHLORIDE 40 MEQ/30 ML LIQUID UDC GT SCH (08:11)
[2018-12-18] MEDS: HYDROGEN PEROXIDE 3% 118 ML BOTTLE TP SCH ×2 (08:12→21:00)
[2018-12-18] MEDS: COD LIVER OIL/ZINC OXIDE OINT 113 GM TUBE TP SCH ×2 (08:12→21:00)
[2018-12-18] MEDS: Z GUARD REMEDY PASTE 57 GM TUBE TP SCH ×2 (08:12→21:00)
[2018-12-18] MEDS: NUTRISOURCE FIBER 4 GM PACKET PO SCH ×2 (08:12→21:59)
[2018-12-18] MEDS: AMANTADINE 50MG/5ML GT SCH (08:13)
[2018-12-18 08:20] VITALS: BP 130/67
[2018-12-18] MEDS: HYDROCODONE BIT/HOMATROPINE 5 ML UDC GT PRN (11:39)
[2018-12-18] MEDS: GLUCERNA 1.2 1000ML LIQUID GT SCH (11:56)
--- NOTE | 2018-12-18 12:00 | NUR ---
SEEN BY TIFFANIE MAURICIO.
[2018-12-18 20:12] VITALS: BP 127/72
[2018-12-18] MEDS: PROTEIN SUPPLEMENT (PROSTAT) 30 ML LIQUID GT SCH (21:59)
[2018-12-18] MEDS: DIGOXIN 125 MCG TABLET GT SCH (21:59)
[2018-12-18] MEDS: MELATONIN 3 MG GT SCH (21:59)
[2018-12-18] MEDS: PHENOBARBITAL 97.2 MG TABLET GT SCH (21:59)
[2018-12-18] MEDS: ENOXAPARIN SODIUM 40 MG/0.4 ML DISP.SYRIN SQ SCH (22:00)
[2018-12-19] MEDS: BLOOD SUGAR DIAGNOSTIC 1 EACH STRIP VI SCH ×4 (00:24→17:12)
[2018-12-19] MEDS: INSULIN REGULAR, HUMAN 300 UNIT/3 ML VIAL SQ PRN ×4 (00:27→17:14)
[2018-12-19] MEDS: IPRATROPIUM BROMIDE 0.5 MG/2.5 ML NEBU NEB SCH ×4 (01:45→19:10)
[2018-12-19] MEDS: ALBUTEROL SULFATE 2.5 MG/3 ML NEBU NEB SCH ×4 (01:45→19:10)
[2018-12-19] MEDS: BENZTROPINE MESYLATE 0.5 MG TABLET GT SCH ×3 (05:41→21:31)
[2018-12-19] MEDS: LORATADINE 10 MG TABLET GT SCH (05:41)
[2018-12-19] MEDS: FOLIC ACID 1 MG TABLET GT SCH (05:41)
[2018-12-19] MEDS: CYANOCOBALAMIN 100 MCG TABLET GT SCH (05:41)
[2018-12-19] MEDS: FERROUS SULFATE 330 MG/7.5 ML UDC- FOR SA ONLY GT SCH (05:41)
[2018-12-19] MEDS: OMEPRAZOLE 20 MG CAPSULE.DR GT SCH (05:41)
[2018-12-19] MEDS: PHENYTOIN 100 MG/4 ML UDC GT SCH ×2 (05:41→17:11)
[2018-12-19] MEDS: LISINOPRIL 20 MG TABLET GT SCH ×2 (05:41→17:10)
[2018-12-19] MEDS: INSULIN NPH SQ SCH ×2 (05:43→21:46)
[2018-12-19 08:08] VITALS: BP 116/74
[2018-12-19] MEDS: SPIRONOLACTONE 25 MG TABLET GT SCH (08:33)
[2018-12-19] MEDS: LEVETIRACETAM 500 MG/5 ML LIQUID UDC GT SCH ×2 (08:34→21:28)
[2018-12-19] MEDS: ASPIRIN 81 MG TAB.CHEW GT SCH (08:34)
[2018-12-19] MEDS: PHENOBARBITAL 64.8 MG TABLET GT SCH (08:37)
[2018-12-19] MEDS: VIMPAT 150 MG GT SCH ×2 (08:37→21:29)
[2018-12-19] MEDS: AMANTADINE 50MG/5ML GT SCH (08:37)
[2018-12-19] MEDS: METOPROLOL TARTRATE 100 MG TABLET GT SCH (08:37)
[2018-12-19] MEDS: POTASSIUM CHLORIDE 40 MEQ/30 ML LIQUID UDC GT SCH (08:37)
[2018-12-19] MEDS: Z GUARD REMEDY PASTE 57 GM TUBE TP SCH ×2 (08:38→21:31)
[2018-12-19] MEDS: NUTRISOURCE FIBER 4 GM PACKET PO SCH ×2 (08:38→21:29)
[2018-12-19] MEDS: COD LIVER OIL/ZINC OXIDE OINT 113 GM TUBE TP SCH ×2 (08:38→21:31)
[2018-12-19] MEDS: HYDROGEN PEROXIDE 3% 118 ML BOTTLE TP SCH ×2 (08:38→21:31)
[2018-12-19] MEDS: GLUCERNA 1.2 1000ML LIQUID GT SCH (08:47)
--- NOTE | 2018-12-19 11:25 | NUR ---
MESSAGE WAS LEFT RE:CLARIFICATION OF ORDER OF LANTUS INSULIN D/T PT. IS ON NPH.
--- NOTE | 2018-12-19 13:00 | NUR ---
DR. STROUD WAS CALLED AND WITH NEW ORDER CARRIED OUT.
--- NOTE | 2018-12-19 13:38 | NUR ---
MESSAGE WAS LEFT TO DR. LIBORIO NESS AGAIN RE LANTUS INSULIN ORDER D/T HE IS ON NPH INSULIN.
--- NOTE | 2018-12-19 18:30 | NUR ---
DR. STROUD CALLED AND WITH NEW ORDER TO D/C LANTUS INSULIN AND TO INCREASE NPH INSULIN Q 8 HRS,ORDER CARRIED OUT.
[2018-12-19] MEDS ORDERED: INSULIN GLARGINE,HUM 300 UNITS/3 ML CARTRIDGE SQ SCH (21:00)
[2018-12-19] MEDS: MELATONIN 3 MG GT SCH (21:28)
[2018-12-19] MEDS: MULTIVIT, IRON, MIN NO. 8, FA TABLET GT SCH (21:29)
[2018-12-19] MEDS: PHENOBARBITAL 97.2 MG TABLET GT SCH (21:29)
[2018-12-19] MEDS: PROTEIN SUPPLEMENT (PROSTAT) 30 ML LIQUID GT SCH (21:29)
[2018-12-19] MEDS: DIGOXIN 125 MCG TABLET GT SCH (21:29)
[2018-12-19] MEDS: ENOXAPARIN SODIUM 40 MG/0.4 ML DISP.SYRIN SQ SCH (21:30)
[2018-12-19 22:57] VITALS: BP 119/65
[2018-12-20] MEDS: IPRATROPIUM BROMIDE 0.5 MG/2.5 ML NEBU NEB SCH ×4 (00:43→19:19)
[2018-12-20] MEDS: ALBUTEROL SULFATE 2.5 MG/3 ML NEBU NEB SCH ×4 (00:44→19:19)
[2018-12-20] MEDS: BLOOD SUGAR DIAGNOSTIC 1 EACH STRIP VI SCH ×4 (00:53→17:58)
[2018-12-20] MEDS: INSULIN REGULAR, HUMAN 300 UNIT/3 ML VIAL SQ PRN ×4 (00:54→18:00)
[2018-12-20] MEDS: FOLIC ACID 1 MG TABLET GT SCH (05:07)
[2018-12-20] MEDS: OMEPRAZOLE 20 MG CAPSULE.DR GT SCH (05:07)
[2018-12-20] MEDS: FERROUS SULFATE 330 MG/7.5 ML UDC- FOR SA ONLY GT SCH (05:07)
[2018-12-20] MEDS: BENZTROPINE MESYLATE 0.5 MG TABLET GT SCH ×3 (05:07→21:03)
[2018-12-20] MEDS: PHENYTOIN 100 MG/4 ML UDC GT SCH ×2 (05:07→17:55)
[2018-12-20] MEDS: LORATADINE 10 MG TABLET GT SCH (05:07)
[2018-12-20] MEDS: LISINOPRIL 20 MG TABLET GT SCH ×2 (05:08→17:56)
[2018-12-20] MEDS: CYANOCOBALAMIN 100 MCG TABLET GT SCH (05:08)
[2018-12-20] MEDS: INSULIN NPH SQ SCH ×3 (05:09→21:08)
[2018-12-20] MEDS: SPIRONOLACTONE 25 MG TABLET GT SCH (08:19)
[2018-12-20] MEDS: ASPIRIN 81 MG TAB.CHEW GT SCH (08:19)
[2018-12-20] MEDS: LEVETIRACETAM 500 MG/5 ML LIQUID UDC GT SCH ×2 (08:20→21:02)
[2018-12-20] MEDS: PHENOBARBITAL 64.8 MG TABLET GT SCH (08:21)
[2018-12-20] MEDS: METOPROLOL TARTRATE 100 MG TABLET GT SCH (08:21)
[2018-12-20] MEDS: VIMPAT 150 MG GT SCH ×2 (08:21→21:03)
[2018-12-20] MEDS: AMANTADINE 50MG/5ML GT SCH (08:21)
[2018-12-20] MEDS: POTASSIUM CHLORIDE 40 MEQ/30 ML LIQUID UDC GT SCH (08:21)
[2018-12-20] MEDS: HYDROGEN PEROXIDE 3% 118 ML BOTTLE TP SCH ×2 (08:22→21:03)
[2018-12-20] MEDS: NUTRISOURCE FIBER 4 GM PACKET PO SCH ×2 (08:22→21:03)
[2018-12-20] MEDS: COD LIVER OIL/ZINC OXIDE OINT 113 GM TUBE TP SCH ×2 (08:22→21:03)
[2018-12-20] MEDS: Z GUARD REMEDY PASTE 57 GM TUBE TP SCH ×2 (08:22→21:03)
[2018-12-20] MEDS: GLUCERNA 1.2 1000ML LIQUID GT SCH (12:43)
[2018-12-20] MEDS: MELATONIN 3 MG GT SCH (21:02)
[2018-12-20] MEDS: DIGOXIN 125 MCG TABLET GT SCH (21:02)
[2018-12-20] MEDS: PHENOBARBITAL 97.2 MG TABLET GT SCH (21:03)
[2018-12-20] MEDS: PROTEIN SUPPLEMENT (PROSTAT) 30 ML LIQUID GT SCH (21:03)
[2018-12-20] MEDS: ENOXAPARIN SODIUM 40 MG/0.4 ML DISP.SYRIN SQ SCH (21:10)
[2018-12-20 22:35] VITALS: BP 131/79
[2018-12-21] MEDS: ALBUTEROL SULFATE 2.5 MG/3 ML NEBU NEB SCH ×4 (01:08→19:23)
[2018-12-21] MEDS: IPRATROPIUM BROMIDE 0.5 MG/2.5 ML NEBU NEB SCH ×4 (01:08→19:23)
[2018-12-21] MEDS: INSULIN REGULAR, HUMAN 300 UNIT/3 ML VIAL SQ PRN ×4 (01:36→17:54)
[2018-12-21] MEDS: FOLIC ACID 1 MG TABLET GT SCH (05:02)
[2018-12-21] MEDS: OMEPRAZOLE 20 MG CAPSULE.DR GT SCH (05:02)
[2018-12-21] MEDS: BENZTROPINE MESYLATE 0.5 MG TABLET GT SCH ×3 (05:02→22:17)
[2018-12-21] MEDS: PHENYTOIN 100 MG/4 ML UDC GT SCH ×2 (05:02→18:00)
[2018-12-21] MEDS: LORATADINE 10 MG TABLET GT SCH (05:02)
[2018-12-21] MEDS: FERROUS SULFATE 330 MG/7.5 ML UDC- FOR SA ONLY GT SCH (05:02)
[2018-12-21] MEDS: BLOOD SUGAR DIAGNOSTIC 1 EACH STRIP VI SCH ×4 (05:03→17:52)
[2018-12-21] MEDS: LISINOPRIL 20 MG TABLET GT SCH ×2 (05:03→18:00)
[2018-12-21] MEDS: CYANOCOBALAMIN 100 MCG TABLET GT SCH (05:03)
[2018-12-21] MEDS: INSULIN NPH SQ SCH ×3 (05:04→22:26)
[2018-12-21 08:12] VITALS: BP 144/84
[2018-12-21] MEDS: ASPIRIN 81 MG TAB.CHEW GT SCH (09:14)
[2018-12-21] MEDS: SPIRONOLACTONE 25 MG TABLET GT SCH (09:14)
[2018-12-21] MEDS: LEVETIRACETAM 500 MG/5 ML LIQUID UDC GT SCH ×2 (09:15→21:00)
[2018-12-21] MEDS: COD LIVER OIL/ZINC OXIDE OINT 113 GM TUBE TP SCH ×2 (09:16→21:00)
[2018-12-21] MEDS: HYDROGEN PEROXIDE 3% 118 ML BOTTLE TP SCH ×2 (09:16→21:00)
[2018-12-21] MEDS: POTASSIUM CHLORIDE 40 MEQ/30 ML LIQUID UDC GT SCH (09:16)
[2018-12-21] MEDS: METOPROLOL TARTRATE 100 MG TABLET GT SCH (09:16)
[2018-12-21] MEDS: Z GUARD REMEDY PASTE 57 GM TUBE TP SCH ×2 (09:16→21:00)
[2018-12-21] MEDS: NUTRISOURCE FIBER 4 GM PACKET PO SCH ×2 (09:16→21:00)
[2018-12-21] MEDS: AMANTADINE 50MG/5ML GT SCH (09:16)
[2018-12-21] MEDS: VIMPAT 150 MG GT SCH ×2 (09:16→21:00)
[2018-12-21] MEDS: PHENOBARBITAL 64.8 MG TABLET GT SCH (09:16)
[2018-12-21] MEDS: GUAIFENESIN/DEXTROMETHORPHAN 5 ML UDC GT PRN (09:23)
[2018-12-21] MEDS: GLUCERNA 1.2 1000ML LIQUID GT SCH (18:01)
[2018-12-21] MEDS: DIGOXIN 125 MCG TABLET GT SCH (21:00)
[2018-12-21] MEDS: PHENOBARBITAL 97.2 MG TABLET GT SCH (21:00)
[2018-12-21] MEDS: ENOXAPARIN SODIUM 40 MG/0.4 ML DISP.SYRIN SQ SCH (21:00)
[2018-12-21] MEDS: MELATONIN 3 MG GT SCH (21:00)
[2018-12-21] MEDS: PROTEIN SUPPLEMENT (PROSTAT) 30 ML LIQUID GT SCH (21:00)
[2018-12-21] MEDS: MULTIVIT, IRON, MIN NO. 8, FA TABLET GT SCH (21:00)
[2018-12-21 22:00] VITALS: BP 146/87
[2018-12-21 22:03] VITALS: BP 157/88
[2018-12-22] MEDS: BLOOD SUGAR DIAGNOSTIC 1 EACH STRIP VI SCH ×4 (00:45→18:49)
[2018-12-22] MEDS: INSULIN REGULAR, HUMAN 300 UNIT/3 ML VIAL SQ PRN ×4 (01:02→18:50)
[2018-12-22] MEDS: IPRATROPIUM BROMIDE 0.5 MG/2.5 ML NEBU NEB SCH ×4 (01:07→19:28)
[2018-12-22] MEDS: ALBUTEROL SULFATE 2.5 MG/3 ML NEBU NEB SCH ×4 (01:07→19:28)
[2018-12-22 02:20] VITALS: BP 146/87
[2018-12-22 05:06] VITALS: BP 105/74
[2018-12-22] MEDS: INSULIN NPH SQ SCH ×3 (05:45→22:23)
[2018-12-22] MEDS: FOLIC ACID 1 MG TABLET GT SCH (05:49)
[2018-12-22] MEDS: OMEPRAZOLE 20 MG CAPSULE.DR GT SCH (05:49)
[2018-12-22] MEDS: BENZTROPINE MESYLATE 0.5 MG TABLET GT SCH ×3 (05:49→21:32)
[2018-12-22] MEDS: FERROUS SULFATE 330 MG/7.5 ML UDC- FOR SA ONLY GT SCH (05:49)
[2018-12-22] MEDS: PHENYTOIN 100 MG/4 ML UDC GT SCH ×2 (05:49→18:46)
[2018-12-22] MEDS: LORATADINE 10 MG TABLET GT SCH (05:49)
[2018-12-22] MEDS: CYANOCOBALAMIN 100 MCG TABLET GT SCH (05:50)
[2018-12-22] MEDS: LISINOPRIL 20 MG TABLET GT SCH ×2 (05:50→18:46)
[2018-12-22] MEDS: GLUCERNA 1.2 1000ML LIQUID GT SCH (07:07)
[2018-12-22] MEDS: ASPIRIN 81 MG TAB.CHEW GT SCH (08:00)
[2018-12-22] MEDS: SPIRONOLACTONE 25 MG TABLET GT SCH (08:00)
[2018-12-22] MEDS: LEVETIRACETAM 500 MG/5 ML LIQUID UDC GT SCH ×2 (08:00→21:31)
[2018-12-22] MEDS: AMANTADINE 50MG/5ML GT SCH (08:01)
[2018-12-22] MEDS: PHENOBARBITAL 64.8 MG TABLET GT SCH (08:01)
[2018-12-22] MEDS: POTASSIUM CHLORIDE 40 MEQ/30 ML LIQUID UDC GT SCH (08:02)
[2018-12-22] MEDS: NUTRISOURCE FIBER 4 GM PACKET PO SCH ×2 (08:02→21:31)
[2018-12-22] MEDS: COD LIVER OIL/ZINC OXIDE OINT 113 GM TUBE TP SCH ×2 (08:02→21:32)
[2018-12-22] MEDS: Z GUARD REMEDY PASTE 57 GM TUBE TP SCH ×2 (08:02→21:32)
[2018-12-22] MEDS: VIMPAT 150 MG GT SCH ×2 (08:02→21:31)
[2018-12-22] MEDS: HYDROGEN PEROXIDE 3% 118 ML BOTTLE TP SCH ×2 (08:02→21:32)
[2018-12-22 08:11] VITALS: BP 188/98
[2018-12-22] MEDS: METOPROLOL TARTRATE 100 MG TABLET GT SCH (09:00)
[2018-12-22] MEDS: GUAIFENESIN/DEXTROMETHORPHAN 5 ML UDC GT PRN (11:27)
--- NOTE | 2018-12-22 12:00 | NUR ---
SEEN BY TIFFANIE SMITH AND LUANNE GRAHAM AND HANG.
[2018-12-22] MEDS: HYDROCODONE BIT/HOMATROPINE 5 ML UDC GT PRN (12:12)
--- NOTE | 2018-12-22 17:26 | NUR ---
PER DR. GELLER ASPIRIN NOT NEEDED TO BE ON HOLD.
[2018-12-22 20:00] VITALS: BP 145/86
[2018-12-22] MEDS: ENOXAPARIN SODIUM 40 MG/0.4 ML DISP.SYRIN SQ SCH (21:00)
[2018-12-22] MEDS: MELATONIN 3 MG GT SCH (21:31)
[2018-12-22] MEDS: PROTEIN SUPPLEMENT (PROSTAT) 30 ML LIQUID GT SCH (21:31)
[2018-12-22] MEDS: DIGOXIN 125 MCG TABLET GT SCH (21:31)
[2018-12-22] MEDS: PHENOBARBITAL 97.2 MG TABLET GT SCH (21:31)
[2018-12-23] MEDS: BLOOD SUGAR DIAGNOSTIC 1 EACH STRIP VI SCH ×4 (00:24→18:25)
[2018-12-23] MEDS: INSULIN REGULAR, HUMAN 300 UNIT/3 ML VIAL SQ PRN ×4 (00:36→17:37)
[2018-12-23] MEDS: IPRATROPIUM BROMIDE 0.5 MG/2.5 ML NEBU NEB SCH ×4 (01:38→19:56)
[2018-12-23] MEDS: ALBUTEROL SULFATE 2.5 MG/3 ML NEBU NEB SCH ×4 (01:38→19:56)
[2018-12-23] MEDS: BENZTROPINE MESYLATE 0.5 MG TABLET GT SCH ×3 (05:44→21:27)
[2018-12-23] MEDS: OMEPRAZOLE 20 MG CAPSULE.DR GT SCH (05:44)
[2018-12-23] MEDS: LORATADINE 10 MG TABLET GT SCH (05:44)
[2018-12-23] MEDS: FERROUS SULFATE 330 MG/7.5 ML UDC- FOR SA ONLY GT SCH (05:44)
[2018-12-23] MEDS: PHENYTOIN 100 MG/4 ML UDC GT SCH ×2 (05:44→17:31)
[2018-12-23] MEDS: FOLIC ACID 1 MG TABLET GT SCH (05:44)
[2018-12-23] MEDS: LISINOPRIL 20 MG TABLET GT SCH ×2 (05:45→17:32)
[2018-12-23] MEDS: CYANOCOBALAMIN 100 MCG TABLET GT SCH (05:45)
[2018-12-23] MEDS: INSULIN NPH SQ SCH ×3 (06:55→22:00)
[2018-12-23] MEDS: GLUCERNA 1.2 1000ML LIQUID GT SCH (07:10)
[2018-12-23 08:10] VITALS: BP 124/78
[2018-12-23] MEDS: LEVETIRACETAM 500 MG/5 ML LIQUID UDC GT SCH ×2 (08:17→21:24)
[2018-12-23] MEDS: SPIRONOLACTONE 25 MG TABLET GT SCH (08:17)
[2018-12-23] MEDS: ASPIRIN 81 MG TAB.CHEW GT SCH (08:17)
[2018-12-23] MEDS: PHENOBARBITAL 64.8 MG TABLET GT SCH (08:23)
[2018-12-23] MEDS: AMANTADINE 50MG/5ML GT SCH (08:23)
[2018-12-23] MEDS: Z GUARD REMEDY PASTE 57 GM TUBE TP SCH ×2 (08:24→21:27)
[2018-12-23] MEDS: POTASSIUM CHLORIDE 40 MEQ/30 ML LIQUID UDC GT SCH (08:24)
[2018-12-23] MEDS: VIMPAT 150 MG GT SCH ×2 (08:24→21:26)
[2018-12-23] MEDS: HYDROGEN PEROXIDE 3% 118 ML BOTTLE TP SCH ×2 (08:24→21:27)
[2018-12-23] MEDS: COD LIVER OIL/ZINC OXIDE OINT 113 GM TUBE TP SCH ×2 (08:24→21:27)
[2018-12-23] MEDS: NUTRISOURCE FIBER 4 GM PACKET PO SCH ×2 (08:24→21:27)
[2018-12-23] MEDS: METOPROLOL TARTRATE 100 MG TABLET GT SCH (08:25)
--- NOTE | 2018-12-23 19:00 | NUR ---
SEEN BY DR. MARAH MAURICIO.
[2018-12-23 20:20] VITALS: BP 114/90
[2018-12-23] MEDS: DIGOXIN 125 MCG TABLET GT SCH (21:25)
[2018-12-23] MEDS: MELATONIN 3 MG GT SCH (21:25)
[2018-12-23] MEDS: PROTEIN SUPPLEMENT (PROSTAT) 30 ML LIQUID GT SCH (21:27)
[2018-12-23] MEDS: PHENOBARBITAL 97.2 MG TABLET GT SCH (21:27)
[2018-12-23] MEDS: MULTIVIT, IRON, MIN NO. 8, FA TABLET GT SCH (21:27)
[2018-12-24] MEDS: BLOOD SUGAR DIAGNOSTIC 1 EACH STRIP VI SCH ×5 (00:19→23:10)
[2018-12-24] MEDS: INSULIN REGULAR, HUMAN 300 UNIT/3 ML VIAL SQ PRN ×5 (00:20→23:13)
[2018-12-24] MEDS: IPRATROPIUM BROMIDE 0.5 MG/2.5 ML NEBU NEB SCH ×4 (01:20→18:47)
[2018-12-24] MEDS: ALBUTEROL SULFATE 2.5 MG/3 ML NEBU NEB SCH ×4 (01:20→18:47)
[2018-12-24] MEDS: CYANOCOBALAMIN 100 MCG TABLET GT SCH (06:12)
[2018-12-24] MEDS: OMEPRAZOLE 20 MG CAPSULE.DR GT SCH (06:12)
[2018-12-24] MEDS: BENZTROPINE MESYLATE 0.5 MG TABLET GT SCH ×3 (06:12→21:18)
[2018-12-24] MEDS: LISINOPRIL 20 MG TABLET GT SCH ×2 (06:12→18:14)
[2018-12-24] MEDS: FOLIC ACID 1 MG TABLET GT SCH (06:12)
[2018-12-24] MEDS: FERROUS SULFATE 330 MG/7.5 ML UDC- FOR SA ONLY GT SCH (06:12)
[2018-12-24] MEDS: PHENYTOIN 100 MG/4 ML UDC GT SCH ×2 (06:12→18:14)
[2018-12-24] MEDS: LORATADINE 10 MG TABLET GT SCH (06:12)
[2018-12-24] MEDS: INSULIN NPH SQ SCH ×3 (06:13→21:24)
[2018-12-24 08:00] VITALS: BP 112/67
[2018-12-24] MEDS: METOPROLOL TARTRATE 100 MG TABLET GT SCH (09:00)
[2018-12-24] MEDS: SPIRONOLACTONE 25 MG TABLET GT SCH (09:00)
[2018-12-24] MEDS: ASPIRIN 81 MG TAB.CHEW GT SCH (09:01)
[2018-12-24] MEDS: LEVETIRACETAM 500 MG/5 ML LIQUID UDC GT SCH ×2 (09:01→21:12)
[2018-12-24] MEDS: PHENOBARBITAL 64.8 MG TABLET GT SCH (09:04)
[2018-12-24] MEDS: AMANTADINE 50MG/5ML GT SCH (09:05)
[2018-12-24] MEDS: VIMPAT 150 MG GT SCH ×2 (09:06→21:12)
[2018-12-24] MEDS: NUTRISOURCE FIBER 4 GM PACKET PO SCH ×2 (09:07→21:13)
[2018-12-24] MEDS: HYDROGEN PEROXIDE 3% 118 ML BOTTLE TP SCH ×2 (09:07→21:18)
[2018-12-24] MEDS: Z GUARD REMEDY PASTE 57 GM TUBE TP SCH ×2 (09:07→21:18)
[2018-12-24] MEDS: POTASSIUM CHLORIDE 40 MEQ/30 ML LIQUID UDC GT SCH (09:07)
[2018-12-24] MEDS: COD LIVER OIL/ZINC OXIDE OINT 113 GM TUBE TP SCH ×2 (09:07→21:17)
[2018-12-24 20:00] VITALS: BP 144/83
[2018-12-24] MEDS: DIGOXIN 125 MCG TABLET GT SCH (21:12)
[2018-12-24] MEDS: MELATONIN 3 MG GT SCH (21:12)
[2018-12-24] MEDS: ENOXAPARIN SODIUM 40 MG/0.4 ML DISP.SYRIN SQ SCH (21:13)
[2018-12-24] MEDS: PHENOBARBITAL 97.2 MG TABLET GT SCH (21:13)
[2018-12-24] MEDS: PROTEIN SUPPLEMENT (PROSTAT) 30 ML LIQUID GT SCH (21:13)
[2018-12-25] MEDS: IPRATROPIUM BROMIDE 0.5 MG/2.5 ML NEBU NEB SCH ×4 (01:01→19:59)
[2018-12-25] MEDS: ALBUTEROL SULFATE 2.5 MG/3 ML NEBU NEB SCH ×4 (01:01→19:59)
[2018-12-25] MEDS: GLUCERNA 1.2 1000ML LIQUID GT SCH (01:05)
[2018-12-25] MEDS: HYDROCODONE BIT/HOMATROPINE 5 ML UDC GT PRN ×2 (02:00→14:16)
[2018-12-25] MEDS: LORATADINE 10 MG TABLET GT SCH (05:11)
[2018-12-25] MEDS: PHENYTOIN 100 MG/4 ML UDC GT SCH ×2 (05:11→17:02)
[2018-12-25] MEDS: BENZTROPINE MESYLATE 0.5 MG TABLET GT SCH ×3 (05:11→21:04)
[2018-12-25] MEDS: FERROUS SULFATE 330 MG/7.5 ML UDC- FOR SA ONLY GT SCH (05:11)
[2018-12-25] MEDS: FOLIC ACID 1 MG TABLET GT SCH (05:11)
[2018-12-25] MEDS: OMEPRAZOLE 20 MG CAPSULE.DR GT SCH (05:11)
[2018-12-25] MEDS: LISINOPRIL 20 MG TABLET GT SCH ×2 (05:12→17:02)
[2018-12-25] MEDS: CYANOCOBALAMIN 100 MCG TABLET GT SCH (05:12)
[2018-12-25] MEDS: BLOOD SUGAR DIAGNOSTIC 1 EACH STRIP VI SCH ×3 (05:14→17:03)
[2018-12-25] MEDS: INSULIN NPH SQ SCH ×3 (05:14→21:05)
[2018-12-25] MEDS: INSULIN REGULAR, HUMAN 300 UNIT/3 ML VIAL SQ PRN ×3 (05:15→17:02)
[2018-12-25 08:00] VITALS: BP 130/67
[2018-12-25] MEDS: COD LIVER OIL/ZINC OXIDE OINT 113 GM TUBE TP SCH ×2 (08:55→21:04)
[2018-12-25] MEDS: POTASSIUM CHLORIDE 40 MEQ/30 ML LIQUID UDC GT SCH (08:55)
[2018-12-25] MEDS: Z GUARD REMEDY PASTE 57 GM TUBE TP SCH ×2 (08:55→21:04)
[2018-12-25] MEDS: METOPROLOL TARTRATE 100 MG TABLET GT SCH (08:55)
[2018-12-25] MEDS: VIMPAT 150 MG GT SCH ×2 (08:55→21:03)
[2018-12-25] MEDS: AMANTADINE 50MG/5ML GT SCH (08:55)
[2018-12-25] MEDS: LEVETIRACETAM 500 MG/5 ML LIQUID UDC GT SCH ×2 (08:55→21:00)
[2018-12-25] MEDS: ASPIRIN 81 MG TAB.CHEW GT SCH (08:55)
[2018-12-25] MEDS: PHENOBARBITAL 64.8 MG TABLET GT SCH (08:55)
[2018-12-25] MEDS: NUTRISOURCE FIBER 4 GM PACKET PO SCH ×2 (08:55→21:03)
[2018-12-25] MEDS: SPIRONOLACTONE 25 MG TABLET GT SCH (08:55)
[2018-12-25] MEDS: NEOMY/BACITRAC/POLYMI OINT 28.35 GM TUBE TP SCH ×2 (08:55→16:46)
[2018-12-25] MEDS: HYDROGEN PEROXIDE 3% 118 ML BOTTLE TP SCH ×2 (08:55→21:04)
--- NOTE | 2018-12-25 11:36 | NUR ---
KD informed patient's filuciana/SJ Vanna via email that the next IDT meeting for the patient has been scheduled for 12/30/18 at 11am.
--- NOTE | 2018-12-25 14:06 | NUR ---
Patient's dick Prabhakar responded back to this SW via email stating that she will be attending the IDT meeting on 12/30/18.
[2018-12-25 20:22] VITALS: BP 121/75
[2018-12-25] MEDS: DIGOXIN 125 MCG TABLET GT SCH (21:02)
[2018-12-25] MEDS: MELATONIN 3 MG GT SCH (21:02)
[2018-12-25] MEDS: PROTEIN SUPPLEMENT (PROSTAT) 30 ML LIQUID GT SCH (21:03)
[2018-12-25] MEDS: MULTIVIT, IRON, MIN NO. 8, FA TABLET GT SCH (21:03)
[2018-12-25] MEDS: PHENOBARBITAL 97.2 MG TABLET GT SCH (21:03)
[2018-12-25] MEDS: ENOXAPARIN SODIUM 40 MG/0.4 ML DISP.SYRIN SQ SCH (21:04)
[2018-12-26] MEDS: BLOOD SUGAR DIAGNOSTIC 1 EACH STRIP VI SCH ×5 (00:08→23:40)
[2018-12-26] MEDS: INSULIN REGULAR, HUMAN 300 UNIT/3 ML VIAL SQ PRN ×4 (00:10→17:33)
[2018-12-26] MEDS: ALBUTEROL SULFATE 2.5 MG/3 ML NEBU NEB SCH ×4 (01:18→20:09)
[2018-12-26] MEDS: IPRATROPIUM BROMIDE 0.5 MG/2.5 ML NEBU NEB SCH ×4 (01:18→20:09)
[2018-12-26] MEDS: GUAIFENESIN/DEXTROMETHORPHAN 5 ML UDC GT PRN (05:00)
[2018-12-26] MEDS: PHENYTOIN 100 MG/4 ML UDC GT SCH ×2 (05:30→17:35)
[2018-12-26] MEDS: BENZTROPINE MESYLATE 0.5 MG TABLET GT SCH ×3 (05:30→21:50)
[2018-12-26] MEDS: LORATADINE 10 MG TABLET GT SCH (05:30)
[2018-12-26] MEDS: FERROUS SULFATE 330 MG/7.5 ML UDC- FOR SA ONLY GT SCH (05:31)
[2018-12-26] MEDS: OMEPRAZOLE 20 MG CAPSULE.DR GT SCH (05:32)
[2018-12-26] MEDS: CYANOCOBALAMIN 100 MCG TABLET GT SCH (05:32)
[2018-12-26] MEDS: FOLIC ACID 1 MG TABLET GT SCH (05:32)
[2018-12-26] MEDS: LISINOPRIL 20 MG TABLET GT SCH ×2 (05:35→17:35)
[2018-12-26] MEDS: INSULIN NPH SQ SCH ×3 (05:52→21:51)
[2018-12-26 08:05] VITALS: BP 120/82
[2018-12-26] MEDS: ASPIRIN 81 MG TAB.CHEW GT SCH (08:50)
[2018-12-26] MEDS: SPIRONOLACTONE 25 MG TABLET GT SCH (08:50)
[2018-12-26] MEDS: LEVETIRACETAM 500 MG/5 ML LIQUID UDC GT SCH ×2 (08:50→21:45)
[2018-12-26] MEDS: METOPROLOL TARTRATE 100 MG TABLET GT SCH (08:52)
[2018-12-26] MEDS: AMANTADINE 50MG/5ML GT SCH (08:52)
[2018-12-26] MEDS: VIMPAT 150 MG GT SCH ×2 (08:52→21:45)
[2018-12-26] MEDS: PHENOBARBITAL 64.8 MG TABLET GT SCH (08:52)
[2018-12-26] MEDS: POTASSIUM CHLORIDE 40 MEQ/30 ML LIQUID UDC GT SCH (08:53)
[2018-12-26] MEDS: COD LIVER OIL/ZINC OXIDE OINT 113 GM TUBE TP SCH ×2 (08:54→21:45)
[2018-12-26] MEDS: HYDROGEN PEROXIDE 3% 118 ML BOTTLE TP SCH ×2 (08:54→21:46)
[2018-12-26] MEDS: NEOMY/BACITRAC/POLYMI OINT 28.35 GM TUBE TP SCH ×2 (08:54→16:59)
[2018-12-26] MEDS: NUTRISOURCE FIBER 4 GM PACKET PO SCH ×2 (08:54→21:45)
[2018-12-26] MEDS: Z GUARD REMEDY PASTE 57 GM TUBE TP SCH ×2 (08:54→21:46)
--- NOTE | 2018-12-26 13:24 | NUR ---
PT OFF UNIT AT THIS TIME. OUT ON PATIO WITH FAMILY MEMBER
[2018-12-26 20:29] VITALS: BP 110/65
[2018-12-26] MEDS: PHENOBARBITAL 97.2 MG TABLET GT SCH (21:45)
[2018-12-26] MEDS: PROTEIN SUPPLEMENT (PROSTAT) 30 ML LIQUID GT SCH (21:45)
[2018-12-26] MEDS: DIGOXIN 125 MCG TABLET GT SCH (21:45)
[2018-12-26] MEDS: MELATONIN 3 MG GT SCH (21:45)
[2018-12-26] MEDS: ENOXAPARIN SODIUM 40 MG/0.4 ML DISP.SYRIN SQ SCH (21:47)
[2018-12-27] MEDS: ALBUTEROL SULFATE 2.5 MG/3 ML NEBU NEB SCH ×4 (01:20→19:49)
[2018-12-27] MEDS: IPRATROPIUM BROMIDE 0.5 MG/2.5 ML NEBU NEB SCH ×4 (01:20→19:49)
[2018-12-27] MEDS: LORATADINE 10 MG TABLET GT SCH (05:32)
[2018-12-27] MEDS: PHENYTOIN 100 MG/4 ML UDC GT SCH ×2 (05:32→17:36)
[2018-12-27] MEDS: FOLIC ACID 1 MG TABLET GT SCH (05:32)
[2018-12-27] MEDS: OMEPRAZOLE 20 MG CAPSULE.DR GT SCH (05:32)
[2018-12-27] MEDS: FERROUS SULFATE 330 MG/7.5 ML UDC- FOR SA ONLY GT SCH (05:32)
[2018-12-27] MEDS: BENZTROPINE MESYLATE 0.5 MG TABLET GT SCH ×3 (05:32→21:19)
[2018-12-27] MEDS: BLOOD SUGAR DIAGNOSTIC 1 EACH STRIP VI SCH ×3 (05:33→17:37)
[2018-12-27] MEDS: LISINOPRIL 20 MG TABLET GT SCH ×2 (05:33→17:37)
[2018-12-27] MEDS: CYANOCOBALAMIN 100 MCG TABLET GT SCH (05:33)
[2018-12-27] MEDS: INSULIN NPH SQ SCH ×3 (05:45→22:14)
[2018-12-27] MEDS: INSULIN REGULAR, HUMAN 300 UNIT/3 ML VIAL SQ PRN ×4 (05:47→17:41)
[2018-12-27 08:05] VITALS: BP 167/87
[2018-12-27] MEDS: PHENOBARBITAL 64.8 MG TABLET GT SCH (09:00)
[2018-12-27] MEDS: VIMPAT 150 MG GT SCH ×2 (09:00→21:19)
[2018-12-27] MEDS: NUTRISOURCE FIBER 4 GM PACKET PO SCH ×2 (09:05→21:19)
[2018-12-27] MEDS: POTASSIUM CHLORIDE 40 MEQ/30 ML LIQUID UDC GT SCH (09:05)
[2018-12-27] MEDS: LEVETIRACETAM 500 MG/5 ML LIQUID UDC GT SCH ×2 (09:05→21:19)
[2018-12-27] MEDS: METOPROLOL TARTRATE 100 MG TABLET GT SCH (09:05)
[2018-12-27] MEDS: AMANTADINE 50MG/5ML GT SCH (09:05)
[2018-12-27] MEDS: ASPIRIN 81 MG TAB.CHEW GT SCH (09:05)
[2018-12-27] MEDS: SPIRONOLACTONE 25 MG TABLET GT SCH (09:05)
[2018-12-27] MEDS: HYDROGEN PEROXIDE 3% 118 ML BOTTLE TP SCH ×2 (09:06→21:19)
[2018-12-27] MEDS: Z GUARD REMEDY PASTE 57 GM TUBE TP SCH ×2 (09:06→21:19)
[2018-12-27] MEDS: NEOMY/BACITRAC/POLYMI OINT 28.35 GM TUBE TP SCH ×2 (09:06→17:36)
[2018-12-27] MEDS: COD LIVER OIL/ZINC OXIDE OINT 113 GM TUBE TP SCH ×2 (09:06→21:19)
[2018-12-27] MEDS: GLUCERNA 1.2 1000ML LIQUID GT SCH (12:26)
[2018-12-27] MEDS: GUAIFENESIN/DEXTROMETHORPHAN 5 ML UDC GT PRN (17:40)
[2018-12-27 20:34] VITALS: BP 132/79
[2018-12-27] MEDS: ENOXAPARIN SODIUM 40 MG/0.4 ML DISP.SYRIN SQ SCH (21:00)
[2018-12-27] MEDS: DIGOXIN 125 MCG TABLET GT SCH (21:19)
[2018-12-27] MEDS: MELATONIN 3 MG GT SCH (21:19)
[2018-12-27] MEDS: MULTIVIT, IRON, MIN NO. 8, FA TABLET GT SCH (21:19)
[2018-12-27] MEDS: PROTEIN SUPPLEMENT (PROSTAT) 30 ML LIQUID GT SCH (21:19)
[2018-12-27] MEDS: PHENOBARBITAL 97.2 MG TABLET GT SCH (21:19)
[2018-12-28] MEDS: INSULIN REGULAR, HUMAN 300 UNIT/3 ML VIAL SQ PRN ×4 (01:19→17:47)
[2018-12-28] MEDS: ALBUTEROL SULFATE 2.5 MG/3 ML NEBU NEB SCH ×4 (01:29→20:14)
[2018-12-28] MEDS: IPRATROPIUM BROMIDE 0.5 MG/2.5 ML NEBU NEB SCH ×4 (01:29→20:14)
[2018-12-28] MEDS: FOLIC ACID 1 MG TABLET GT SCH (05:06)
[2018-12-28] MEDS: LISINOPRIL 20 MG TABLET GT SCH ×2 (05:06→17:27)
[2018-12-28] MEDS: FERROUS SULFATE 330 MG/7.5 ML UDC- FOR SA ONLY GT SCH (05:06)
[2018-12-28] MEDS: OMEPRAZOLE 20 MG CAPSULE.DR GT SCH (05:06)
[2018-12-28] MEDS: CYANOCOBALAMIN 100 MCG TABLET GT SCH (05:06)
[2018-12-28] MEDS: BENZTROPINE MESYLATE 0.5 MG TABLET GT SCH ×3 (05:06→21:41)
[2018-12-28] MEDS: PHENYTOIN 100 MG/4 ML UDC GT SCH ×2 (05:06→17:27)
[2018-12-28] MEDS: LORATADINE 10 MG TABLET GT SCH (05:06)
[2018-12-28 05:07] VITALS: BP 145/85
[2018-12-28] MEDS: BLOOD SUGAR DIAGNOSTIC 1 EACH STRIP VI SCH ×4 (05:39→17:27)
[2018-12-28] MEDS: INSULIN NPH SQ SCH ×3 (05:59→22:10)
[2018-12-28] MEDS: GLUCERNA 1.2 1000ML LIQUID GT SCH (06:29)
[2018-12-28 08:05] VITALS: BP 106/79
[2018-12-28] MEDS: SPIRONOLACTONE 25 MG TABLET GT SCH (08:32)
[2018-12-28] MEDS: METOPROLOL TARTRATE 100 MG TABLET GT SCH (08:32)
[2018-12-28] MEDS: VIMPAT 150 MG GT SCH ×2 (08:32→21:40)
[2018-12-28] MEDS: LEVETIRACETAM 500 MG/5 ML LIQUID UDC GT SCH ×2 (08:32→21:40)
[2018-12-28] MEDS: ASPIRIN 81 MG TAB.CHEW GT SCH (08:32)
[2018-12-28] MEDS: PHENOBARBITAL 64.8 MG TABLET GT SCH (08:32)
[2018-12-28] MEDS: AMANTADINE 50MG/5ML GT SCH (08:32)
[2018-12-28] MEDS: NEOMY/BACITRAC/POLYMI OINT 28.35 GM TUBE TP SCH ×2 (08:33→17:27)
[2018-12-28] MEDS: COD LIVER OIL/ZINC OXIDE OINT 113 GM TUBE TP SCH ×2 (08:33→21:41)
[2018-12-28] MEDS: HYDROGEN PEROXIDE 3% 118 ML BOTTLE TP SCH ×2 (08:33→21:41)
[2018-12-28] MEDS: POTASSIUM CHLORIDE 40 MEQ/30 ML LIQUID UDC GT SCH (08:33)
[2018-12-28] MEDS: NUTRISOURCE FIBER 4 GM PACKET PO SCH ×2 (08:33→21:41)
[2018-12-28] MEDS: Z GUARD REMEDY PASTE 57 GM TUBE TP SCH ×2 (08:33→21:41)
[2018-12-28 20:52] VITALS: BP 147/84
[2018-12-28] MEDS: ENOXAPARIN SODIUM 40 MG/0.4 ML DISP.SYRIN SQ SCH (21:00)
[2018-12-28] MEDS: DIGOXIN 125 MCG TABLET GT SCH (21:40)
[2018-12-28] MEDS: PHENOBARBITAL 97.2 MG TABLET GT SCH (21:40)
[2018-12-28] MEDS: PROTEIN SUPPLEMENT (PROSTAT) 30 ML LIQUID GT SCH (21:40)
[2018-12-28] MEDS: MELATONIN 3 MG GT SCH (21:40)
[2018-12-29] MEDS: BLOOD SUGAR DIAGNOSTIC 1 EACH STRIP VI SCH ×4 (00:35→18:20)
[2018-12-29] MEDS: INSULIN REGULAR, HUMAN 300 UNIT/3 ML VIAL SQ PRN ×4 (00:36→18:21)
[2018-12-29] MEDS: ACETAMINOPHEN 650 MG/20 ML UDC- SA PATIENTS-PAIN ONLY GT PRN (00:38)
[2018-12-29] MEDS: GUAIFENESIN/DEXTROMETHORPHAN 5 ML UDC GT PRN ×2 (00:38→14:33)
[2018-12-29] MEDS: IPRATROPIUM BROMIDE 0.5 MG/2.5 ML NEBU NEB SCH ×4 (01:41→19:22)
[2018-12-29] MEDS: ALBUTEROL SULFATE 2.5 MG/3 ML NEBU NEB SCH ×4 (01:41→19:22)
[2018-12-29] MEDS: HYDROCODONE BIT/HOMATROPINE 5 ML UDC GT PRN (02:04)
[2018-12-29] MEDS: PHENYTOIN 100 MG/4 ML UDC GT SCH ×2 (05:02→18:18)
[2018-12-29] MEDS: FOLIC ACID 1 MG TABLET GT SCH (05:02)
[2018-12-29] MEDS: FERROUS SULFATE 330 MG/7.5 ML UDC- FOR SA ONLY GT SCH (05:02)
[2018-12-29] MEDS: OMEPRAZOLE 20 MG CAPSULE.DR GT SCH (05:02)
[2018-12-29] MEDS: LORATADINE 10 MG TABLET GT SCH (05:02)
[2018-12-29] MEDS: BENZTROPINE MESYLATE 0.5 MG TABLET GT SCH ×3 (05:02→22:24)
[2018-12-29 05:03] VITALS: BP 142/84
[2018-12-29] MEDS: CYANOCOBALAMIN 100 MCG TABLET GT SCH (05:03)
[2018-12-29] MEDS: LISINOPRIL 20 MG TABLET GT SCH ×2 (05:03→18:22)
[2018-12-29] MEDS: INSULIN NPH SQ SCH ×3 (05:54→22:26)
[2018-12-29 08:10] VITALS: BP 141/87
[2018-12-29] MEDS: LEVETIRACETAM 500 MG/5 ML LIQUID UDC GT SCH ×2 (09:14→20:53)
[2018-12-29] MEDS: ASPIRIN 81 MG TAB.CHEW GT SCH (09:14)
[2018-12-29] MEDS: SPIRONOLACTONE 25 MG TABLET GT SCH (09:14)
[2018-12-29] MEDS: METOPROLOL TARTRATE 100 MG TABLET GT SCH (09:15)
[2018-12-29] MEDS: PHENOBARBITAL 64.8 MG TABLET GT SCH (09:15)
[2018-12-29] MEDS: VIMPAT 150 MG GT SCH ×2 (09:16→20:58)
[2018-12-29] MEDS: POTASSIUM CHLORIDE 40 MEQ/30 ML LIQUID UDC GT SCH (09:16)
[2018-12-29] MEDS: AMANTADINE 50MG/5ML GT SCH (09:16)
[2018-12-29] MEDS: COD LIVER OIL/ZINC OXIDE OINT 113 GM TUBE TP SCH ×2 (09:17→20:55)
[2018-12-29] MEDS: NUTRISOURCE FIBER 4 GM PACKET PO SCH ×2 (09:17→20:54)
[2018-12-29] MEDS: NEOMY/BACITRAC/POLYMI OINT 28.35 GM TUBE TP SCH ×2 (09:17→18:00)
[2018-12-29] MEDS: Z GUARD REMEDY PASTE 57 GM TUBE TP SCH ×2 (09:17→20:56)
[2018-12-29] MEDS: HYDROGEN PEROXIDE 3% 118 ML BOTTLE TP SCH ×2 (09:17→20:55)
[2018-12-29] MEDS: GLUCERNA 1.2 1000ML LIQUID GT SCH (11:53)
[2018-12-29 20:34] VITALS: BP 149/92
[2018-12-29] MEDS: MELATONIN 3 MG GT SCH (20:53)
[2018-12-29] MEDS: DIGOXIN 125 MCG TABLET GT SCH (20:53)
[2018-12-29] MEDS: PROTEIN SUPPLEMENT (PROSTAT) 30 ML LIQUID GT SCH (20:53)
[2018-12-29] MEDS: MULTIVIT, IRON, MIN NO. 8, FA TABLET GT SCH (20:54)
[2018-12-29] MEDS: PHENOBARBITAL 97.2 MG TABLET GT SCH (20:58)
[2018-12-29] MEDS: ENOXAPARIN SODIUM 40 MG/0.4 ML DISP.SYRIN SQ SCH (21:00)
[2018-12-30] MEDS: BLOOD SUGAR DIAGNOSTIC 1 EACH STRIP VI SCH ×4 (00:25→18:20)
[2018-12-30] MEDS: INSULIN REGULAR, HUMAN 300 UNIT/3 ML VIAL SQ PRN ×3 (00:27→12:55)
[2018-12-30] MEDS: IPRATROPIUM BROMIDE 0.5 MG/2.5 ML NEBU NEB SCH ×4 (01:11→19:58)
[2018-12-30] MEDS: ALBUTEROL SULFATE 2.5 MG/3 ML NEBU NEB SCH ×4 (01:11→19:58)
[2018-12-30] MEDS: HYDROCODONE BIT/HOMATROPINE 5 ML UDC GT PRN ×2 (05:00→22:33)
[2018-12-30] MEDS: GLUCERNA 1.2 1000ML LIQUID GT SCH (06:00)
[2018-12-30] MEDS: LORATADINE 10 MG TABLET GT SCH (06:30)
[2018-12-30] MEDS: FERROUS SULFATE 330 MG/7.5 ML UDC- FOR SA ONLY GT SCH (06:30)
[2018-12-30] MEDS: PHENYTOIN 100 MG/4 ML UDC GT SCH ×2 (06:30→18:19)
[2018-12-30] MEDS: FOLIC ACID 1 MG TABLET GT SCH (06:30)
[2018-12-30] MEDS: BENZTROPINE MESYLATE 0.5 MG TABLET GT SCH ×3 (06:30→22:04)
[2018-12-30] MEDS: OMEPRAZOLE 20 MG CAPSULE.DR GT SCH (06:30)
[2018-12-30] MEDS: CYANOCOBALAMIN 100 MCG TABLET GT SCH (06:31)
[2018-12-30] MEDS: LISINOPRIL 20 MG TABLET GT SCH ×2 (06:31→18:20)
[2018-12-30] MEDS: INSULIN NPH SQ SCH ×3 (06:32→22:10)
[2018-12-30 08:10] VITALS: BP 148/92
[2018-12-30] MEDS: SPIRONOLACTONE 25 MG TABLET GT SCH (09:22)
[2018-12-30] MEDS: ASPIRIN 81 MG TAB.CHEW GT SCH (09:22)
[2018-12-30] MEDS: METOPROLOL TARTRATE 100 MG TABLET GT SCH (09:23)
[2018-12-30] MEDS: LEVETIRACETAM 500 MG/5 ML LIQUID UDC GT SCH ×2 (09:24→20:46)
[2018-12-30] MEDS: VIMPAT 150 MG GT SCH ×2 (09:28→20:47)
[2018-12-30] MEDS: PHENOBARBITAL 64.8 MG TABLET GT SCH (09:28)
[2018-12-30] MEDS: POTASSIUM CHLORIDE 40 MEQ/30 ML LIQUID UDC GT SCH (09:30)
[2018-12-30] MEDS: COD LIVER OIL/ZINC OXIDE OINT 113 GM TUBE TP SCH ×2 (09:30→20:47)
[2018-12-30] MEDS: Z GUARD REMEDY PASTE 57 GM TUBE TP SCH ×2 (09:30→20:47)
[2018-12-30] MEDS: NUTRISOURCE FIBER 4 GM PACKET PO SCH ×2 (09:30→20:47)
[2018-12-30] MEDS: HYDROGEN PEROXIDE 3% 118 ML BOTTLE TP SCH ×2 (09:30→20:47)
[2018-12-30] MEDS: AMANTADINE 50MG/5ML GT SCH (09:31)
--- NOTE | 2018-12-30 14:08 | NUR ---
INTERDISCIPLINARY PLAN OF CARE was held today. Patient's dick/SJ Prabhakar was present at the meeting. Dr. Chavira and the Interdisciplinary Team reviewed the current plan of care in detail. RN reported on patient's medical condition since last IDT meeting, and on recent dermatology procedure with pending skin biopsy report. No major changes in condition were reported. See RN IDT conference notes. See also all other disciplines IDT notes and physician's progress notes for additional details. Vanna stated that patient continues to receive outpatient ST services. Vanna stated not having any question/concerns at this time, and expressed being content with the current plan of care.
--- NOTE | 2018-12-30 14:28 | NUR ---
Pharmacy Update from Today's 12/30/18 IDT meeting. VS: Temp 98.8 BP 148/92 HR 89 LABS: (from 12/16/18) Wbc 4.7 H/H 12.9/38.5 Plt 125 Na 137 K 4.2 Cl 100 CO2 31 BUN/SCr 30/1.0 BS 138 Ca 9.1 phos 3.8 Mg 2.2 MEDICATION USE REVIEWED: > Pt not on any anti-psych medications > Pt on Keppra 1500mg q12hrs since 11/29/16; last calculated CrCl 101.2 ml/min. Dose appropriate for renal fxn. > Pt now on Phenobarbital 64.8MG AM + 97.2 HS as of 07/20/18. Last level 08/11/18 resulted 27.2 (15-39) within range > Pt on Dilantin 150mg q12hrs since 11/11/17; Rx rec for repeat level for routine monitoring + alb for correction, Md agreed, ordered and resulted 08/25 17.6 (corrected 19.6) within therapeutic range 10-20. > Pt on Vimpat 300mg q12hrs, Patient had no episode of seizures past month > Pt on KCl 20mEq daily ,Prinivil 20mg q12hrs and Aldactone 50mg daily: last K 4.2 > Pt on moderate sliding scale + NPH 4 units q8hrs, now changed to 5units q8h on 12/19/18; BS ranged 127-239 since last IDT Meeting, now ranges 138-219 since dosage adjustment. thus also added Metformin 500mg BIDM, pending coverage for start > Pt on Lovenox 40mg daily and Aspirin 81mg daily:no signs of bleeding, last plt 125 > Pt on Digoxin 125mcg daily since admit in 2015, on stable dose, no acute changes in condition > PRN MED USAGE: (November) Tylenol for pain used x 3 Tylenol for temp used x 0 Motrin for mod pain used x 2 Robitussin DM used x 16 Hydromet PRN used x 9 Veronica flush enema used x 2 NEW ORDERS NOTED: > Lovenox held 12/23 for cheek lesion removal by MD Nettles > NPH increased 4units to 5units q8h 12/19/18 > Metformin 500mg BIDM added 12/29/18, pending coverage per [facility] before start Patient reviewed in depth with family in attendance, recent medication changes noted. Dietary noted high TG level, pt currently not on fish oil possible d/t gas in past however rx noted pt has flush enema which now may help relieve gas. MD ordered to start fish oil daily. Per family, pt has been on metformin before in past. Ok per renal function for start. No further recs at this time, will continue to follow
[2018-12-30 20:42] VITALS: BP 150/94
[2018-12-30] MEDS: DIGOXIN 125 MCG TABLET GT SCH (20:46)
[2018-12-30] MEDS: PHENOBARBITAL 97.2 MG TABLET GT SCH (20:47)
[2018-12-30] MEDS: PROTEIN SUPPLEMENT (PROSTAT) 30 ML LIQUID GT SCH (20:47)
[2018-12-30] MEDS: MELATONIN 3 MG GT SCH (20:47)
[2018-12-30] MEDS: ENOXAPARIN SODIUM 40 MG/0.4 ML DISP.SYRIN SQ SCH (20:49)
[2018-12-31] MEDS: BLOOD SUGAR DIAGNOSTIC 1 EACH STRIP VI SCH ×4 (00:17→17:14)
[2018-12-31] MEDS: INSULIN REGULAR, HUMAN 300 UNIT/3 ML VIAL SQ PRN ×2 (00:30→05:20)
[2018-12-31] MEDS: IPRATROPIUM BROMIDE 0.5 MG/2.5 ML NEBU NEB SCH ×4 (01:40→20:02)
[2018-12-31] MEDS: ALBUTEROL SULFATE 2.5 MG/3 ML NEBU NEB SCH ×4 (01:40→20:02)
[2018-12-31] MEDS: GLUCERNA 1.2 1000ML LIQUID GT SCH (03:11)
[2018-12-31] MEDS: OMEPRAZOLE 20 MG CAPSULE.DR GT SCH (05:16)
[2018-12-31] MEDS: FOLIC ACID 1 MG TABLET GT SCH (05:16)
[2018-12-31] MEDS: PHENYTOIN 100 MG/4 ML UDC GT SCH ×2 (05:16→17:13)
[2018-12-31] MEDS: FERROUS SULFATE 330 MG/7.5 ML UDC- FOR SA ONLY GT SCH (05:16)
[2018-12-31] MEDS: BENZTROPINE MESYLATE 0.5 MG TABLET GT SCH ×3 (05:16→22:01)
[2018-12-31] MEDS: LORATADINE 10 MG TABLET GT SCH (05:16)
[2018-12-31] MEDS: CYANOCOBALAMIN 100 MCG TABLET GT SCH (05:17)
[2018-12-31] MEDS: LISINOPRIL 20 MG TABLET GT SCH ×2 (05:17→17:13)
[2018-12-31] MEDS: INSULIN NPH SQ SCH ×3 (05:21→22:00)
[2018-12-31 08:14] VITALS: BP 153/90
[2018-12-31] MEDS: METOPROLOL TARTRATE 100 MG TABLET GT SCH (09:00)
[2018-12-31] MEDS: SPIRONOLACTONE 25 MG TABLET GT SCH (09:42)
[2018-12-31] MEDS: ASPIRIN 81 MG TAB.CHEW GT SCH (09:42)
[2018-12-31] MEDS: Z GUARD REMEDY PASTE 57 GM TUBE TP SCH ×2 (09:44→21:00)
[2018-12-31] MEDS: COD LIVER OIL/ZINC OXIDE OINT 113 GM TUBE TP SCH ×2 (09:44→21:00)
[2018-12-31] MEDS: HYDROGEN PEROXIDE 3% 118 ML BOTTLE TP SCH ×2 (09:44→21:00)
[2018-12-31] MEDS: POTASSIUM CHLORIDE 40 MEQ/30 ML LIQUID UDC GT SCH (09:44)
[2018-12-31] MEDS: NUTRISOURCE FIBER 4 GM PACKET PO SCH ×2 (09:44→21:57)
[2018-12-31] MEDS: VIMPAT 150 MG GT SCH ×2 (09:47→21:56)
[2018-12-31] MEDS: AMANTADINE 50MG/5ML GT SCH (09:47)
[2018-12-31] MEDS: LEVETIRACETAM 500 MG/5 ML LIQUID UDC GT SCH ×2 (09:48→21:52)
[2018-12-31] MEDS: PHENOBARBITAL 64.8 MG TABLET GT SCH (09:48)
[2018-12-31] MEDS: METFORMIN HCL 500 MG TABLET PO SCH (17:13)
[2018-12-31] MEDS: DIGOXIN 125 MCG TABLET GT SCH (21:53)
[2018-12-31] MEDS: MELATONIN 3 MG GT SCH (21:54)
[2018-12-31] MEDS: PROTEIN SUPPLEMENT (PROSTAT) 30 ML LIQUID GT SCH (21:56)
[2018-12-31] MEDS: PHENOBARBITAL 97.2 MG TABLET GT SCH (21:56)
[2018-12-31] MEDS: MULTIVIT, IRON, MIN NO. 8, FA TABLET GT SCH (21:57)
[2018-12-31] MEDS: ENOXAPARIN SODIUM 40 MG/0.4 ML DISP.SYRIN SQ SCH (21:59)
[2018-12-31 23:07] VITALS: BP_SYST 136
[2018-12-31] MEDS: GUAIFENESIN/DEXTROMETHORPHAN 5 ML UDC GT PRN (23:16)
[2019-01-01] MEDS: INSULIN REGULAR, HUMAN 300 UNIT/3 ML VIAL SQ PRN ×4 (00:24→17:26)
[2019-01-01] MEDS: BLOOD SUGAR DIAGNOSTIC 1 EACH STRIP VI SCH ×4 (00:24→17:25)
[2019-01-01] MEDS: ALBUTEROL SULFATE 2.5 MG/3 ML NEBU NEB SCH ×4 (01:10→18:51)
[2019-01-01] MEDS: IPRATROPIUM BROMIDE 0.5 MG/2.5 ML NEBU NEB SCH ×4 (01:10→18:51)
[2019-01-01] MEDS: HYDROCODONE BIT/HOMATROPINE 5 ML UDC GT PRN ×2 (01:21→21:48)
[2019-01-01] MEDS: LORATADINE 10 MG TABLET GT SCH (05:06)
[2019-01-01] MEDS: BENZTROPINE MESYLATE 0.5 MG TABLET GT SCH ×3 (05:06→21:32)
[2019-01-01] MEDS: LISINOPRIL 20 MG TABLET GT SCH ×2 (05:07→17:25)
[2019-01-01] MEDS: FERROUS SULFATE 330 MG/7.5 ML UDC- FOR SA ONLY GT SCH (05:07)
[2019-01-01] MEDS: PHENYTOIN 100 MG/4 ML UDC GT SCH ×2 (05:07→17:25)
[2019-01-01] MEDS: FOLIC ACID 1 MG TABLET GT SCH (05:07)
[2019-01-01] MEDS: CYANOCOBALAMIN 100 MCG TABLET GT SCH (05:07)
[2019-01-01] MEDS: OMEPRAZOLE 20 MG CAPSULE.DR GT SCH (05:07)
[2019-01-01] MEDS: INSULIN NPH SQ SCH ×3 (05:10→21:47)
[2019-01-01] MEDS: LEVETIRACETAM 500 MG/5 ML LIQUID UDC GT SCH ×2 (08:37→21:28)
[2019-01-01] MEDS: METFORMIN HCL 500 MG TABLET PO SCH ×2 (08:37→17:25)
[2019-01-01] MEDS: ASPIRIN 81 MG TAB.CHEW GT SCH (08:37)
[2019-01-01] MEDS: SPIRONOLACTONE 25 MG TABLET GT SCH (08:37)
[2019-01-01] MEDS: VIMPAT 150 MG GT SCH ×2 (08:38→21:30)
[2019-01-01] MEDS: COD LIVER OIL/ZINC OXIDE OINT 113 GM TUBE TP SCH ×2 (08:38→21:31)
[2019-01-01] MEDS: AMANTADINE 50MG/5ML GT SCH (08:38)
[2019-01-01] MEDS: NUTRISOURCE FIBER 4 GM PACKET PO SCH ×2 (08:38→21:31)
[2019-01-01] MEDS: POTASSIUM CHLORIDE 40 MEQ/30 ML LIQUID UDC GT SCH (08:38)
[2019-01-01] MEDS: Z GUARD REMEDY PASTE 57 GM TUBE TP SCH ×2 (08:38→21:32)
[2019-01-01] MEDS: METOPROLOL TARTRATE 100 MG TABLET GT SCH (08:38)
[2019-01-01] MEDS: HYDROGEN PEROXIDE 3% 118 ML BOTTLE TP SCH ×2 (08:38→21:31)
[2019-01-01] MEDS: PHENOBARBITAL 64.8 MG TABLET GT SCH (08:38)
[2019-01-01 14:50] VITALS: BP 157/83
[2019-01-01 20:05] VITALS: BP 165/89
[2019-01-01] MEDS: PHENOBARBITAL 97.2 MG TABLET GT SCH (21:30)
[2019-01-01] MEDS: MELATONIN 3 MG GT SCH (21:30)
[2019-01-01] MEDS: DIGOXIN 125 MCG TABLET GT SCH (21:30)
[2019-01-01] MEDS: PROTEIN SUPPLEMENT (PROSTAT) 30 ML LIQUID GT SCH (21:31)
[2019-01-01] MEDS: ENOXAPARIN SODIUM 40 MG/0.4 ML DISP.SYRIN SQ SCH (21:45)
[2019-01-01] MEDS: GLUCERNA 1.2 1000ML LIQUID GT SCH (22:56)
[2019-01-02] MEDS: BLOOD SUGAR DIAGNOSTIC 1 EACH STRIP VI SCH ×4 (00:22→17:58)
[2019-01-02] MEDS: ALBUTEROL SULFATE 2.5 MG/3 ML NEBU NEB SCH ×4 (00:35→19:24)
[2019-01-02] MEDS: IPRATROPIUM BROMIDE 0.5 MG/2.5 ML NEBU NEB SCH ×4 (00:35→19:24)
[2019-01-02] MEDS: IBUPROFEN 100 MG/5 ML LIQUID UDC- SA PATIENTS-PAIN ONLY GT PRN ×2 (01:50→22:00)
[2019-01-02] MEDS: LORATADINE 10 MG TABLET GT SCH (05:17)
[2019-01-02] MEDS: CYANOCOBALAMIN 100 MCG TABLET GT SCH (05:18)
[2019-01-02] MEDS: OMEPRAZOLE 20 MG CAPSULE.DR GT SCH (05:18)
[2019-01-02] MEDS: BENZTROPINE MESYLATE 0.5 MG TABLET GT SCH ×3 (05:18→21:25)
[2019-01-02] MEDS: FOLIC ACID 1 MG TABLET GT SCH (05:18)
[2019-01-02] MEDS: LISINOPRIL 20 MG TABLET GT SCH ×2 (05:18→17:57)
[2019-01-02] MEDS: PHENYTOIN 100 MG/4 ML UDC GT SCH ×2 (05:18→17:57)
[2019-01-02] MEDS: FERROUS SULFATE 330 MG/7.5 ML UDC- FOR SA ONLY GT SCH (05:18)
[2019-01-02] MEDS: INSULIN REGULAR, HUMAN 300 UNIT/3 ML VIAL SQ PRN ×3 (05:24→17:59)
[2019-01-02] MEDS: INSULIN NPH SQ SCH ×3 (05:27→21:35)
[2019-01-02] MEDS: VIMPAT 150 MG GT SCH ×2 (08:53→21:25)
[2019-01-02] MEDS: POTASSIUM CHLORIDE 40 MEQ/30 ML LIQUID UDC GT SCH (08:53)
[2019-01-02] MEDS: COD LIVER OIL/ZINC OXIDE OINT 113 GM TUBE TP SCH ×2 (08:53→21:25)
[2019-01-02] MEDS: Z GUARD REMEDY PASTE 57 GM TUBE TP SCH ×2 (08:53→21:25)
[2019-01-02] MEDS: HYDROGEN PEROXIDE 3% 118 ML BOTTLE TP SCH ×2 (08:53→21:25)
[2019-01-02] MEDS: LEVETIRACETAM 500 MG/5 ML LIQUID UDC GT SCH ×2 (08:53→21:24)
[2019-01-02] MEDS: PHENOBARBITAL 64.8 MG TABLET GT SCH (08:53)
[2019-01-02] MEDS: AMANTADINE 50MG/5ML GT SCH (08:53)
[2019-01-02] MEDS: ASPIRIN 81 MG TAB.CHEW GT SCH (08:53)
[2019-01-02] MEDS: METFORMIN HCL 500 MG TABLET PO SCH ×2 (08:53→17:57)
[2019-01-02] MEDS: METOPROLOL TARTRATE 100 MG TABLET GT SCH (08:53)
[2019-01-02] MEDS: SPIRONOLACTONE 25 MG TABLET GT SCH (08:53)
[2019-01-02] MEDS: NUTRISOURCE FIBER 4 GM PACKET PO SCH ×2 (08:53→21:25)
[2019-01-02 15:04] VITALS: BP 136/80
[2019-01-02 20:05] VITALS: BP 119/67
[2019-01-02] MEDS: DIGOXIN 125 MCG TABLET GT SCH (21:24)
[2019-01-02] MEDS: PHENOBARBITAL 97.2 MG TABLET GT SCH (21:25)
[2019-01-02] MEDS: MELATONIN 3 MG GT SCH (21:25)
[2019-01-02] MEDS: PROTEIN SUPPLEMENT (PROSTAT) 30 ML LIQUID GT SCH (21:25)
[2019-01-02] MEDS: MULTIVIT, IRON, MIN NO. 8, FA TABLET GT SCH (21:25)
[2019-01-02] MEDS: ENOXAPARIN SODIUM 40 MG/0.4 ML DISP.SYRIN SQ SCH (21:33)
[2019-01-03] MEDS: BLOOD SUGAR DIAGNOSTIC 1 EACH STRIP VI SCH ×4 (00:38→18:08)
[2019-01-03] MEDS: IPRATROPIUM BROMIDE 0.5 MG/2.5 ML NEBU NEB SCH ×5 (00:53→18:46)
[2019-01-03] MEDS: ALBUTEROL SULFATE 2.5 MG/3 ML NEBU NEB SCH ×5 (00:53→18:46)
[2019-01-03] MEDS: FERROUS SULFATE 330 MG/7.5 ML UDC- FOR SA ONLY GT SCH (05:11)
[2019-01-03] MEDS: BENZTROPINE MESYLATE 0.5 MG TABLET GT SCH ×3 (05:11→21:50)
[2019-01-03] MEDS: FOLIC ACID 1 MG TABLET GT SCH (05:11)
[2019-01-03] MEDS: OMEPRAZOLE 20 MG CAPSULE.DR GT SCH (05:11)
[2019-01-03] MEDS: LORATADINE 10 MG TABLET GT SCH (05:11)
[2019-01-03] MEDS: LISINOPRIL 20 MG TABLET GT SCH ×2 (05:11→18:16)
[2019-01-03] MEDS: CYANOCOBALAMIN 100 MCG TABLET GT SCH (05:11)
[2019-01-03] MEDS: INSULIN NPH SQ SCH ×3 (05:20→21:51)
[2019-01-03] MEDS: PHENYTOIN 100 MG/4 ML UDC GT SCH ×2 (05:58→17:59)
[2019-01-03] MEDS: METFORMIN HCL 500 MG TABLET PO SCH ×2 (08:20→17:59)
[2019-01-03] MEDS: SPIRONOLACTONE 25 MG TABLET GT SCH (08:21)
[2019-01-03] MEDS: ASPIRIN 81 MG TAB.CHEW GT SCH (08:21)
[2019-01-03] MEDS: LEVETIRACETAM 500 MG/5 ML LIQUID UDC GT SCH ×2 (08:22→20:53)
[2019-01-03] MEDS: METOPROLOL TARTRATE 100 MG TABLET GT SCH (08:23)
[2019-01-03] MEDS: PHENOBARBITAL 64.8 MG TABLET GT SCH (08:24)
[2019-01-03] MEDS: AMANTADINE 50MG/5ML GT SCH (08:26)
[2019-01-03] MEDS: VIMPAT 150 MG GT SCH ×2 (08:30→20:36)
[2019-01-03] MEDS: POTASSIUM CHLORIDE 40 MEQ/30 ML LIQUID UDC GT SCH (08:31)
[2019-01-03] MEDS: COD LIVER OIL/ZINC OXIDE OINT 113 GM TUBE TP SCH ×2 (08:31→20:36)
[2019-01-03] MEDS: NUTRISOURCE FIBER 4 GM PACKET PO SCH ×2 (08:31→20:36)
[2019-01-03] MEDS: HYDROGEN PEROXIDE 3% 118 ML BOTTLE TP SCH ×2 (08:31→20:36)
[2019-01-03] MEDS: Z GUARD REMEDY PASTE 57 GM TUBE TP SCH ×2 (08:31→20:36)
[2019-01-03] MEDS: INSULIN REGULAR, HUMAN 300 UNIT/3 ML VIAL SQ PRN (11:47)
[2019-01-03 12:07] VITALS: BP 157/79
[2019-01-03] MEDS: GLUCERNA 1.2 1000ML LIQUID GT SCH ×2 (15:04)
[2019-01-03] MEDS: GUAIFENESIN/DEXTROMETHORPHAN 5 ML UDC GT PRN (18:08)
[2019-01-03] MEDS: DIGOXIN 125 MCG TABLET GT SCH (20:33)
[2019-01-03] MEDS: MELATONIN 3 MG GT SCH (20:34)
[2019-01-03] MEDS: PHENOBARBITAL 97.2 MG TABLET GT SCH (20:36)
[2019-01-03] MEDS: PROTEIN SUPPLEMENT (PROSTAT) 30 ML LIQUID GT SCH (20:36)
[2019-01-03] MEDS: ENOXAPARIN SODIUM 40 MG/0.4 ML DISP.SYRIN SQ SCH (20:51)
[2019-01-03 22:58] VITALS: BP 121/81
[2019-01-04] MEDS: ALBUTEROL SULFATE 2.5 MG/3 ML NEBU NEB SCH ×4 (00:36→18:50)
[2019-01-04] MEDS: IPRATROPIUM BROMIDE 0.5 MG/2.5 ML NEBU NEB SCH ×4 (00:36→18:50)
[2019-01-04] MEDS: BLOOD SUGAR DIAGNOSTIC 1 EACH STRIP VI SCH ×5 (00:56→23:24)
[2019-01-04] MEDS: INSULIN REGULAR, HUMAN 300 UNIT/3 ML VIAL SQ PRN ×4 (01:01→23:27)
[2019-01-04] MEDS: GUAIFENESIN/DEXTROMETHORPHAN 5 ML UDC GT PRN (05:14)
[2019-01-04] MEDS: INSULIN NPH SQ SCH ×3 (05:33→22:35)
[2019-01-04] MEDS: LISINOPRIL 20 MG TABLET GT SCH ×2 (06:08→18:25)
[2019-01-04] MEDS: PHENYTOIN 100 MG/4 ML UDC GT SCH ×2 (06:08→18:25)
[2019-01-04] MEDS: BENZTROPINE MESYLATE 0.5 MG TABLET GT SCH ×3 (06:08→21:09)
[2019-01-04] MEDS: FERROUS SULFATE 330 MG/7.5 ML UDC- FOR SA ONLY GT SCH (06:08)
[2019-01-04] MEDS: FOLIC ACID 1 MG TABLET GT SCH (06:08)
[2019-01-04] MEDS: CYANOCOBALAMIN 100 MCG TABLET GT SCH (06:08)
[2019-01-04] MEDS: OMEPRAZOLE 20 MG CAPSULE.DR GT SCH (06:08)
[2019-01-04] MEDS: LORATADINE 10 MG TABLET GT SCH (06:08)
[2019-01-04 08:00] VITALS: BP 173/93
[2019-01-04] MEDS: VIMPAT 150 MG GT SCH ×2 (08:12→21:07)
[2019-01-04] MEDS: SPIRONOLACTONE 25 MG TABLET GT SCH (08:12)
[2019-01-04] MEDS: PHENOBARBITAL 64.8 MG TABLET GT SCH (08:12)
[2019-01-04] MEDS: AMANTADINE 50MG/5ML GT SCH (08:12)
[2019-01-04] MEDS: METOPROLOL TARTRATE 100 MG TABLET GT SCH (08:12)
[2019-01-04] MEDS: LEVETIRACETAM 500 MG/5 ML LIQUID UDC GT SCH ×2 (08:12→21:06)
[2019-01-04] MEDS: ASPIRIN 81 MG TAB.CHEW GT SCH (08:12)
[2019-01-04] MEDS: POTASSIUM CHLORIDE 40 MEQ/30 ML LIQUID UDC GT SCH (08:12)
[2019-01-04] MEDS: METFORMIN HCL 500 MG TABLET PO SCH ×2 (08:12→18:25)
[2019-01-04] MEDS: NUTRISOURCE FIBER 4 GM PACKET PO SCH ×2 (08:12→21:08)
[2019-01-04] MEDS: Z GUARD REMEDY PASTE 57 GM TUBE TP SCH ×2 (08:13→21:09)
[2019-01-04] MEDS: COD LIVER OIL/ZINC OXIDE OINT 113 GM TUBE TP SCH ×2 (08:13→21:09)
[2019-01-04] MEDS: HYDROGEN PEROXIDE 3% 118 ML BOTTLE TP SCH ×2 (08:13→21:09)
[2019-01-04 20:09] VITALS: BP 130/58
[2019-01-04] MEDS: ENOXAPARIN SODIUM 40 MG/0.4 ML DISP.SYRIN SQ SCH (21:00)
[2019-01-04] MEDS: DIGOXIN 125 MCG TABLET GT SCH (21:07)
[2019-01-04] MEDS: MELATONIN 3 MG GT SCH (21:07)
[2019-01-04] MEDS: MULTIVIT, IRON, MIN NO. 8, FA TABLET GT SCH (21:08)
[2019-01-04] MEDS: PROTEIN SUPPLEMENT (PROSTAT) 30 ML LIQUID GT SCH (21:08)
[2019-01-04] MEDS: PHENOBARBITAL 97.2 MG TABLET GT SCH (21:08)
[2019-01-05] MEDS: IPRATROPIUM BROMIDE 0.5 MG/2.5 ML NEBU NEB SCH ×4 (00:35→18:50)
[2019-01-05] MEDS: ALBUTEROL SULFATE 2.5 MG/3 ML NEBU NEB SCH ×4 (00:35→18:50)
[2019-01-05] MEDS: BLOOD SUGAR DIAGNOSTIC 1 EACH STRIP VI SCH ×4 (06:24→23:30)
[2019-01-05] MEDS: PHENYTOIN 100 MG/4 ML UDC GT SCH ×2 (06:24→18:22)
[2019-01-05] MEDS: FOLIC ACID 1 MG TABLET GT SCH (06:24)
[2019-01-05] MEDS: LISINOPRIL 20 MG TABLET GT SCH ×2 (06:24→18:23)
[2019-01-05] MEDS: LORATADINE 10 MG TABLET GT SCH (06:24)
[2019-01-05] MEDS: BENZTROPINE MESYLATE 0.5 MG TABLET GT SCH ×3 (06:24→22:02)
[2019-01-05] MEDS: OMEPRAZOLE 20 MG CAPSULE.DR GT SCH (06:24)
[2019-01-05] MEDS: CYANOCOBALAMIN 100 MCG TABLET GT SCH (06:24)
[2019-01-05] MEDS: FERROUS SULFATE 330 MG/7.5 ML UDC- FOR SA ONLY GT SCH (06:24)
[2019-01-05] MEDS: INSULIN REGULAR, HUMAN 300 UNIT/3 ML VIAL SQ PRN ×4 (06:26→23:33)
[2019-01-05] MEDS: INSULIN NPH SQ SCH ×3 (06:27→22:03)
[2019-01-05] MEDS: GLUCERNA 1.2 1000ML LIQUID GT SCH (07:00)
[2019-01-05] MEDS: METFORMIN HCL 500 MG TABLET PO SCH ×2 (08:07→18:23)
[2019-01-05] MEDS: SPIRONOLACTONE 25 MG TABLET GT SCH (08:07)
[2019-01-05] MEDS: NUTRISOURCE FIBER 4 GM PACKET PO SCH ×2 (08:07→20:45)
[2019-01-05] MEDS: ASPIRIN 81 MG TAB.CHEW GT SCH (08:08)
[2019-01-05] MEDS: LEVETIRACETAM 500 MG/5 ML LIQUID UDC GT SCH ×2 (08:08→20:45)
[2019-01-05] MEDS: METOPROLOL TARTRATE 100 MG TABLET GT SCH (08:09)
[2019-01-05] MEDS: PHENOBARBITAL 64.8 MG TABLET GT SCH (08:09)
[2019-01-05 08:11] VITALS: BP 131/80
[2019-01-05] MEDS: POTASSIUM CHLORIDE 40 MEQ/30 ML LIQUID UDC GT SCH (08:16)
[2019-01-05] MEDS: VIMPAT 150 MG GT SCH ×2 (08:16→20:45)
[2019-01-05] MEDS: AMANTADINE 50MG/5ML GT SCH (08:16)
[2019-01-05] MEDS: Z GUARD REMEDY PASTE 57 GM TUBE TP SCH ×2 (08:17→20:49)
[2019-01-05] MEDS: HYDROGEN PEROXIDE 3% 118 ML BOTTLE TP SCH ×2 (08:17→20:49)
[2019-01-05] MEDS: COD LIVER OIL/ZINC OXIDE OINT 113 GM TUBE TP SCH ×2 (08:17→20:49)
[2019-01-05] MEDS: GUAIFENESIN/DEXTROMETHORPHAN 5 ML UDC GT PRN (13:25)
--- NOTE | 2019-01-05 13:49 | NUR ---
SEEN BY TIFFANIE Lemus AND DR. STROUD AND O.
[2019-01-05] MEDS: PROTEIN SUPPLEMENT (PROSTAT) 30 ML LIQUID GT SCH (20:45)
[2019-01-05] MEDS: DIGOXIN 125 MCG TABLET GT SCH (20:45)
[2019-01-05] MEDS: MELATONIN 3 MG GT SCH (20:45)
[2019-01-05] MEDS: PHENOBARBITAL 97.2 MG TABLET GT SCH (20:45)
[2019-01-05] MEDS: ENOXAPARIN SODIUM 40 MG/0.4 ML DISP.SYRIN SQ SCH (21:00)
[2019-01-05 22:05] VITALS: BP 162/85
[2019-01-06] MEDS: IPRATROPIUM BROMIDE 0.5 MG/2.5 ML NEBU NEB SCH ×4 (00:37→19:31)
[2019-01-06] MEDS: ALBUTEROL SULFATE 2.5 MG/3 ML NEBU NEB SCH ×4 (00:37→19:31)
[2019-01-06] MEDS: INSULIN NPH SQ SCH ×3 (06:00→22:04)
[2019-01-06] MEDS: BLOOD SUGAR DIAGNOSTIC 1 EACH STRIP VI SCH ×4 (06:39→23:28)
[2019-01-06] MEDS: FERROUS SULFATE 330 MG/7.5 ML UDC- FOR SA ONLY GT SCH (06:39)
[2019-01-06] MEDS: FOLIC ACID 1 MG TABLET GT SCH (06:39)
[2019-01-06] MEDS: CYANOCOBALAMIN 100 MCG TABLET GT SCH (06:39)
[2019-01-06] MEDS: PHENYTOIN 100 MG/4 ML UDC GT SCH ×2 (06:39→18:11)
[2019-01-06] MEDS: OMEPRAZOLE 20 MG CAPSULE.DR GT SCH (06:39)
[2019-01-06] MEDS: BENZTROPINE MESYLATE 0.5 MG TABLET GT SCH ×3 (06:39→22:03)
[2019-01-06] MEDS: LORATADINE 10 MG TABLET GT SCH (06:39)
[2019-01-06] MEDS: LISINOPRIL 20 MG TABLET GT SCH ×2 (06:39→18:27)
[2019-01-06] MEDS: INSULIN REGULAR, HUMAN 300 UNIT/3 ML VIAL SQ PRN ×2 (07:00→11:34)
--- NOTE | 2019-01-06 07:35 | NUR ---
SEEN AND EXAMINED BY DR. POPE AND WITH NEW ORDER CARRIED OUT.
[2019-01-06 08:00] VITALS: BP 125/83
[2019-01-06] MEDS: METFORMIN HCL 500 MG TABLET PO SCH ×2 (09:00→18:27)
--- NOTE | 2019-01-06 09:00 | NUR ---
SEEN AND EXAMINED BY DR. CRYSTAL AND AWARE OF PT'S EPISODES OF REGURGITATING STOMACH CONTENT WHEN SEVERE COUGH EPISODES AND OBSERVED WITH TRACHEAL SECRETIONS IN LIGHT BROWNISH COLOR AT TIMES.HE SIGNED AUTHORIZATION TO REFILL HYCODAN AND IT WAS FAXED TO [facility].PT. REMAINS AFEBRILE WITH NO S/S OF RESPIRATORY DISTRESS.
[2019-01-06] MEDS: SPIRONOLACTONE 25 MG TABLET GT SCH (09:55)
[2019-01-06] MEDS: ASPIRIN 81 MG TAB.CHEW GT SCH (09:57)
[2019-01-06] MEDS: LEVETIRACETAM 500 MG/5 ML LIQUID UDC GT SCH ×2 (09:58→21:57)
[2019-01-06] MEDS: Z GUARD REMEDY PASTE 57 GM TUBE TP SCH ×2 (10:00→21:00)
[2019-01-06] MEDS: POTASSIUM CHLORIDE 40 MEQ/30 ML LIQUID UDC GT SCH (10:00)
[2019-01-06] MEDS: AMANTADINE 50MG/5ML GT SCH (10:00)
[2019-01-06] MEDS: HYDROGEN PEROXIDE 3% 118 ML BOTTLE TP SCH ×2 (10:00→21:00)
[2019-01-06] MEDS: VIMPAT 150 MG GT SCH ×2 (10:00→21:58)
[2019-01-06] MEDS: PHENOBARBITAL 64.8 MG TABLET GT SCH (10:00)
[2019-01-06] MEDS: COD LIVER OIL/ZINC OXIDE OINT 113 GM TUBE TP SCH ×2 (10:00→21:00)
[2019-01-06] MEDS: METOPROLOL TARTRATE 100 MG TABLET GT SCH (10:00)
[2019-01-06] MEDS: NUTRISOURCE FIBER 4 GM PACKET PO SCH ×2 (10:00→21:00)
[2019-01-06] MEDS: GUAIFENESIN/DEXTROMETHORPHAN 5 ML UDC GT PRN ×2 (10:05→18:29)
--- NOTE | 2019-01-06 16:50 | NUR ---
Patient scheduled for dental exam with Dr. Whitaker for Saturday02/02/19. Subacute dry charge process attendant's and subacute director Luis Carlos Lazo informed via email by this SW. Patient's dick/SJ Prabhakar informed.
[2019-01-06 20:25] VITALS: BP 127/70
[2019-01-06] MEDS: HYDROCODONE BIT/HOMATROPINE 5 ML UDC GT PRN (20:53)
[2019-01-06] MEDS: ENOXAPARIN SODIUM 40 MG/0.4 ML DISP.SYRIN SQ SCH (21:00)
[2019-01-06] MEDS: MELATONIN 3 MG GT SCH (21:57)
[2019-01-06] MEDS: DIGOXIN 125 MCG TABLET GT SCH (21:57)
[2019-01-06] MEDS: MULTIVIT, IRON, MIN NO. 8, FA TABLET GT SCH (21:59)
[2019-01-06] MEDS: PHENOBARBITAL 97.2 MG TABLET GT SCH (21:59)
[2019-01-06] MEDS: PROTEIN SUPPLEMENT (PROSTAT) 30 ML LIQUID GT SCH (21:59)
[2019-01-07] MEDS: ALBUTEROL SULFATE 2.5 MG/3 ML NEBU NEB SCH ×4 (00:55→18:45)
[2019-01-07] MEDS: IPRATROPIUM BROMIDE 0.5 MG/2.5 ML NEBU NEB SCH ×4 (00:55→18:45)
[2019-01-07] MEDS: FOLIC ACID 1 MG TABLET GT SCH (05:26)
[2019-01-07] MEDS: CYANOCOBALAMIN 100 MCG TABLET GT SCH (05:26)
[2019-01-07] MEDS: LISINOPRIL 20 MG TABLET GT SCH ×2 (05:26→17:45)
[2019-01-07] MEDS: PHENYTOIN 100 MG/4 ML UDC GT SCH ×2 (05:26→17:45)
[2019-01-07] MEDS: LORATADINE 10 MG TABLET GT SCH (05:26)
[2019-01-07] MEDS: BENZTROPINE MESYLATE 0.5 MG TABLET GT SCH ×3 (05:26→21:54)
[2019-01-07] MEDS: OMEPRAZOLE 20 MG CAPSULE.DR GT SCH (05:26)
[2019-01-07] MEDS: FERROUS SULFATE 330 MG/7.5 ML UDC- FOR SA ONLY GT SCH (05:26)
[2019-01-07] MEDS: INSULIN NPH SQ SCH ×3 (05:27→21:54)
[2019-01-07] MEDS: INSULIN REGULAR, HUMAN 300 UNIT/3 ML VIAL SQ PRN ×2 (05:39→23:18)
[2019-01-07] MEDS: BLOOD SUGAR DIAGNOSTIC 1 EACH STRIP VI SCH ×4 (05:39→23:17)
[2019-01-07 07:32] VITALS: BP 141/82
[2019-01-07] MEDS: METFORMIN HCL 500 MG TABLET PO SCH ×2 (08:15→17:45)
[2019-01-07] MEDS: SPIRONOLACTONE 25 MG TABLET GT SCH (08:16)
[2019-01-07] MEDS: ASPIRIN 81 MG TAB.CHEW GT SCH (08:17)
[2019-01-07] MEDS: LEVETIRACETAM 500 MG/5 ML LIQUID UDC GT SCH ×2 (08:20→20:21)
[2019-01-07] MEDS: METOPROLOL TARTRATE 100 MG TABLET GT SCH (08:21)
[2019-01-07] MEDS: PHENOBARBITAL 64.8 MG TABLET GT SCH (08:25)
[2019-01-07] MEDS: VIMPAT 150 MG GT SCH ×2 (08:28→20:21)
[2019-01-07] MEDS: AMANTADINE 50MG/5ML GT SCH (08:28)
[2019-01-07] MEDS: POTASSIUM CHLORIDE 40 MEQ/30 ML LIQUID UDC GT SCH (08:32)
[2019-01-07] MEDS: COD LIVER OIL/ZINC OXIDE OINT 113 GM TUBE TP SCH ×2 (08:32→20:22)
[2019-01-07] MEDS: NUTRISOURCE FIBER 4 GM PACKET PO SCH ×2 (08:32→20:22)
[2019-01-07] MEDS: HYDROGEN PEROXIDE 3% 118 ML BOTTLE TP SCH ×2 (08:32→20:23)
[2019-01-07] MEDS: Z GUARD REMEDY PASTE 57 GM TUBE TP SCH ×2 (08:32→20:24)
[2019-01-07] MEDS: GLUCERNA 1.2 1000ML LIQUID GT SCH (11:40)
[2019-01-07 20:14] VITALS: BP 151/95
[2019-01-07] MEDS: MELATONIN 3 MG GT SCH (20:21)
[2019-01-07] MEDS: DIGOXIN 125 MCG TABLET GT SCH (20:21)
[2019-01-07] MEDS: PHENOBARBITAL 97.2 MG TABLET GT SCH (20:22)
[2019-01-07] MEDS: PROTEIN SUPPLEMENT (PROSTAT) 30 ML LIQUID GT SCH (20:22)
[2019-01-07] MEDS: ENOXAPARIN SODIUM 40 MG/0.4 ML DISP.SYRIN SQ SCH (20:23)
[2019-01-07] MEDS: GUAIFENESIN/DEXTROMETHORPHAN 5 ML UDC GT PRN (20:28)
[2019-01-08] MEDS: IPRATROPIUM BROMIDE 0.5 MG/2.5 ML NEBU NEB SCH ×4 (00:42→19:48)
[2019-01-08] MEDS: GLUCERNA 1.2 1000ML LIQUID GT SCH ×2 (02:23→22:53)
[2019-01-08] MEDS: HYDROCODONE BIT/HOMATROPINE 5 ML UDC GT PRN (03:28)
[2019-01-08] MEDS: FOLIC ACID 1 MG TABLET GT SCH (05:19)
[2019-01-08] MEDS: PHENYTOIN 100 MG/4 ML UDC GT SCH ×2 (05:19→17:42)
[2019-01-08] MEDS: OMEPRAZOLE 20 MG CAPSULE.DR GT SCH (05:19)
[2019-01-08] MEDS: FERROUS SULFATE 330 MG/7.5 ML UDC- FOR SA ONLY GT SCH (05:19)
[2019-01-08] MEDS: BENZTROPINE MESYLATE 0.5 MG TABLET GT SCH ×3 (05:19→21:14)
[2019-01-08] MEDS: LORATADINE 10 MG TABLET GT SCH (05:19)
[2019-01-08] MEDS: CYANOCOBALAMIN 100 MCG TABLET GT SCH (05:20)
[2019-01-08] MEDS: LISINOPRIL 20 MG TABLET GT SCH ×2 (05:20→17:43)
[2019-01-08] MEDS: INSULIN NPH SQ SCH ×3 (05:21→21:19)
[2019-01-08] MEDS: BLOOD SUGAR DIAGNOSTIC 1 EACH STRIP VI SCH ×3 (05:21→17:35)
[2019-01-08] MEDS: INSULIN REGULAR, HUMAN 300 UNIT/3 ML VIAL SQ PRN (05:25)
[2019-01-08] MEDS: ALBUTEROL SULFATE 2.5 MG/3 ML NEBU NEB SCH ×3 (07:30→19:48)
[2019-01-08 07:47] VITALS: BP 133/81
[2019-01-08] MEDS: METFORMIN HCL 500 MG TABLET PO SCH ×2 (08:12→17:42)
[2019-01-08] MEDS: ASPIRIN 81 MG TAB.CHEW GT SCH (08:30)
[2019-01-08] MEDS: SPIRONOLACTONE 25 MG TABLET GT SCH (08:30)
[2019-01-08] MEDS: LEVETIRACETAM 500 MG/5 ML LIQUID UDC GT SCH ×2 (08:30→21:13)
[2019-01-08] MEDS: AMANTADINE 50MG/5ML GT SCH (08:31)
[2019-01-08] MEDS: PHENOBARBITAL 64.8 MG TABLET GT SCH (08:33)
[2019-01-08] MEDS: METOPROLOL TARTRATE 100 MG TABLET GT SCH (08:34)
[2019-01-08] MEDS: COD LIVER OIL/ZINC OXIDE OINT 113 GM TUBE TP SCH ×2 (08:35→21:14)
[2019-01-08] MEDS: HYDROGEN PEROXIDE 3% 118 ML BOTTLE TP SCH ×2 (08:35→21:14)
[2019-01-08] MEDS: NUTRISOURCE FIBER 4 GM PACKET PO SCH ×2 (08:35→21:14)
[2019-01-08] MEDS: Z GUARD REMEDY PASTE 57 GM TUBE TP SCH ×2 (08:35→21:14)
[2019-01-08] MEDS: POTASSIUM CHLORIDE 40 MEQ/30 ML LIQUID UDC GT SCH (08:35)
[2019-01-08] MEDS: VIMPAT 150 MG GT SCH ×2 (08:35→21:14)
[2019-01-08 19:53] VITALS: BP 96/56
[2019-01-08] MEDS: PROTEIN SUPPLEMENT (PROSTAT) 30 ML LIQUID GT SCH (21:14)
[2019-01-08] MEDS: MELATONIN 3 MG GT SCH (21:14)
[2019-01-08] MEDS: MULTIVIT, IRON, MIN NO. 8, FA TABLET GT SCH (21:14)
[2019-01-08] MEDS: DIGOXIN 125 MCG TABLET GT SCH (21:14)
[2019-01-08] MEDS: PHENOBARBITAL 97.2 MG TABLET GT SCH (21:14)
[2019-01-08] MEDS: ENOXAPARIN SODIUM 40 MG/0.4 ML DISP.SYRIN SQ SCH (21:16)
[2019-01-09] MEDS: BLOOD SUGAR DIAGNOSTIC 1 EACH STRIP VI SCH ×4 (00:09→17:41)
[2019-01-09] MEDS: IBUPROFEN 100 MG/5 ML LIQUID UDC- SA PATIENTS-PAIN ONLY GT PRN (01:00)
[2019-01-09] MEDS: HYDROCODONE BIT/HOMATROPINE 5 ML UDC GT PRN ×2 (01:00→18:08)
[2019-01-09] MEDS: IPRATROPIUM BROMIDE 0.5 MG/2.5 ML NEBU NEB SCH ×4 (01:38→20:15)
[2019-01-09] MEDS: ALBUTEROL SULFATE 2.5 MG/3 ML NEBU NEB SCH ×4 (01:38→20:15)
[2019-01-09] MEDS: CYANOCOBALAMIN 100 MCG TABLET GT SCH (05:47)
[2019-01-09] MEDS: OMEPRAZOLE 20 MG CAPSULE.DR GT SCH (05:47)
[2019-01-09] MEDS: PHENYTOIN 100 MG/4 ML UDC GT SCH ×2 (05:47→17:21)
[2019-01-09] MEDS: FERROUS SULFATE 330 MG/7.5 ML UDC- FOR SA ONLY GT SCH (05:47)
[2019-01-09] MEDS: BENZTROPINE MESYLATE 0.5 MG TABLET GT SCH ×3 (05:47→22:06)
[2019-01-09] MEDS: LORATADINE 10 MG TABLET GT SCH (05:47)
[2019-01-09] MEDS: LISINOPRIL 20 MG TABLET GT SCH ×2 (05:47→17:20)
[2019-01-09] MEDS: FOLIC ACID 1 MG TABLET GT SCH (05:47)
[2019-01-09] MEDS: INSULIN NPH SQ SCH ×3 (05:49→22:43)
[2019-01-09 07:49] VITALS: BP 138/93
[2019-01-09] MEDS: METFORMIN HCL 500 MG TABLET PO SCH ×2 (08:04→17:22)
[2019-01-09] MEDS: LEVETIRACETAM 500 MG/5 ML LIQUID UDC GT SCH ×2 (08:14→21:00)
[2019-01-09] MEDS: SPIRONOLACTONE 25 MG TABLET GT SCH (08:14)
[2019-01-09] MEDS: ASPIRIN 81 MG TAB.CHEW GT SCH (08:14)
[2019-01-09] MEDS: POTASSIUM CHLORIDE 40 MEQ/30 ML LIQUID UDC GT SCH (08:15)
[2019-01-09] MEDS: Z GUARD REMEDY PASTE 57 GM TUBE TP SCH ×2 (08:15→21:00)
[2019-01-09] MEDS: COD LIVER OIL/ZINC OXIDE OINT 113 GM TUBE TP SCH ×2 (08:15→21:00)
[2019-01-09] MEDS: NUTRISOURCE FIBER 4 GM PACKET PO SCH ×2 (08:15→21:00)
[2019-01-09] MEDS: VIMPAT 150 MG GT SCH ×2 (08:15→21:00)
[2019-01-09] MEDS: HYDROGEN PEROXIDE 3% 118 ML BOTTLE TP SCH ×2 (08:15→21:00)
[2019-01-09] MEDS: AMANTADINE 50MG/5ML GT SCH (08:15)
[2019-01-09] MEDS: PHENOBARBITAL 64.8 MG TABLET GT SCH (08:15)
[2019-01-09] MEDS: METOPROLOL TARTRATE 100 MG TABLET GT SCH (08:15)
--- NOTE | 2019-01-09 13:30 | NUR ---
pt off unit
[2019-01-09] MEDS: GUAIFENESIN/DEXTROMETHORPHAN 5 ML UDC GT PRN (17:22)
[2019-01-09 20:00] VITALS: BP 132/81
[2019-01-09] MEDS: PHENOBARBITAL 97.2 MG TABLET GT SCH (21:00)
[2019-01-09] MEDS: MELATONIN 3 MG GT SCH (21:00)
[2019-01-09] MEDS: ENOXAPARIN SODIUM 40 MG/0.4 ML DISP.SYRIN SQ SCH (21:00)
[2019-01-09] MEDS: PROTEIN SUPPLEMENT (PROSTAT) 30 ML LIQUID GT SCH (21:00)
[2019-01-09] MEDS: DIGOXIN 125 MCG TABLET GT SCH (21:00)
[2019-01-10] MEDS: BLOOD SUGAR DIAGNOSTIC 1 EACH STRIP VI SCH ×4 (00:40→17:50)
[2019-01-10] MEDS: ALBUTEROL SULFATE 2.5 MG/3 ML NEBU NEB SCH ×4 (01:44→20:10)
[2019-01-10] MEDS: IPRATROPIUM BROMIDE 0.5 MG/2.5 ML NEBU NEB SCH ×4 (01:44→20:10)
[2019-01-10] MEDS: GLUCERNA 1.2 1000ML LIQUID GT SCH (02:14)
[2019-01-10] MEDS: GUAIFENESIN/DEXTROMETHORPHAN 5 ML UDC GT PRN ×2 (05:03→22:27)
[2019-01-10] MEDS: FERROUS SULFATE 330 MG/7.5 ML UDC- FOR SA ONLY GT SCH (05:16)
[2019-01-10] MEDS: PHENYTOIN 100 MG/4 ML UDC GT SCH ×2 (05:16→17:49)
[2019-01-10] MEDS: LORATADINE 10 MG TABLET GT SCH (05:16)
[2019-01-10] MEDS: BENZTROPINE MESYLATE 0.5 MG TABLET GT SCH ×3 (05:16→21:32)
[2019-01-10] MEDS: OMEPRAZOLE 20 MG CAPSULE.DR GT SCH (05:16)
[2019-01-10] MEDS: FOLIC ACID 1 MG TABLET GT SCH (05:16)
[2019-01-10] MEDS: CYANOCOBALAMIN 100 MCG TABLET GT SCH (05:17)
[2019-01-10] MEDS: LISINOPRIL 20 MG TABLET GT SCH ×2 (05:18→17:50)
[2019-01-10] MEDS: INSULIN NPH SQ SCH ×3 (06:21→21:47)
[2019-01-10 07:20] VITALS: BP 145/87
[2019-01-10] MEDS: METFORMIN HCL 500 MG TABLET PO SCH ×2 (08:00→17:50)
[2019-01-10 08:05] VITALS: BP 118/76
[2019-01-10] MEDS: PHENOBARBITAL 64.8 MG TABLET GT SCH (09:05)
[2019-01-10] MEDS: VIMPAT 150 MG GT SCH ×2 (09:05→21:32)
[2019-01-10] MEDS: SPIRONOLACTONE 25 MG TABLET GT SCH (09:11)
[2019-01-10] MEDS: ASPIRIN 81 MG TAB.CHEW GT SCH (09:11)
[2019-01-10] MEDS: LEVETIRACETAM 500 MG/5 ML LIQUID UDC GT SCH ×2 (09:12→21:30)
[2019-01-10] MEDS: METOPROLOL TARTRATE 100 MG TABLET GT SCH (09:12)
[2019-01-10] MEDS: NUTRISOURCE FIBER 4 GM PACKET PO SCH ×2 (09:13→21:32)
[2019-01-10] MEDS: POTASSIUM CHLORIDE 40 MEQ/30 ML LIQUID UDC GT SCH (09:13)
[2019-01-10] MEDS: AMANTADINE 50MG/5ML GT SCH (09:13)
[2019-01-10] MEDS: HYDROGEN PEROXIDE 3% 118 ML BOTTLE TP SCH ×2 (09:14→21:32)
[2019-01-10] MEDS: COD LIVER OIL/ZINC OXIDE OINT 113 GM TUBE TP SCH ×2 (09:14→21:32)
[2019-01-10] MEDS: Z GUARD REMEDY PASTE 57 GM TUBE TP SCH ×2 (09:14→21:32)
[2019-01-10] MEDS: INSULIN REGULAR, HUMAN 300 UNIT/3 ML VIAL SQ PRN ×2 (12:00→17:53)
[2019-01-10] MEDS: HYDROCODONE BIT/HOMATROPINE 5 ML UDC GT PRN (15:34)
--- NOTE | 2019-01-10 19:30 | NUR ---
Patient afebrile, still with on and off coughing spells, trach intact and patent, suctioned with moderate yellow secretions, 02 sat is 97%, On aspiration precaution, HOB elevated. Kept clean and comfortable, will continue monitor.
[2019-01-10 20:06] VITALS: BP 123/83
[2019-01-10] MEDS: DIGOXIN 125 MCG TABLET GT SCH (21:30)
[2019-01-10] MEDS: PHENOBARBITAL 97.2 MG TABLET GT SCH (21:32)
[2019-01-10] MEDS: MULTIVIT, IRON, MIN NO. 8, FA TABLET GT SCH (21:32)
[2019-01-10] MEDS: MELATONIN 3 MG GT SCH (21:32)
[2019-01-10] MEDS: PROTEIN SUPPLEMENT (PROSTAT) 30 ML LIQUID GT SCH (21:32)
[2019-01-10] MEDS: ENOXAPARIN SODIUM 40 MG/0.4 ML DISP.SYRIN SQ SCH (21:41)
[2019-01-11] MEDS: BLOOD SUGAR DIAGNOSTIC 1 EACH STRIP VI SCH ×5 (00:49→23:24)
[2019-01-11] MEDS: INSULIN REGULAR, HUMAN 300 UNIT/3 ML VIAL SQ PRN ×5 (00:50→23:26)
[2019-01-11] MEDS: ALBUTEROL SULFATE 2.5 MG/3 ML NEBU NEB SCH ×4 (01:45→18:50)
[2019-01-11] MEDS: IPRATROPIUM BROMIDE 0.5 MG/2.5 ML NEBU NEB SCH ×4 (01:45→18:50)
[2019-01-11] MEDS: HYDROCODONE BIT/HOMATROPINE 5 ML UDC GT PRN (03:00)
[2019-01-11] MEDS: ACETAMINOPHEN 650 MG/20 ML UDC- SA PATIENTS-PAIN ONLY GT PRN ×2 (04:00→13:00)
[2019-01-11] MEDS: BENZTROPINE MESYLATE 0.5 MG TABLET GT SCH ×3 (05:23→21:56)
[2019-01-11] MEDS: PHENYTOIN 100 MG/4 ML UDC GT SCH ×2 (05:23→18:08)
[2019-01-11] MEDS: FERROUS SULFATE 330 MG/7.5 ML UDC- FOR SA ONLY GT SCH (05:23)
[2019-01-11] MEDS: OMEPRAZOLE 20 MG CAPSULE.DR GT SCH (05:23)
[2019-01-11] MEDS: LORATADINE 10 MG TABLET GT SCH (05:23)
[2019-01-11] MEDS: FOLIC ACID 1 MG TABLET GT SCH (05:23)
[2019-01-11] MEDS: LISINOPRIL 20 MG TABLET GT SCH ×2 (05:24→17:13)
[2019-01-11] MEDS: CYANOCOBALAMIN 100 MCG TABLET GT SCH (05:24)
[2019-01-11] MEDS: INSULIN NPH SQ SCH ×3 (05:26→21:58)
[2019-01-11 06:35] VITALS: BP 144/88
--- NOTE | 2019-01-11 06:40 | NUR ---
Patient still with on and off cough, noted with brownish secretions, suctioned as needed. No respiratory distress noted, on aspiration precaution, 02 sat is 98%. Patient is sleeping comfortably in bed at this time, will continue monitor.
[2019-01-11 08:04] VITALS: BP 126/79
[2019-01-11] MEDS: METFORMIN HCL 500 MG TABLET PO SCH ×2 (08:53→17:13)
[2019-01-11] MEDS: ASPIRIN 81 MG TAB.CHEW GT SCH (08:58)
[2019-01-11] MEDS: SPIRONOLACTONE 25 MG TABLET GT SCH (08:58)
[2019-01-11] MEDS: NUTRISOURCE FIBER 4 GM PACKET PO SCH ×2 (08:59→21:55)
[2019-01-11] MEDS: POTASSIUM CHLORIDE 40 MEQ/30 ML LIQUID UDC GT SCH (08:59)
[2019-01-11] MEDS: AMANTADINE 50MG/5ML GT SCH (08:59)
[2019-01-11] MEDS: METOPROLOL TARTRATE 100 MG TABLET GT SCH (08:59)
[2019-01-11] MEDS: LEVETIRACETAM 500 MG/5 ML LIQUID UDC GT SCH ×2 (08:59→21:54)
[2019-01-11] MEDS: Z GUARD REMEDY PASTE 57 GM TUBE TP SCH ×2 (09:00→21:56)
[2019-01-11] MEDS: VIMPAT 150 MG GT SCH ×2 (09:00→21:55)
[2019-01-11] MEDS: HYDROGEN PEROXIDE 3% 118 ML BOTTLE TP SCH ×2 (09:00→21:56)
[2019-01-11] MEDS: COD LIVER OIL/ZINC OXIDE OINT 113 GM TUBE TP SCH ×2 (09:00→21:56)
[2019-01-11] MEDS: PHENOBARBITAL 64.8 MG TABLET GT SCH (09:00)
--- NOTE | 2019-01-11 09:30 | NUR ---
PATIENT IN BED, TEMPERATURE 99.8, HR 113 WITH A SATURATION OF 92% , SECRETIONS THICK YELLOW, PATIENT NOTED TO BE PERSPIRING. STEPHAN BELLO AWARE OF PATIENT CONDITION, WITH NEW ORDERS. WILL CONTINUE MONITORING.
[2019-01-11 10:36] LABS: BASOPHILS % (AUTO) 0.3 % (0.0-2.0); EOSINOPHILS % (AUTO) 0.1 % (0.0-7.0); HEMATOCRIT 39.4 % (36.7-47.1); HEMOGLOBIN 13.1 g/dL (12.5-16.3); LYMPHOCYTES # (AUTO) 0.9 K/uL (20.0-40.0); LYMPHOCYTES % (AUTO) 10.5 % (20.5-51.5); MEAN CORPUSCULAR HEMOGLOBIN 31.2 uug (23.8-33.4); MEAN CORPUSCULAR HGB CONC 33 g/dL (32.5-36.3); MEAN CORPUSCULAR VOLUME 93.9 fL (73.0-96.2); MONOCYTES # (AUTO) 0.7 K/uL (2.0-10.0); MONOCYTES % (AUTO) 8.7 % (0.0-11.0); NEUTROPHILS % (AUTO) 80.4 % (38.5-71.5); PLATELET COUNT (AUTO) 165 K/uL (152-348); RED BLOOD CELL COUNT(AUTO) 4.19 MIL/uL (4.06-5.63); WHITE BLOOD COUNT (AUTO) 8.7 K/uL (3.6-10.2)
[2019-01-11 10:46] LABS: BILIRUBIN,TOTAL 0.3 mg/dL (0.2-1.0); CREATININE 1.2 mg/dL (0.6-1.3); POTASSIUM 5.2 mmol/L (3.5-5.1); TOTAL PROTEIN, SERUM 8.9 g/dL (6.4-8.2)
--- NOTE | 2019-01-11 11:43 | NUR ---
Sheila BELLO, notified of k 5.2, new orders given to d/c kcl, cbc, bmp on Saturday.
[2019-01-11] MEDS ORDERED: SODIUM POLYSTYRENE SULFONATE 15 G/60 ML LIQUID UDC GT ONE (12:00)
[2019-01-11] MEDS: GLUCERNA 1.2 1000ML LIQUID GT SCH (14:33)
--- NOTE | 2019-01-11 15:27 | NUR ---
[facility] start Vancomycin 1G IV q12, trough level before 3rd dose, with bun/scr with trough sample.
[2019-01-11] MEDS ORDERED: VANCOMYCIN IV 1 G in PREMIXED 0 EACH IV SCH (16:00)
[2019-01-11] MEDS: VANCOMYCIN IV 1 G in PREMIXED 0 EACH IV SCH (16:13)
[2019-01-11 18:29] VITALS: BP 113/72
[2019-01-11] MEDS: PROTEIN SUPPLEMENT (PROSTAT) 30 ML LIQUID GT SCH (21:55)
[2019-01-11] MEDS: PHENOBARBITAL 97.2 MG TABLET GT SCH (21:55)
[2019-01-11] MEDS: DIGOXIN 125 MCG TABLET GT SCH (21:55)
[2019-01-11] MEDS: MELATONIN 3 MG GT SCH (21:55)
[2019-01-11] MEDS: ENOXAPARIN SODIUM 40 MG/0.4 ML DISP.SYRIN SQ SCH (21:59)
[2019-01-11] MEDS: CEFEPIME HCL 1 G in IV DEXTROSE 5% 50 ML IV SCH (22:00)
--- NOTE | 2019-01-11 22:00 | NUR ---
Started cefepime 1 gram IVPB for (+) MRSA in the blood, no adverse reactions noted. Also, on Vancomycin IV for (+) MRSA in the blood. Still with brownish secretions, suctioned as needed, 02 sat @ 99%, no signs of any distress, still with on and off cough. Turned and repositioned, kept clean and comfortable. Addendum: 01/11/19 at 2252 by JOSE VENEGAS RN Please clarify above entry for Cefepime and Vancomycin IV. It is not for MRSA in the blood. The vancomycin and Cefepime IV's are for increased secretions and suspected Pneumonia, No adverse reactions noted.
[2019-01-11 22:40] VITALS: BP 129/79
[2019-01-12] MEDS: IPRATROPIUM BROMIDE 0.5 MG/2.5 ML NEBU NEB SCH ×4 (01:30→20:20)
[2019-01-12] MEDS: ALBUTEROL SULFATE 2.5 MG/3 ML NEBU NEB SCH ×2 (01:30→07:18)
[2019-01-12] MEDS: VANCOMYCIN IV 1 G in PREMIXED 0 EACH IV SCH ×2 (04:13→16:25)
[2019-01-12] MEDS: FOLIC ACID 1 MG TABLET GT SCH (05:47)
[2019-01-12] MEDS: PHENYTOIN 100 MG/4 ML UDC GT SCH ×2 (05:47→18:11)
[2019-01-12] MEDS: LORATADINE 10 MG TABLET GT SCH (05:47)
[2019-01-12] MEDS: FERROUS SULFATE 330 MG/7.5 ML UDC- FOR SA ONLY GT SCH (05:47)
[2019-01-12] MEDS: BENZTROPINE MESYLATE 0.5 MG TABLET GT SCH ×3 (05:47→21:01)
[2019-01-12] MEDS: OMEPRAZOLE 20 MG CAPSULE.DR GT SCH (05:47)
[2019-01-12] MEDS: CYANOCOBALAMIN 100 MCG TABLET GT SCH (05:48)
[2019-01-12] MEDS: LISINOPRIL 20 MG TABLET GT SCH ×2 (05:48→18:14)
[2019-01-12] MEDS: BLOOD SUGAR DIAGNOSTIC 1 EACH STRIP VI SCH ×4 (05:48→23:25)
[2019-01-12] MEDS: INSULIN REGULAR, HUMAN 300 UNIT/3 ML VIAL SQ PRN ×2 (05:51→11:55)
[2019-01-12] MEDS: INSULIN NPH SQ SCH ×3 (05:52→21:03)
[2019-01-12 08:10] VITALS: BP 145/87
[2019-01-12] MEDS: AMANTADINE 50MG/5ML GT SCH (08:27)
[2019-01-12] MEDS: ASPIRIN 81 MG TAB.CHEW GT SCH (08:27)
[2019-01-12] MEDS: SPIRONOLACTONE 25 MG TABLET GT SCH (08:27)
[2019-01-12] MEDS: NUTRISOURCE FIBER 4 GM PACKET PO SCH ×2 (08:27→20:53)
[2019-01-12] MEDS: PHENOBARBITAL 64.8 MG TABLET GT SCH (08:27)
[2019-01-12] MEDS: METFORMIN HCL 500 MG TABLET PO SCH ×2 (08:27→18:14)
[2019-01-12] MEDS: LEVETIRACETAM 500 MG/5 ML LIQUID UDC GT SCH ×2 (08:27→20:52)
[2019-01-12] MEDS: METOPROLOL TARTRATE 100 MG TABLET GT SCH (08:27)
[2019-01-12] MEDS: VIMPAT 150 MG GT SCH ×2 (08:27→20:52)
[2019-01-12] MEDS: COD LIVER OIL/ZINC OXIDE OINT 113 GM TUBE TP SCH ×2 (08:28→20:53)
[2019-01-12] MEDS: HYDROGEN PEROXIDE 3% 118 ML BOTTLE TP SCH ×2 (08:28→20:53)
[2019-01-12] MEDS: Z GUARD REMEDY PASTE 57 GM TUBE TP SCH ×2 (08:28→20:53)
[2019-01-12] MEDS: GUAIFENESIN/DEXTROMETHORPHAN 5 ML UDC GT PRN (08:30)
[2019-01-12] MEDS ORDERED: POTASSIUM CHLORIDE 40 MEQ/30 ML LIQUID UDC GT SCH (09:00)
[2019-01-12] MEDS: CEFEPIME HCL 1 G in IV DEXTROSE 5% 50 ML IV SCH ×2 (09:50→21:13)
[2019-01-12] MEDS: ALBUTEROL SULFATE 2.5 MG/3 ML NEBU NEB PRN ×2 (13:05→20:20)
[2019-01-12 15:49] LABS: VANCOMYCIN,TROUGH 11.4 ug/mL (12.0-20.0)
[2019-01-12] MEDS: LEVALBUTEROL HCL NEB 0.63 MG/3 ML NEBU NEB SCH (19:30)
--- NOTE | 2019-01-12 20:20 | NUR ---
HHN tx given with 2.5mg Albuterol. Xopenex 0.63mg not available at this time. During HHN tx HR monitored with VS machine. No adverse reaction noted. Nurse Abigal notified.
[2019-01-12] MEDS: DIGOXIN 125 MCG TABLET GT SCH (20:52)
[2019-01-12] MEDS: MELATONIN 3 MG GT SCH (20:52)
[2019-01-12] MEDS: PHENOBARBITAL 97.2 MG TABLET GT SCH (20:52)
[2019-01-12] MEDS: PROTEIN SUPPLEMENT (PROSTAT) 30 ML LIQUID GT SCH (20:52)
[2019-01-12] MEDS: MULTIVIT, IRON, MIN NO. 8, FA TABLET GT SCH (20:52)
[2019-01-12] MEDS: ENOXAPARIN SODIUM 40 MG/0.4 ML DISP.SYRIN SQ SCH (20:53)
[2019-01-12 22:39] VITALS: BP 154/95
[2019-01-13] MEDS: GLUCERNA 1.2 1000ML LIQUID GT SCH ×2 (00:14→17:58)
[2019-01-13] MEDS: HYDROCODONE BIT/HOMATROPINE 5 ML UDC GT PRN (01:07)
[2019-01-13] MEDS: IPRATROPIUM BROMIDE 0.5 MG/2.5 ML NEBU NEB SCH ×4 (01:29→19:29)
[2019-01-13] MEDS: LEVALBUTEROL HCL NEB 0.63 MG/3 ML NEBU NEB SCH ×4 (01:29→19:29)
[2019-01-13] MEDS: VANCOMYCIN IV 1 G in PREMIXED 0 EACH IV SCH ×2 (03:27→16:00)
[2019-01-13] MEDS: BENZTROPINE MESYLATE 0.5 MG TABLET GT SCH ×3 (05:13→21:00)
[2019-01-13] MEDS: LORATADINE 10 MG TABLET GT SCH (05:13)
[2019-01-13] MEDS: PHENYTOIN 100 MG/4 ML UDC GT SCH ×2 (05:14→17:55)
[2019-01-13] MEDS: OMEPRAZOLE 20 MG CAPSULE.DR GT SCH (05:15)
[2019-01-13] MEDS: FERROUS SULFATE 330 MG/7.5 ML UDC- FOR SA ONLY GT SCH (05:15)
[2019-01-13] MEDS: FOLIC ACID 1 MG TABLET GT SCH (05:15)
[2019-01-13] MEDS: LISINOPRIL 20 MG TABLET GT SCH ×2 (05:16→17:55)
[2019-01-13] MEDS: CYANOCOBALAMIN 100 MCG TABLET GT SCH (05:16)
[2019-01-13] MEDS: INSULIN NPH SQ SCH ×3 (05:25→21:01)
[2019-01-13] MEDS: INSULIN REGULAR, HUMAN 300 UNIT/3 ML VIAL SQ PRN ×2 (05:26→12:52)
[2019-01-13] MEDS: BLOOD SUGAR DIAGNOSTIC 1 EACH STRIP VI SCH ×3 (05:26→17:55)
[2019-01-13 07:38] LABS: BASOPHILS % (AUTO) 0.5 % (0.0-2.0); EOSINOPHILS # (AUTO) 0.1 K/uL (0.0-0.7); EOSINOPHILS % (AUTO) 1.4 % (0.0-7.0); HEMOGLOBIN 11.7 g/dL (12.5-16.3); LYMPHOCYTES # (AUTO) 1.5 K/uL (20.0-40.0); LYMPHOCYTES % (AUTO) 21.1 % (20.5-51.5); MEAN CORPUSCULAR HEMOGLOBIN 31.4 uug (23.8-33.4); MEAN CORPUSCULAR HGB CONC 33 g/dL (32.5-36.3); MEAN CORPUSCULAR VOLUME 93.8 fL (73.0-96.2); MONOCYTES # (AUTO) 0.5 K/uL (2.0-10.0); MONOCYTES % (AUTO) 7.4 % (0.0-11.0); NEUTROPHILS # (AUTO) 4.9 K/uL (1.8-8.9); NEUTROPHILS % (AUTO) 69.6 % (38.5-71.5); PLATELET COUNT (AUTO) 145 K/uL (152-348); RED BLOOD CELL COUNT(AUTO) 3.74 MIL/uL (4.06-5.63); WHITE BLOOD COUNT (AUTO) 7.1 K/uL (3.6-10.2)
[2019-01-13 08:03] LABS: CREATININE 0.9 mg/dL (0.6-1.3); POTASSIUM 4.5 mmol/L (3.5-5.1)
[2019-01-13] MEDS: METFORMIN HCL 500 MG TABLET PO SCH ×2 (08:08→17:55)
[2019-01-13] MEDS: SPIRONOLACTONE 25 MG TABLET GT SCH (08:08)
[2019-01-13] MEDS: ASPIRIN 81 MG TAB.CHEW GT SCH (08:09)
[2019-01-13] MEDS: LEVETIRACETAM 500 MG/5 ML LIQUID UDC GT SCH ×2 (08:09→20:57)
[2019-01-13] MEDS: METOPROLOL TARTRATE 100 MG TABLET GT SCH (08:10)
[2019-01-13] MEDS: PHENOBARBITAL 64.8 MG TABLET GT SCH (08:11)
[2019-01-13] MEDS: AMANTADINE 50MG/5ML GT SCH (08:11)
[2019-01-13] MEDS: NUTRISOURCE FIBER 4 GM PACKET PO SCH ×2 (08:11→20:52)
[2019-01-13] MEDS: VIMPAT 150 MG GT SCH ×2 (08:11→20:57)
[2019-01-13] MEDS: COD LIVER OIL/ZINC OXIDE OINT 113 GM TUBE TP SCH ×2 (08:12→20:52)
[2019-01-13] MEDS: HYDROGEN PEROXIDE 3% 118 ML BOTTLE TP SCH ×2 (08:12→20:53)
[2019-01-13] MEDS: Z GUARD REMEDY PASTE 57 GM TUBE TP SCH ×2 (08:12→20:53)
[2019-01-13] MEDS: GUAIFENESIN/DEXTROMETHORPHAN 5 ML UDC GT PRN (08:13)
[2019-01-13 08:14] VITALS: BP 139/82
[2019-01-13] MEDS: CEFEPIME HCL 1 G in IV DEXTROSE 5% 50 ML IV SCH ×2 (09:00→21:13)
[2019-01-13] MEDS: IBUPROFEN 100 MG/5 ML LIQUID UDC- SA PATIENTS-PAIN ONLY GT PRN (15:00)
[2019-01-13] MEDS: DIGOXIN 125 MCG TABLET GT SCH (20:51)
[2019-01-13] MEDS: PROTEIN SUPPLEMENT (PROSTAT) 30 ML LIQUID GT SCH (20:52)
[2019-01-13] MEDS: MELATONIN 3 MG GT SCH (20:52)
[2019-01-13] MEDS: PHENOBARBITAL 97.2 MG TABLET GT SCH (20:57)
[2019-01-13] MEDS: ENOXAPARIN SODIUM 40 MG/0.4 ML DISP.SYRIN SQ SCH (20:58)
[2019-01-13 23:05] VITALS: BP 124/84
[2019-01-14] MEDS: BLOOD SUGAR DIAGNOSTIC 1 EACH STRIP VI SCH ×5 (00:09→23:47)
[2019-01-14] MEDS: HYDROCODONE BIT/HOMATROPINE 5 ML UDC GT PRN ×2 (00:17→11:08)
[2019-01-14] MEDS: IPRATROPIUM BROMIDE 0.5 MG/2.5 ML NEBU NEB SCH ×4 (00:55→19:31)
[2019-01-14] MEDS: LEVALBUTEROL HCL NEB 0.63 MG/3 ML NEBU NEB SCH ×4 (00:55→19:31)
--- NOTE | 2019-01-14 01:49 | NUR ---
continue on cefepime 1 gm iv and [id number] iv for pneumonia, no adverse reaction noted.
[2019-01-14] MEDS: VANCOMYCIN IV 1 G in PREMIXED 0 EACH IV SCH ×2 (03:35→15:36)
[2019-01-14] MEDS: FERROUS SULFATE 330 MG/7.5 ML UDC- FOR SA ONLY GT SCH (05:24)
[2019-01-14] MEDS: OMEPRAZOLE 20 MG CAPSULE.DR GT SCH (05:24)
[2019-01-14] MEDS: FOLIC ACID 1 MG TABLET GT SCH (05:24)
[2019-01-14] MEDS: LORATADINE 10 MG TABLET GT SCH (05:24)
[2019-01-14] MEDS: LISINOPRIL 20 MG TABLET GT SCH ×2 (05:24→17:12)
[2019-01-14] MEDS: BENZTROPINE MESYLATE 0.5 MG TABLET GT SCH ×3 (05:24→21:06)
[2019-01-14] MEDS: CYANOCOBALAMIN 100 MCG TABLET GT SCH (05:25)
[2019-01-14] MEDS: PHENYTOIN 100 MG/4 ML UDC GT SCH ×2 (05:25→17:11)
[2019-01-14] MEDS: INSULIN NPH SQ SCH ×3 (05:28→21:21)
[2019-01-14] MEDS: GUAIFENESIN/DEXTROMETHORPHAN 5 ML UDC GT PRN (06:15)
[2019-01-14 08:12] VITALS: BP 111/75
[2019-01-14] MEDS: METFORMIN HCL 500 MG TABLET PO SCH ×2 (08:53→17:12)
[2019-01-14] MEDS: SPIRONOLACTONE 25 MG TABLET GT SCH (08:54)
[2019-01-14] MEDS: ASPIRIN 81 MG TAB.CHEW GT SCH (08:55)
[2019-01-14] MEDS: LEVETIRACETAM 500 MG/5 ML LIQUID UDC GT SCH ×2 (08:55→20:37)
[2019-01-14] MEDS: CEFEPIME HCL 1 G in IV DEXTROSE 5% 50 ML IV SCH ×2 (09:00→20:57)
[2019-01-14] MEDS: COD LIVER OIL/ZINC OXIDE OINT 113 GM TUBE TP SCH ×2 (09:01→20:39)
[2019-01-14] MEDS: NUTRISOURCE FIBER 4 GM PACKET PO SCH ×2 (09:01→20:39)
[2019-01-14] MEDS: HYDROGEN PEROXIDE 3% 118 ML BOTTLE TP SCH ×2 (09:01→20:39)
[2019-01-14] MEDS: VIMPAT 150 MG GT SCH ×2 (09:01→20:38)
[2019-01-14] MEDS: Z GUARD REMEDY PASTE 57 GM TUBE TP SCH ×2 (09:02→20:39)
[2019-01-14] MEDS: METOPROLOL TARTRATE 100 MG TABLET GT SCH (09:06)
[2019-01-14] MEDS: PHENOBARBITAL 64.8 MG TABLET GT SCH (09:08)
[2019-01-14] MEDS: AMANTADINE 50MG/5ML GT SCH (09:10)
[2019-01-14] MEDS: INSULIN REGULAR, HUMAN 300 UNIT/3 ML VIAL SQ PRN ×2 (12:00→23:51)
[2019-01-14] MEDS: GLUCERNA 1.2 1000ML LIQUID GT SCH (12:54)
[2019-01-14] MEDS: DIGOXIN 125 MCG TABLET GT SCH (20:38)
[2019-01-14] MEDS: PROTEIN SUPPLEMENT (PROSTAT) 30 ML LIQUID GT SCH (20:38)
[2019-01-14] MEDS: MELATONIN 3 MG GT SCH (20:38)
[2019-01-14] MEDS: MULTIVIT, IRON, MIN NO. 8, FA TABLET GT SCH (20:38)
[2019-01-14] MEDS: PHENOBARBITAL 97.2 MG TABLET GT SCH (20:38)
[2019-01-14] MEDS: ENOXAPARIN SODIUM 40 MG/0.4 ML DISP.SYRIN SQ SCH (21:20)
--- NOTE | 2019-01-14 23:15 | NUR ---
continue on cefepime1 gm iv and vancomycin 1 gm iv for pneumonia, no side effects noted.
[2019-01-15] MEDS: IPRATROPIUM BROMIDE 0.5 MG/2.5 ML NEBU NEB SCH ×4 (01:54→19:16)
[2019-01-15] MEDS: LEVALBUTEROL HCL NEB 0.63 MG/3 ML NEBU NEB SCH ×4 (01:54→19:16)
[2019-01-15] MEDS: VANCOMYCIN IV 1 G in PREMIXED 0 EACH IV SCH ×2 (03:40→15:53)
[2019-01-15] MEDS: CYANOCOBALAMIN 100 MCG TABLET GT SCH (05:28)
[2019-01-15] MEDS: BLOOD SUGAR DIAGNOSTIC 1 EACH STRIP VI SCH ×4 (05:28→23:41)
[2019-01-15] MEDS: OMEPRAZOLE 20 MG CAPSULE.DR GT SCH (05:28)
[2019-01-15] MEDS: BENZTROPINE MESYLATE 0.5 MG TABLET GT SCH ×3 (05:28→21:35)
[2019-01-15] MEDS: LORATADINE 10 MG TABLET GT SCH (05:28)
[2019-01-15] MEDS: FOLIC ACID 1 MG TABLET GT SCH (05:28)
[2019-01-15] MEDS: FERROUS SULFATE 330 MG/7.5 ML UDC- FOR SA ONLY GT SCH (05:28)
[2019-01-15] MEDS: LISINOPRIL 20 MG TABLET GT SCH ×2 (05:28→18:00)
[2019-01-15] MEDS: PHENYTOIN 100 MG/4 ML UDC GT SCH ×2 (05:28→18:01)
[2019-01-15] MEDS: INSULIN REGULAR, HUMAN 300 UNIT/3 ML VIAL SQ PRN (05:50)
[2019-01-15] MEDS: INSULIN NPH SQ SCH ×3 (05:51→21:40)
[2019-01-15 08:17] VITALS: BP 130/87
[2019-01-15] MEDS: METFORMIN HCL 500 MG TABLET PO SCH ×2 (08:26→17:57)
[2019-01-15] MEDS: SPIRONOLACTONE 25 MG TABLET GT SCH (08:26)
[2019-01-15] MEDS: ASPIRIN 81 MG TAB.CHEW GT SCH (08:27)
[2019-01-15] MEDS: LEVETIRACETAM 500 MG/5 ML LIQUID UDC GT SCH ×2 (08:27→20:25)
[2019-01-15] MEDS: METOPROLOL TARTRATE 100 MG TABLET GT SCH (08:28)
[2019-01-15] MEDS: PHENOBARBITAL 64.8 MG TABLET GT SCH (08:28)
[2019-01-15] MEDS: AMANTADINE 50MG/5ML GT SCH (08:31)
[2019-01-15] MEDS: GLUCERNA 1.2 1000ML LIQUID GT SCH (08:32)
[2019-01-15] MEDS: Z GUARD REMEDY PASTE 57 GM TUBE TP SCH ×2 (08:32→20:27)
[2019-01-15] MEDS: HYDROGEN PEROXIDE 3% 118 ML BOTTLE TP SCH ×2 (08:32→20:27)
[2019-01-15] MEDS: VIMPAT 150 MG GT SCH ×2 (08:32→20:25)
[2019-01-15] MEDS: NUTRISOURCE FIBER 4 GM PACKET PO SCH ×2 (08:32→20:26)
[2019-01-15] MEDS: COD LIVER OIL/ZINC OXIDE OINT 113 GM TUBE TP SCH ×2 (08:32→20:27)
[2019-01-15] MEDS: HYDROCODONE BIT/HOMATROPINE 5 ML UDC GT PRN ×2 (08:39→15:04)
[2019-01-15] MEDS: CEFEPIME HCL 1 G in IV DEXTROSE 5% 50 ML IV SCH ×2 (08:52→20:26)
[2019-01-15] MEDS: PROTEIN SUPPLEMENT (PROSTAT) 30 ML LIQUID GT SCH (20:25)
[2019-01-15] MEDS: PHENOBARBITAL 97.2 MG TABLET GT SCH (20:25)
[2019-01-15] MEDS: MELATONIN 3 MG GT SCH (20:25)
[2019-01-15] MEDS: DIGOXIN 125 MCG TABLET GT SCH (20:28)
[2019-01-15] MEDS: ENOXAPARIN SODIUM 40 MG/0.4 ML DISP.SYRIN SQ SCH (20:41)
[2019-01-15 22:13] VITALS: BP 149/89
[2019-01-16] MEDS: LEVALBUTEROL HCL NEB 0.63 MG/3 ML NEBU NEB SCH ×4 (01:16→19:00)
[2019-01-16] MEDS: IPRATROPIUM BROMIDE 0.5 MG/2.5 ML NEBU NEB SCH ×4 (01:16→19:00)
[2019-01-16] MEDS: VANCOMYCIN IV 1 G in PREMIXED 0 EACH IV SCH ×2 (04:00→16:56)
[2019-01-16] MEDS: OMEPRAZOLE 20 MG CAPSULE.DR GT SCH (05:21)
[2019-01-16] MEDS: PHENYTOIN 100 MG/4 ML UDC GT SCH ×2 (05:21→17:31)
[2019-01-16] MEDS: LISINOPRIL 20 MG TABLET GT SCH ×2 (05:21→17:33)
[2019-01-16] MEDS: CYANOCOBALAMIN 100 MCG TABLET GT SCH (05:21)
[2019-01-16] MEDS: INSULIN NPH SQ SCH ×3 (05:21→21:15)
[2019-01-16] MEDS: FOLIC ACID 1 MG TABLET GT SCH (05:21)
[2019-01-16] MEDS: BLOOD SUGAR DIAGNOSTIC 1 EACH STRIP VI SCH ×3 (05:21→17:34)
[2019-01-16] MEDS: FERROUS SULFATE 330 MG/7.5 ML UDC- FOR SA ONLY GT SCH (05:21)
[2019-01-16] MEDS: BENZTROPINE MESYLATE 0.5 MG TABLET GT SCH ×3 (05:22→21:15)
[2019-01-16] MEDS: LORATADINE 10 MG TABLET GT SCH (05:22)
[2019-01-16] MEDS: GLUCERNA 1.2 1000ML LIQUID GT SCH (05:22)
[2019-01-16 08:06] VITALS: BP 111/75
[2019-01-16] MEDS: CEFEPIME HCL 1 G in IV DEXTROSE 5% 50 ML IV SCH ×2 (08:23→20:56)
[2019-01-16] MEDS: METOPROLOL TARTRATE 100 MG TABLET GT SCH (08:54)
[2019-01-16] MEDS: SPIRONOLACTONE 25 MG TABLET GT SCH (08:54)
[2019-01-16] MEDS: AMANTADINE 50MG/5ML GT SCH (08:54)
[2019-01-16] MEDS: NUTRISOURCE FIBER 4 GM PACKET PO SCH ×2 (08:54→20:56)
[2019-01-16] MEDS: VIMPAT 150 MG GT SCH ×2 (08:54→20:53)
[2019-01-16] MEDS: METFORMIN HCL 500 MG TABLET PO SCH ×2 (08:54→17:33)
[2019-01-16] MEDS: LEVETIRACETAM 500 MG/5 ML LIQUID UDC GT SCH ×2 (08:54→20:52)
[2019-01-16] MEDS: PHENOBARBITAL 64.8 MG TABLET GT SCH (08:54)
[2019-01-16] MEDS: ASPIRIN 81 MG TAB.CHEW GT SCH (08:54)
[2019-01-16] MEDS: Z GUARD REMEDY PASTE 57 GM TUBE TP SCH ×2 (08:55→20:58)
[2019-01-16] MEDS: HYDROGEN PEROXIDE 3% 118 ML BOTTLE TP SCH ×2 (08:55→20:58)
[2019-01-16] MEDS: COD LIVER OIL/ZINC OXIDE OINT 113 GM TUBE TP SCH ×2 (08:55→20:58)
--- NOTE | 2019-01-16 12:00 | NUR ---
SEEN BY THI MAURICIO.
[2019-01-16] MEDS: ACETAMINOPHEN 650 MG/20 ML UDC- SA PATIENTS-PAIN ONLY GT PRN (13:05)
[2019-01-16] MEDS: HYDROCODONE BIT/HOMATROPINE 5 ML UDC GT PRN (14:50)
[2019-01-16] MEDS: MELATONIN 3 MG GT SCH (20:52)
[2019-01-16] MEDS: DIGOXIN 125 MCG TABLET GT SCH (20:53)
[2019-01-16] MEDS: PHENOBARBITAL 97.2 MG TABLET GT SCH (20:53)
[2019-01-16] MEDS: PROTEIN SUPPLEMENT (PROSTAT) 30 ML LIQUID GT SCH (20:53)
[2019-01-16] MEDS: MULTIVIT, IRON, MIN NO. 8, FA TABLET GT SCH (20:54)
[2019-01-16] MEDS: ENOXAPARIN SODIUM 40 MG/0.4 ML DISP.SYRIN SQ SCH (20:58)
--- NOTE | 2019-01-16 22:55 | NUR ---
Afebrile, still on Cefepime and vancomycin IV for Pneumonia, no adverse reactions noted. Trach intact and patent, suctioned , still with increased secretions. No signs of respiratory distress noted ,02 sat @ 99%, kept clean and comfortable.
[2019-01-16 23:16] VITALS: BP_SYST 156
[2019-01-17] MEDS: BLOOD SUGAR DIAGNOSTIC 1 EACH STRIP VI SCH ×5 (00:39→23:59)
[2019-01-17] MEDS: GLUCERNA 1.2 1000ML LIQUID GT SCH ×2 (00:40→14:50)
[2019-01-17] MEDS: LEVALBUTEROL HCL NEB 0.63 MG/3 ML NEBU NEB SCH ×4 (01:45→19:29)
[2019-01-17] MEDS: IPRATROPIUM BROMIDE 0.5 MG/2.5 ML NEBU NEB SCH ×4 (01:45→19:29)
[2019-01-17] MEDS: VANCOMYCIN IV 1 G in PREMIXED 0 EACH IV SCH (04:00)
[2019-01-17] MEDS: OMEPRAZOLE 20 MG CAPSULE.DR GT SCH (05:00)
[2019-01-17] MEDS: PHENYTOIN 100 MG/4 ML UDC GT SCH ×2 (05:00→17:59)
[2019-01-17] MEDS: FOLIC ACID 1 MG TABLET GT SCH (05:00)
[2019-01-17] MEDS: LORATADINE 10 MG TABLET GT SCH (05:00)
[2019-01-17] MEDS: FERROUS SULFATE 330 MG/7.5 ML UDC- FOR SA ONLY GT SCH (05:00)
[2019-01-17] MEDS: BENZTROPINE MESYLATE 0.5 MG TABLET GT SCH ×3 (05:00→21:28)
[2019-01-17] MEDS: LISINOPRIL 20 MG TABLET GT SCH ×2 (05:01→18:00)
[2019-01-17] MEDS: INSULIN NPH SQ SCH ×3 (05:01→21:29)
[2019-01-17] MEDS: CYANOCOBALAMIN 100 MCG TABLET GT SCH (05:01)
[2019-01-17] MEDS: INSULIN REGULAR, HUMAN 300 UNIT/3 ML VIAL SQ PRN ×2 (05:03→11:19)
[2019-01-17] MEDS: METFORMIN HCL 500 MG TABLET PO SCH ×2 (08:00→18:00)
[2019-01-17] MEDS: CEFEPIME HCL 1 G in IV DEXTROSE 5% 50 ML IV SCH ×2 (08:13→21:15)
[2019-01-17 08:14] VITALS: BP 144/88
[2019-01-17] MEDS: ASPIRIN 81 MG TAB.CHEW GT SCH (09:08)
[2019-01-17] MEDS: LEVETIRACETAM 500 MG/5 ML LIQUID UDC GT SCH ×2 (09:08→21:13)
[2019-01-17] MEDS: SPIRONOLACTONE 25 MG TABLET GT SCH (09:08)
[2019-01-17] MEDS: COD LIVER OIL/ZINC OXIDE OINT 113 GM TUBE TP SCH ×2 (09:09→21:15)
[2019-01-17] MEDS: Z GUARD REMEDY PASTE 57 GM TUBE TP SCH ×2 (09:09→21:16)
[2019-01-17] MEDS: PHENOBARBITAL 64.8 MG TABLET GT SCH (09:09)
[2019-01-17] MEDS: NUTRISOURCE FIBER 4 GM PACKET PO SCH ×2 (09:09→21:15)
[2019-01-17] MEDS: METOPROLOL TARTRATE 100 MG TABLET GT SCH (09:09)
[2019-01-17] MEDS: HYDROGEN PEROXIDE 3% 118 ML BOTTLE TP SCH ×2 (09:09→21:16)
[2019-01-17] MEDS: VIMPAT 150 MG GT SCH ×2 (09:10→21:15)
[2019-01-17] MEDS: AMANTADINE 50MG/5ML GT SCH (09:11)
[2019-01-17] MEDS: HYDROCODONE BIT/HOMATROPINE 5 ML UDC GT PRN ×2 (10:57→17:43)
[2019-01-17] MEDS: DIGOXIN 125 MCG TABLET GT SCH (21:14)
[2019-01-17] MEDS: PHENOBARBITAL 97.2 MG TABLET GT SCH (21:15)
[2019-01-17] MEDS: MELATONIN 3 MG GT SCH (21:15)
[2019-01-17] MEDS: PROTEIN SUPPLEMENT (PROSTAT) 30 ML LIQUID GT SCH (21:15)
[2019-01-17] MEDS: ENOXAPARIN SODIUM 40 MG/0.4 ML DISP.SYRIN SQ SCH (21:16)
[2019-01-17 22:08] VITALS: BP 147/92
[2019-01-18] MEDS: IPRATROPIUM BROMIDE 0.5 MG/2.5 ML NEBU NEB SCH ×4 (00:57→19:58)
[2019-01-18] MEDS: LEVALBUTEROL HCL NEB 0.63 MG/3 ML NEBU NEB SCH ×4 (00:57→19:58)
--- NOTE | 2019-01-18 01:12 | NUR ---
Last dose of cefepime IV given for Pneumonia, no adverse reactions noted. S/p vancomycin IV for Pneumonia, no adverse reactions noted. Afebrile, still with increased secretions, suctioned as needed,kept clean and comfortable.
[2019-01-18] MEDS: FOLIC ACID 1 MG TABLET GT SCH (05:13)
[2019-01-18] MEDS: BENZTROPINE MESYLATE 0.5 MG TABLET GT SCH ×3 (05:13→21:08)
[2019-01-18] MEDS: FERROUS SULFATE 330 MG/7.5 ML UDC- FOR SA ONLY GT SCH (05:13)
[2019-01-18] MEDS: CYANOCOBALAMIN 100 MCG TABLET GT SCH (05:13)
[2019-01-18] MEDS: OMEPRAZOLE 20 MG CAPSULE.DR GT SCH (05:13)
[2019-01-18] MEDS: PHENYTOIN 100 MG/4 ML UDC GT SCH ×2 (05:13→18:11)
[2019-01-18] MEDS: LISINOPRIL 20 MG TABLET GT SCH ×2 (05:13→18:12)
[2019-01-18] MEDS: LORATADINE 10 MG TABLET GT SCH (05:13)
[2019-01-18] MEDS: BLOOD SUGAR DIAGNOSTIC 1 EACH STRIP VI SCH ×4 (05:17→23:26)
[2019-01-18] MEDS: INSULIN NPH SQ SCH ×3 (05:18→21:10)
[2019-01-18 08:13] VITALS: BP 173/99
[2019-01-18] MEDS: METFORMIN HCL 500 MG TABLET PO SCH ×2 (08:25→18:11)
[2019-01-18] MEDS: SPIRONOLACTONE 25 MG TABLET GT SCH (08:26)
[2019-01-18] MEDS: ASPIRIN 81 MG TAB.CHEW GT SCH (08:26)
[2019-01-18] MEDS: LEVETIRACETAM 500 MG/5 ML LIQUID UDC GT SCH ×2 (08:26→21:07)
[2019-01-18 08:27] VITALS: BP 152/79
[2019-01-18] MEDS: VIMPAT 150 MG GT SCH ×2 (08:27→21:07)
[2019-01-18] MEDS: HYDROGEN PEROXIDE 3% 118 ML BOTTLE TP SCH ×2 (08:27→21:08)
[2019-01-18] MEDS: PHENOBARBITAL 64.8 MG TABLET GT SCH (08:27)
[2019-01-18] MEDS: COD LIVER OIL/ZINC OXIDE OINT 113 GM TUBE TP SCH ×2 (08:27→21:08)
[2019-01-18] MEDS: NUTRISOURCE FIBER 4 GM PACKET PO SCH ×2 (08:27→21:07)
[2019-01-18] MEDS: Z GUARD REMEDY PASTE 57 GM TUBE TP SCH ×2 (08:27→21:08)
[2019-01-18] MEDS: AMANTADINE 50MG/5ML GT SCH (08:27)
[2019-01-18] MEDS: METOPROLOL TARTRATE 100 MG TABLET GT SCH (08:27)
[2019-01-18] MEDS: INSULIN REGULAR, HUMAN 300 UNIT/3 ML VIAL SQ PRN ×3 (11:52→23:27)
--- NOTE | 2019-01-18 12:00 | NUR ---
PT'S BROTHER AT BEDSIDE. NURSE CALLED TO ROOM. PT NOTED WITH TREMORS. MORE THAN HIS USUAL. PT ON COGENTIN. WILL MONITOR
[2019-01-18] MEDS: DIGOXIN 125 MCG TABLET GT SCH (21:07)
[2019-01-18] MEDS: MULTIVIT, IRON, MIN NO. 8, FA TABLET GT SCH (21:07)
[2019-01-18] MEDS: PROTEIN SUPPLEMENT (PROSTAT) 30 ML LIQUID GT SCH (21:07)
[2019-01-18] MEDS: MELATONIN 3 MG GT SCH (21:07)
[2019-01-18] MEDS: PHENOBARBITAL 97.2 MG TABLET GT SCH (21:07)
[2019-01-18] MEDS: ENOXAPARIN SODIUM 40 MG/0.4 ML DISP.SYRIN SQ SCH (21:08)
[2019-01-18] MEDS: ACETAMINOPHEN 650 MG/20 ML UDC- SA PATIENTS-PAIN ONLY GT PRN (21:17)
[2019-01-18 22:57] VITALS: BP 140/95
[2019-01-18] MEDS: GLUCERNA 1.2 1000ML LIQUID GT SCH (23:22)
[2019-01-19 00:36] VITALS: BP 144/85
[2019-01-19] MEDS: LEVALBUTEROL HCL NEB 0.63 MG/3 ML NEBU NEB SCH ×4 (01:52→19:11)
[2019-01-19] MEDS: IPRATROPIUM BROMIDE 0.5 MG/2.5 ML NEBU NEB SCH ×4 (01:52→19:11)
[2019-01-19] MEDS: PHENYTOIN 100 MG/4 ML UDC GT SCH ×2 (05:52→17:50)
[2019-01-19] MEDS: BENZTROPINE MESYLATE 0.5 MG TABLET GT SCH ×3 (05:52→21:20)
[2019-01-19] MEDS: FERROUS SULFATE 330 MG/7.5 ML UDC- FOR SA ONLY GT SCH (05:52)
[2019-01-19] MEDS: LORATADINE 10 MG TABLET GT SCH (05:52)
[2019-01-19] MEDS: FOLIC ACID 1 MG TABLET GT SCH (05:52)
[2019-01-19] MEDS: OMEPRAZOLE 20 MG CAPSULE.DR GT SCH (05:52)
[2019-01-19] MEDS: CYANOCOBALAMIN 100 MCG TABLET GT SCH (05:53)
[2019-01-19] MEDS: LISINOPRIL 20 MG TABLET GT SCH ×2 (05:53→17:50)
[2019-01-19] MEDS: BLOOD SUGAR DIAGNOSTIC 1 EACH STRIP VI SCH ×4 (05:53→23:35)
[2019-01-19] MEDS: INSULIN REGULAR, HUMAN 300 UNIT/3 ML VIAL SQ PRN ×4 (05:54→23:35)
[2019-01-19] MEDS: INSULIN NPH SQ SCH ×3 (05:57→21:14)
--- NOTE | 2019-01-19 07:03 | NUR ---
Still with increased white secretions , and productive cough still, suctioned frequently as needed and also, noted with tremors, no signs of any distress noted, kept clean and comfortable.
[2019-01-19 08:05] VITALS: BP 145/94
[2019-01-19] MEDS: METFORMIN HCL 500 MG TABLET PO SCH ×2 (08:57→17:50)
[2019-01-19] MEDS: SPIRONOLACTONE 25 MG TABLET GT SCH (08:57)
[2019-01-19] MEDS: ASPIRIN 81 MG TAB.CHEW GT SCH (08:58)
[2019-01-19] MEDS: LEVETIRACETAM 500 MG/5 ML LIQUID UDC GT SCH ×2 (08:58→21:19)
[2019-01-19] MEDS: METOPROLOL TARTRATE 100 MG TABLET GT SCH (08:59)
[2019-01-19] MEDS: PHENOBARBITAL 64.8 MG TABLET GT SCH (08:59)
[2019-01-19] MEDS: COD LIVER OIL/ZINC OXIDE OINT 113 GM TUBE TP SCH ×2 (09:00→21:20)
[2019-01-19] MEDS: VIMPAT 150 MG GT SCH ×2 (09:00→21:19)
[2019-01-19] MEDS: AMANTADINE 50MG/5ML GT SCH (09:00)
[2019-01-19] MEDS: NUTRISOURCE FIBER 4 GM PACKET PO SCH ×2 (09:00→21:19)
[2019-01-19] MEDS: HYDROGEN PEROXIDE 3% 118 ML BOTTLE TP SCH ×2 (09:00→21:20)
[2019-01-19] MEDS: Z GUARD REMEDY PASTE 57 GM TUBE TP SCH ×2 (09:00→21:20)
[2019-01-19] MEDS: HYDROCODONE BIT/HOMATROPINE 5 ML UDC GT PRN (16:00)
--- NOTE | 2019-01-19 16:00 | NUR ---
SEEN BY TIFFANIE MAURICIO.
[2019-01-19] MEDS: GLUCERNA 1.2 1000ML LIQUID GT SCH (18:02)
[2019-01-19] MEDS: ENOXAPARIN SODIUM 40 MG/0.4 ML DISP.SYRIN SQ SCH (21:13)
[2019-01-19] MEDS: MELATONIN 3 MG GT SCH (21:19)
[2019-01-19] MEDS: PROTEIN SUPPLEMENT (PROSTAT) 30 ML LIQUID GT SCH (21:19)
[2019-01-19] MEDS: DIGOXIN 125 MCG TABLET GT SCH (21:19)
[2019-01-19] MEDS: PHENOBARBITAL 97.2 MG TABLET GT SCH (21:19)
[2019-01-19 22:00] VITALS: BP 146/98
[2019-01-20] MEDS: LEVALBUTEROL HCL NEB 0.63 MG/3 ML NEBU NEB SCH ×4 (01:30→20:21)
[2019-01-20] MEDS: IPRATROPIUM BROMIDE 0.5 MG/2.5 ML NEBU NEB SCH ×4 (01:30→20:21)
[2019-01-20] MEDS: BENZTROPINE MESYLATE 0.5 MG TABLET GT SCH ×3 (05:41→21:12)
[2019-01-20] MEDS: LORATADINE 10 MG TABLET GT SCH (05:41)
[2019-01-20] MEDS: PHENYTOIN 100 MG/4 ML UDC GT SCH ×2 (05:41→18:00)
[2019-01-20] MEDS: LISINOPRIL 20 MG TABLET GT SCH (05:42)
[2019-01-20] MEDS: CYANOCOBALAMIN 100 MCG TABLET GT SCH (05:42)
[2019-01-20] MEDS: FOLIC ACID 1 MG TABLET GT SCH (05:42)
[2019-01-20] MEDS: OMEPRAZOLE 20 MG CAPSULE.DR GT SCH (05:42)
[2019-01-20] MEDS: FERROUS SULFATE 330 MG/7.5 ML UDC- FOR SA ONLY GT SCH (05:42)
[2019-01-20] MEDS: BLOOD SUGAR DIAGNOSTIC 1 EACH STRIP VI SCH ×4 (05:58→23:13)
[2019-01-20] MEDS: INSULIN REGULAR, HUMAN 300 UNIT/3 ML VIAL SQ PRN ×4 (05:59→23:15)
[2019-01-20] MEDS: INSULIN NPH SQ SCH ×3 (06:11→22:17)
[2019-01-20 07:57] VITALS: BP 174/96
[2019-01-20] MEDS: NUTRISOURCE FIBER 4 GM PACKET PO SCH ×2 (08:02→21:11)
[2019-01-20] MEDS: HYDROGEN PEROXIDE 3% 118 ML BOTTLE TP SCH ×2 (08:02→21:12)
[2019-01-20] MEDS: VIMPAT 150 MG GT SCH ×2 (08:02→21:11)
[2019-01-20] MEDS: ASPIRIN 81 MG TAB.CHEW GT SCH (08:02)
[2019-01-20] MEDS: LEVETIRACETAM 500 MG/5 ML LIQUID UDC GT SCH ×2 (08:02→21:04)
[2019-01-20] MEDS: METOPROLOL TARTRATE 100 MG TABLET GT SCH (08:02)
[2019-01-20] MEDS: Z GUARD REMEDY PASTE 57 GM TUBE TP SCH ×2 (08:02→21:12)
[2019-01-20] MEDS: PHENOBARBITAL 64.8 MG TABLET GT SCH (08:02)
[2019-01-20] MEDS: AMANTADINE 50MG/5ML GT SCH (08:02)
[2019-01-20] MEDS: COD LIVER OIL/ZINC OXIDE OINT 113 GM TUBE TP SCH ×2 (08:02→21:12)
[2019-01-20] MEDS: SPIRONOLACTONE 25 MG TABLET GT SCH (08:02)
[2019-01-20] MEDS: METFORMIN HCL 500 MG TABLET PO SCH ×2 (08:02→18:00)
--- NOTE | 2019-01-20 10:03 | NUR ---
PT. WAS SEEN AND EXAMINED BY DR. POPE(NEUROLOGIST) AND WITH NEW ORDERS CARRIED OUT.
[2019-01-20 20:00] VITALS: BP 152/91
[2019-01-20] MEDS: ENOXAPARIN SODIUM 40 MG/0.4 ML DISP.SYRIN SQ SCH (21:00)
[2019-01-20] MEDS: PHENOBARBITAL 97.2 MG TABLET GT SCH (21:11)
[2019-01-20] MEDS: DIGOXIN 125 MCG TABLET GT SCH (21:11)
[2019-01-20] MEDS: MELATONIN 3 MG GT SCH (21:11)
[2019-01-20] MEDS: MULTIVIT, IRON, MIN NO. 8, FA TABLET GT SCH (21:11)
[2019-01-20] MEDS: PROTEIN SUPPLEMENT (PROSTAT) 30 ML LIQUID GT SCH (21:11)
[2019-01-21] MEDS: LEVALBUTEROL HCL NEB 0.63 MG/3 ML NEBU NEB SCH ×4 (02:06→19:29)
[2019-01-21] MEDS: IPRATROPIUM BROMIDE 0.5 MG/2.5 ML NEBU NEB SCH ×4 (02:06→19:29)
[2019-01-21] MEDS: INSULIN NPH SQ SCH ×3 (06:00→22:01)
[2019-01-21] MEDS: BENZTROPINE MESYLATE 0.5 MG TABLET GT SCH ×3 (06:24→21:38)
[2019-01-21] MEDS: LORATADINE 10 MG TABLET GT SCH (06:24)
[2019-01-21] MEDS: LISINOPRIL 20 MG TABLET GT SCH ×2 (06:24→17:17)
[2019-01-21] MEDS: FERROUS SULFATE 330 MG/7.5 ML UDC- FOR SA ONLY GT SCH (06:25)
[2019-01-21] MEDS: OMEPRAZOLE 20 MG CAPSULE.DR GT SCH (06:25)
[2019-01-21] MEDS: CYANOCOBALAMIN 100 MCG TABLET GT SCH (06:25)
[2019-01-21] MEDS: BLOOD SUGAR DIAGNOSTIC 1 EACH STRIP VI SCH ×4 (06:25→23:03)
[2019-01-21] MEDS: PHENYTOIN 100 MG/4 ML UDC GT SCH ×2 (06:25→17:17)
[2019-01-21] MEDS: FOLIC ACID 1 MG TABLET GT SCH (06:25)
[2019-01-21] MEDS: METFORMIN HCL 500 MG TABLET PO SCH ×2 (08:00→17:17)
[2019-01-21] MEDS: PHENOBARBITAL 64.8 MG TABLET GT SCH (09:00)
[2019-01-21] MEDS: VIMPAT 150 MG GT SCH ×2 (09:00→21:37)
[2019-01-21] MEDS: COD LIVER OIL/ZINC OXIDE OINT 113 GM TUBE TP SCH ×2 (09:00→21:38)
[2019-01-21] MEDS: LEVETIRACETAM 500 MG/5 ML LIQUID UDC GT SCH ×2 (09:00→21:36)
[2019-01-21] MEDS: HYDROGEN PEROXIDE 3% 118 ML BOTTLE TP SCH ×2 (09:00→21:38)
[2019-01-21] MEDS: Z GUARD REMEDY PASTE 57 GM TUBE TP SCH ×2 (09:00→21:38)
[2019-01-21] MEDS: AMANTADINE 50MG/5ML GT SCH (09:00)
[2019-01-21] MEDS: NUTRISOURCE FIBER 4 GM PACKET PO SCH ×2 (09:00→21:38)
[2019-01-21] MEDS: METOPROLOL TARTRATE 100 MG TABLET GT SCH (09:00)
[2019-01-21] MEDS: SPIRONOLACTONE 25 MG TABLET GT SCH (09:00)
[2019-01-21] MEDS: ASPIRIN 81 MG TAB.CHEW GT SCH (09:00)
[2019-01-21 11:26] VITALS: BP 150/9
[2019-01-21] MEDS: INSULIN REGULAR, HUMAN 300 UNIT/3 ML VIAL SQ PRN ×2 (11:50→17:18)
[2019-01-21 20:00] VITALS: BP 126/79
[2019-01-21] MEDS: PHENOBARBITAL 97.2 MG TABLET GT SCH (21:37)
[2019-01-21] MEDS: PROTEIN SUPPLEMENT (PROSTAT) 30 ML LIQUID GT SCH (21:37)
[2019-01-21] MEDS: DIGOXIN 125 MCG TABLET GT SCH (21:37)
[2019-01-21] MEDS: MELATONIN 3 MG GT SCH (21:37)
[2019-01-21] MEDS: ENOXAPARIN SODIUM 40 MG/0.4 ML DISP.SYRIN SQ SCH (22:00)
[2019-01-22] MEDS: LEVALBUTEROL HCL NEB 0.63 MG/3 ML NEBU NEB SCH ×4 (00:56→19:28)
[2019-01-22] MEDS: IPRATROPIUM BROMIDE 0.5 MG/2.5 ML NEBU NEB SCH ×4 (00:56→19:28)
[2019-01-22] MEDS: OMEPRAZOLE 20 MG CAPSULE.DR GT SCH (06:20)
[2019-01-22] MEDS: FERROUS SULFATE 330 MG/7.5 ML UDC- FOR SA ONLY GT SCH (06:20)
[2019-01-22] MEDS: LISINOPRIL 20 MG TABLET GT SCH ×2 (06:20→17:56)
[2019-01-22] MEDS: BENZTROPINE MESYLATE 0.5 MG TABLET GT SCH ×3 (06:20→21:18)
[2019-01-22] MEDS: LORATADINE 10 MG TABLET GT SCH (06:20)
[2019-01-22] MEDS: CYANOCOBALAMIN 100 MCG TABLET GT SCH (06:20)
[2019-01-22] MEDS: PHENYTOIN 100 MG/4 ML UDC GT SCH ×2 (06:20→17:50)
[2019-01-22] MEDS: FOLIC ACID 1 MG TABLET GT SCH (06:20)
[2019-01-22] MEDS: BLOOD SUGAR DIAGNOSTIC 1 EACH STRIP VI SCH ×4 (06:21→23:58)
[2019-01-22] MEDS: INSULIN NPH SQ SCH ×3 (06:24→21:20)
[2019-01-22] MEDS: INSULIN REGULAR, HUMAN 300 UNIT/3 ML VIAL SQ PRN ×4 (06:25→17:47)
[2019-01-22] MEDS: SPIRONOLACTONE 25 MG TABLET GT SCH (08:17)
[2019-01-22] MEDS: METFORMIN HCL 500 MG TABLET PO SCH ×2 (08:17→17:57)
[2019-01-22] MEDS: ASPIRIN 81 MG TAB.CHEW GT SCH (08:18)
[2019-01-22] MEDS: LEVETIRACETAM 500 MG/5 ML LIQUID UDC GT SCH ×2 (08:22→21:11)
[2019-01-22] MEDS: METOPROLOL TARTRATE 100 MG TABLET GT SCH (08:22)
[2019-01-22] MEDS: PHENOBARBITAL 64.8 MG TABLET GT SCH (08:26)
[2019-01-22] MEDS: AMANTADINE 50MG/5ML GT SCH (08:27)
[2019-01-22] MEDS: VIMPAT 150 MG GT SCH ×2 (08:27→21:14)
[2019-01-22] MEDS: Z GUARD REMEDY PASTE 57 GM TUBE TP SCH ×2 (08:29→21:18)
[2019-01-22] MEDS: COD LIVER OIL/ZINC OXIDE OINT 113 GM TUBE TP SCH ×2 (08:29→21:18)
[2019-01-22] MEDS: HYDROGEN PEROXIDE 3% 118 ML BOTTLE TP SCH ×2 (08:29→21:18)
[2019-01-22] MEDS: NUTRISOURCE FIBER 4 GM PACKET PO SCH ×2 (08:29→21:16)
[2019-01-22] MEDS: GLUCERNA 1.2 1000ML LIQUID GT SCH (09:44)
[2019-01-22 14:47] VITALS: BP 130/84
[2019-01-22 20:00] VITALS: BP 139/94
[2019-01-22] MEDS: DIGOXIN 125 MCG TABLET GT SCH (21:13)
[2019-01-22] MEDS: MELATONIN 3 MG GT SCH (21:14)
[2019-01-22] MEDS: PROTEIN SUPPLEMENT (PROSTAT) 30 ML LIQUID GT SCH (21:15)
[2019-01-22] MEDS: PHENOBARBITAL 97.2 MG TABLET GT SCH (21:15)
[2019-01-22] MEDS: MULTIVIT, IRON, MIN NO. 8, FA TABLET GT SCH (21:16)
[2019-01-22] MEDS: ENOXAPARIN SODIUM 40 MG/0.4 ML DISP.SYRIN SQ SCH (21:24)
[2019-01-23] MEDS: GLUCERNA 1.2 1000ML LIQUID GT SCH (01:30)
[2019-01-23] MEDS: LEVALBUTEROL HCL NEB 0.63 MG/3 ML NEBU NEB SCH ×4 (01:50→20:00)
[2019-01-23] MEDS: IPRATROPIUM BROMIDE 0.5 MG/2.5 ML NEBU NEB SCH ×4 (01:50→20:00)
[2019-01-23] MEDS: HYDROCODONE BIT/HOMATROPINE 5 ML UDC GT PRN ×2 (02:04→08:51)
[2019-01-23] MEDS: INSULIN NPH SQ SCH ×3 (06:34→22:27)
[2019-01-23] MEDS: PHENYTOIN 100 MG/4 ML UDC GT SCH ×2 (06:35→17:21)
[2019-01-23] MEDS: OMEPRAZOLE 20 MG CAPSULE.DR GT SCH (06:35)
[2019-01-23] MEDS: FOLIC ACID 1 MG TABLET GT SCH (06:35)
[2019-01-23] MEDS: BLOOD SUGAR DIAGNOSTIC 1 EACH STRIP VI SCH ×3 (06:35→17:39)
[2019-01-23] MEDS: BENZTROPINE MESYLATE 0.5 MG TABLET GT SCH ×3 (06:35→21:55)
[2019-01-23] MEDS: CYANOCOBALAMIN 100 MCG TABLET GT SCH (06:35)
[2019-01-23] MEDS: LORATADINE 10 MG TABLET GT SCH (06:35)
[2019-01-23] MEDS: LISINOPRIL 20 MG TABLET GT SCH ×2 (06:35→17:40)
[2019-01-23] MEDS: INSULIN REGULAR, HUMAN 300 UNIT/3 ML VIAL SQ PRN ×3 (06:35→18:08)
[2019-01-23] MEDS: FERROUS SULFATE 330 MG/7.5 ML UDC- FOR SA ONLY GT SCH (06:35)
[2019-01-23] MEDS: METFORMIN HCL 500 MG TABLET PO SCH ×2 (08:38→17:42)
[2019-01-23] MEDS: SPIRONOLACTONE 25 MG TABLET GT SCH (08:39)
[2019-01-23] MEDS: ASPIRIN 81 MG TAB.CHEW GT SCH (08:39)
[2019-01-23] MEDS: LEVETIRACETAM 500 MG/5 ML LIQUID UDC GT SCH ×2 (08:40→21:54)
[2019-01-23] MEDS: METOPROLOL TARTRATE 100 MG TABLET GT SCH (08:41)
[2019-01-23] MEDS: PHENOBARBITAL 64.8 MG TABLET GT SCH (08:44)
[2019-01-23] MEDS: VIMPAT 150 MG GT SCH ×2 (08:45→21:55)
[2019-01-23] MEDS: COD LIVER OIL/ZINC OXIDE OINT 113 GM TUBE TP SCH ×2 (08:46→21:55)
[2019-01-23] MEDS: NUTRISOURCE FIBER 4 GM PACKET PO SCH ×2 (08:46→21:55)
[2019-01-23] MEDS: HYDROGEN PEROXIDE 3% 118 ML BOTTLE TP SCH ×2 (08:46→21:55)
[2019-01-23] MEDS: Z GUARD REMEDY PASTE 57 GM TUBE TP SCH ×2 (08:47→21:55)
[2019-01-23] MEDS: AMANTADINE 50MG/5ML GT SCH (08:48)
[2019-01-23 10:33] VITALS: BP 132/78
[2019-01-23] MEDS: ACETAMINOPHEN 650 MG/20 ML UDC- SA PATIENTS-PAIN ONLY GT PRN (17:44)
[2019-01-23] MEDS: GUAIFENESIN/DEXTROMETHORPHAN 5 ML UDC GT PRN (17:44)
--- NOTE | 2019-01-23 18:08 | NUR ---
Held 1800 metformin dose for bs: 90 mg/dl. Insulin coverage not administered per sliding scale. Pt. out on pass today for about 4 hrs, off feeding tube prior to bs check.
[2019-01-23 20:44] VITALS: BP 179/97
[2019-01-23] MEDS: ENOXAPARIN SODIUM 40 MG/0.4 ML DISP.SYRIN SQ SCH (21:00)
[2019-01-23] MEDS: PHENOBARBITAL 97.2 MG TABLET GT SCH (21:55)
[2019-01-23] MEDS: PROTEIN SUPPLEMENT (PROSTAT) 30 ML LIQUID GT SCH (21:55)
[2019-01-23] MEDS: DIGOXIN 125 MCG TABLET GT SCH (21:55)
[2019-01-23] MEDS: MELATONIN 3 MG GT SCH (21:55)
[2019-01-24] MEDS: BLOOD SUGAR DIAGNOSTIC 1 EACH STRIP VI SCH ×4 (00:15→17:15)
[2019-01-24] MEDS: GUAIFENESIN/DEXTROMETHORPHAN 5 ML UDC GT PRN ×2 (00:21→21:09)
[2019-01-24] MEDS: INSULIN REGULAR, HUMAN 300 UNIT/3 ML VIAL SQ PRN ×2 (00:22→12:20)
[2019-01-24] MEDS: LEVALBUTEROL HCL NEB 0.63 MG/3 ML NEBU NEB SCH ×4 (01:10→18:44)
[2019-01-24] MEDS: IPRATROPIUM BROMIDE 0.5 MG/2.5 ML NEBU NEB SCH ×4 (01:10→18:44)
[2019-01-24] MEDS: GLUCERNA 1.2 1000ML LIQUID GT SCH ×2 (01:50→13:42)
[2019-01-24] MEDS: INSULIN NPH SQ SCH ×3 (05:52→22:03)
[2019-01-24] MEDS: LORATADINE 10 MG TABLET GT SCH (05:57)
[2019-01-24] MEDS: CYANOCOBALAMIN 100 MCG TABLET GT SCH (05:58)
[2019-01-24] MEDS: OMEPRAZOLE 20 MG CAPSULE.DR GT SCH (05:58)
[2019-01-24] MEDS: PHENYTOIN 100 MG/4 ML UDC GT SCH ×2 (05:58→17:14)
[2019-01-24] MEDS: FOLIC ACID 1 MG TABLET GT SCH (05:58)
[2019-01-24] MEDS: BENZTROPINE MESYLATE 0.5 MG TABLET GT SCH ×3 (05:58→22:01)
[2019-01-24] MEDS: FERROUS SULFATE 330 MG/7.5 ML UDC- FOR SA ONLY GT SCH (05:58)
[2019-01-24] MEDS: LISINOPRIL 20 MG TABLET GT SCH ×2 (05:58→17:14)
[2019-01-24] MEDS: METFORMIN HCL 500 MG TABLET PO SCH ×2 (08:00→17:14)
[2019-01-24] MEDS: SPIRONOLACTONE 25 MG TABLET GT SCH (09:10)
[2019-01-24] MEDS: ASPIRIN 81 MG TAB.CHEW GT SCH (09:10)
[2019-01-24] MEDS: LEVETIRACETAM 500 MG/5 ML LIQUID UDC GT SCH ×2 (09:12→20:58)
[2019-01-24] MEDS: METOPROLOL TARTRATE 100 MG TABLET GT SCH (09:13)
[2019-01-24] MEDS: PHENOBARBITAL 64.8 MG TABLET GT SCH (09:15)
[2019-01-24] MEDS: NUTRISOURCE FIBER 4 GM PACKET PO SCH ×2 (09:16→21:01)
[2019-01-24] MEDS: COD LIVER OIL/ZINC OXIDE OINT 113 GM TUBE TP SCH ×3 (09:16→21:01)
[2019-01-24] MEDS: AMANTADINE 50MG/5ML GT SCH (09:16)
[2019-01-24] MEDS: HYDROGEN PEROXIDE 3% 118 ML BOTTLE TP SCH ×2 (09:16→21:02)
[2019-01-24] MEDS: VIMPAT 150 MG GT SCH ×2 (09:16→21:01)
[2019-01-24] MEDS: Z GUARD REMEDY PASTE 57 GM TUBE TP SCH ×2 (09:17→21:02)
[2019-01-24 11:54] VITALS: BP 159/89
[2019-01-24] MEDS: HYDROCODONE BIT/HOMATROPINE 5 ML UDC GT PRN (13:42)
[2019-01-24] MEDS: MELATONIN 3 MG GT SCH (20:59)
[2019-01-24] MEDS: DIGOXIN 125 MCG TABLET GT SCH (20:59)
[2019-01-24] MEDS: PROTEIN SUPPLEMENT (PROSTAT) 30 ML LIQUID GT SCH (21:01)
[2019-01-24] MEDS: PHENOBARBITAL 97.2 MG TABLET GT SCH (21:01)
[2019-01-24] MEDS: MULTIVIT, IRON, MIN NO. 8, FA TABLET GT SCH (21:01)
[2019-01-24] MEDS: ENOXAPARIN SODIUM 40 MG/0.4 ML DISP.SYRIN SQ SCH (21:05)
[2019-01-24] MEDS: ACETAMINOPHEN 650 MG/20 ML UDC- SA PATIENTS-PAIN ONLY GT PRN (21:08)
[2019-01-24 21:31] VITALS: BP 162/95
[2019-01-24 22:39] VITALS: BP 154/90
[2019-01-25] MEDS: INSULIN REGULAR, HUMAN 300 UNIT/3 ML VIAL SQ PRN ×5 (00:24→23:28)
[2019-01-25] MEDS: IPRATROPIUM BROMIDE 0.5 MG/2.5 ML NEBU NEB SCH ×4 (00:35→18:48)
[2019-01-25] MEDS: LEVALBUTEROL HCL NEB 0.63 MG/3 ML NEBU NEB SCH ×4 (00:35→18:48)
[2019-01-25] MEDS: HYDROCODONE BIT/HOMATROPINE 5 ML UDC GT PRN (04:00)
[2019-01-25] MEDS: PHENYTOIN 100 MG/4 ML UDC GT SCH ×2 (05:01→17:32)
[2019-01-25] MEDS: LORATADINE 10 MG TABLET GT SCH (05:01)
[2019-01-25] MEDS: BENZTROPINE MESYLATE 0.5 MG TABLET GT SCH ×3 (05:01→21:05)
[2019-01-25] MEDS: FERROUS SULFATE 330 MG/7.5 ML UDC- FOR SA ONLY GT SCH (05:02)
[2019-01-25] MEDS: OMEPRAZOLE 20 MG CAPSULE.DR GT SCH (05:02)
[2019-01-25] MEDS: CYANOCOBALAMIN 100 MCG TABLET GT SCH (05:02)
[2019-01-25] MEDS: FOLIC ACID 1 MG TABLET GT SCH (05:02)
[2019-01-25] MEDS: LISINOPRIL 20 MG TABLET GT SCH ×2 (05:28→17:33)
[2019-01-25] MEDS: BLOOD SUGAR DIAGNOSTIC 1 EACH STRIP VI SCH ×5 (05:29→23:27)
[2019-01-25] MEDS: INSULIN NPH SQ SCH ×3 (06:13→21:09)
--- NOTE | 2019-01-25 06:44 | NUR ---
Patient noted with tremors, respiratory distress noted, turned and repositioned, kept clean and comfortable, will continue monitor.
[2019-01-25 06:46] VITALS: BP 158/87
[2019-01-25] MEDS: SPIRONOLACTONE 25 MG TABLET GT SCH (08:09)
[2019-01-25] MEDS: ASPIRIN 81 MG TAB.CHEW GT SCH (08:09)
[2019-01-25] MEDS: METFORMIN HCL 500 MG TABLET PO SCH ×2 (08:09→17:33)
[2019-01-25] MEDS: LEVETIRACETAM 500 MG/5 ML LIQUID UDC GT SCH ×2 (08:11→21:04)
[2019-01-25] MEDS: METOPROLOL TARTRATE 100 MG TABLET GT SCH (08:12)
[2019-01-25] MEDS: PHENOBARBITAL 64.8 MG TABLET GT SCH (08:14)
[2019-01-25] MEDS: AMANTADINE 50MG/5ML GT SCH (08:14)
[2019-01-25] MEDS: VIMPAT 150 MG GT SCH ×2 (08:15→21:05)
[2019-01-25] MEDS: HYDROGEN PEROXIDE 3% 118 ML BOTTLE TP SCH ×2 (08:15→21:05)
[2019-01-25] MEDS: COD LIVER OIL/ZINC OXIDE OINT 113 GM TUBE TP SCH ×4 (08:15→21:05)
[2019-01-25] MEDS: Z GUARD REMEDY PASTE 57 GM TUBE TP SCH ×2 (08:15→21:05)
[2019-01-25] MEDS: NUTRISOURCE FIBER 4 GM PACKET PO SCH ×2 (08:15→21:05)
[2019-01-25 08:30] VITALS: BP 148/91
[2019-01-25] MEDS: GLUCERNA 1.2 1000ML LIQUID GT SCH (15:00)
[2019-01-25] MEDS: MELATONIN 3 MG GT SCH (21:05)
[2019-01-25] MEDS: PHENOBARBITAL 97.2 MG TABLET GT SCH (21:05)
[2019-01-25] MEDS: DIGOXIN 125 MCG TABLET GT SCH (21:05)
[2019-01-25] MEDS: PROTEIN SUPPLEMENT (PROSTAT) 30 ML LIQUID GT SCH (21:05)
[2019-01-25] MEDS: ENOXAPARIN SODIUM 40 MG/0.4 ML DISP.SYRIN SQ SCH (21:09)
[2019-01-25 21:44] VITALS: BP 137/83
[2019-01-26] MEDS: IPRATROPIUM BROMIDE 0.5 MG/2.5 ML NEBU NEB SCH ×4 (00:35→19:53)
[2019-01-26] MEDS: LEVALBUTEROL HCL NEB 0.63 MG/3 ML NEBU NEB SCH ×4 (00:35→19:30)
[2019-01-26] MEDS: FERROUS SULFATE 330 MG/7.5 ML UDC- FOR SA ONLY GT SCH (05:37)
[2019-01-26] MEDS: BENZTROPINE MESYLATE 0.5 MG TABLET GT SCH ×3 (05:37→22:14)
[2019-01-26] MEDS: FOLIC ACID 1 MG TABLET GT SCH (05:37)
[2019-01-26] MEDS: LISINOPRIL 20 MG TABLET GT SCH ×2 (05:37→18:11)
[2019-01-26] MEDS: PHENYTOIN 100 MG/4 ML UDC GT SCH ×2 (05:37→18:11)
[2019-01-26] MEDS: BLOOD SUGAR DIAGNOSTIC 1 EACH STRIP VI SCH ×4 (05:37→23:12)
[2019-01-26] MEDS: CYANOCOBALAMIN 100 MCG TABLET GT SCH (05:37)
[2019-01-26] MEDS: LORATADINE 10 MG TABLET GT SCH (05:37)
[2019-01-26] MEDS: OMEPRAZOLE 20 MG CAPSULE.DR GT SCH (05:37)
[2019-01-26] MEDS: ACETAMINOPHEN 650 MG/20 ML UDC- SA PATIENTS-PAIN ONLY GT PRN (05:38)
[2019-01-26] MEDS: INSULIN REGULAR, HUMAN 300 UNIT/3 ML VIAL SQ PRN ×3 (05:38→23:13)
[2019-01-26] MEDS: INSULIN NPH SQ SCH ×3 (05:54→22:18)
[2019-01-26] MEDS: SPIRONOLACTONE 25 MG TABLET GT SCH (08:14)
[2019-01-26] MEDS: LEVETIRACETAM 500 MG/5 ML LIQUID UDC GT SCH ×2 (08:14→20:24)
[2019-01-26] MEDS: METFORMIN HCL 500 MG TABLET PO SCH ×2 (08:14→18:11)
[2019-01-26] MEDS: ASPIRIN 81 MG TAB.CHEW GT SCH (08:14)
[2019-01-26] MEDS: METOPROLOL TARTRATE 100 MG TABLET GT SCH (08:15)
[2019-01-26] MEDS: PHENOBARBITAL 64.8 MG TABLET GT SCH (08:16)
[2019-01-26] MEDS: VIMPAT 150 MG GT SCH ×2 (08:17→20:27)
[2019-01-26] MEDS: AMANTADINE 50MG/5ML GT SCH (08:17)
[2019-01-26 08:18] VITALS: BP 131/76
[2019-01-26] MEDS: COD LIVER OIL/ZINC OXIDE OINT 113 GM TUBE TP SCH ×4 (08:19→20:28)
[2019-01-26] MEDS: HYDROGEN PEROXIDE 3% 118 ML BOTTLE TP SCH ×2 (08:19→20:29)
[2019-01-26] MEDS: NUTRISOURCE FIBER 4 GM PACKET PO SCH ×2 (08:19→20:27)
[2019-01-26] MEDS: Z GUARD REMEDY PASTE 57 GM TUBE TP SCH ×2 (08:19→20:29)
--- NOTE | 2019-01-26 11:25 | NUR ---
Dr. Garcia notified of patient's condition, more spasms/jerking movement reported, new orders given to give Dilantin 200mg gt x1 now, and increase Dilantin to 250mg via gtube q12hrs, Vanna notified of Md orders and in agreement.
[2019-01-26] MEDS ORDERED: PHENYTOIN 100 MG/4 ML UDC GT ONE (12:15)
[2019-01-26] MEDS: ALBUTEROL SULFATE 2.5 MG/3 ML NEBU NEB PRN (19:54)
[2019-01-26] MEDS: DIGOXIN 125 MCG TABLET GT SCH (20:24)
[2019-01-26] MEDS: MELATONIN 3 MG GT SCH (20:25)
[2019-01-26] MEDS: MULTIVIT, IRON, MIN NO. 8, FA TABLET GT SCH (20:26)
[2019-01-26] MEDS: PROTEIN SUPPLEMENT (PROSTAT) 30 ML LIQUID GT SCH (20:26)
[2019-01-26] MEDS: PHENOBARBITAL 97.2 MG TABLET GT SCH (20:27)
[2019-01-26] MEDS: ENOXAPARIN SODIUM 40 MG/0.4 ML DISP.SYRIN SQ SCH (20:28)
[2019-01-26] MEDS: IBUPROFEN 100 MG/5 ML LIQUID UDC- SA PATIENTS-PAIN ONLY GT PRN (20:35)
[2019-01-26] MEDS: GUAIFENESIN/DEXTROMETHORPHAN 5 ML UDC GT PRN (20:36)
[2019-01-26 22:05] VITALS: BP 145/87
[2019-01-27] MEDS: IPRATROPIUM BROMIDE 0.5 MG/2.5 ML NEBU NEB SCH ×4 (01:34→19:59)
[2019-01-27] MEDS: LEVALBUTEROL HCL NEB 0.63 MG/3 ML NEBU NEB SCH ×4 (01:34→19:59)
[2019-01-27] MEDS: LORATADINE 10 MG TABLET GT SCH (06:55)
[2019-01-27] MEDS: PHENYTOIN 100 MG/4 ML UDC GT SCH ×2 (06:55→17:13)
[2019-01-27] MEDS: BENZTROPINE MESYLATE 0.5 MG TABLET GT SCH ×3 (06:55→21:52)
[2019-01-27] MEDS: BLOOD SUGAR DIAGNOSTIC 1 EACH STRIP VI SCH ×3 (06:56→17:11)
[2019-01-27] MEDS: CYANOCOBALAMIN 100 MCG TABLET GT SCH (06:56)
[2019-01-27] MEDS: LISINOPRIL 20 MG TABLET GT SCH ×2 (06:56→17:13)
[2019-01-27] MEDS: FERROUS SULFATE 330 MG/7.5 ML UDC- FOR SA ONLY GT SCH (06:56)
[2019-01-27] MEDS: OMEPRAZOLE 20 MG CAPSULE.DR GT SCH (06:56)
[2019-01-27] MEDS: FOLIC ACID 1 MG TABLET GT SCH (06:56)
[2019-01-27] MEDS: INSULIN NPH SQ SCH ×3 (06:57→21:54)
[2019-01-27] MEDS: INSULIN REGULAR, HUMAN 300 UNIT/3 ML VIAL SQ PRN ×3 (06:59→17:13)
[2019-01-27 08:16] VITALS: BP 171/94
[2019-01-27] MEDS: Z GUARD REMEDY PASTE 57 GM TUBE TP SCH ×2 (09:00→21:52)
[2019-01-27] MEDS: VIMPAT 150 MG GT SCH ×2 (09:00→21:46)
[2019-01-27] MEDS: METOPROLOL TARTRATE 100 MG TABLET GT SCH (09:00)
[2019-01-27] MEDS: ASPIRIN 81 MG TAB.CHEW GT SCH (09:00)
[2019-01-27] MEDS: NUTRISOURCE FIBER 4 GM PACKET PO SCH ×2 (09:00→21:47)
[2019-01-27] MEDS: HYDROGEN PEROXIDE 3% 118 ML BOTTLE TP SCH ×2 (09:00→21:52)
[2019-01-27] MEDS: LEVETIRACETAM 500 MG/5 ML LIQUID UDC GT SCH ×2 (09:00→21:43)
[2019-01-27] MEDS: PHENOBARBITAL 64.8 MG TABLET GT SCH (09:00)
[2019-01-27] MEDS: AMANTADINE 50MG/5ML GT SCH (09:00)
[2019-01-27] MEDS: COD LIVER OIL/ZINC OXIDE OINT 113 GM TUBE TP SCH ×4 (09:00→21:52)
[2019-01-27] MEDS: SPIRONOLACTONE 25 MG TABLET GT SCH (09:00)
[2019-01-27] MEDS: METFORMIN HCL 500 MG TABLET PO SCH ×2 (09:00→17:13)
--- NOTE | 2019-01-27 10:26 | NUR ---
SW notified patient's fiance/SJ Vanna via email that the next IDT meeting for the patient is scheduled for 02/03/2019 at 11am.
[2019-01-27] MEDS: GUAIFENESIN/DEXTROMETHORPHAN 5 ML UDC GT PRN (13:21)
[2019-01-27] MEDS: HYDROCODONE BIT/HOMATROPINE 5 ML UDC GT PRN (18:16)
[2019-01-27 20:09] VITALS: BP 125/78
[2019-01-27] MEDS: DIGOXIN 125 MCG TABLET GT SCH (21:45)
[2019-01-27] MEDS: MELATONIN 3 MG GT SCH (21:46)
[2019-01-27] MEDS: PROTEIN SUPPLEMENT (PROSTAT) 30 ML LIQUID GT SCH (21:47)
[2019-01-27] MEDS: PHENOBARBITAL 97.2 MG TABLET GT SCH (21:47)
[2019-01-27] MEDS: ENOXAPARIN SODIUM 40 MG/0.4 ML DISP.SYRIN SQ SCH (21:50)
[2019-01-28] MEDS: INSULIN REGULAR, HUMAN 300 UNIT/3 ML VIAL SQ PRN ×3 (00:23→18:10)
[2019-01-28] MEDS: BLOOD SUGAR DIAGNOSTIC 1 EACH STRIP VI SCH ×4 (00:24→18:09)
[2019-01-28] MEDS: GLUCERNA 1.2 1000ML LIQUID GT SCH (00:41)
[2019-01-28] MEDS: IPRATROPIUM BROMIDE 0.5 MG/2.5 ML NEBU NEB SCH ×4 (01:38→19:09)
[2019-01-28] MEDS: LEVALBUTEROL HCL NEB 0.63 MG/3 ML NEBU NEB SCH ×4 (01:38→19:09)
[2019-01-28] MEDS: GUAIFENESIN/DEXTROMETHORPHAN 5 ML UDC GT PRN (03:01)
[2019-01-28] MEDS: BENZTROPINE MESYLATE 0.5 MG TABLET GT SCH ×3 (06:11→21:58)
[2019-01-28] MEDS: PHENYTOIN 100 MG/4 ML UDC GT SCH ×2 (06:11→18:09)
[2019-01-28] MEDS: LISINOPRIL 20 MG TABLET GT SCH ×2 (06:11→18:18)
[2019-01-28] MEDS: CYANOCOBALAMIN 100 MCG TABLET GT SCH (06:11)
[2019-01-28] MEDS: FOLIC ACID 1 MG TABLET GT SCH (06:11)
[2019-01-28] MEDS: OMEPRAZOLE 20 MG CAPSULE.DR GT SCH (06:11)
[2019-01-28] MEDS: FERROUS SULFATE 330 MG/7.5 ML UDC- FOR SA ONLY GT SCH (06:11)
[2019-01-28] MEDS: LORATADINE 10 MG TABLET GT SCH (06:11)
[2019-01-28] MEDS: INSULIN NPH SQ SCH ×3 (06:12→21:59)
[2019-01-28] MEDS: LEVETIRACETAM 500 MG/5 ML LIQUID UDC GT SCH ×2 (08:06→21:57)
[2019-01-28] MEDS: METOPROLOL TARTRATE 100 MG TABLET GT SCH (08:06)
[2019-01-28] MEDS: COD LIVER OIL/ZINC OXIDE OINT 113 GM TUBE TP SCH ×4 (08:06→21:58)
[2019-01-28] MEDS: VIMPAT 150 MG GT SCH ×2 (08:06→21:57)
[2019-01-28] MEDS: NUTRISOURCE FIBER 4 GM PACKET PO SCH ×2 (08:06→21:57)
[2019-01-28] MEDS: PHENOBARBITAL 64.8 MG TABLET GT SCH (08:06)
[2019-01-28] MEDS: AMANTADINE 50MG/5ML GT SCH (08:06)
[2019-01-28] MEDS: SPIRONOLACTONE 25 MG TABLET GT SCH (08:06)
[2019-01-28] MEDS: METFORMIN HCL 500 MG TABLET PO SCH ×2 (08:06→18:09)
[2019-01-28] MEDS: ASPIRIN 81 MG TAB.CHEW GT SCH (08:06)
[2019-01-28] MEDS: HYDROGEN PEROXIDE 3% 118 ML BOTTLE TP SCH ×2 (08:07→21:58)
[2019-01-28] MEDS: Z GUARD REMEDY PASTE 57 GM TUBE TP SCH ×2 (08:07→21:58)
[2019-01-28 08:15] VITALS: BP 125/67
[2019-01-28 20:19] VITALS: BP 123/69
[2019-01-28] MEDS: PHENOBARBITAL 97.2 MG TABLET GT SCH (21:57)
[2019-01-28] MEDS: MULTIVIT, IRON, MIN NO. 8, FA TABLET GT SCH (21:57)
[2019-01-28] MEDS: DIGOXIN 125 MCG TABLET GT SCH (21:57)
[2019-01-28] MEDS: MELATONIN 3 MG GT SCH (21:57)
[2019-01-28] MEDS: PROTEIN SUPPLEMENT (PROSTAT) 30 ML LIQUID GT SCH (21:57)
[2019-01-28] MEDS: ENOXAPARIN SODIUM 40 MG/0.4 ML DISP.SYRIN SQ SCH (21:58)
[2019-01-29] MEDS: BLOOD SUGAR DIAGNOSTIC 1 EACH STRIP VI SCH ×4 (00:06→18:02)
[2019-01-29] MEDS: INSULIN REGULAR, HUMAN 300 UNIT/3 ML VIAL SQ PRN ×2 (00:09→18:04)
[2019-01-29] MEDS: HYDROCODONE BIT/HOMATROPINE 5 ML UDC GT PRN ×2 (01:03→06:00)
[2019-01-29] MEDS: LEVALBUTEROL HCL NEB 0.63 MG/3 ML NEBU NEB SCH ×4 (01:55→20:18)
[2019-01-29] MEDS: IPRATROPIUM BROMIDE 0.5 MG/2.5 ML NEBU NEB SCH ×4 (01:55→20:18)
[2019-01-29] MEDS: LORATADINE 10 MG TABLET GT SCH (06:04)
[2019-01-29] MEDS: BENZTROPINE MESYLATE 0.5 MG TABLET GT SCH ×3 (06:04→21:08)
[2019-01-29] MEDS: PHENYTOIN 100 MG/4 ML UDC GT SCH ×2 (06:04→18:02)
[2019-01-29] MEDS: CYANOCOBALAMIN 100 MCG TABLET GT SCH (06:05)
[2019-01-29] MEDS: OMEPRAZOLE 20 MG CAPSULE.DR GT SCH (06:05)
[2019-01-29] MEDS: LISINOPRIL 20 MG TABLET GT SCH ×2 (06:05→18:02)
[2019-01-29] MEDS: FERROUS SULFATE 330 MG/7.5 ML UDC- FOR SA ONLY GT SCH (06:05)
[2019-01-29] MEDS: FOLIC ACID 1 MG TABLET GT SCH (06:05)
[2019-01-29] MEDS: INSULIN NPH SQ SCH ×3 (06:06→21:13)
[2019-01-29] MEDS: HYDROGEN PEROXIDE 3% 118 ML BOTTLE TP SCH ×2 (08:13→21:07)
[2019-01-29] MEDS: ASPIRIN 81 MG TAB.CHEW GT SCH (08:13)
[2019-01-29] MEDS: LEVETIRACETAM 500 MG/5 ML LIQUID UDC GT SCH ×2 (08:13→20:58)
[2019-01-29] MEDS: METOPROLOL TARTRATE 100 MG TABLET GT SCH (08:13)
[2019-01-29] MEDS: PHENOBARBITAL 64.8 MG TABLET GT SCH (08:13)
[2019-01-29] MEDS: NUTRISOURCE FIBER 4 GM PACKET PO SCH ×2 (08:13→21:07)
[2019-01-29] MEDS: METFORMIN HCL 500 MG TABLET PO SCH ×2 (08:13→18:02)
[2019-01-29] MEDS: COD LIVER OIL/ZINC OXIDE OINT 113 GM TUBE TP SCH ×4 (08:13→21:07)
[2019-01-29] MEDS: SPIRONOLACTONE 25 MG TABLET GT SCH (08:13)
[2019-01-29] MEDS: AMANTADINE 50MG/5ML GT SCH (08:13)
[2019-01-29] MEDS: VIMPAT 150 MG GT SCH ×2 (08:13→21:07)
[2019-01-29] MEDS: Z GUARD REMEDY PASTE 57 GM TUBE TP SCH ×2 (08:13→21:07)
[2019-01-29 11:38] VITALS: BP 137/77
--- NOTE | 2019-01-29 13:30 | NUR ---
SEEN BY TIFFANIE MAURICIO.
[2019-01-29 19:46] VITALS: BP 156/95
[2019-01-29] MEDS: DIGOXIN 125 MCG TABLET GT SCH (21:06)
[2019-01-29] MEDS: MELATONIN 3 MG GT SCH (21:06)
[2019-01-29] MEDS: PROTEIN SUPPLEMENT (PROSTAT) 30 ML LIQUID GT SCH (21:07)
[2019-01-29] MEDS: PHENOBARBITAL 97.2 MG TABLET GT SCH (21:07)
[2019-01-29] MEDS: ENOXAPARIN SODIUM 40 MG/0.4 ML DISP.SYRIN SQ SCH (21:14)
[2019-01-30] MEDS: BLOOD SUGAR DIAGNOSTIC 1 EACH STRIP VI SCH ×5 (00:18→23:43)
[2019-01-30] MEDS: GLUCERNA 1.2 1000ML LIQUID GT SCH (01:40)
[2019-01-30] MEDS: IPRATROPIUM BROMIDE 0.5 MG/2.5 ML NEBU NEB SCH ×4 (01:54→19:52)
[2019-01-30] MEDS: LEVALBUTEROL HCL NEB 0.63 MG/3 ML NEBU NEB SCH ×4 (01:54→19:52)
[2019-01-30] MEDS: BENZTROPINE MESYLATE 0.5 MG TABLET GT SCH ×3 (06:05→22:01)
[2019-01-30] MEDS: LORATADINE 10 MG TABLET GT SCH (06:05)
[2019-01-30] MEDS: PHENYTOIN 100 MG/4 ML UDC GT SCH ×2 (06:05→17:50)
[2019-01-30] MEDS: FOLIC ACID 1 MG TABLET GT SCH (06:05)
[2019-01-30] MEDS: FERROUS SULFATE 330 MG/7.5 ML UDC- FOR SA ONLY GT SCH (06:05)
[2019-01-30] MEDS: OMEPRAZOLE 20 MG CAPSULE.DR GT SCH (06:05)
[2019-01-30] MEDS: LISINOPRIL 20 MG TABLET GT SCH ×2 (06:05→17:49)
[2019-01-30] MEDS: CYANOCOBALAMIN 100 MCG TABLET GT SCH (06:06)
[2019-01-30] MEDS: INSULIN NPH SQ SCH ×3 (06:07→22:03)
[2019-01-30] MEDS: ASPIRIN 81 MG TAB.CHEW GT SCH (08:45)
[2019-01-30] MEDS: METFORMIN HCL 500 MG TABLET PO SCH ×2 (08:45→17:50)
[2019-01-30] MEDS: SPIRONOLACTONE 25 MG TABLET GT SCH (08:45)
[2019-01-30] MEDS: LEVETIRACETAM 500 MG/5 ML LIQUID UDC GT SCH ×2 (08:46→21:37)
[2019-01-30] MEDS: PHENOBARBITAL 64.8 MG TABLET GT SCH (08:46)
[2019-01-30] MEDS: VIMPAT 150 MG GT SCH ×2 (08:46→21:38)
[2019-01-30] MEDS: NUTRISOURCE FIBER 4 GM PACKET PO SCH ×2 (08:46→21:38)
[2019-01-30] MEDS: COD LIVER OIL/ZINC OXIDE OINT 113 GM TUBE TP SCH ×4 (08:46→21:58)
[2019-01-30] MEDS: AMANTADINE 50MG/5ML GT SCH (08:46)
[2019-01-30] MEDS: METOPROLOL TARTRATE 100 MG TABLET GT SCH (08:46)
[2019-01-30] MEDS: Z GUARD REMEDY PASTE 57 GM TUBE TP SCH ×2 (08:47→21:00)
[2019-01-30] MEDS: HYDROGEN PEROXIDE 3% 118 ML BOTTLE TP SCH ×2 (08:47→21:00)
--- NOTE | 2019-01-30 09:10 | NUR ---
SW received an email back from patient's dick Prabhakar, stating that she will attend the IDT meeting on 02/03/19.
[2019-01-30 10:57] VITALS: BP 157/89
[2019-01-30] MEDS: GUAIFENESIN/DEXTROMETHORPHAN 5 ML UDC GT PRN (11:16)
--- NOTE | 2019-01-30 11:17 | NUR ---
Seen and examined by Dr Castrejon with new orders noted.
[2019-01-30] MEDS: INSULIN REGULAR, HUMAN 300 UNIT/3 ML VIAL SQ PRN (11:18)
[2019-01-30 11:22] LABS: CREATININE 0.9 mg/dL (0.6-1.3); MAGNESIUM 2.1 mg/dL (1.8-2.4); PHOSPHOROUS 3.5 mg/dL (2.5-4.9); POTASSIUM 4.3 mmol/L (3.5-5.1)
[2019-01-30 11:40] LABS: BASOPHILS % (AUTO) 0.2 % (0.0-2.0); EOSINOPHILS # (AUTO) 0.1 K/uL (0.0-0.7); EOSINOPHILS % (AUTO) 2.4 % (0.0-7.0); HEMATOCRIT 33.9 % (36.7-47.1); HEMOGLOBIN 11.5 g/dL (12.5-16.3); LYMPHOCYTES # (AUTO) 1.6 K/uL (20.0-40.0); LYMPHOCYTES % (AUTO) 33.5 % (20.5-51.5); MEAN CORPUSCULAR HEMOGLOBIN 31.4 uug (23.8-33.4); MEAN CORPUSCULAR HGB CONC 34 g/dL (32.5-36.3); MEAN CORPUSCULAR VOLUME 92.7 fL (73.0-96.2); MONOCYTES # (AUTO) 0.5 K/uL (2.0-10.0); MONOCYTES % (AUTO) 9.7 % (0.0-11.0); NEUTROPHILS # (AUTO) 2.5 K/uL (1.8-8.9); NEUTROPHILS % (AUTO) 54.2 % (38.5-71.5); RED BLOOD CELL COUNT(AUTO) 3.66 MIL/uL (4.06-5.63)
[2019-01-30 11:52] LABS: PLATELET COUNT (AUTO) 201 K/uL (152-348); WHITE BLOOD COUNT (AUTO) 4.7 K/uL (3.6-10.2)
--- NOTE | 2019-01-30 13:30 | NUR ---
pt off unit
[2019-01-30] MEDS: DIGOXIN 125 MCG TABLET GT SCH (21:38)
[2019-01-30] MEDS: PHENOBARBITAL 97.2 MG TABLET GT SCH (21:38)
[2019-01-30] MEDS: MELATONIN 3 MG GT SCH (21:38)
[2019-01-30] MEDS: PROTEIN SUPPLEMENT (PROSTAT) 30 ML LIQUID GT SCH (21:38)
[2019-01-30] MEDS: MULTIVIT, IRON, MIN NO. 8, FA TABLET GT SCH (21:38)
[2019-01-30] MEDS: ENOXAPARIN SODIUM 40 MG/0.4 ML DISP.SYRIN SQ SCH (21:58)
[2019-01-30 22:00] VITALS: BP 152/93
[2019-01-31] MEDS: IPRATROPIUM BROMIDE 0.5 MG/2.5 ML NEBU NEB SCH ×4 (01:11→19:58)
[2019-01-31] MEDS: LEVALBUTEROL HCL NEB 0.63 MG/3 ML NEBU NEB SCH ×4 (01:11→19:58)
[2019-01-31] MEDS: GLUCERNA 1.2 1000ML LIQUID GT SCH ×2 (01:53→14:35)
[2019-01-31] MEDS: GUAIFENESIN/DEXTROMETHORPHAN 5 ML UDC GT PRN ×3 (01:57→21:16)
[2019-01-31] MEDS: LISINOPRIL 20 MG TABLET GT SCH ×2 (05:21→18:02)
[2019-01-31] MEDS: BENZTROPINE MESYLATE 0.5 MG TABLET GT SCH ×3 (05:21→21:16)
[2019-01-31] MEDS: PHENYTOIN 100 MG/4 ML UDC GT SCH ×2 (05:21→18:01)
[2019-01-31] MEDS: OMEPRAZOLE 20 MG CAPSULE.DR GT SCH (05:21)
[2019-01-31] MEDS: FOLIC ACID 1 MG TABLET GT SCH (05:21)
[2019-01-31] MEDS: FERROUS SULFATE 330 MG/7.5 ML UDC- FOR SA ONLY GT SCH (05:21)
[2019-01-31] MEDS: CYANOCOBALAMIN 100 MCG TABLET GT SCH (05:21)
[2019-01-31] MEDS: LORATADINE 10 MG TABLET GT SCH (05:21)
[2019-01-31] MEDS: BLOOD SUGAR DIAGNOSTIC 1 EACH STRIP VI SCH ×4 (05:21→23:14)
[2019-01-31] MEDS: INSULIN NPH SQ SCH ×3 (05:57→21:17)
[2019-01-31] MEDS: INSULIN REGULAR, HUMAN 300 UNIT/3 ML VIAL SQ PRN ×3 (05:58→23:14)
[2019-01-31] MEDS: HYDROCODONE BIT/HOMATROPINE 5 ML UDC GT PRN ×2 (06:28→12:29)
[2019-01-31 08:00] VITALS: BP 140/90
[2019-01-31] MEDS: VIMPAT 150 MG GT SCH ×2 (08:15→21:15)
[2019-01-31] MEDS: METOPROLOL TARTRATE 100 MG TABLET GT SCH (08:15)
[2019-01-31] MEDS: LEVETIRACETAM 500 MG/5 ML LIQUID UDC GT SCH ×2 (08:15→21:15)
[2019-01-31] MEDS: SPIRONOLACTONE 25 MG TABLET GT SCH (08:15)
[2019-01-31] MEDS: ASPIRIN 81 MG TAB.CHEW GT SCH (08:15)
[2019-01-31] MEDS: NUTRISOURCE FIBER 4 GM PACKET PO SCH ×2 (08:15→21:15)
[2019-01-31] MEDS: AMANTADINE 50MG/5ML GT SCH (08:15)
[2019-01-31] MEDS: METFORMIN HCL 500 MG TABLET PO SCH ×2 (08:15→18:01)
[2019-01-31] MEDS: PHENOBARBITAL 64.8 MG TABLET GT SCH (08:15)
[2019-01-31] MEDS: HYDROGEN PEROXIDE 3% 118 ML BOTTLE TP SCH ×2 (08:16→21:15)
[2019-01-31] MEDS: Z GUARD REMEDY PASTE 57 GM TUBE TP SCH ×2 (08:16→21:15)
[2019-01-31] MEDS: COD LIVER OIL/ZINC OXIDE OINT 113 GM TUBE TP SCH ×4 (08:16→21:15)
[2019-01-31] MEDS: PHENOBARBITAL 97.2 MG TABLET GT SCH (21:15)
[2019-01-31] MEDS: DIGOXIN 125 MCG TABLET GT SCH (21:15)
[2019-01-31] MEDS: PROTEIN SUPPLEMENT (PROSTAT) 30 ML LIQUID GT SCH (21:15)
[2019-01-31] MEDS: MELATONIN 3 MG GT SCH (21:15)
[2019-01-31] MEDS: ENOXAPARIN SODIUM 40 MG/0.4 ML DISP.SYRIN SQ SCH (21:16)
[2019-01-31 22:00] VITALS: BP 171/107
[2019-02-01] MEDS: LEVALBUTEROL HCL NEB 0.63 MG/3 ML NEBU NEB SCH ×4 (01:38→20:01)
[2019-02-01] MEDS: IPRATROPIUM BROMIDE 0.5 MG/2.5 ML NEBU NEB SCH ×4 (01:38→20:01)
[2019-02-01 02:17] VITALS: BP 141/94
[2019-02-01] MEDS: HYDROCODONE BIT/HOMATROPINE 5 ML UDC GT PRN (03:40)
[2019-02-01] MEDS: BLOOD SUGAR DIAGNOSTIC 1 EACH STRIP VI SCH ×3 (05:40→17:47)
[2019-02-01] MEDS: FERROUS SULFATE 330 MG/7.5 ML UDC- FOR SA ONLY GT SCH (05:40)
[2019-02-01] MEDS: LORATADINE 10 MG TABLET GT SCH (05:40)
[2019-02-01] MEDS: LISINOPRIL 20 MG TABLET GT SCH ×2 (05:40→17:48)
[2019-02-01] MEDS: BENZTROPINE MESYLATE 0.5 MG TABLET GT SCH ×3 (05:40→21:44)
[2019-02-01] MEDS: FOLIC ACID 1 MG TABLET GT SCH (05:40)
[2019-02-01] MEDS: CYANOCOBALAMIN 100 MCG TABLET GT SCH (05:40)
[2019-02-01] MEDS: PHENYTOIN 100 MG/4 ML UDC GT SCH ×2 (05:40→17:47)
[2019-02-01] MEDS: OMEPRAZOLE 20 MG CAPSULE.DR GT SCH (05:40)
[2019-02-01] MEDS: INSULIN NPH SQ SCH ×3 (05:59→22:14)
[2019-02-01] MEDS: INSULIN REGULAR, HUMAN 300 UNIT/3 ML VIAL SQ PRN ×2 (06:00→11:18)
[2019-02-01 08:09] VITALS: BP 142/90
[2019-02-01] MEDS: SPIRONOLACTONE 25 MG TABLET GT SCH (08:09)
[2019-02-01] MEDS: METOPROLOL TARTRATE 100 MG TABLET GT SCH (08:09)
[2019-02-01] MEDS: LEVETIRACETAM 500 MG/5 ML LIQUID UDC GT SCH ×2 (08:09→21:43)
[2019-02-01] MEDS: METFORMIN HCL 500 MG TABLET PO SCH ×2 (08:09→17:48)
[2019-02-01] MEDS: AMANTADINE 50MG/5ML GT SCH (08:09)
[2019-02-01] MEDS: VIMPAT 150 MG GT SCH ×2 (08:09→21:44)
[2019-02-01] MEDS: NUTRISOURCE FIBER 4 GM PACKET PO SCH ×2 (08:09→21:44)
[2019-02-01] MEDS: ASPIRIN 81 MG TAB.CHEW GT SCH (08:09)
[2019-02-01] MEDS: PHENOBARBITAL 64.8 MG TABLET GT SCH (08:09)
[2019-02-01] MEDS: COD LIVER OIL/ZINC OXIDE OINT 113 GM TUBE TP SCH ×4 (08:10→21:44)
[2019-02-01] MEDS: Z GUARD REMEDY PASTE 57 GM TUBE TP SCH ×2 (08:10→21:44)
[2019-02-01] MEDS: HYDROGEN PEROXIDE 3% 118 ML BOTTLE TP SCH ×2 (08:10→21:44)
[2019-02-01] MEDS: GLUCERNA 1.2 1000ML LIQUID GT SCH (11:20)
[2019-02-01] MEDS: ENOXAPARIN SODIUM 40 MG/0.4 ML DISP.SYRIN SQ SCH (21:00)
[2019-02-01] MEDS: MULTIVIT, IRON, MIN NO. 8, FA TABLET GT SCH (21:44)
[2019-02-01] MEDS: DIGOXIN 125 MCG TABLET GT SCH (21:44)
[2019-02-01] MEDS: PROTEIN SUPPLEMENT (PROSTAT) 30 ML LIQUID GT SCH (21:44)
[2019-02-01] MEDS: MELATONIN 3 MG GT SCH (21:44)
[2019-02-01] MEDS: PHENOBARBITAL 97.2 MG TABLET GT SCH (21:44)
[2019-02-01 22:46] VITALS: BP 138/83
[2019-02-02] MEDS: BLOOD SUGAR DIAGNOSTIC 1 EACH STRIP VI SCH ×4 (00:44→17:50)
[2019-02-02] MEDS: LEVALBUTEROL HCL NEB 0.63 MG/3 ML NEBU NEB SCH ×4 (01:13→19:59)
[2019-02-02] MEDS: IPRATROPIUM BROMIDE 0.5 MG/2.5 ML NEBU NEB SCH ×4 (01:13→19:59)
[2019-02-02] MEDS: PHENYTOIN 100 MG/4 ML UDC GT SCH ×2 (05:58→17:56)
[2019-02-02] MEDS: CYANOCOBALAMIN 100 MCG TABLET GT SCH (05:58)
[2019-02-02] MEDS: FOLIC ACID 1 MG TABLET GT SCH (05:58)
[2019-02-02] MEDS: BENZTROPINE MESYLATE 0.5 MG TABLET GT SCH ×3 (05:58→22:02)
[2019-02-02] MEDS: LORATADINE 10 MG TABLET GT SCH (05:58)
[2019-02-02] MEDS: OMEPRAZOLE 20 MG CAPSULE.DR GT SCH (05:58)
[2019-02-02] MEDS: FERROUS SULFATE 330 MG/7.5 ML UDC- FOR SA ONLY GT SCH (05:58)
[2019-02-02] MEDS: LISINOPRIL 20 MG TABLET GT SCH ×2 (06:28→17:56)
[2019-02-02] MEDS: INSULIN NPH SQ SCH ×3 (06:29→22:05)
[2019-02-02 07:02] VITALS: BP 149/85
[2019-02-02] MEDS: GLUCERNA 1.2 1000ML LIQUID GT SCH (07:02)
[2019-02-02] MEDS: GUAIFENESIN/DEXTROMETHORPHAN 5 ML UDC GT PRN ×2 (07:21→14:02)
[2019-02-02 08:00] VITALS: BP 149/84
[2019-02-02] MEDS: SPIRONOLACTONE 25 MG TABLET GT SCH (08:20)
[2019-02-02] MEDS: METFORMIN HCL 500 MG TABLET PO SCH ×2 (08:20→17:56)
[2019-02-02] MEDS: ASPIRIN 81 MG TAB.CHEW GT SCH (08:20)
[2019-02-02] MEDS: LEVETIRACETAM 500 MG/5 ML LIQUID UDC GT SCH ×2 (08:20→21:00)
[2019-02-02] MEDS: METOPROLOL TARTRATE 100 MG TABLET GT SCH (08:21)
[2019-02-02] MEDS: PHENOBARBITAL 64.8 MG TABLET GT SCH (08:21)
[2019-02-02] MEDS: AMANTADINE 50MG/5ML GT SCH (08:21)
[2019-02-02] MEDS: COD LIVER OIL/ZINC OXIDE OINT 113 GM TUBE TP SCH ×4 (08:22→21:00)
[2019-02-02] MEDS: HYDROGEN PEROXIDE 3% 118 ML BOTTLE TP SCH ×2 (08:22→21:00)
[2019-02-02] MEDS: NUTRISOURCE FIBER 4 GM PACKET PO SCH ×2 (08:22→21:00)
[2019-02-02] MEDS: Z GUARD REMEDY PASTE 57 GM TUBE TP SCH ×2 (08:22→21:00)
[2019-02-02] MEDS: VIMPAT 150 MG GT SCH ×2 (08:22→21:00)
--- NOTE | 2019-02-02 11:16 | NUR ---
Patient seen today by Dr. Whitaker for annual dental exam. See dental notes for details.
--- NOTE | 2019-02-02 12:00 | NUR ---
SEEN BY TIFFANIE KLINE.
--- NOTE | 2019-02-02 12:00 | NUR ---
SEEN BY DR. STROUD [facility].
[2019-02-02] MEDS: INSULIN REGULAR, HUMAN 300 UNIT/3 ML VIAL SQ PRN ×2 (12:07→17:51)
[2019-02-02] MEDS: HYDROCODONE BIT/HOMATROPINE 5 ML UDC GT PRN (15:00)
[2019-02-02] MEDS: IBUPROFEN 100 MG/5 ML LIQUID UDC- SA PATIENTS-PAIN ONLY GT PRN (17:57)
[2019-02-02] MEDS: MELATONIN 3 MG GT SCH (21:00)
[2019-02-02] MEDS: PROTEIN SUPPLEMENT (PROSTAT) 30 ML LIQUID GT SCH (21:00)
[2019-02-02] MEDS: DIGOXIN 125 MCG TABLET GT SCH (21:00)
[2019-02-02] MEDS: ENOXAPARIN SODIUM 40 MG/0.4 ML DISP.SYRIN SQ SCH (21:00)
[2019-02-02] MEDS: PHENOBARBITAL 97.2 MG TABLET GT SCH (21:00)
[2019-02-02 22:14] VITALS: BP 152/94
[2019-02-03] MEDS: BLOOD SUGAR DIAGNOSTIC 1 EACH STRIP VI SCH ×4 (00:42→17:34)
[2019-02-03] MEDS: INSULIN REGULAR, HUMAN 300 UNIT/3 ML VIAL SQ PRN ×3 (00:48→17:36)
[2019-02-03] MEDS: GLUCERNA 1.2 1000ML LIQUID GT SCH (00:50)
[2019-02-03] MEDS: GUAIFENESIN/DEXTROMETHORPHAN 5 ML UDC GT PRN ×2 (00:50→17:38)
[2019-02-03] MEDS: IPRATROPIUM BROMIDE 0.5 MG/2.5 ML NEBU NEB SCH ×4 (01:30→19:16)
[2019-02-03] MEDS: LEVALBUTEROL HCL NEB 0.63 MG/3 ML NEBU NEB SCH ×4 (01:30→19:16)
[2019-02-03] MEDS: INSULIN NPH SQ SCH ×3 (06:21→21:19)
[2019-02-03] MEDS: FERROUS SULFATE 330 MG/7.5 ML UDC- FOR SA ONLY GT SCH (06:23)
[2019-02-03] MEDS: PHENYTOIN 100 MG/4 ML UDC GT SCH ×2 (06:23→17:31)
[2019-02-03] MEDS: FOLIC ACID 1 MG TABLET GT SCH (06:23)
[2019-02-03] MEDS: LORATADINE 10 MG TABLET GT SCH (06:23)
[2019-02-03] MEDS: OMEPRAZOLE 20 MG CAPSULE.DR GT SCH (06:23)
[2019-02-03] MEDS: BENZTROPINE MESYLATE 0.5 MG TABLET GT SCH ×3 (06:23→21:18)
[2019-02-03] MEDS: LISINOPRIL 20 MG TABLET GT SCH ×2 (06:24→17:37)
[2019-02-03] MEDS: CYANOCOBALAMIN 100 MCG TABLET GT SCH (06:24)
[2019-02-03] MEDS: METFORMIN HCL 500 MG TABLET PO SCH ×2 (08:00→17:32)
[2019-02-03 08:19] VITALS: BP 158/87
[2019-02-03] MEDS: ASPIRIN 81 MG TAB.CHEW GT SCH (09:19)
[2019-02-03] MEDS: SPIRONOLACTONE 25 MG TABLET GT SCH (09:19)
[2019-02-03] MEDS: LEVETIRACETAM 500 MG/5 ML LIQUID UDC GT SCH ×2 (09:19→21:13)
[2019-02-03] MEDS: AMANTADINE 50MG/5ML GT SCH (09:20)
[2019-02-03] MEDS: PHENOBARBITAL 64.8 MG TABLET GT SCH (09:20)
[2019-02-03] MEDS: METOPROLOL TARTRATE 100 MG TABLET GT SCH (09:20)
[2019-02-03] MEDS: NUTRISOURCE FIBER 4 GM PACKET PO SCH ×2 (09:21→21:16)
[2019-02-03] MEDS: HYDROGEN PEROXIDE 3% 118 ML BOTTLE TP SCH ×2 (09:21→21:17)
[2019-02-03] MEDS: VIMPAT 150 MG GT SCH ×2 (09:21→21:14)
[2019-02-03] MEDS: Z GUARD REMEDY PASTE 57 GM TUBE TP SCH ×2 (09:21→21:17)
[2019-02-03] MEDS: COD LIVER OIL/ZINC OXIDE OINT 113 GM TUBE TP SCH ×3 (09:21→21:17)
--- NOTE | 2019-02-03 12:25 | NUR ---
SEEN BY DR. POPE AND NNO.
--- NOTE | 2019-02-03 15:29 | NUR ---
SW informed patient's fiance/POA Vanna that the patient is scheduled for his annual dental cleaning on February 23, 2019.
--- NOTE | 2019-02-03 15:30 | NUR ---
INTERDISCIPLINARY PLAN OF CARE CONFERENCE was held today. Patient's filipeance/SJ Vanna was present at the meeting. Dr. Chavira and the Interdisciplinary Team reviewed the current plan of care in detail. RN reported on patient's current medical condition. changes in several medications, and skin treatment. No major changes in condition were reported. See RN IDT conference notes. Pharmacist also discussed the changes in medications. See all disciplines IDT notes and physician's progress notes for additional details. Vanna stated not having any questions/concerns at this time, and expressed being content with the current plan of care.
[2019-02-03] MEDS: ACETAMINOPHEN 650 MG/20 ML UDC- SA PATIENTS-PAIN ONLY GT PRN (17:39)
--- NOTE | 2019-02-03 17:44 | NUR ---
Pharmacy Update from Today's 02/03/19 IDT meeting VS: Temp 97.7 BP 149/84 HR 80 LABS: (from 01/30/19) Wbc 4.7 H/H 11.5/33.9 Plt 201 Na 137 K 4.3 Cl 100 CO2 27 BUN/SCr 23/0.9 BS 142 Ca 9.3 phos 3.5 Mg 2.1 MEDICATION USE REVIEWED: > Pt not on any anti-psych medications > Pt on Keppra 1500mg q12hrs since 11/29/16; last calculated CrCl >100 ml/min. Dose appropriate for renal fxn. > Pt on Phenobarbital 64.8MG AM + 97.2 HS as of 07/20/18. Last level 01/20/19 resulted 29.6 (15-39) within range > Pt on Dilantin 250mg q12hrs since 01/26/19; Was in taper per neurology however began having tremors at decreased dose, MD increased dose again, tremors resolved. > Pt on Vimpat 300mg q12hrs, Patient had no episode of seizures past month > Pt on KCl 20mEq daily ,Prinivil 20mg q12hrs and Aldactone 50mg daily: last K 4.3 > Pt on moderate sliding scale + NPH 4 units q8hrs, now changed to 5units q8h on 12/19/18; BS ranged 71-200 since last IDT Meeting. Also on Metformin 500mg BIDM. > Pt on Lovenox 40mg daily and Aspirin 81mg daily:no signs of bleeding, last plt 201 > Pt on Digoxin 125mcg daily since admit in 2015, on stable dose, no acute changes in condition > PRN MED USAGE: (December) Tylenol for pain used x 3 Tylenol for temp used x 0 Motrin for mod pain used x 4 Robitussin DM used x 22 Hydromet PRN used x 18 (increased use d/t recent PNA) Veronica flush enema used x 0 NEW ORDERS NOTED: > Cefepime and vanco 01/11-01/17 for PNA > KCl 20meq daily d/c'd 01/11 d/t high K 5.2. One dose of kayexalate 15gm x1 given, now resolved > Dilantin in taper per neuro from 150mg q12h to 100mg AM + 150mg HS on 01/14, later pt began having tremors, neurology increased dilantin up to 250mg q12h with additional bolus of 200mg x1 to control episodes. now stable at new dose since 01/26/19 Patient reviewed in depth with family in attendance, recent medication changes noted. Family noted increased responsiveness from patient recently. Rx reported recent failed taper attempt by neurology on patient's dilantin, however is noted per family as well that pt's resulting tremors have now been resolved since dose was increased again. Once at steady state, will f/u with level as needed. Will continue to follow, no further recs at this time.
[2019-02-03 20:00] VITALS: BP 155/88
[2019-02-03] MEDS: MELATONIN 3 MG GT SCH (21:14)
[2019-02-03] MEDS: DIGOXIN 125 MCG TABLET GT SCH (21:14)
[2019-02-03] MEDS: MULTIVIT, IRON, MIN NO. 8, FA TABLET GT SCH (21:16)
[2019-02-03] MEDS: PHENOBARBITAL 97.2 MG TABLET GT SCH (21:16)
[2019-02-03] MEDS: PROTEIN SUPPLEMENT (PROSTAT) 30 ML LIQUID GT SCH (21:16)
[2019-02-03] MEDS: ENOXAPARIN SODIUM 40 MG/0.4 ML DISP.SYRIN SQ SCH (21:17)
[2019-02-04] MEDS: IPRATROPIUM BROMIDE 0.5 MG/2.5 ML NEBU NEB SCH ×4 (00:40→19:31)
[2019-02-04] MEDS: LEVALBUTEROL HCL NEB 0.63 MG/3 ML NEBU NEB SCH ×4 (00:40→19:31)
[2019-02-04] MEDS: GUAIFENESIN/DEXTROMETHORPHAN 5 ML UDC GT PRN ×2 (05:00→12:30)
[2019-02-04] MEDS: FERROUS SULFATE 330 MG/7.5 ML UDC- FOR SA ONLY GT SCH (06:10)
[2019-02-04] MEDS: OMEPRAZOLE 20 MG CAPSULE.DR GT SCH (06:10)
[2019-02-04] MEDS: LORATADINE 10 MG TABLET GT SCH (06:10)
[2019-02-04] MEDS: PHENYTOIN 100 MG/4 ML UDC GT SCH ×2 (06:10→17:24)
[2019-02-04] MEDS: FOLIC ACID 1 MG TABLET GT SCH (06:10)
[2019-02-04] MEDS: BENZTROPINE MESYLATE 0.5 MG TABLET GT SCH ×3 (06:10→21:16)
[2019-02-04] MEDS: LISINOPRIL 20 MG TABLET GT SCH ×2 (06:11→17:25)
[2019-02-04] MEDS: CYANOCOBALAMIN 100 MCG TABLET GT SCH (06:11)
[2019-02-04] MEDS: INSULIN NPH SQ SCH ×3 (06:12→21:24)
[2019-02-04] MEDS: BLOOD SUGAR DIAGNOSTIC 1 EACH STRIP VI SCH ×5 (06:12→23:07)
[2019-02-04] MEDS: INSULIN REGULAR, HUMAN 300 UNIT/3 ML VIAL SQ PRN ×3 (06:13→23:30)
[2019-02-04] MEDS: METFORMIN HCL 500 MG TABLET PO SCH ×2 (08:00→17:24)
[2019-02-04] MEDS: ASPIRIN 81 MG TAB.CHEW GT SCH (09:22)
[2019-02-04] MEDS: SPIRONOLACTONE 25 MG TABLET GT SCH (09:22)
[2019-02-04] MEDS: LEVETIRACETAM 500 MG/5 ML LIQUID UDC GT SCH ×2 (09:23→21:12)
[2019-02-04] MEDS: METOPROLOL TARTRATE 100 MG TABLET GT SCH (09:24)
[2019-02-04] MEDS: AMANTADINE 50MG/5ML GT SCH (09:24)
[2019-02-04] MEDS: NUTRISOURCE FIBER 4 GM PACKET PO SCH ×2 (09:25→21:16)
[2019-02-04] MEDS: VIMPAT 150 MG GT SCH ×2 (09:25→21:14)
[2019-02-04] MEDS: COD LIVER OIL/ZINC OXIDE OINT 113 GM TUBE TP SCH ×2 (09:25→21:16)
[2019-02-04] MEDS: HYDROGEN PEROXIDE 3% 118 ML BOTTLE TP SCH ×2 (09:25→21:16)
[2019-02-04] MEDS: PHENOBARBITAL 64.8 MG TABLET GT SCH (09:25)
[2019-02-04] MEDS: Z GUARD REMEDY PASTE 57 GM TUBE TP SCH ×2 (09:27→21:16)
[2019-02-04] MEDS: GLUCERNA 1.2 1000ML LIQUID GT SCH (11:04)
[2019-02-04 11:32] VITALS: BP 141/87
[2019-02-04] MEDS: HYDROCODONE BIT/HOMATROPINE 5 ML UDC GT PRN (13:00)
[2019-02-04 19:59] VITALS: BP 140/88
[2019-02-04] MEDS: MELATONIN 3 MG GT SCH (21:14)
[2019-02-04] MEDS: DIGOXIN 125 MCG TABLET GT SCH (21:14)
[2019-02-04] MEDS: PROTEIN SUPPLEMENT (PROSTAT) 30 ML LIQUID GT SCH (21:15)
[2019-02-04] MEDS: PHENOBARBITAL 97.2 MG TABLET GT SCH (21:15)
[2019-02-04] MEDS: ENOXAPARIN SODIUM 40 MG/0.4 ML DISP.SYRIN SQ SCH (21:23)
[2019-02-05] MEDS: IPRATROPIUM BROMIDE 0.5 MG/2.5 ML NEBU NEB SCH ×4 (01:38→19:38)
[2019-02-05] MEDS: LEVALBUTEROL HCL NEB 0.63 MG/3 ML NEBU NEB SCH ×4 (01:38→19:38)
[2019-02-05] MEDS: GLUCERNA 1.2 1000ML LIQUID GT SCH (02:35)
[2019-02-05] MEDS: GUAIFENESIN/DEXTROMETHORPHAN 5 ML UDC GT PRN (04:00)
[2019-02-05] MEDS: PHENYTOIN 100 MG/4 ML UDC GT SCH ×2 (06:18→18:20)
[2019-02-05] MEDS: FOLIC ACID 1 MG TABLET GT SCH (06:18)
[2019-02-05] MEDS: BENZTROPINE MESYLATE 0.5 MG TABLET GT SCH ×3 (06:18→21:40)
[2019-02-05] MEDS: LORATADINE 10 MG TABLET GT SCH (06:18)
[2019-02-05] MEDS: OMEPRAZOLE 20 MG CAPSULE.DR GT SCH (06:18)
[2019-02-05] MEDS: FERROUS SULFATE 330 MG/7.5 ML UDC- FOR SA ONLY GT SCH (06:18)
[2019-02-05] MEDS: INSULIN NPH SQ SCH ×3 (06:19→21:41)
[2019-02-05] MEDS: CYANOCOBALAMIN 100 MCG TABLET GT SCH (06:19)
[2019-02-05] MEDS: LISINOPRIL 20 MG TABLET GT SCH ×2 (06:19→18:20)
[2019-02-05] MEDS: BLOOD SUGAR DIAGNOSTIC 1 EACH STRIP VI SCH ×3 (06:20→18:20)
[2019-02-05] MEDS: INSULIN REGULAR, HUMAN 300 UNIT/3 ML VIAL SQ PRN ×2 (06:21→11:51)
[2019-02-05 08:03] VITALS: BP 109/74
[2019-02-05] MEDS: METFORMIN HCL 500 MG TABLET PO SCH ×2 (08:05→18:20)
[2019-02-05] MEDS: HYDROGEN PEROXIDE 3% 118 ML BOTTLE TP SCH ×2 (08:52→20:26)
[2019-02-05] MEDS: METOPROLOL TARTRATE 100 MG TABLET GT SCH (08:52)
[2019-02-05] MEDS: AMANTADINE 50MG/5ML GT SCH (08:52)
[2019-02-05] MEDS: COD LIVER OIL/ZINC OXIDE OINT 113 GM TUBE TP SCH ×2 (08:52→20:26)
[2019-02-05] MEDS: ASPIRIN 81 MG TAB.CHEW GT SCH (08:52)
[2019-02-05] MEDS: SPIRONOLACTONE 25 MG TABLET GT SCH (08:52)
[2019-02-05] MEDS: NUTRISOURCE FIBER 4 GM PACKET PO SCH ×2 (08:52→20:25)
[2019-02-05] MEDS: PHENOBARBITAL 64.8 MG TABLET GT SCH (08:52)
[2019-02-05] MEDS: VIMPAT 150 MG GT SCH ×2 (08:52→20:23)
[2019-02-05] MEDS: Z GUARD REMEDY PASTE 57 GM TUBE TP SCH ×2 (08:52→20:26)
[2019-02-05] MEDS: LEVETIRACETAM 500 MG/5 ML LIQUID UDC GT SCH ×2 (08:52→20:21)
[2019-02-05] MEDS: DIGOXIN 125 MCG TABLET GT SCH (20:22)
[2019-02-05] MEDS: MELATONIN 3 MG GT SCH (20:23)
[2019-02-05] MEDS: MULTIVIT, IRON, MIN NO. 8, FA TABLET GT SCH (20:24)
[2019-02-05] MEDS: PHENOBARBITAL 97.2 MG TABLET GT SCH (20:24)
[2019-02-05] MEDS: PROTEIN SUPPLEMENT (PROSTAT) 30 ML LIQUID GT SCH (20:24)
[2019-02-05] MEDS: ENOXAPARIN SODIUM 40 MG/0.4 ML DISP.SYRIN SQ SCH (20:25)
[2019-02-05 20:31] VITALS: BP 131/82
[2019-02-06] MEDS: ACETAMINOPHEN 650 MG/20 ML UDC- SA PATIENTS-PAIN ONLY GT PRN (01:00)
[2019-02-06] MEDS: LEVALBUTEROL HCL NEB 0.63 MG/3 ML NEBU NEB SCH ×4 (01:00→19:44)
[2019-02-06] MEDS: IPRATROPIUM BROMIDE 0.5 MG/2.5 ML NEBU NEB SCH ×4 (01:00→19:44)
[2019-02-06] MEDS: GLUCERNA 1.2 1000ML LIQUID GT SCH (01:00)
[2019-02-06] MEDS: GUAIFENESIN/DEXTROMETHORPHAN 5 ML UDC GT PRN ×2 (01:37→17:53)
[2019-02-06] MEDS: OMEPRAZOLE 20 MG CAPSULE.DR GT SCH (06:10)
[2019-02-06] MEDS: FOLIC ACID 1 MG TABLET GT SCH (06:10)
[2019-02-06] MEDS: LORATADINE 10 MG TABLET GT SCH (06:10)
[2019-02-06] MEDS: BENZTROPINE MESYLATE 0.5 MG TABLET GT SCH ×3 (06:10→22:25)
[2019-02-06] MEDS: PHENYTOIN 100 MG/4 ML UDC GT SCH ×2 (06:10→17:50)
[2019-02-06] MEDS: FERROUS SULFATE 330 MG/7.5 ML UDC- FOR SA ONLY GT SCH (06:10)
[2019-02-06] MEDS: LISINOPRIL 20 MG TABLET GT SCH ×2 (06:11→17:51)
[2019-02-06] MEDS: CYANOCOBALAMIN 100 MCG TABLET GT SCH (06:11)
[2019-02-06] MEDS: INSULIN NPH SQ SCH ×3 (06:11→22:26)
[2019-02-06] MEDS: BLOOD SUGAR DIAGNOSTIC 1 EACH STRIP VI SCH ×5 (06:12→23:39)
[2019-02-06] MEDS: INSULIN REGULAR, HUMAN 300 UNIT/3 ML VIAL SQ PRN ×4 (06:13→23:42)
[2019-02-06 07:49] VITALS: BP 121/78
[2019-02-06] MEDS: METFORMIN HCL 500 MG TABLET PO SCH ×2 (08:33→17:51)
[2019-02-06] MEDS: SPIRONOLACTONE 25 MG TABLET GT SCH (08:44)
[2019-02-06] MEDS: PHENOBARBITAL 64.8 MG TABLET GT SCH (08:44)
[2019-02-06] MEDS: AMANTADINE 50MG/5ML GT SCH (08:44)
[2019-02-06] MEDS: LEVETIRACETAM 500 MG/5 ML LIQUID UDC GT SCH ×2 (08:44→21:00)
[2019-02-06] MEDS: METOPROLOL TARTRATE 100 MG TABLET GT SCH (08:44)
[2019-02-06] MEDS: ASPIRIN 81 MG TAB.CHEW GT SCH (08:44)
[2019-02-06] MEDS: HYDROGEN PEROXIDE 3% 118 ML BOTTLE TP SCH ×2 (08:45→21:00)
[2019-02-06] MEDS: Z GUARD REMEDY PASTE 57 GM TUBE TP SCH ×2 (08:45→21:00)
[2019-02-06] MEDS: NUTRISOURCE FIBER 4 GM PACKET PO SCH ×2 (08:45→21:00)
[2019-02-06] MEDS: COD LIVER OIL/ZINC OXIDE OINT 113 GM TUBE TP SCH ×2 (08:45→21:00)
[2019-02-06] MEDS: VIMPAT 150 MG GT SCH ×2 (08:45→21:00)
--- NOTE | 2019-02-06 09:18 | NUR ---
KD received a voicemail message from Bradly at Dr. Whitaker's office, stating that they would need to change dental appointment from 02/23 to 03/02. KD called Dr. Whitaker's office back [phone] and spoke with Hunter, confirming change in date. KD sent patient's dick/SJ Prabhakar an email stating that patient's dental appointment for cleaning has been changed to March 02, 2019.
--- NOTE | 2019-02-06 12:23 | NUR ---
Skin, left cheek biopsy report faxed to Dr. Nettles office [phone]
[2019-02-06] MEDS: HYDROCODONE BIT/HOMATROPINE 5 ML UDC GT PRN (18:36)
[2019-02-06 20:57] VITALS: BP 115/68
[2019-02-06] MEDS: ENOXAPARIN SODIUM 40 MG/0.4 ML DISP.SYRIN SQ SCH (21:00)
[2019-02-06] MEDS: MELATONIN 3 MG GT SCH (21:00)
[2019-02-06] MEDS: PROTEIN SUPPLEMENT (PROSTAT) 30 ML LIQUID GT SCH (21:00)
[2019-02-06] MEDS: DIGOXIN 125 MCG TABLET GT SCH (21:00)
[2019-02-06] MEDS: PHENOBARBITAL 97.2 MG TABLET GT SCH (21:00)
[2019-02-07] MEDS: GLUCERNA 1.2 1000ML LIQUID GT SCH (00:29)
[2019-02-07] MEDS: IPRATROPIUM BROMIDE 0.5 MG/2.5 ML NEBU NEB SCH ×4 (01:14→18:51)
[2019-02-07] MEDS: LEVALBUTEROL HCL NEB 0.63 MG/3 ML NEBU NEB SCH ×4 (01:14→18:51)
[2019-02-07] MEDS: LORATADINE 10 MG TABLET GT SCH (05:32)
[2019-02-07] MEDS: BENZTROPINE MESYLATE 0.5 MG TABLET GT SCH ×3 (05:32→22:04)
[2019-02-07] MEDS: CYANOCOBALAMIN 100 MCG TABLET GT SCH (05:33)
[2019-02-07] MEDS: PHENYTOIN 100 MG/4 ML UDC GT SCH ×2 (05:33→18:03)
[2019-02-07] MEDS: LISINOPRIL 20 MG TABLET GT SCH ×2 (05:33→18:03)
[2019-02-07] MEDS: FOLIC ACID 1 MG TABLET GT SCH (05:33)
[2019-02-07] MEDS: OMEPRAZOLE 20 MG CAPSULE.DR GT SCH (05:33)
[2019-02-07] MEDS: FERROUS SULFATE 330 MG/7.5 ML UDC- FOR SA ONLY GT SCH (05:33)
[2019-02-07] MEDS: BLOOD SUGAR DIAGNOSTIC 1 EACH STRIP VI SCH ×4 (05:34→23:10)
[2019-02-07] MEDS: INSULIN NPH SQ SCH ×3 (05:34→22:06)
[2019-02-07] MEDS: INSULIN REGULAR, HUMAN 300 UNIT/3 ML VIAL SQ PRN ×2 (05:36→11:30)
[2019-02-07 08:05] VITALS: BP 138/86
[2019-02-07] MEDS: ASPIRIN 81 MG TAB.CHEW GT SCH (08:07)
[2019-02-07] MEDS: AMANTADINE 50MG/5ML GT SCH (08:07)
[2019-02-07] MEDS: NUTRISOURCE FIBER 4 GM PACKET PO SCH ×2 (08:07→21:00)
[2019-02-07] MEDS: METFORMIN HCL 500 MG TABLET PO SCH ×2 (08:07→18:03)
[2019-02-07] MEDS: COD LIVER OIL/ZINC OXIDE OINT 113 GM TUBE TP SCH ×2 (08:07→21:00)
[2019-02-07] MEDS: PHENOBARBITAL 64.8 MG TABLET GT SCH (08:07)
[2019-02-07] MEDS: LEVETIRACETAM 500 MG/5 ML LIQUID UDC GT SCH ×2 (08:07→21:00)
[2019-02-07] MEDS: SPIRONOLACTONE 25 MG TABLET GT SCH (08:07)
[2019-02-07] MEDS: METOPROLOL TARTRATE 100 MG TABLET GT SCH (08:07)
[2019-02-07] MEDS: VIMPAT 150 MG GT SCH ×2 (08:07→21:00)
[2019-02-07] MEDS: HYDROGEN PEROXIDE 3% 118 ML BOTTLE TP SCH ×2 (08:07→21:00)
[2019-02-07] MEDS: Z GUARD REMEDY PASTE 57 GM TUBE TP SCH ×2 (08:08→21:00)
[2019-02-07] MEDS: PROTEIN SUPPLEMENT (PROSTAT) 30 ML LIQUID GT SCH (21:00)
[2019-02-07] MEDS: DIGOXIN 125 MCG TABLET GT SCH (21:00)
[2019-02-07] MEDS: ENOXAPARIN SODIUM 40 MG/0.4 ML DISP.SYRIN SQ SCH (21:00)
[2019-02-07] MEDS: MELATONIN 3 MG GT SCH (21:00)
[2019-02-07] MEDS: MULTIVIT, IRON, MIN NO. 8, FA TABLET GT SCH (21:00)
[2019-02-07] MEDS: PHENOBARBITAL 97.2 MG TABLET GT SCH (21:00)
[2019-02-07 21:11] VITALS: BP 128/83
[2019-02-08] MEDS: IPRATROPIUM BROMIDE 0.5 MG/2.5 ML NEBU NEB SCH ×4 (00:35→18:44)
[2019-02-08] MEDS: LEVALBUTEROL HCL NEB 0.63 MG/3 ML NEBU NEB SCH ×4 (00:35→18:44)
[2019-02-08] MEDS: BENZTROPINE MESYLATE 0.5 MG TABLET GT SCH ×3 (05:23→21:33)
[2019-02-08] MEDS: PHENYTOIN 100 MG/4 ML UDC GT SCH ×2 (05:23→17:53)
[2019-02-08] MEDS: LORATADINE 10 MG TABLET GT SCH (05:23)
[2019-02-08] MEDS: FERROUS SULFATE 330 MG/7.5 ML UDC- FOR SA ONLY GT SCH (05:23)
[2019-02-08] MEDS: LISINOPRIL 20 MG TABLET GT SCH ×2 (05:24→17:53)
[2019-02-08] MEDS: BLOOD SUGAR DIAGNOSTIC 1 EACH STRIP VI SCH ×3 (05:24→17:53)
[2019-02-08] MEDS: FOLIC ACID 1 MG TABLET GT SCH (05:24)
[2019-02-08] MEDS: CYANOCOBALAMIN 100 MCG TABLET GT SCH (05:24)
[2019-02-08] MEDS: OMEPRAZOLE 20 MG CAPSULE.DR GT SCH (05:24)
[2019-02-08] MEDS: INSULIN NPH SQ SCH ×3 (05:31→21:36)
[2019-02-08] MEDS: INSULIN REGULAR, HUMAN 300 UNIT/3 ML VIAL SQ PRN ×3 (05:32→17:54)
[2019-02-08] MEDS: GLUCERNA 1.2 1000ML LIQUID GT SCH ×2 (06:39→23:55)
[2019-02-08 08:05] VITALS: BP 128/85
[2019-02-08] MEDS: METOPROLOL TARTRATE 100 MG TABLET GT SCH (08:05)
[2019-02-08] MEDS: PHENOBARBITAL 64.8 MG TABLET GT SCH (08:05)
[2019-02-08] MEDS: LEVETIRACETAM 500 MG/5 ML LIQUID UDC GT SCH ×2 (08:05→21:32)
[2019-02-08] MEDS: SPIRONOLACTONE 25 MG TABLET GT SCH (08:05)
[2019-02-08] MEDS: VIMPAT 150 MG GT SCH ×2 (08:05→21:33)
[2019-02-08] MEDS: AMANTADINE 50MG/5ML GT SCH (08:05)
[2019-02-08] MEDS: ASPIRIN 81 MG TAB.CHEW GT SCH (08:05)
[2019-02-08] MEDS: METFORMIN HCL 500 MG TABLET PO SCH ×2 (08:05→17:53)
[2019-02-08] MEDS: NUTRISOURCE FIBER 4 GM PACKET PO SCH ×2 (08:05→21:33)
[2019-02-08] MEDS: COD LIVER OIL/ZINC OXIDE OINT 113 GM TUBE TP SCH ×2 (08:06→21:33)
[2019-02-08] MEDS: HYDROGEN PEROXIDE 3% 118 ML BOTTLE TP SCH ×2 (08:06→21:33)
[2019-02-08] MEDS: Z GUARD REMEDY PASTE 57 GM TUBE TP SCH ×2 (08:06→21:33)
--- NOTE | 2019-02-08 08:33 | NUR ---
Seen and examined by Dr Castrejon ,no new orders noted.
[2019-02-08 20:47] VITALS: BP 128/84
[2019-02-08] MEDS: PHENOBARBITAL 97.2 MG TABLET GT SCH (21:33)
[2019-02-08] MEDS: MELATONIN 3 MG GT SCH (21:33)
[2019-02-08] MEDS: DIGOXIN 125 MCG TABLET GT SCH (21:33)
[2019-02-08] MEDS: PROTEIN SUPPLEMENT (PROSTAT) 30 ML LIQUID GT SCH (21:33)
[2019-02-08] MEDS: ENOXAPARIN SODIUM 40 MG/0.4 ML DISP.SYRIN SQ SCH (21:34)
[2019-02-08] MEDS: GUAIFENESIN/DEXTROMETHORPHAN 5 ML UDC GT PRN (22:42)
[2019-02-09] MEDS: BLOOD SUGAR DIAGNOSTIC 1 EACH STRIP VI SCH ×4 (00:18→17:04)
[2019-02-09] MEDS: INSULIN REGULAR, HUMAN 300 UNIT/3 ML VIAL SQ PRN ×3 (00:26→17:05)
[2019-02-09] MEDS: IPRATROPIUM BROMIDE 0.5 MG/2.5 ML NEBU NEB SCH ×5 (00:35→20:05)
[2019-02-09] MEDS: LEVALBUTEROL HCL NEB 0.63 MG/3 ML NEBU NEB SCH ×5 (00:35→20:05)
[2019-02-09] MEDS: HYDROCODONE BIT/HOMATROPINE 5 ML UDC GT PRN (05:06)
[2019-02-09] MEDS: LORATADINE 10 MG TABLET GT SCH (06:10)
[2019-02-09] MEDS: CYANOCOBALAMIN 100 MCG TABLET GT SCH (06:10)
[2019-02-09] MEDS: FERROUS SULFATE 330 MG/7.5 ML UDC- FOR SA ONLY GT SCH (06:10)
[2019-02-09] MEDS: OMEPRAZOLE 20 MG CAPSULE.DR GT SCH (06:10)
[2019-02-09] MEDS: FOLIC ACID 1 MG TABLET GT SCH (06:10)
[2019-02-09] MEDS: PHENYTOIN 100 MG/4 ML UDC GT SCH ×2 (06:10→17:04)
[2019-02-09] MEDS: INSULIN NPH SQ SCH ×3 (06:11→22:42)
[2019-02-09] MEDS: LISINOPRIL 20 MG TABLET GT SCH ×2 (06:12→17:04)
[2019-02-09] MEDS: BENZTROPINE MESYLATE 0.5 MG TABLET GT SCH ×3 (06:13→21:41)
[2019-02-09 08:08] VITALS: BP 107/65
[2019-02-09] MEDS: METFORMIN HCL 500 MG TABLET PO SCH ×2 (08:43→17:04)
[2019-02-09] MEDS: SPIRONOLACTONE 25 MG TABLET GT SCH (08:43)
[2019-02-09] MEDS: LEVETIRACETAM 500 MG/5 ML LIQUID UDC GT SCH ×2 (08:44→21:41)
[2019-02-09] MEDS: ASPIRIN 81 MG TAB.CHEW GT SCH (08:44)
[2019-02-09] MEDS: PHENOBARBITAL 64.8 MG TABLET GT SCH (08:45)
[2019-02-09] MEDS: METOPROLOL TARTRATE 100 MG TABLET GT SCH (08:45)
[2019-02-09] MEDS: Z GUARD REMEDY PASTE 57 GM TUBE TP SCH ×2 (08:47→21:41)
[2019-02-09] MEDS: COD LIVER OIL/ZINC OXIDE OINT 113 GM TUBE TP SCH ×2 (08:47→21:41)
[2019-02-09] MEDS: AMANTADINE 50MG/5ML GT SCH (08:47)
[2019-02-09] MEDS: HYDROGEN PEROXIDE 3% 118 ML BOTTLE TP SCH ×2 (08:47→21:41)
[2019-02-09] MEDS: VIMPAT 150 MG GT SCH ×2 (08:47→21:41)
[2019-02-09] MEDS: NUTRISOURCE FIBER 4 GM PACKET PO SCH ×2 (08:47→21:41)
[2019-02-09 20:42] VITALS: BP 136/78
[2019-02-09] MEDS: ENOXAPARIN SODIUM 40 MG/0.4 ML DISP.SYRIN SQ SCH (21:00)
[2019-02-09] MEDS: DIGOXIN 125 MCG TABLET GT SCH (21:41)
[2019-02-09] MEDS: MULTIVIT, IRON, MIN NO. 8, FA TABLET GT SCH (21:41)
[2019-02-09] MEDS: PROTEIN SUPPLEMENT (PROSTAT) 30 ML LIQUID GT SCH (21:41)
[2019-02-09] MEDS: MELATONIN 3 MG GT SCH (21:41)
[2019-02-09] MEDS: PHENOBARBITAL 97.2 MG TABLET GT SCH (21:41)
[2019-02-10] MEDS: BLOOD SUGAR DIAGNOSTIC 1 EACH STRIP VI SCH ×4 (00:10→17:02)
[2019-02-10] MEDS: INSULIN REGULAR, HUMAN 300 UNIT/3 ML VIAL SQ PRN ×3 (00:16→17:04)
[2019-02-10] MEDS: IPRATROPIUM BROMIDE 0.5 MG/2.5 ML NEBU NEB SCH ×4 (01:38→19:28)
[2019-02-10] MEDS: LEVALBUTEROL HCL NEB 0.63 MG/3 ML NEBU NEB SCH ×4 (01:38→19:28)
[2019-02-10] MEDS: GLUCERNA 1.2 1000ML LIQUID GT SCH ×2 (02:07→17:18)
[2019-02-10] MEDS: CYANOCOBALAMIN 100 MCG TABLET GT SCH (05:52)
[2019-02-10] MEDS: FERROUS SULFATE 330 MG/7.5 ML UDC- FOR SA ONLY GT SCH (05:52)
[2019-02-10] MEDS: OMEPRAZOLE 20 MG CAPSULE.DR GT SCH (05:52)
[2019-02-10] MEDS: LORATADINE 10 MG TABLET GT SCH (05:52)
[2019-02-10] MEDS: FOLIC ACID 1 MG TABLET GT SCH (05:52)
[2019-02-10] MEDS: PHENYTOIN 100 MG/4 ML UDC GT SCH ×2 (05:52→17:17)
[2019-02-10] MEDS: BENZTROPINE MESYLATE 0.5 MG TABLET GT SCH ×3 (05:52→21:40)
[2019-02-10] MEDS: INSULIN NPH SQ SCH ×3 (05:54→21:43)
[2019-02-10] MEDS: HYDROCODONE BIT/HOMATROPINE 5 ML UDC GT PRN (06:01)
[2019-02-10] MEDS: LISINOPRIL 20 MG TABLET GT SCH ×2 (06:01→17:02)
[2019-02-10 06:52] VITALS: BP 148/86
[2019-02-10] MEDS: METFORMIN HCL 500 MG TABLET PO SCH ×2 (08:59→17:02)
[2019-02-10] MEDS: PHENOBARBITAL 64.8 MG TABLET GT SCH (09:10)
[2019-02-10] MEDS: VIMPAT 150 MG GT SCH ×2 (09:10→21:36)
[2019-02-10 09:17] VITALS: BP 139/83
[2019-02-10] MEDS: ASPIRIN 81 MG TAB.CHEW GT SCH (09:17)
[2019-02-10] MEDS: SPIRONOLACTONE 25 MG TABLET GT SCH (09:17)
[2019-02-10] MEDS: LEVETIRACETAM 500 MG/5 ML LIQUID UDC GT SCH ×2 (09:18→21:35)
[2019-02-10] MEDS: AMANTADINE 50MG/5ML GT SCH (09:19)
[2019-02-10] MEDS: METOPROLOL TARTRATE 100 MG TABLET GT SCH (09:19)
[2019-02-10] MEDS: HYDROGEN PEROXIDE 3% 118 ML BOTTLE TP SCH ×2 (09:20→21:40)
[2019-02-10] MEDS: Z GUARD REMEDY PASTE 57 GM TUBE TP SCH ×2 (09:20→21:40)
[2019-02-10] MEDS: COD LIVER OIL/ZINC OXIDE OINT 113 GM TUBE TP SCH ×2 (09:20→21:40)
[2019-02-10] MEDS: NUTRISOURCE FIBER 4 GM PACKET PO SCH ×2 (09:20→21:38)
[2019-02-10 20:28] VITALS: BP 146/82
[2019-02-10] MEDS: DIGOXIN 125 MCG TABLET GT SCH (21:35)
[2019-02-10] MEDS: MELATONIN 3 MG GT SCH (21:36)
[2019-02-10] MEDS: PROTEIN SUPPLEMENT (PROSTAT) 30 ML LIQUID GT SCH (21:38)
[2019-02-10] MEDS: PHENOBARBITAL 97.2 MG TABLET GT SCH (21:38)
[2019-02-10] MEDS: ENOXAPARIN SODIUM 40 MG/0.4 ML DISP.SYRIN SQ SCH (21:39)
[2019-02-11] MEDS: BLOOD SUGAR DIAGNOSTIC 1 EACH STRIP VI SCH ×5 (00:28→23:24)
[2019-02-11] MEDS: INSULIN REGULAR, HUMAN 300 UNIT/3 ML VIAL SQ PRN ×2 (00:29→18:03)
[2019-02-11] MEDS: LEVALBUTEROL HCL NEB 0.63 MG/3 ML NEBU NEB SCH ×4 (00:43→18:54)
[2019-02-11] MEDS: IPRATROPIUM BROMIDE 0.5 MG/2.5 ML NEBU NEB SCH ×4 (00:43→18:54)
[2019-02-11] MEDS: OMEPRAZOLE 20 MG CAPSULE.DR GT SCH (05:37)
[2019-02-11] MEDS: PHENYTOIN 100 MG/4 ML UDC GT SCH ×2 (05:37→17:41)
[2019-02-11] MEDS: BENZTROPINE MESYLATE 0.5 MG TABLET GT SCH ×3 (05:37→21:00)
[2019-02-11] MEDS: FERROUS SULFATE 330 MG/7.5 ML UDC- FOR SA ONLY GT SCH (05:37)
[2019-02-11] MEDS: LORATADINE 10 MG TABLET GT SCH (05:37)
[2019-02-11] MEDS: FOLIC ACID 1 MG TABLET GT SCH (05:37)
[2019-02-11] MEDS: LISINOPRIL 20 MG TABLET GT SCH ×2 (05:38→17:41)
[2019-02-11] MEDS: CYANOCOBALAMIN 100 MCG TABLET GT SCH (05:38)
[2019-02-11] MEDS: INSULIN NPH SQ SCH ×3 (05:41→21:03)
[2019-02-11 08:00] VITALS: BP 145/89
[2019-02-11] MEDS: METFORMIN HCL 500 MG TABLET PO SCH ×2 (08:19→17:41)
[2019-02-11] MEDS: ASPIRIN 81 MG TAB.CHEW GT SCH (08:23)
[2019-02-11] MEDS: SPIRONOLACTONE 25 MG TABLET GT SCH (08:23)
[2019-02-11] MEDS: LEVETIRACETAM 500 MG/5 ML LIQUID UDC GT SCH ×2 (09:09→20:53)
[2019-02-11] MEDS: PHENOBARBITAL 64.8 MG TABLET GT SCH (09:10)
[2019-02-11] MEDS: HYDROGEN PEROXIDE 3% 118 ML BOTTLE TP SCH ×2 (09:10→20:58)
[2019-02-11] MEDS: METOPROLOL TARTRATE 100 MG TABLET GT SCH (09:10)
[2019-02-11] MEDS: VIMPAT 150 MG GT SCH ×2 (09:10→20:55)
[2019-02-11] MEDS: AMANTADINE 50MG/5ML GT SCH (09:10)
[2019-02-11] MEDS: NUTRISOURCE FIBER 4 GM PACKET PO SCH ×2 (09:10→20:57)
[2019-02-11] MEDS: COD LIVER OIL/ZINC OXIDE OINT 113 GM TUBE TP SCH ×2 (09:10→20:58)
[2019-02-11] MEDS: Z GUARD REMEDY PASTE 57 GM TUBE TP SCH ×2 (09:11→20:58)
[2019-02-11] MEDS: GLUCERNA 1.2 1000ML LIQUID GT SCH (11:37)
--- NOTE | 2019-02-11 19:53 | NUR ---
Seen and examined by Dr Castrejon no new orders noted.
[2019-02-11 20:26] VITALS: BP 103/78
[2019-02-11] MEDS: MELATONIN 3 MG GT SCH (20:54)
[2019-02-11] MEDS: DIGOXIN 125 MCG TABLET GT SCH (20:54)
[2019-02-11] MEDS: PHENOBARBITAL 97.2 MG TABLET GT SCH (20:55)
[2019-02-11] MEDS: MULTIVIT, IRON, MIN NO. 8, FA TABLET GT SCH (20:57)
[2019-02-11] MEDS: PROTEIN SUPPLEMENT (PROSTAT) 30 ML LIQUID GT SCH (20:57)
[2019-02-11] MEDS: ENOXAPARIN SODIUM 40 MG/0.4 ML DISP.SYRIN SQ SCH (20:58)
[2019-02-11] MEDS: GUAIFENESIN/DEXTROMETHORPHAN 5 ML UDC GT PRN (21:00)
[2019-02-12] MEDS: IPRATROPIUM BROMIDE 0.5 MG/2.5 ML NEBU NEB SCH ×4 (00:35→19:17)
[2019-02-12] MEDS: LEVALBUTEROL HCL NEB 0.63 MG/3 ML NEBU NEB SCH ×4 (00:35→19:17)
[2019-02-12] MEDS: GLUCERNA 1.2 1000ML LIQUID GT SCH (04:55)
[2019-02-12] MEDS: BENZTROPINE MESYLATE 0.5 MG TABLET GT SCH ×3 (05:46→21:16)
[2019-02-12] MEDS: LORATADINE 10 MG TABLET GT SCH (05:46)
[2019-02-12] MEDS: PHENYTOIN 100 MG/4 ML UDC GT SCH ×2 (05:47→18:03)
[2019-02-12] MEDS: FERROUS SULFATE 330 MG/7.5 ML UDC- FOR SA ONLY GT SCH (05:47)
[2019-02-12] MEDS: OMEPRAZOLE 20 MG CAPSULE.DR GT SCH (05:47)
[2019-02-12] MEDS: FOLIC ACID 1 MG TABLET GT SCH (05:47)
[2019-02-12] MEDS: LISINOPRIL 20 MG TABLET GT SCH ×2 (05:48→17:48)
[2019-02-12] MEDS: CYANOCOBALAMIN 100 MCG TABLET GT SCH (05:48)
[2019-02-12] MEDS: INSULIN NPH SQ SCH ×3 (05:49→21:18)
[2019-02-12] MEDS: BLOOD SUGAR DIAGNOSTIC 1 EACH STRIP VI SCH ×3 (05:49→17:48)
[2019-02-12] MEDS: GUAIFENESIN/DEXTROMETHORPHAN 5 ML UDC GT PRN ×2 (06:59→15:07)
--- NOTE | 2019-02-12 07:00 | NUR ---
SEEN NOTES FROM AND WITH NNO.
[2019-02-12] MEDS: PHENOBARBITAL 64.8 MG TABLET GT SCH (08:00)
[2019-02-12] MEDS: ASPIRIN 81 MG TAB.CHEW GT SCH (08:00)
[2019-02-12] MEDS: METOPROLOL TARTRATE 100 MG TABLET GT SCH (08:00)
[2019-02-12] MEDS: SPIRONOLACTONE 25 MG TABLET GT SCH (08:00)
[2019-02-12] MEDS: METFORMIN HCL 500 MG TABLET PO SCH ×2 (08:00→17:48)
[2019-02-12] MEDS: LEVETIRACETAM 500 MG/5 ML LIQUID UDC GT SCH ×2 (08:01→21:10)
[2019-02-12] MEDS: VIMPAT 150 MG GT SCH ×2 (08:02→21:11)
[2019-02-12] MEDS: AMANTADINE 50MG/5ML GT SCH (08:02)
[2019-02-12] MEDS: COD LIVER OIL/ZINC OXIDE OINT 113 GM TUBE TP SCH ×2 (08:03→21:16)
[2019-02-12] MEDS: Z GUARD REMEDY PASTE 57 GM TUBE TP SCH ×2 (08:03→21:16)
[2019-02-12] MEDS: HYDROGEN PEROXIDE 3% 118 ML BOTTLE TP SCH ×2 (08:03→21:16)
[2019-02-12] MEDS: NUTRISOURCE FIBER 4 GM PACKET PO SCH ×2 (08:03→21:13)
[2019-02-12 10:46] VITALS: BP 104/65
[2019-02-12] MEDS: INSULIN REGULAR, HUMAN 300 UNIT/3 ML VIAL SQ PRN (11:20)
[2019-02-12] MEDS: IBUPROFEN 100 MG/5 ML LIQUID UDC- SA PATIENTS-PAIN ONLY GT PRN (11:23)
--- NOTE | 2019-02-12 12:00 | NUR ---
SEEN BY TIFFANIE MAURICIO.
[2019-02-12 20:11] VITALS: BP 129/71
[2019-02-12] MEDS: DIGOXIN 125 MCG TABLET GT SCH (21:11)
[2019-02-12] MEDS: MELATONIN 3 MG GT SCH (21:11)
[2019-02-12] MEDS: PROTEIN SUPPLEMENT (PROSTAT) 30 ML LIQUID GT SCH (21:13)
[2019-02-12] MEDS: PHENOBARBITAL 97.2 MG TABLET GT SCH (21:13)
[2019-02-12] MEDS: ENOXAPARIN SODIUM 40 MG/0.4 ML DISP.SYRIN SQ SCH (21:16)
[2019-02-13] MEDS: BLOOD SUGAR DIAGNOSTIC 1 EACH STRIP VI SCH ×4 (00:25→17:39)
[2019-02-13] MEDS: GLUCERNA 1.2 1000ML LIQUID GT SCH (00:26)
[2019-02-13] MEDS: IPRATROPIUM BROMIDE 0.5 MG/2.5 ML NEBU NEB SCH ×4 (00:46→19:34)
[2019-02-13] MEDS: LEVALBUTEROL HCL NEB 0.63 MG/3 ML NEBU NEB SCH ×4 (00:46→19:34)
[2019-02-13] MEDS: PHENYTOIN 100 MG/4 ML UDC GT SCH ×2 (05:44→17:38)
[2019-02-13] MEDS: FOLIC ACID 1 MG TABLET GT SCH (05:44)
[2019-02-13] MEDS: BENZTROPINE MESYLATE 0.5 MG TABLET GT SCH ×3 (05:44→22:56)
[2019-02-13] MEDS: FERROUS SULFATE 330 MG/7.5 ML UDC- FOR SA ONLY GT SCH (05:44)
[2019-02-13] MEDS: LORATADINE 10 MG TABLET GT SCH (05:44)
[2019-02-13] MEDS: OMEPRAZOLE 20 MG CAPSULE.DR GT SCH (05:44)
[2019-02-13] MEDS: LISINOPRIL 20 MG TABLET GT SCH ×2 (05:45→17:39)
[2019-02-13] MEDS: CYANOCOBALAMIN 100 MCG TABLET GT SCH (05:45)
[2019-02-13] MEDS: INSULIN NPH SQ SCH ×3 (05:46→23:00)
[2019-02-13] MEDS: INSULIN REGULAR, HUMAN 300 UNIT/3 ML VIAL SQ PRN (05:49)
[2019-02-13] MEDS: HYDROCODONE BIT/HOMATROPINE 5 ML UDC GT PRN (06:00)
[2019-02-13] MEDS: AMANTADINE 50MG/5ML GT SCH (08:01)
[2019-02-13] MEDS: SPIRONOLACTONE 25 MG TABLET GT SCH (08:01)
[2019-02-13] MEDS: PHENOBARBITAL 64.8 MG TABLET GT SCH (08:01)
[2019-02-13] MEDS: METFORMIN HCL 500 MG TABLET PO SCH ×2 (08:01→17:38)
[2019-02-13] MEDS: METOPROLOL TARTRATE 100 MG TABLET GT SCH (08:01)
[2019-02-13] MEDS: ASPIRIN 81 MG TAB.CHEW GT SCH (08:01)
[2019-02-13] MEDS: LEVETIRACETAM 500 MG/5 ML LIQUID UDC GT SCH ×2 (08:01→21:00)
[2019-02-13] MEDS: NUTRISOURCE FIBER 4 GM PACKET PO SCH ×2 (08:02→21:00)
[2019-02-13] MEDS: COD LIVER OIL/ZINC OXIDE OINT 113 GM TUBE TP SCH ×2 (08:02→21:00)
[2019-02-13] MEDS: VIMPAT 150 MG GT SCH ×2 (08:02→21:00)
[2019-02-13] MEDS: Z GUARD REMEDY PASTE 57 GM TUBE TP SCH ×2 (08:02→21:00)
[2019-02-13] MEDS: HYDROGEN PEROXIDE 3% 118 ML BOTTLE TP SCH ×2 (08:02→21:00)
[2019-02-13 11:36] VITALS: BP 136/82
--- NOTE | 2019-02-13 13:00 | NUR ---
SEEN BY DR. LIBORIO NESS AND WITH NNO.
--- NOTE | 2019-02-13 14:26 | NUR ---
PT NOT IN ROOM
[2019-02-13 19:58] VITALS: BP 157/93
[2019-02-13] MEDS: DIGOXIN 125 MCG TABLET GT SCH (21:00)
[2019-02-13] MEDS: MELATONIN 3 MG GT SCH (21:00)
[2019-02-13] MEDS: PHENOBARBITAL 97.2 MG TABLET GT SCH (21:00)
[2019-02-13] MEDS: MULTIVIT, IRON, MIN NO. 8, FA TABLET GT SCH (21:00)
[2019-02-13] MEDS: ENOXAPARIN SODIUM 40 MG/0.4 ML DISP.SYRIN SQ SCH (21:00)
[2019-02-13] MEDS: PROTEIN SUPPLEMENT (PROSTAT) 30 ML LIQUID GT SCH (21:00)
[2019-02-14] MEDS: BLOOD SUGAR DIAGNOSTIC 1 EACH STRIP VI SCH ×5 (00:49→23:13)
[2019-02-14] MEDS: LEVALBUTEROL HCL NEB 0.63 MG/3 ML NEBU NEB SCH ×4 (01:02→19:58)
[2019-02-14] MEDS: IPRATROPIUM BROMIDE 0.5 MG/2.5 ML NEBU NEB SCH ×4 (01:02→19:58)
[2019-02-14] MEDS: HYDROCODONE BIT/HOMATROPINE 5 ML UDC GT PRN ×2 (01:11→05:00)
[2019-02-14] MEDS: GLUCERNA 1.2 1000ML LIQUID GT SCH ×2 (01:11→22:02)
[2019-02-14] MEDS: LORATADINE 10 MG TABLET GT SCH (05:48)
[2019-02-14] MEDS: FERROUS SULFATE 330 MG/7.5 ML UDC- FOR SA ONLY GT SCH (05:48)
[2019-02-14] MEDS: LISINOPRIL 20 MG TABLET GT SCH ×2 (05:48→17:56)
[2019-02-14] MEDS: BENZTROPINE MESYLATE 0.5 MG TABLET GT SCH ×3 (05:48→21:30)
[2019-02-14] MEDS: PHENYTOIN 100 MG/4 ML UDC GT SCH ×2 (05:48→17:56)
[2019-02-14] MEDS: FOLIC ACID 1 MG TABLET GT SCH (05:48)
[2019-02-14] MEDS: CYANOCOBALAMIN 100 MCG TABLET GT SCH (05:48)
[2019-02-14] MEDS: OMEPRAZOLE 20 MG CAPSULE.DR GT SCH (05:48)
[2019-02-14] MEDS: INSULIN NPH SQ SCH ×3 (06:15→21:34)
[2019-02-14] MEDS: ASPIRIN 81 MG TAB.CHEW GT SCH (08:05)
[2019-02-14] MEDS: METOPROLOL TARTRATE 100 MG TABLET GT SCH (08:05)
[2019-02-14] MEDS: LEVETIRACETAM 500 MG/5 ML LIQUID UDC GT SCH ×2 (08:05→21:29)
[2019-02-14] MEDS: METFORMIN HCL 500 MG TABLET PO SCH ×2 (08:05→17:57)
[2019-02-14] MEDS: SPIRONOLACTONE 25 MG TABLET GT SCH (08:05)
[2019-02-14] MEDS: AMANTADINE 50MG/5ML GT SCH (08:06)
[2019-02-14] MEDS: NUTRISOURCE FIBER 4 GM PACKET PO SCH ×2 (08:06→21:29)
[2019-02-14] MEDS: PHENOBARBITAL 64.8 MG TABLET GT SCH (08:06)
[2019-02-14] MEDS: VIMPAT 150 MG GT SCH ×2 (08:06→21:29)
[2019-02-14] MEDS: COD LIVER OIL/ZINC OXIDE OINT 113 GM TUBE TP SCH ×2 (08:07→21:29)
[2019-02-14] MEDS: Z GUARD REMEDY PASTE 57 GM TUBE TP SCH ×2 (08:07→21:30)
[2019-02-14] MEDS: HYDROGEN PEROXIDE 3% 118 ML BOTTLE TP SCH ×2 (08:07→21:29)
[2019-02-14] MEDS: INSULIN REGULAR, HUMAN 300 UNIT/3 ML VIAL SQ PRN ×3 (11:38→23:13)
[2019-02-14] MEDS: GUAIFENESIN/DEXTROMETHORPHAN 5 ML UDC GT PRN (11:39)
[2019-02-14 19:53] VITALS: BP 116/70
[2019-02-14] MEDS: PHENOBARBITAL 97.2 MG TABLET GT SCH (21:29)
[2019-02-14] MEDS: MELATONIN 3 MG GT SCH (21:29)
[2019-02-14] MEDS: PROTEIN SUPPLEMENT (PROSTAT) 30 ML LIQUID GT SCH (21:29)
[2019-02-14] MEDS: DIGOXIN 125 MCG TABLET GT SCH (21:29)
[2019-02-14] MEDS: ENOXAPARIN SODIUM 40 MG/0.4 ML DISP.SYRIN SQ SCH (21:33)
[2019-02-15] MEDS: GUAIFENESIN/DEXTROMETHORPHAN 5 ML UDC GT PRN (01:25)
[2019-02-15] MEDS: LEVALBUTEROL HCL NEB 0.63 MG/3 ML NEBU NEB SCH ×4 (01:39→19:21)
[2019-02-15] MEDS: IPRATROPIUM BROMIDE 0.5 MG/2.5 ML NEBU NEB SCH ×4 (01:39→19:21)
[2019-02-15] MEDS: ACETAMINOPHEN 650 MG/20 ML UDC- SA PATIENTS-PAIN ONLY GT PRN (01:57)
[2019-02-15] MEDS: OMEPRAZOLE 20 MG CAPSULE.DR GT SCH (05:50)
[2019-02-15] MEDS: LORATADINE 10 MG TABLET GT SCH (05:50)
[2019-02-15] MEDS: FERROUS SULFATE 330 MG/7.5 ML UDC- FOR SA ONLY GT SCH (05:50)
[2019-02-15] MEDS: PHENYTOIN 100 MG/4 ML UDC GT SCH ×2 (05:50→17:47)
[2019-02-15] MEDS: LISINOPRIL 20 MG TABLET GT SCH ×2 (05:50→17:47)
[2019-02-15] MEDS: FOLIC ACID 1 MG TABLET GT SCH (05:50)
[2019-02-15] MEDS: BENZTROPINE MESYLATE 0.5 MG TABLET GT SCH ×3 (05:50→21:36)
[2019-02-15] MEDS: HYDROCODONE BIT/HOMATROPINE 5 ML UDC GT PRN (05:51)
[2019-02-15] MEDS: CYANOCOBALAMIN 100 MCG TABLET GT SCH (05:51)
[2019-02-15] MEDS: BLOOD SUGAR DIAGNOSTIC 1 EACH STRIP VI SCH ×4 (05:51→23:24)
[2019-02-15] MEDS: INSULIN NPH SQ SCH ×3 (05:52→21:40)
[2019-02-15] MEDS: INSULIN REGULAR, HUMAN 300 UNIT/3 ML VIAL SQ PRN ×4 (05:53→23:29)
[2019-02-15] MEDS: METFORMIN HCL 500 MG TABLET PO SCH ×2 (08:00→17:47)
[2019-02-15 08:11] VITALS: BP 157/90
[2019-02-15] MEDS: SPIRONOLACTONE 25 MG TABLET GT SCH (09:23)
[2019-02-15] MEDS: ASPIRIN 81 MG TAB.CHEW GT SCH (09:24)
[2019-02-15] MEDS: LEVETIRACETAM 500 MG/5 ML LIQUID UDC GT SCH ×2 (09:24→21:35)
[2019-02-15] MEDS: PHENOBARBITAL 64.8 MG TABLET GT SCH (09:25)
[2019-02-15] MEDS: METOPROLOL TARTRATE 100 MG TABLET GT SCH (09:25)
[2019-02-15] MEDS: HYDROGEN PEROXIDE 3% 118 ML BOTTLE TP SCH ×2 (09:29→21:36)
[2019-02-15] MEDS: NUTRISOURCE FIBER 4 GM PACKET PO SCH ×2 (09:29→21:36)
[2019-02-15] MEDS: COD LIVER OIL/ZINC OXIDE OINT 113 GM TUBE TP SCH ×2 (09:29→21:36)
[2019-02-15] MEDS: AMANTADINE 50MG/5ML GT SCH (09:29)
[2019-02-15] MEDS: Z GUARD REMEDY PASTE 57 GM TUBE TP SCH ×2 (09:29→21:36)
[2019-02-15] MEDS: VIMPAT 150 MG GT SCH ×2 (09:29→21:36)
[2019-02-15 20:26] VITALS: BP 123/67
[2019-02-15] MEDS: MELATONIN 3 MG GT SCH (21:36)
[2019-02-15] MEDS: MULTIVIT, IRON, MIN NO. 8, FA TABLET GT SCH (21:36)
[2019-02-15] MEDS: DIGOXIN 125 MCG TABLET GT SCH (21:36)
[2019-02-15] MEDS: PHENOBARBITAL 97.2 MG TABLET GT SCH (21:36)
[2019-02-15] MEDS: PROTEIN SUPPLEMENT (PROSTAT) 30 ML LIQUID GT SCH (21:36)
[2019-02-15] MEDS: ENOXAPARIN SODIUM 40 MG/0.4 ML DISP.SYRIN SQ SCH (21:38)
[2019-02-16] MEDS: LEVALBUTEROL HCL NEB 0.63 MG/3 ML NEBU NEB SCH ×4 (00:54→19:08)
[2019-02-16] MEDS: IPRATROPIUM BROMIDE 0.5 MG/2.5 ML NEBU NEB SCH ×4 (00:54→19:08)
[2019-02-16] MEDS: FERROUS SULFATE 330 MG/7.5 ML UDC- FOR SA ONLY GT SCH (06:09)
[2019-02-16] MEDS: PHENYTOIN 100 MG/4 ML UDC GT SCH ×2 (06:09→17:00)
[2019-02-16] MEDS: FOLIC ACID 1 MG TABLET GT SCH (06:09)
[2019-02-16] MEDS: OMEPRAZOLE 20 MG CAPSULE.DR GT SCH (06:09)
[2019-02-16] MEDS: LORATADINE 10 MG TABLET GT SCH (06:09)
[2019-02-16] MEDS: BENZTROPINE MESYLATE 0.5 MG TABLET GT SCH ×3 (06:09→21:32)
[2019-02-16] MEDS: LISINOPRIL 20 MG TABLET GT SCH ×2 (06:10→17:00)
[2019-02-16] MEDS: BLOOD SUGAR DIAGNOSTIC 1 EACH STRIP VI SCH ×4 (06:10→23:28)
[2019-02-16] MEDS: CYANOCOBALAMIN 100 MCG TABLET GT SCH (06:10)
[2019-02-16] MEDS: INSULIN NPH SQ SCH ×3 (06:11→21:32)
[2019-02-16] MEDS: INSULIN REGULAR, HUMAN 300 UNIT/3 ML VIAL SQ PRN ×4 (06:16→23:28)
[2019-02-16 08:10] VITALS: BP 132/74
[2019-02-16] MEDS: SPIRONOLACTONE 25 MG TABLET GT SCH (08:41)
[2019-02-16] MEDS: METFORMIN HCL 500 MG TABLET PO SCH ×2 (08:41→17:00)
[2019-02-16] MEDS: ASPIRIN 81 MG TAB.CHEW GT SCH (08:42)
[2019-02-16] MEDS: METOPROLOL TARTRATE 100 MG TABLET GT SCH (08:42)
[2019-02-16] MEDS: PHENOBARBITAL 64.8 MG TABLET GT SCH (08:42)
[2019-02-16] MEDS: LEVETIRACETAM 500 MG/5 ML LIQUID UDC GT SCH ×2 (08:42→21:32)
[2019-02-16] MEDS: VIMPAT 150 MG GT SCH ×2 (08:43→21:32)
[2019-02-16] MEDS: AMANTADINE 50MG/5ML GT SCH (08:43)
[2019-02-16] MEDS: Z GUARD REMEDY PASTE 57 GM TUBE TP SCH ×2 (08:44→21:32)
[2019-02-16] MEDS: HYDROGEN PEROXIDE 3% 118 ML BOTTLE TP SCH ×2 (08:44→21:32)
[2019-02-16] MEDS: NUTRISOURCE FIBER 4 GM PACKET PO SCH ×2 (08:44→21:32)
[2019-02-16] MEDS: COD LIVER OIL/ZINC OXIDE OINT 113 GM TUBE TP SCH ×2 (08:44→21:32)
[2019-02-16] MEDS: GUAIFENESIN/DEXTROMETHORPHAN 5 ML UDC GT PRN (08:45)
[2019-02-16] MEDS: GLUCERNA 1.2 1000ML LIQUID GT SCH (11:43)
[2019-02-16 20:10] VITALS: BP 130/86
[2019-02-16] MEDS: PROTEIN SUPPLEMENT (PROSTAT) 30 ML LIQUID GT SCH (21:32)
[2019-02-16] MEDS: DIGOXIN 125 MCG TABLET GT SCH (21:32)
[2019-02-16] MEDS: PHENOBARBITAL 97.2 MG TABLET GT SCH (21:32)
[2019-02-16] MEDS: MELATONIN 3 MG GT SCH (21:32)
[2019-02-16] MEDS: ENOXAPARIN SODIUM 40 MG/0.4 ML DISP.SYRIN SQ SCH (21:33)
[2019-02-17] MEDS: IPRATROPIUM BROMIDE 0.5 MG/2.5 ML NEBU NEB SCH ×4 (01:29→18:56)
[2019-02-17] MEDS: LEVALBUTEROL HCL NEB 0.63 MG/3 ML NEBU NEB SCH ×4 (01:29→18:56)
[2019-02-17] MEDS: FOLIC ACID 1 MG TABLET GT SCH (06:03)
[2019-02-17] MEDS: CYANOCOBALAMIN 100 MCG TABLET GT SCH (06:03)
[2019-02-17] MEDS: OMEPRAZOLE 20 MG CAPSULE.DR GT SCH (06:03)
[2019-02-17] MEDS: LORATADINE 10 MG TABLET GT SCH (06:03)
[2019-02-17] MEDS: LISINOPRIL 20 MG TABLET GT SCH ×2 (06:03→18:18)
[2019-02-17] MEDS: PHENYTOIN 100 MG/4 ML UDC GT SCH ×2 (06:03→18:20)
[2019-02-17] MEDS: FERROUS SULFATE 330 MG/7.5 ML UDC- FOR SA ONLY GT SCH (06:03)
[2019-02-17] MEDS: BENZTROPINE MESYLATE 0.5 MG TABLET GT SCH ×3 (06:03→22:18)
[2019-02-17] MEDS: INSULIN REGULAR, HUMAN 300 UNIT/3 ML VIAL SQ PRN ×2 (06:04→18:07)
[2019-02-17] MEDS: BLOOD SUGAR DIAGNOSTIC 1 EACH STRIP VI SCH ×3 (06:04→18:02)
[2019-02-17] MEDS: INSULIN NPH SQ SCH ×3 (06:05→22:19)
[2019-02-17 08:00] VITALS: BP 135/72
[2019-02-17] MEDS: METFORMIN HCL 500 MG TABLET PO SCH ×2 (08:00→18:19)
[2019-02-17] MEDS: HYDROGEN PEROXIDE 3% 118 ML BOTTLE TP SCH ×2 (09:00→20:50)
[2019-02-17] MEDS: Z GUARD REMEDY PASTE 57 GM TUBE TP SCH ×2 (09:00→20:50)
[2019-02-17] MEDS: PHENOBARBITAL 64.8 MG TABLET GT SCH (09:00)
[2019-02-17] MEDS: AMANTADINE 50MG/5ML GT SCH (09:00)
[2019-02-17] MEDS: NUTRISOURCE FIBER 4 GM PACKET PO SCH ×2 (09:00→20:49)
[2019-02-17] MEDS: COD LIVER OIL/ZINC OXIDE OINT 113 GM TUBE TP SCH ×2 (09:00→20:50)
[2019-02-17] MEDS: VIMPAT 150 MG GT SCH ×2 (09:00→20:38)
[2019-02-17] MEDS: SPIRONOLACTONE 25 MG TABLET GT SCH (09:00)
[2019-02-17] MEDS: ASPIRIN 81 MG TAB.CHEW GT SCH (09:00)
[2019-02-17] MEDS: LEVETIRACETAM 500 MG/5 ML LIQUID UDC GT SCH ×2 (09:00→20:38)
[2019-02-17] MEDS: METOPROLOL TARTRATE 100 MG TABLET GT SCH (09:00)
[2019-02-17] MEDS: GLUCERNA 1.2 1000ML LIQUID GT SCH (18:02)
[2019-02-17 19:46] VITALS: BP 122/67
[2019-02-17 19:49] VITALS: BP 138/84
[2019-02-17] MEDS: DIGOXIN 125 MCG TABLET GT SCH (20:38)
[2019-02-17] MEDS: MELATONIN 3 MG GT SCH (20:38)
[2019-02-17] MEDS: PROTEIN SUPPLEMENT (PROSTAT) 30 ML LIQUID GT SCH (20:49)
[2019-02-17] MEDS: PHENOBARBITAL 97.2 MG TABLET GT SCH (20:49)
[2019-02-17] MEDS: MULTIVIT, IRON, MIN NO. 8, FA TABLET GT SCH (20:49)
[2019-02-17] MEDS: ENOXAPARIN SODIUM 40 MG/0.4 ML DISP.SYRIN SQ SCH (20:50)
[2019-02-17] MEDS: GUAIFENESIN/DEXTROMETHORPHAN 5 ML UDC GT PRN (23:00)
[2019-02-18] MEDS: BLOOD SUGAR DIAGNOSTIC 1 EACH STRIP VI SCH ×4 (00:28→17:28)
[2019-02-18] MEDS: IPRATROPIUM BROMIDE 0.5 MG/2.5 ML NEBU NEB SCH ×4 (00:37→19:46)
[2019-02-18] MEDS: LEVALBUTEROL HCL NEB 0.63 MG/3 ML NEBU NEB SCH ×4 (00:37→19:46)
[2019-02-18] MEDS: ACETAMINOPHEN 650 MG/20 ML UDC- SA PATIENTS-PAIN ONLY GT PRN (05:00)
[2019-02-18] MEDS: PHENYTOIN 100 MG/4 ML UDC GT SCH ×2 (06:20→17:28)
[2019-02-18] MEDS: LORATADINE 10 MG TABLET GT SCH (06:20)
[2019-02-18] MEDS: FOLIC ACID 1 MG TABLET GT SCH (06:20)
[2019-02-18] MEDS: FERROUS SULFATE 330 MG/7.5 ML UDC- FOR SA ONLY GT SCH (06:20)
[2019-02-18] MEDS: OMEPRAZOLE 20 MG CAPSULE.DR GT SCH (06:20)
[2019-02-18] MEDS: LISINOPRIL 20 MG TABLET GT SCH ×2 (06:20→17:28)
[2019-02-18] MEDS: BENZTROPINE MESYLATE 0.5 MG TABLET GT SCH ×3 (06:20→21:39)
[2019-02-18] MEDS: CYANOCOBALAMIN 100 MCG TABLET GT SCH (06:20)
[2019-02-18] MEDS: INSULIN NPH SQ SCH ×3 (06:22→21:40)
[2019-02-18 08:00] VITALS: BP 120/69
[2019-02-18] MEDS: METFORMIN HCL 500 MG TABLET PO SCH ×2 (08:45→17:28)
[2019-02-18] MEDS: SPIRONOLACTONE 25 MG TABLET GT SCH (08:46)
[2019-02-18] MEDS: ASPIRIN 81 MG TAB.CHEW GT SCH (08:46)
[2019-02-18] MEDS: LEVETIRACETAM 500 MG/5 ML LIQUID UDC GT SCH ×2 (08:48→21:36)
[2019-02-18] MEDS: PHENOBARBITAL 64.8 MG TABLET GT SCH (08:49)
[2019-02-18] MEDS: AMANTADINE 50MG/5ML GT SCH (08:51)
[2019-02-18] MEDS: VIMPAT 150 MG GT SCH ×2 (08:51→21:37)
[2019-02-18] MEDS: COD LIVER OIL/ZINC OXIDE OINT 113 GM TUBE TP SCH ×2 (08:51→21:39)
[2019-02-18] MEDS: NUTRISOURCE FIBER 4 GM PACKET PO SCH ×2 (08:51→21:38)
[2019-02-18] MEDS: METOPROLOL TARTRATE 100 MG TABLET GT SCH (08:51)
[2019-02-18] MEDS: Z GUARD REMEDY PASTE 57 GM TUBE TP SCH ×2 (08:52→21:39)
[2019-02-18] MEDS: HYDROGEN PEROXIDE 3% 118 ML BOTTLE TP SCH ×2 (08:52→21:39)
[2019-02-18] MEDS: GLUCERNA 1.2 1000ML LIQUID GT SCH (12:07)
[2019-02-18] MEDS: INSULIN REGULAR, HUMAN 300 UNIT/3 ML VIAL SQ PRN (12:21)
[2019-02-18] MEDS: HYDROCODONE BIT/HOMATROPINE 5 ML UDC GT PRN (18:00)
[2019-02-18 20:00] VITALS: BP 147/86
--- NOTE | 2019-02-18 21:32 | NUR ---
Seen notes from Dr. Garcia ( Neurologist) with no new orders.
[2019-02-18] MEDS: DIGOXIN 125 MCG TABLET GT SCH (21:36)
[2019-02-18] MEDS: MELATONIN 3 MG GT SCH (21:36)
[2019-02-18] MEDS: PROTEIN SUPPLEMENT (PROSTAT) 30 ML LIQUID GT SCH (21:37)
[2019-02-18] MEDS: PHENOBARBITAL 97.2 MG TABLET GT SCH (21:37)
[2019-02-18] MEDS: ENOXAPARIN SODIUM 40 MG/0.4 ML DISP.SYRIN SQ SCH (21:39)
[2019-02-19] MEDS: IPRATROPIUM BROMIDE 0.5 MG/2.5 ML NEBU NEB SCH ×4 (01:22→18:42)
[2019-02-19] MEDS: LEVALBUTEROL HCL NEB 0.63 MG/3 ML NEBU NEB SCH ×4 (01:22→18:42)
[2019-02-19] MEDS: INSULIN REGULAR, HUMAN 300 UNIT/3 ML VIAL SQ PRN ×4 (01:48→23:18)
[2019-02-19] MEDS: LISINOPRIL 20 MG TABLET GT SCH ×2 (06:14→17:33)
[2019-02-19] MEDS: PHENYTOIN 100 MG/4 ML UDC GT SCH ×2 (06:14→17:33)
[2019-02-19] MEDS: FERROUS SULFATE 330 MG/7.5 ML UDC- FOR SA ONLY GT SCH (06:14)
[2019-02-19] MEDS: FOLIC ACID 1 MG TABLET GT SCH (06:14)
[2019-02-19] MEDS: BENZTROPINE MESYLATE 0.5 MG TABLET GT SCH ×3 (06:14→21:50)
[2019-02-19] MEDS: CYANOCOBALAMIN 100 MCG TABLET GT SCH (06:14)
[2019-02-19] MEDS: LORATADINE 10 MG TABLET GT SCH (06:14)
[2019-02-19] MEDS: OMEPRAZOLE 20 MG CAPSULE.DR GT SCH (06:14)
[2019-02-19] MEDS: INSULIN NPH SQ SCH ×3 (06:15→21:52)
[2019-02-19] MEDS: BLOOD SUGAR DIAGNOSTIC 1 EACH STRIP VI SCH ×5 (06:15→23:15)
[2019-02-19] MEDS: METFORMIN HCL 500 MG TABLET PO SCH ×2 (07:59→17:31)
[2019-02-19 08:00] VITALS: BP 129/80
[2019-02-19] MEDS: SPIRONOLACTONE 25 MG TABLET GT SCH (09:12)
[2019-02-19] MEDS: PHENOBARBITAL 64.8 MG TABLET GT SCH (09:13)
[2019-02-19] MEDS: NUTRISOURCE FIBER 4 GM PACKET PO SCH ×2 (09:13→21:49)
[2019-02-19] MEDS: METOPROLOL TARTRATE 100 MG TABLET GT SCH (09:13)
[2019-02-19] MEDS: ASPIRIN 81 MG TAB.CHEW GT SCH (09:13)
[2019-02-19] MEDS: VIMPAT 150 MG GT SCH ×2 (09:13→21:47)
[2019-02-19] MEDS: AMANTADINE 50MG/5ML GT SCH (09:14)
[2019-02-19] MEDS: Z GUARD REMEDY PASTE 57 GM TUBE TP SCH ×2 (09:14→21:50)
[2019-02-19] MEDS: LEVETIRACETAM 500 MG/5 ML LIQUID UDC GT SCH ×2 (09:14→21:46)
[2019-02-19] MEDS: HYDROGEN PEROXIDE 3% 118 ML BOTTLE TP SCH ×2 (09:14→21:50)
[2019-02-19] MEDS: COD LIVER OIL/ZINC OXIDE OINT 113 GM TUBE TP SCH ×2 (09:14→21:50)
[2019-02-19 20:36] VITALS: BP 120/81
[2019-02-19] MEDS: DIGOXIN 125 MCG TABLET GT SCH (21:47)
[2019-02-19] MEDS: MELATONIN 3 MG GT SCH (21:47)
[2019-02-19] MEDS: PHENOBARBITAL 97.2 MG TABLET GT SCH (21:48)
[2019-02-19] MEDS: PROTEIN SUPPLEMENT (PROSTAT) 30 ML LIQUID GT SCH (21:48)
[2019-02-19] MEDS: MULTIVIT, IRON, MIN NO. 8, FA TABLET GT SCH (21:49)
[2019-02-19] MEDS: ENOXAPARIN SODIUM 40 MG/0.4 ML DISP.SYRIN SQ SCH (21:50)
[2019-02-19] MEDS: HYDROCODONE BIT/HOMATROPINE 5 ML UDC GT PRN (22:30)
[2019-02-20] MEDS: LEVALBUTEROL HCL NEB 0.63 MG/3 ML NEBU NEB SCH ×4 (00:35→20:32)
[2019-02-20] MEDS: IPRATROPIUM BROMIDE 0.5 MG/2.5 ML NEBU NEB SCH ×4 (00:35→20:32)
[2019-02-20] MEDS: GLUCERNA 1.2 1000ML LIQUID GT SCH ×2 (01:45→23:23)
[2019-02-20] MEDS: HYDROCODONE BIT/HOMATROPINE 5 ML UDC GT PRN (05:30)
[2019-02-20] MEDS: LISINOPRIL 20 MG TABLET GT SCH ×2 (06:10→17:36)
[2019-02-20] MEDS: LORATADINE 10 MG TABLET GT SCH (06:10)
[2019-02-20] MEDS: FERROUS SULFATE 330 MG/7.5 ML UDC- FOR SA ONLY GT SCH (06:10)
[2019-02-20] MEDS: BENZTROPINE MESYLATE 0.5 MG TABLET GT SCH ×3 (06:10→22:28)
[2019-02-20] MEDS: PHENYTOIN 100 MG/4 ML UDC GT SCH ×2 (06:10→17:36)
[2019-02-20] MEDS: OMEPRAZOLE 20 MG CAPSULE.DR GT SCH (06:10)
[2019-02-20] MEDS: FOLIC ACID 1 MG TABLET GT SCH (06:10)
[2019-02-20] MEDS: CYANOCOBALAMIN 100 MCG TABLET GT SCH (06:10)
[2019-02-20] MEDS: BLOOD SUGAR DIAGNOSTIC 1 EACH STRIP VI SCH ×3 (06:11→17:36)
[2019-02-20] MEDS: INSULIN NPH SQ SCH ×3 (06:11→23:01)
[2019-02-20] MEDS: INSULIN REGULAR, HUMAN 300 UNIT/3 ML VIAL SQ PRN ×2 (06:13→11:44)
[2019-02-20 08:00] VITALS: BP 129/76
[2019-02-20] MEDS: ASPIRIN 81 MG TAB.CHEW GT SCH (08:43)
[2019-02-20] MEDS: SPIRONOLACTONE 25 MG TABLET GT SCH (08:43)
[2019-02-20] MEDS: METFORMIN HCL 500 MG TABLET PO SCH ×2 (08:43→17:36)
[2019-02-20] MEDS: NUTRISOURCE FIBER 4 GM PACKET PO SCH ×2 (08:44→21:00)
[2019-02-20] MEDS: VIMPAT 150 MG GT SCH ×2 (08:44→21:00)
[2019-02-20] MEDS: PHENOBARBITAL 64.8 MG TABLET GT SCH (08:44)
[2019-02-20] MEDS: AMANTADINE 50MG/5ML GT SCH (08:44)
[2019-02-20] MEDS: METOPROLOL TARTRATE 100 MG TABLET GT SCH (08:44)
[2019-02-20] MEDS: LEVETIRACETAM 500 MG/5 ML LIQUID UDC GT SCH ×2 (08:44→21:00)
[2019-02-20] MEDS: COD LIVER OIL/ZINC OXIDE OINT 113 GM TUBE TP SCH ×2 (08:45→21:00)
[2019-02-20] MEDS: HYDROGEN PEROXIDE 3% 118 ML BOTTLE TP SCH ×2 (08:45→21:00)
[2019-02-20] MEDS: Z GUARD REMEDY PASTE 57 GM TUBE TP SCH ×2 (08:45→21:00)
[2019-02-20 20:33] VITALS: BP_SYST 106; BP_SYST 110; BP_DIAS 56; BP_DIAS 74
[2019-02-20] MEDS: DIGOXIN 125 MCG TABLET GT SCH (21:00)
[2019-02-20] MEDS: PHENOBARBITAL 97.2 MG TABLET GT SCH (21:00)
[2019-02-20] MEDS: ENOXAPARIN SODIUM 40 MG/0.4 ML DISP.SYRIN SQ SCH (21:00)
[2019-02-20] MEDS: PROTEIN SUPPLEMENT (PROSTAT) 30 ML LIQUID GT SCH (21:00)
[2019-02-20] MEDS: MELATONIN 3 MG GT SCH (21:00)
[2019-02-21] MEDS: BLOOD SUGAR DIAGNOSTIC 1 EACH STRIP VI SCH ×5 (00:46→23:19)
[2019-02-21] MEDS: INSULIN REGULAR, HUMAN 300 UNIT/3 ML VIAL SQ PRN ×5 (00:47→23:25)
[2019-02-21] MEDS: IPRATROPIUM BROMIDE 0.5 MG/2.5 ML NEBU NEB SCH ×4 (01:58→19:43)
[2019-02-21] MEDS: LEVALBUTEROL HCL NEB 0.63 MG/3 ML NEBU NEB SCH ×4 (01:59→19:43)
[2019-02-21] MEDS: LORATADINE 10 MG TABLET GT SCH (05:34)
[2019-02-21] MEDS: BENZTROPINE MESYLATE 0.5 MG TABLET GT SCH ×3 (05:34→21:57)
[2019-02-21] MEDS: CYANOCOBALAMIN 100 MCG TABLET GT SCH (05:35)
[2019-02-21] MEDS: FERROUS SULFATE 330 MG/7.5 ML UDC- FOR SA ONLY GT SCH (05:35)
[2019-02-21] MEDS: FOLIC ACID 1 MG TABLET GT SCH (05:35)
[2019-02-21] MEDS: PHENYTOIN 100 MG/4 ML UDC GT SCH ×2 (05:35→18:12)
[2019-02-21] MEDS: OMEPRAZOLE 20 MG CAPSULE.DR GT SCH (05:35)
[2019-02-21] MEDS: INSULIN NPH SQ SCH ×3 (05:51→21:59)
[2019-02-21] MEDS: LISINOPRIL 20 MG TABLET GT SCH ×2 (06:17→18:16)
[2019-02-21 07:06] VITALS: BP 138/78
[2019-02-21 08:00] VITALS: BP 146/87
[2019-02-21] MEDS: METFORMIN HCL 500 MG TABLET PO SCH ×2 (08:27→18:16)
[2019-02-21] MEDS: SPIRONOLACTONE 25 MG TABLET GT SCH (09:04)
[2019-02-21] MEDS: LEVETIRACETAM 500 MG/5 ML LIQUID UDC GT SCH ×2 (09:04→21:56)
[2019-02-21] MEDS: ASPIRIN 81 MG TAB.CHEW GT SCH (09:04)
[2019-02-21] MEDS: PHENOBARBITAL 64.8 MG TABLET GT SCH (09:06)
[2019-02-21] MEDS: METOPROLOL TARTRATE 100 MG TABLET GT SCH (09:10)
[2019-02-21] MEDS: HYDROGEN PEROXIDE 3% 118 ML BOTTLE TP SCH ×2 (09:11→21:57)
[2019-02-21] MEDS: COD LIVER OIL/ZINC OXIDE OINT 113 GM TUBE TP SCH ×2 (09:11→21:57)
[2019-02-21] MEDS: Z GUARD REMEDY PASTE 57 GM TUBE TP SCH ×2 (09:11→21:57)
[2019-02-21] MEDS: VIMPAT 150 MG GT SCH ×2 (09:11→21:57)
[2019-02-21] MEDS: NUTRISOURCE FIBER 4 GM PACKET PO SCH ×2 (09:11→21:57)
[2019-02-21] MEDS: AMANTADINE 50MG/5ML GT SCH (09:11)
[2019-02-21] MEDS: GLUCERNA 1.2 1000ML LIQUID GT SCH (12:30)
[2019-02-21] MEDS: HYDROCODONE BIT/HOMATROPINE 5 ML UDC GT PRN (12:42)
[2019-02-21 20:46] VITALS: BP 128/85
[2019-02-21] MEDS: PHENOBARBITAL 97.2 MG TABLET GT SCH (21:57)
[2019-02-21] MEDS: DIGOXIN 125 MCG TABLET GT SCH (21:57)
[2019-02-21] MEDS: MELATONIN 3 MG GT SCH (21:57)
[2019-02-21] MEDS: MULTIVIT, IRON, MIN NO. 8, FA TABLET GT SCH (21:57)
[2019-02-21] MEDS: PROTEIN SUPPLEMENT (PROSTAT) 30 ML LIQUID GT SCH (21:57)
[2019-02-21] MEDS: ENOXAPARIN SODIUM 40 MG/0.4 ML DISP.SYRIN SQ SCH (21:58)
[2019-02-22] MEDS: IPRATROPIUM BROMIDE 0.5 MG/2.5 ML NEBU NEB SCH ×4 (01:20→19:59)
[2019-02-22] MEDS: LEVALBUTEROL HCL NEB 0.63 MG/3 ML NEBU NEB SCH ×4 (01:20→19:59)
[2019-02-22] MEDS: GUAIFENESIN/DEXTROMETHORPHAN 5 ML UDC GT PRN (01:44)
[2019-02-22] MEDS: FERROUS SULFATE 330 MG/7.5 ML UDC- FOR SA ONLY GT SCH (05:09)
[2019-02-22] MEDS: LORATADINE 10 MG TABLET GT SCH (05:09)
[2019-02-22] MEDS: PHENYTOIN 100 MG/4 ML UDC GT SCH ×2 (05:09→17:30)
[2019-02-22] MEDS: FOLIC ACID 1 MG TABLET GT SCH (05:09)
[2019-02-22] MEDS: OMEPRAZOLE 20 MG CAPSULE.DR GT SCH (05:09)
[2019-02-22] MEDS: BENZTROPINE MESYLATE 0.5 MG TABLET GT SCH ×3 (05:09→22:54)
[2019-02-22] MEDS: BLOOD SUGAR DIAGNOSTIC 1 EACH STRIP VI SCH ×3 (05:10→17:37)
[2019-02-22] MEDS: CYANOCOBALAMIN 100 MCG TABLET GT SCH (05:10)
[2019-02-22] MEDS: LISINOPRIL 20 MG TABLET GT SCH ×2 (05:10→17:53)
[2019-02-22] MEDS: INSULIN NPH SQ SCH ×3 (05:23→22:57)
[2019-02-22] MEDS: INSULIN REGULAR, HUMAN 300 UNIT/3 ML VIAL SQ PRN ×2 (05:24→11:50)
[2019-02-22 08:00] VITALS: BP 130/76
[2019-02-22] MEDS: METFORMIN HCL 500 MG TABLET PO SCH ×2 (08:00→17:30)
[2019-02-22] MEDS: METOPROLOL TARTRATE 100 MG TABLET GT SCH (09:11)
[2019-02-22] MEDS: ASPIRIN 81 MG TAB.CHEW GT SCH (09:11)
[2019-02-22] MEDS: PHENOBARBITAL 64.8 MG TABLET GT SCH (09:11)
[2019-02-22] MEDS: LEVETIRACETAM 500 MG/5 ML LIQUID UDC GT SCH ×2 (09:11→20:27)
[2019-02-22] MEDS: SPIRONOLACTONE 25 MG TABLET GT SCH (09:11)
[2019-02-22] MEDS: NUTRISOURCE FIBER 4 GM PACKET PO SCH ×2 (09:12→20:28)
[2019-02-22] MEDS: COD LIVER OIL/ZINC OXIDE OINT 113 GM TUBE TP SCH ×2 (09:12→20:29)
[2019-02-22] MEDS: HYDROGEN PEROXIDE 3% 118 ML BOTTLE TP SCH ×2 (09:12→20:33)
[2019-02-22] MEDS: VIMPAT 150 MG GT SCH ×2 (09:12→20:32)
[2019-02-22] MEDS: AMANTADINE 50MG/5ML GT SCH (09:12)
[2019-02-22] MEDS: Z GUARD REMEDY PASTE 57 GM TUBE TP SCH ×2 (09:12→20:29)
[2019-02-22] MEDS: DIGOXIN 125 MCG TABLET GT SCH (20:27)
[2019-02-22] MEDS: PROTEIN SUPPLEMENT (PROSTAT) 30 ML LIQUID GT SCH (20:28)
[2019-02-22] MEDS: PHENOBARBITAL 97.2 MG TABLET GT SCH (20:32)
[2019-02-22] MEDS: MELATONIN 3 MG GT SCH (20:32)
[2019-02-22] MEDS: ENOXAPARIN SODIUM 40 MG/0.4 ML DISP.SYRIN SQ SCH (20:33)
[2019-02-22 21:32] VITALS: BP 106/62
[2019-02-23] MEDS: BLOOD SUGAR DIAGNOSTIC 1 EACH STRIP VI SCH ×3 (00:18→12:00)
[2019-02-23] MEDS: INSULIN REGULAR, HUMAN 300 UNIT/3 ML VIAL SQ PRN ×2 (00:22→05:50)
[2019-02-23] MEDS: IPRATROPIUM BROMIDE 0.5 MG/2.5 ML NEBU NEB SCH ×3 (01:35→13:24)
[2019-02-23] MEDS: LEVALBUTEROL HCL NEB 0.63 MG/3 ML NEBU NEB SCH ×3 (01:35→13:24)
[2019-02-23] MEDS: GLUCERNA 1.2 1000ML LIQUID GT SCH (04:31)
[2019-02-23] MEDS: LORATADINE 10 MG TABLET GT SCH (05:48)
[2019-02-23] MEDS: OMEPRAZOLE 20 MG CAPSULE.DR GT SCH (05:48)
[2019-02-23] MEDS: FERROUS SULFATE 330 MG/7.5 ML UDC- FOR SA ONLY GT SCH (05:48)
[2019-02-23] MEDS: PHENYTOIN 100 MG/4 ML UDC GT SCH (05:48)
[2019-02-23] MEDS: BENZTROPINE MESYLATE 0.5 MG TABLET GT SCH (05:48)
[2019-02-23] MEDS: CYANOCOBALAMIN 100 MCG TABLET GT SCH (05:48)
[2019-02-23] MEDS: LISINOPRIL 20 MG TABLET GT SCH (05:48)
[2019-02-23] MEDS: FOLIC ACID 1 MG TABLET GT SCH (05:48)
[2019-02-23] MEDS: INSULIN NPH SQ SCH (05:50)
[2019-02-23] MEDS: METFORMIN HCL 500 MG TABLET PO SCH (08:00)
[2019-02-23 08:13] VITALS: BP 143/86
[2019-02-23 09:00] VITALS: BP 143/86
[2019-02-23] MEDS: LEVETIRACETAM 500 MG/5 ML LIQUID UDC GT SCH (09:00)
[2019-02-23] MEDS: AMANTADINE 50MG/5ML GT SCH (09:00)
[2019-02-23] MEDS: ASPIRIN 81 MG TAB.CHEW GT SCH (09:00)
[2019-02-23] MEDS: NUTRISOURCE FIBER 4 GM PACKET PO SCH (09:00)
[2019-02-23] MEDS: HYDROGEN PEROXIDE 3% 118 ML BOTTLE TP SCH (09:00)
[2019-02-23] MEDS: PHENOBARBITAL 64.8 MG TABLET GT SCH (09:00)
[2019-02-23] MEDS: METOPROLOL TARTRATE 100 MG TABLET GT SCH (09:00)
[2019-02-23] MEDS: COD LIVER OIL/ZINC OXIDE OINT 113 GM TUBE TP SCH (09:00)
[2019-02-23] MEDS: SPIRONOLACTONE 25 MG TABLET GT SCH (09:00)
[2019-02-23] MEDS: Z GUARD REMEDY PASTE 57 GM TUBE TP SCH (09:00)
[2019-02-23] MEDS: VIMPAT 150 MG GT SCH (09:00)
--- NOTE | 2019-02-23 14:00 | NUR ---
PRIMARY NURSE FOUND THE PATIENT NON-RESPONSIVE WITH NO PULSE AT 1335. PATIENT WAS DNR SO RT AND THE NURSING POLYSOMNOGRAPHIC TECH WAS NOTIFIED. FURTHER ASSESSMENT REVEALED NO SPONTANEOUS BREATHING OR MOVEMENT NOTED, NO BREATH SOUND WAS AUSCULTATED. PATIENT WAS NON-RESPONSIVE WITH NO PALPABLE APICAL PULSE, PUPILS WERE DILATED AND FIX. THE NURSING POLYSOMNOGRAPHIC TECH PRONOUNCE PATIENT AT 1350. PAGED TO NOTIFY ATTENDING DOCTOR; DR. CRYSTAL. DR. SALDIVAR, ON-CALL-FOR DR. CRYSTAL RETURNED THE CALL. NOTIFIED DR. SALDIVAR OF THE PATIENT CONDITION. HE AUTHORIZED THE RELEASE OF THE BODY TO THE FAMILY. NOTIFIED RESPONSIBLE DEMOCRAT. NOTIFIED [facility] CASE # [id number]. POSTMORTEM CARE PROVIDED. BODY PICKED UP BY MORTUARY OF CHOICE: [facility] AT 1728. CALLED TO INFORM ADMISSION OF THE EXPIRATION. PATIENT BELONGING RELEASED TO FAMILY.
== END 2019-02-23 17:28 | DRG 189 ==
LOC: SA
PROVIDERS: ADMIT Internal Medicine Nephrology; ATTEND Internal Medicine Pulmonary Disease
DX: J96.11 Chronic respiratory failure with hypoxia (principal); L89.303 Pressure ulcer of unspecified buttock, stage 3; G93.1 Anoxic brain damage, not elsewhere classified; I42.9 Cardiomyopathy, unspecified; K94.22 Gastrostomy infection; L03.311 Cellulitis of abdominal wall; B37.0 Candidal stomatitis; J98.11 Atelectasis; Z66 Do not resuscitate; I11.0 Hypertensive heart disease with heart failure; Z93.0 Tracheostomy status; I50.9 Heart failure, unspecified; R13.10 Dysphagia, unspecified; I48.91 Unspecified atrial fibrillation; I69.398 Other sequelae of cerebral infarction; I25.10 Atherosclerotic heart disease of native coronary artery without angina pectoris; E78.5 Hyperlipidemia, unspecified; Z79.01 Long term (current) use of anticoagulants; D63.8 Anemia in other chronic diseases classified elsewhere; G40.909 Epilepsy, unspecified, not intractable, without status epilepticus; B95.62 Methicillin resistant Staphylococcus aureus infection as the cause of diseases classified elsewhere; Z87.440 Personal history of urinary (tract) infections; Z87.01 Personal history of pneumonia (recurrent); Z86.74 Personal history of sudden cardiac arrest; Z86.19 Personal history of other infectious and parasitic diseases; E11.65 Type 2 diabetes mellitus with hyperglycemia; D64.9 Anemia, unspecified; H54.7 Unspecified visual loss; K03.6 Deposits [accretions] on teeth; E87.5 Hyperkalemia; L73.1 Pseudofolliculitis barbae; F10.11 Alcohol abuse, in remission; Y90.9 Presence of alcohol in blood, level not specified; Z99.81 Dependence on supplemental oxygen; R74.0 Nonspecific elevation of levels of transaminase and lactic acid dehydrogenase [LDH]
CPT/HCPCS: 36415; 71045; 80184; 83735; 84100; 84520; 85025; 87070; 87077; 88342; 92507; 94640; A4663; J0692; J1650; J1815; J3370; J3490; J3590; J7060